=== PATIENT | male | born 1945 | race Caucasian/White ===

== ENCOUNTER 2016-02-19 09:00 | Outpatient (RCR) | payer MEDICARE, OTHER | END 2016-03-17 | LOC: M CR 09:00 | PROVIDERS: ATTEND Internal Medicine Cardiovascular Disease | DX: Z51.89 Encounter for other specified aftercare (principal); I51.9 Heart disease, unspecified; Z95.0 Presence of cardiac pacemaker ==

== ENCOUNTER → 2016-05-19 | Outpatient (CLI) | payer MEDICARE, OTHER ==
[2016-05-19 14:09] LABS: ALBUMIN 3.3 GM/DL (3.2-5.2); ALBUMIN/GLOBULIN RATIO 0.97 (1.00-1.93); BILIRUBIN,TOTAL 1.7 MG/DL (0.2-1.0); CALCIUM LEVEL 9.9 MG/DL (8.8-10.2); CREATININE FOR GFR 1.42 MG/DL (0.70-1.30); GLOMERULAR FILTRATION RATE 52.6 (>49); POTASSIUM SERUM 4.1 MEQ/L (3.5-5.1); TOTAL PROTEIN 6.7 GM/DL (6.4-8.2)
[2016-05-19 14:28] LABS: BASO % 0.4 % (0.0-1.0); EOS # 0.3 K/mm3 (0.0-0.50); LARGE UNSTAINED CELL # 0.1 K/mm3 (0.0-0.4); LARGE UNSTAINED CELL % 1.7 % (0.0-4.0); LYMPH # 1.1 K/mm3 (1.5-4.5); MEAN CORPUSCULAR HEMOGLOBIN 29.4 pg (27.0-33.0); MEAN CORPUSCULAR HGB CONC 31.6 g/dl (32.0-36.5); MEAN CORPUSCULAR VOLUME 92.9 fl (80.0-96.0); MONO # 0.5 K/mm3 (0.0-0.8); MONO % 8.2 % (0.0-5.0); NEUTROPHILS # 4.2 K/mm3 (1.8-7.7); NEUTROPHILS % 68.8 % (36.0-66.0); PLATELET COUNT, AUTOMATED 169 k/mm3 (150-450); RED CELL DISTRIBUTION WIDTH 16.4 % (11.5-14.5); WHITE BLOOD COUNT 6.1 K/mm3 (4.0-10.0)
== END ==
LOC: M WUC 10:12
PROVIDERS: ATTEND Internal Medicine Cardiovascular Disease
DX: I10 Essential (primary) hypertension (principal); I44.2 Atrioventricular block, complete; I50.42 Chronic combined systolic (congestive) and diastolic (congestive) heart failure

== ENCOUNTER → 2016-06-12 | Outpatient (CLI) | payer MEDICARE, OTHER ==
[2016-06-12 09:15] LABS: MEAN CORPUSCULAR HEMOGLOBIN 30.2 pg (27.0-33.0); MEAN CORPUSCULAR HGB CONC 32.4 g/dl (32.0-36.5); RED CELL DISTRIBUTION WIDTH 16.7 % (11.5-14.5); WHITE BLOOD COUNT 5.9 K/mm3 (4.0-10.0)
[2016-06-12 09:26] LABS: ALBUMIN 3.2 GM/DL (3.2-5.2); ALBUMIN/GLOBULIN RATIO 0.89 (1.00-1.93); BILIRUBIN,TOTAL 1.8 MG/DL (0.2-1.0); CALCIUM LEVEL 9.5 MG/DL (8.8-10.2); CREATININE FOR GFR 1.59 MG/DL (0.70-1.30); GLOMERULAR FILTRATION RATE 46.2 (>49); POTASSIUM SERUM 4.2 MEQ/L (3.5-5.1); TOTAL PROTEIN 6.8 GM/DL (6.4-8.2)
== END ==
LOC: M WUC 08:12
PROVIDERS: ATTEND Internal Medicine
DX: J45.909 Unspecified asthma, uncomplicated (principal); I10 Essential (primary) hypertension; E78.00 Pure hypercholesterolemia, unspecified

== ENCOUNTER → 2016-09-17 | Outpatient (CLI) | payer MEDICARE, OTHER ==
[2016-09-17 09:51] LABS: ALBUMIN 3.6 GM/DL (3.2-5.2); ALBUMIN/GLOBULIN RATIO 0.88 (1.00-1.93); BILIRUBIN,TOTAL 1.2 MG/DL (0.2-1.0); CALCIUM LEVEL 10.1 MG/DL (8.8-10.2); CREATININE FOR GFR 1.53 MG/DL (0.70-1.30); GLOMERULAR FILTRATION RATE 48.1 (>42); MAGNESIUM LEVEL 2.5 MG/DL (1.8-2.4); TOTAL PROTEIN 7.7 GM/DL (6.4-8.2)
== END ==
LOC: M WUC 08:06
PROVIDERS: ATTEND Internal Medicine
DX: I42.9 Cardiomyopathy, unspecified (principal)

== ENCOUNTER 2016-09-30 09:05 | Outpatient (RCR) | payer SELFPAY | END 2016-10-15 | LOC: M CARPUL 09:05 | PROVIDERS: ATTEND Internal Medicine Cardiovascular Disease | DX: Z51.89 Encounter for other specified aftercare (principal); Z95.0 Presence of cardiac pacemaker; Z98.890 Other specified postprocedural states ==

== ENCOUNTER → 2016-11-04 | Outpatient (CLI) | payer MEDICARE ==
[2016-11-04 15:49] LABS: CALCIUM LEVEL 10.6 MG/DL (8.8-10.2); CREATININE FOR GFR 2.16 MG/DL (0.70-1.30); GLOMERULAR FILTRATION RATE 32.3 (>42)
[2016-11-04 15:51] LABS: POTASSIUM SERUM 5.7 MEQ/L (3.5-5.1)
== END ==
LOC: M WUC 11:03
PROVIDERS: ATTEND Physician Assistant
DX: I50.42 Chronic combined systolic (congestive) and diastolic (congestive) heart failure (principal)

== ENCOUNTER → 2016-11-18 | Outpatient (CLI) | payer MEDICARE ==
[2016-11-18 09:22] LABS: CALCIUM LEVEL 10.4 MG/DL (8.8-10.2); CREATININE FOR GFR 2.16 MG/DL (0.70-1.30); GLOMERULAR FILTRATION RATE 32.3 (>42); POTASSIUM SERUM 4.9 MEQ/L (3.5-5.1)
== END ==
LOC: M WUC 08:11
PROVIDERS: ATTEND Internal Medicine Cardiovascular Disease
DX: I10 Essential (primary) hypertension (principal)

== ENCOUNTER → 2017-01-29 | Outpatient (CLI) | payer MEDICARE, OTHER ==
[2017-01-29 13:59] LABS: ALBUMIN 3.7 GM/DL (3.2-5.2); BILIRUBIN,DIRECT 0.5 MG/DL (0.0-0.2); BILIRUBIN,TOTAL 0.8 MG/DL (0.2-1.0); CALCIUM LEVEL 9.7 MG/DL (8.8-10.2); CREATININE FOR GFR 2.26 MG/DL (0.70-1.30); GLOMERULAR FILTRATION RATE 30.7 (>42); POTASSIUM SERUM 5.1 MEQ/L (3.5-5.1); TOTAL PROTEIN 7.4 GM/DL (6.4-8.2)
== END ==
LOC: M WUC 10:45
PROVIDERS: ATTEND Internal Medicine Cardiovascular Disease
DX: E78.2 Mixed hyperlipidemia (principal)

== ENCOUNTER 2017-03-15 11:00 | Day surgery (SDC) | payer MEDICARE, OTHER ==
[2017-03-15] MEDS ORDERED: NS 1,000 ML IV (12:45)
[2017-03-15] MEDS ORDERED: LIDOCAINE 2% INJ 100 MG/5 ML SDV (FOR ANES.) As Ordered (13:32)
[2017-03-15] MEDS ORDERED: PROPOFOL 200 MG/20 ML VIAL As Ordered ×2 (13:32)
== END 2017-03-15 14:05 | disposition home or self-care (01) ==
LOC: M OPP 11:00
DX: Z12.11 Encounter for screening for malignant neoplasm of colon (principal); Z86.010 Personal history of colon polyps; D12.2 Benign neoplasm of ascending colon; D12.3 Benign neoplasm of transverse colon; K64.0 First degree hemorrhoids; K57.30 Diverticulosis of large intestine without perforation or abscess without bleeding; K21.9 Gastro-esophageal reflux disease without esophagitis; Z79.899 Other long term (current) drug therapy
CPT/HCPCS: 45385

== ENCOUNTER → 2017-04-05 | Outpatient (REF) | payer MEDICARE, OTHER ==
[2017-04-05 12:15] LABS: ALBUMIN/GLOBULIN RATIO 1.18 (1.00-1.93); ALKALINE PHOSPHATASE 204 U/L (45-117); ALT/SGPT 40 U/L (12-78); ANION GAP 7 MEQ/L (8-16); AST/SGOT 30 U/L (7-37); BILIRUBIN,TOTAL 1.2 MG/DL (0.2-1.0); BLOOD UREA NITROGEN 41 MG/DL (7-18); CALCIUM LEVEL 9.7 MG/DL (8.8-10.2); CARBON DIOXIDE LEVEL 29 MEQ/L (21-32); CHLORIDE LEVEL 103 MEQ/L (98-107); CHOLESTEROL LEVEL 137 MG/DL (<200); CHOLESTEROL RISK RATIO 2.174 (<5); CREATININE FOR GFR 1.71 MG/DL (0.70-1.30); GLOMERULAR FILTRATION RATE 42.3 (>42); GLUCOSE, FASTING 97 MG/DL (70-100); HDL CHOLESTEROL 63 MG/DL (>40); MAGNESIUM LEVEL 2.6 MG/DL (1.8-2.4); NON-HDL-C 74 MG/DL; POTASSIUM SERUM 4.6 MEQ/L (3.5-5.1); SODIUM LEVEL 139 MEQ/L (136-145); TOTAL PROTEIN 7.4 GM/DL (6.4-8.2); TRIGLYCERIDES LEVEL 65 MG/DL (<150)
[2017-04-05 12:22] LABS: HEMATOCRIT 39.7 % (42.0-52.0); HEMOGLOBIN 13.1 g/dl (14.0-18.0); MEAN CORPUSCULAR HEMOGLOBIN 32.2 pg (27.0-33.0); MEAN CORPUSCULAR VOLUME 97.5 fl (80.0-96.0); PLATELET COUNT, AUTOMATED 161 10^3/uL (150-450); RED BLOOD COUNT 4.07 10^6/uL (4.30-6.10); RED CELL DISTRIBUTION WIDTH 14.6 % (11.5-14.5); WHITE BLOOD COUNT 5.8 10^3/uL (4.0-10.0)
[2017-04-05 13:34] LABS: PTH INTACT 82.8 PG/ML (18.5-88.0)
== END ==
LOC: M SFHCPLAZ 08:14
DX: G47.30 Sleep apnea, unspecified (principal); I10 Essential (primary) hypertension; E78.00 Pure hypercholesterolemia, unspecified; N18.3 Chronic kidney disease, stage 3 (moderate)
CPT/HCPCS: 83735

== ENCOUNTER → 2017-04-15 | Outpatient (CLI) | payer MEDICARE, OTHER ==
[2017-04-15 14:03] LABS: ALBUMIN 3.9 GM/DL (3.2-5.2); ALKALINE PHOSPHATASE 174 U/L (45-117); ALT/SGPT 35 U/L (12-78); ANION GAP 6 MEQ/L (8-16); AST/SGOT 24 U/L (7-37); BILIRUBIN,DIRECT 0.5 MG/DL (0.0-0.2); BILIRUBIN,TOTAL 0.9 MG/DL (0.2-1.0); BLOOD UREA NITROGEN 52 MG/DL (7-18); CALCIUM LEVEL 9.9 MG/DL (8.8-10.2); CARBON DIOXIDE LEVEL 29 MEQ/L (21-32); CHLORIDE LEVEL 104 MEQ/L (98-107); CREATININE FOR GFR 1.86 MG/DL (0.70-1.30); GLOMERULAR FILTRATION RATE 38.4 (>42); GLUCOSE, FASTING 102 MG/DL (70-100); SODIUM LEVEL 139 MEQ/L (136-145); TOTAL PROTEIN 6.9 GM/DL (6.4-8.2)
[2017-04-15 14:09] LABS: POTASSIUM SERUM 5.6 MEQ/L (3.5-5.1)
== END ==
LOC: M WUC 09:23
DX: E78.2 Mixed hyperlipidemia (principal)
CPT/HCPCS: 80076

== ENCOUNTER → 2017-05-12 | Outpatient (CLI) | payer MEDICARE, OTHER ==
[2017-05-12 11:28] LABS: ANION GAP 7 MEQ/L (8-16); BLOOD UREA NITROGEN 47 MG/DL (7-18); CARBON DIOXIDE LEVEL 28 MEQ/L (21-32); CHLORIDE LEVEL 105 MEQ/L (98-107); CREATININE FOR GFR 1.66 MG/DL (0.70-1.30); GLOMERULAR FILTRATION RATE 43.8 (>42); GLUCOSE, FASTING 91 MG/DL (70-100); POTASSIUM SERUM 4.7 MEQ/L (3.5-5.1); SODIUM LEVEL 140 MEQ/L (136-145)
== END ==
LOC: M WUC 10:09
DX: E78.2 Mixed hyperlipidemia (principal)
CPT/HCPCS: 80048

== ENCOUNTER → 2017-08-24 | Outpatient (REF) | payer MEDICARE, OTHER ==
[2017-08-24 11:16] LABS: ALBUMIN 4.2 GM/DL (3.2-5.2); ALBUMIN/GLOBULIN RATIO 1.14 (1.00-1.93); ALKALINE PHOSPHATASE 198 U/L (45-117); ALT/SGPT 43 U/L (12-78); ANION GAP 6 MEQ/L (8-16); AST/SGOT 32 U/L (7-37); BILIRUBIN,TOTAL 1.3 MG/DL (0.2-1.0); BLOOD UREA NITROGEN 70 MG/DL (7-18); CALCIUM LEVEL 10.3 MG/DL (8.8-10.2); CARBON DIOXIDE LEVEL 31 MEQ/L (21-32); CHLORIDE LEVEL 102 MEQ/L (98-107); CREATININE FOR GFR 2.36 MG/DL (0.70-1.30); GLOMERULAR FILTRATION RATE 29.2 (>42); GLUCOSE, FASTING 104 MG/DL (70-100); POTASSIUM SERUM 4.6 MEQ/L (3.5-5.1); SODIUM LEVEL 139 MEQ/L (136-145); TOTAL PROTEIN 7.9 GM/DL (6.4-8.2)
[2017-08-24 11:27] LABS: PTH INTACT 60.5 PG/ML (18.5-88.0)
== END ==
LOC: M SFHCPLAZ 08:52
DX: Z00.00 Encounter for general adult medical examination without abnormal findings (principal); I12.9 Hypertensive chronic kidney disease with stage 1 through stage 4 chronic kidney disease, or unspecified chronic kidney disease; N18.3 Chronic kidney disease, stage 3 (moderate)
CPT/HCPCS: 83735

== ENCOUNTER → 2017-08-30 | Outpatient (CLI) | payer MEDICARE, OTHER ==
[2017-08-30 13:47] LABS: ANION GAP 9 MEQ/L (8-16); BLOOD UREA NITROGEN 55 MG/DL (7-18); CALCIUM LEVEL 10.2 MG/DL (8.8-10.2); CARBON DIOXIDE LEVEL 24 MEQ/L (21-32); CHLORIDE LEVEL 106 MEQ/L (98-107); CREATININE FOR GFR 1.85 MG/DL (0.70-1.30); GLOMERULAR FILTRATION RATE 38.7 (>42); GLUCOSE, FASTING 98 MG/DL (70-100); SODIUM LEVEL 139 MEQ/L (136-145)
[2017-08-30 13:57] LABS: POTASSIUM SERUM 5.3 MEQ/L (3.5-5.1)
== END ==
LOC: M WUC 10:11
DX: I47.2 Ventricular tachycardia (principal); I50.42 Chronic combined systolic (congestive) and diastolic (congestive) heart failure; I42.0 Dilated cardiomyopathy
CPT/HCPCS: 80048

== ENCOUNTER → 2017-09-08 | Outpatient (CLI) | payer MEDICARE, OTHER ==
[2017-09-08 11:58] LABS: ANION GAP 6 MEQ/L (8-16); BLOOD UREA NITROGEN 56 MG/DL (7-18); CALCIUM LEVEL 10.3 MG/DL (8.8-10.2); CARBON DIOXIDE LEVEL 30 MEQ/L (21-32); CHLORIDE LEVEL 101 MEQ/L (98-107); CREATININE FOR GFR 2.03 MG/DL (0.70-1.30); GLOMERULAR FILTRATION RATE 34.7 (>42); GLUCOSE, FASTING 72 MG/DL (70-100); SODIUM LEVEL 137 MEQ/L (136-145)
[2017-09-08 12:01] LABS: POTASSIUM SERUM 5.2 MEQ/L (3.5-5.1)
== END ==
LOC: M WUC 09:43
DX: I50.42 Chronic combined systolic (congestive) and diastolic (congestive) heart failure (principal); I47.2 Ventricular tachycardia
CPT/HCPCS: 80048

== ENCOUNTER → 2017-10-08 | Outpatient (CLI) | payer MEDICARE, OTHER ==
[2017-10-08 16:47] LABS: ANION GAP 7 MEQ/L (8-16); BLOOD UREA NITROGEN 58 MG/DL (7-18); CALCIUM LEVEL 10.1 MG/DL (8.8-10.2); CARBON DIOXIDE LEVEL 29 MEQ/L (21-32); CHLORIDE LEVEL 105 MEQ/L (98-107); CREATININE FOR GFR 2.22 MG/DL (0.70-1.30); GLOMERULAR FILTRATION RATE 31.2 (>42); GLUCOSE, FASTING 103 MG/DL (70-100); POTASSIUM SERUM 4.9 MEQ/L (3.5-5.1); SODIUM LEVEL 141 MEQ/L (136-145)
== END ==
LOC: M WUC 12:10
DX: I50.42 Chronic combined systolic (congestive) and diastolic (congestive) heart failure (principal); I48.0 Paroxysmal atrial fibrillation
CPT/HCPCS: 80048

== ENCOUNTER → 2017-12-30 | Outpatient (REF) | payer MEDICARE, OTHER ==
[2017-12-30 12:39] LABS: HEMATOCRIT 44.4 % (42.0-52.0); HEMOGLOBIN 14.5 g/dl (13.5-17.5); MEAN CORPUSCULAR HEMOGLOBIN 32.4 pg (27.0-33.0); MEAN CORPUSCULAR HGB CONC 32.7 g/dl (32.0-36.5); MEAN CORPUSCULAR VOLUME 99.3 fl (80.0-96.0); PLATELET COUNT, AUTOMATED 139 10^3/uL (150-450); RED BLOOD COUNT 4.47 10^6/uL (4.30-6.10); RED CELL DISTRIBUTION WIDTH 13.9 % (11.5-14.5)
[2017-12-30 12:57] LABS: ALBUMIN/GLOBULIN RATIO 1.21 (1.00-1.93); ALKALINE PHOSPHATASE 161 U/L (45-117); ALT/SGPT 42 U/L (12-78); ANION GAP 4 MEQ/L (8-16); AST/SGOT 26 U/L (7-37); BILIRUBIN,TOTAL 1.1 MG/DL (0.2-1.0); BLOOD UREA NITROGEN 49 MG/DL (7-18); CALCIUM LEVEL 10.4 MG/DL (8.8-10.2); CARBON DIOXIDE LEVEL 33 MEQ/L (21-32); CHLORIDE LEVEL 102 MEQ/L (98-107); CHOLESTEROL LEVEL 152 MG/DL (<200); CHOLESTEROL RISK RATIO 2.867 (<5); CREATININE FOR GFR 2.22 MG/DL (0.70-1.30); GLOMERULAR FILTRATION RATE 31.2 (>42); GLUCOSE, FASTING 106 MG/DL (70-100); HDL CHOLESTEROL 53 MG/DL (>40); LDL CHOLESTEROL 80 MG/DL (<100); MAGNESIUM LEVEL 2.7 MG/DL (1.8-2.4); NON-HDL-C 99 MG/DL; SODIUM LEVEL 139 MEQ/L (136-145); TOTAL PROTEIN 7.3 GM/DL (6.4-8.2); TRIGLYCERIDES LEVEL 97 MG/DL (<150)
[2017-12-30 12:58] LABS: PTH INTACT 57.4 PG/ML (18.5-88.0)
== END ==
LOC: M SFHCPLAZ 08:41
DX: G47.30 Sleep apnea, unspecified (principal); E78.00 Pure hypercholesterolemia, unspecified; N18.3 Chronic kidney disease, stage 3 (moderate)
CPT/HCPCS: 83735

== ENCOUNTER → 2018-05-09 | Outpatient (REF) | payer MEDICARE, OTHER ==
[~2018-05-09] MED LIST: ASPI1TAB PO; ENTR1TAB PO; ENTR1TAB7 PO; LASI40TA9 PO; LEXA1TAB2 PO; METO1TAB32 PO; SPIR-10 PO; SYMB80INH INH
[2018-05-09 10:37] LABS: ALBUMIN 3.9 GM/DL (3.2-5.2); BILIRUBIN,TOTAL 0.9 MG/DL (0.2-1.0); CALCIUM LEVEL 10.3 MG/DL (8.8-10.2); CREATININE FOR GFR 2.04 MG/DL (0.70-1.30); GLOMERULAR FILTRATION RATE 34.4 (>42); MAGNESIUM LEVEL 2.7 MG/DL (1.8-2.4); TOTAL PROTEIN 7.5 GM/DL (6.4-8.2)
[2018-05-09 10:51] LABS: HEMOGLOBIN A1c 6.7 %; PTH INTACT 96.7 PG/ML (18.5-88.0)
== END ==
LOC: M SFHCPLAZ 08:02
PROVIDERS: ATTEND Internal Medicine
DX: I12.9 Hypertensive chronic kidney disease with stage 1 through stage 4 chronic kidney disease, or unspecified chronic kidney disease (principal); R73.01 Impaired fasting glucose; N18.3 Chronic kidney disease, stage 3 (moderate)

== ENCOUNTER → 2018-06-02 | Outpatient (CLI) | payer MEDICARE, OTHER ==
[~2018-06-02] MED LIST changes: -ASPI1TAB PO; +ASPI81TA26 PO
== END ==
LOC: M SMT 10:59
PROVIDERS: ATTEND Nurse Practitioner Family
DX: Z12.5 Encounter for screening for malignant neoplasm of prostate (principal); N40.0 Benign prostatic hyperplasia without lower urinary tract symptoms
CPT/HCPCS: 36415; 51798; 81001; 87086; G0103; G0463

== ENCOUNTER → 2018-06-02 | Outpatient (REF) | payer MEDICARE, OTHER ==
[2018-06-02 13:48] LABS: APPEARANCE, URINE CLEAR (CLEAR); BACTERIA, URINE AUTO NEGATIVE (NEGATIVE); BILIRUBIN, URINE AUTO NEGATIVE (NEGATIVE); BLOOD, URINE BLOOD NEGATIVE (NEGATIVE); COLOR, URINE YELLOW (YELLOW); GLUCOSE, URINE (UA) AUTO NEGATIVE (NEGATIVE); KETONE, URINE AUTO NEGATIVE (NEGATIVE); LEUKOCYTE ESTERASE, URINE AUTO NEGATIVE (NEGATIVE); MUCUS, URINE SMALL (NEGATIVE); NITRITE, URINE AUTO NEGATIVE (NEGATIVE); PROTEIN, URINE AUTO NEGATIVE (NEGATIVE); RBC, URINE AUTO 0 /HPF (0-3); SPECIFIC GRAVITY URINE AUTO 1.009 (1.002-1.035); SQUAMOUS EPITHELIAL CELL UR AU 0 /HPF (0-6); UROBILINOGEN, URINE AUTO 0.2 mg/dL (0.0-2.0); WBC, URINE AUTO 1 /HPF (0-3)
== END ==
LOC: M SMT 13:03
PROVIDERS: ATTEND Nurse Practitioner Family
DX: N40.0 Benign prostatic hyperplasia without lower urinary tract symptoms (principal)

== ENCOUNTER → 2018-06-07 | Outpatient (CLI) | payer MEDICARE, OTHER ==
--- NOTE | 2018-06-07 16:01 | REP ---
BLADDER ULTRASOUND: Real-time sonographic evaluation of the urinary bladder performed. Bladder measures 10.1 x 8.2 x 6.5 cm for a total volume of the 352 mL. There may be mild trabeculations of the bladder wall. No mass or calculus is seen. Postvoid residual is 22 mL which is 6% of the original volume. There are bilateral ureteral jets in the urinary bladder with Doppler color evaluation. Prostate measures 4.0 x 4.1 x 5.0 cm for a total volume of 43 mL. IMPRESSION: Mild trabeculation of the bladder wall without mass or calculus. Mild postvoid residual of 6%. Electronically Signed by Zachariah Seymour MD 06/08/2018 10:30 A
== END ==
LOC: M RAD 12:02
PROVIDERS: ATTEND Nurse Practitioner Family
DX: N40.0 Benign prostatic hyperplasia without lower urinary tract symptoms (principal)

== ENCOUNTER → 2018-09-14 | Outpatient (REF) | payer MEDICARE, OTHER ==
[2018-09-14 11:31] LABS: ALBUMIN 3.9 GM/DL (3.2-5.2); CALCIUM LEVEL 9.8 MG/DL (8.8-10.2); CHOLESTEROL RISK RATIO 2.614 (<5); CREATININE FOR GFR 2.19 MG/DL (0.70-1.30); GLOMERULAR FILTRATION RATE 31.6 (>42); MAGNESIUM LEVEL 2.7 MG/DL (1.8-2.4); POTASSIUM SERUM 4.8 MEQ/L (3.5-5.1); THYROID STIMULATING HORMONE 2.36 uIU/ML (0.358-3.740); TOTAL PROTEIN 7.5 GM/DL (6.4-8.2)
[2018-09-14 11:50] LABS: HEMOGLOBIN A1c 6.9 %
[2018-09-14 12:03] LABS: PTH INTACT 64.2 PG/ML (18.5-88.0)
[2018-09-14 12:04] LABS: FOLATE 14.5 NG/ML
== END ==
LOC: M SFHCPLAZ 07:49
PROVIDERS: ATTEND Internal Medicine
DX: Z12.5 Encounter for screening for malignant neoplasm of prostate (principal); I12.9 Hypertensive chronic kidney disease with stage 1 through stage 4 chronic kidney disease, or unspecified chronic kidney disease; R73.01 Impaired fasting glucose; E78.00 Pure hypercholesterolemia, unspecified; N18.3 Chronic kidney disease, stage 3 (moderate); G62.9 Polyneuropathy, unspecified
CPT/HCPCS: 36415; 80053; 80061; 82607; 82746; 83036; 83735; 83970; 84443; G0103

== ENCOUNTER → 2018-10-11 | Outpatient (REF) | payer MEDICARE, OTHER ==
[2018-10-11 10:08] LABS: BASO % 0.7 % (0.0-1.0); EOS # 0.2 10^3/uL (0.0-0.50); EOS % 2.9 % (0.0-3.0); HEMATOCRIT 45.7 % (42.0-52.0); HEMOGLOBIN 15.1 g/dl (13.5-17.5); LYMPH # 1.1 10^3/uL (1.5-4.5); LYMPH % 19.4 % (24.0-44.0); MEAN CORPUSCULAR HEMOGLOBIN 32.9 pg (27.0-33.0); MEAN CORPUSCULAR VOLUME 99.6 fl (80.0-96.0); MONO # 0.5 10^3/uL (0.0-0.8); MONO % 8.5 % (0.0-5.0); NEUTROPHILS # 3.9 10^3/uL (1.8-7.7); NEUTROPHILS % 67.6 % (36.0-66.0); PLATELET COUNT, AUTOMATED 153 10^3/uL (150-450); RED BLOOD COUNT 4.59 10^6/uL (4.30-6.10); WHITE BLOOD COUNT 5.8 10^3/uL (4.0-10.0)
[2018-10-11 10:19] LABS: ALBUMIN 3.7 GM/DL (3.2-5.2); CALCIUM LEVEL 10.3 MG/DL (8.8-10.2); CREATININE FOR GFR 1.83 MG/DL (0.70-1.30); FREE T4 0.93 NG/DL (0.76-1.46); GLOMERULAR FILTRATION RATE 38.9 (>42); MAGNESIUM LEVEL 2.6 MG/DL (1.8-2.4); POTASSIUM SERUM 4.9 MEQ/L (3.5-5.1); THYROID STIMULATING HORMONE 2.32 uIU/ML (0.358-3.740); TOTAL PROTEIN 7.4 GM/DL (6.4-8.2)
== END ==
LOC: M LABDRAWP 08:56
PROVIDERS: ATTEND Physician Assistant
DX: I48.0 Paroxysmal atrial fibrillation (principal); I47.2 Ventricular tachycardia; Z95.810 Presence of automatic (implantable) cardiac defibrillator

== ENCOUNTER → 2018-12-29 | Outpatient (REF) | payer MEDICARE, OTHER | LOC: M LAB REF 18:38 | PROVIDERS: ATTEND Dermatology | DX: D22.4 Melanocytic nevi of scalp and neck (principal); L72.0 Epidermal cyst | CPT/HCPCS: 11105; 11106; 88305; G0463 ==

== ENCOUNTER → 2019-01-02 | Outpatient (REF) | payer MEDICARE, OTHER ==
[2019-01-02 10:44] LABS: ALBUMIN 3.7 GM/DL (3.2-5.2); BILIRUBIN,TOTAL 1.1 MG/DL (0.2-1.0); CALCIUM LEVEL 10.5 MG/DL (8.8-10.2); CREATININE FOR GFR 1.92 MG/DL (0.70-1.30); GLOMERULAR FILTRATION RATE 36.8 (>42); HEMATOCRIT 45.5 % (42.0-52.0); HEMOGLOBIN 14.9 g/dl (13.5-17.5); MAGNESIUM LEVEL 2.5 MG/DL (1.8-2.4); MEAN CORPUSCULAR HEMOGLOBIN 33.1 pg (27.0-33.0); MEAN CORPUSCULAR HGB CONC 32.7 g/dl (32.0-36.5); MEAN CORPUSCULAR VOLUME 101.1 fl (80.0-96.0); PLATELET COUNT, AUTOMATED 132 10^3/uL (150-450); POTASSIUM SERUM 5.5 MEQ/L (3.5-5.1); TOTAL PROTEIN 7.3 GM/DL (6.4-8.2); WHITE BLOOD COUNT 6.2 10^3/uL (4.0-10.0)
[2019-01-02 10:55] LABS: PTH INTACT 63.6 PG/ML (18.5-88.0)
[2019-01-02 11:04] LABS: HEMOGLOBIN A1c 6.3 %
[2019-01-02 11:20] LABS: MALB URINE SIEMENS 58.3 MG/L; MAU/CREAT RATIO 40.4 MCG/MG (0.0-30.0)
== END ==
LOC: M SFHCPLAZ 07:41
PROVIDERS: ATTEND Internal Medicine
DX: J45.909 Unspecified asthma, uncomplicated (principal); I12.9 Hypertensive chronic kidney disease with stage 1 through stage 4 chronic kidney disease, or unspecified chronic kidney disease; R73.01 Impaired fasting glucose; N18.3 Chronic kidney disease, stage 3 (moderate)
CPT/HCPCS: 36415; 80053; 82043; 83036; 83735; 83970; 85027; G0103

== ENCOUNTER → 2019-10-03 | Outpatient (REF) | payer MEDICARE, OTHER, BC ==
[2019-11-20 21:57] LABS: BASO # 0.1 10^3/uL (0.0-0.2); BASO % 0.8 % (0.0-1.0); EOS # 0.4 10^3/uL (0.0-0.5); EOS % 5.9 % (0.0-3.0); HEMATOCRIT 44.7 % (42.0-52.0); HEMOGLOBIN 14.8 g/dl (13.5-17.5); LYMPH # 1.3 10^3/uL (1.5-5.0); LYMPH % 22.1 % (24.0-44.0); MEAN CORPUSCULAR HEMOGLOBIN 32.7 pg (27.0-33.0); MEAN CORPUSCULAR HGB CONC 33.1 g/dl (32.0-36.5); MEAN CORPUSCULAR VOLUME 98.9 fl (80.0-96.0); MONO # 0.6 10^3/uL (0.0-0.8); MONO % 9.6 % (0.0-5.0); NEUTROPHILS # 3.6 10^3/uL (1.5-8.5); NEUTROPHILS % 60.9 % (36.0-66.0); PLATELET COUNT, AUTOMATED 143 10^3/uL (150-450); RED BLOOD COUNT 4.52 10^6/uL (4.30-6.10)
[2019-11-27 04:17] LABS: ALBUMIN 3.9 GM/DL (3.2-5.2); BILIRUBIN,TOTAL 0.9 MG/DL (0.2-1.0); CALCIUM LEVEL 10.3 MG/DL (8.8-10.2); CHOLESTEROL RISK RATIO 2.625 (<5); CREATININE FOR GFR 1.98 MG/DL (0.70-1.30); GLOMERULAR FILTRATION RATE 35.4 (>42); HEMOGLOBIN A1c 6.2 %; TOTAL PROTEIN 7.6 GM/DL (6.4-8.2)
== END ==
LOC: M SFHCPLAZ 11:55
PROVIDERS: ATTEND Internal Medicine
DX: I12.9 Hypertensive chronic kidney disease with stage 1 through stage 4 chronic kidney disease, or unspecified chronic kidney disease (principal); I42.9 Cardiomyopathy, unspecified; N18.3 Chronic kidney disease, stage 3 (moderate); R73.01 Impaired fasting glucose; E78.00 Pure hypercholesterolemia, unspecified

== ENCOUNTER → 2020-02-14 | Outpatient (REF) | payer MEDICARE, BC ==
[2020-02-14 10:55] LABS: BASO % 0.5 % (0.0-1.0); EOS # 0.1 10^3/uL (0.0-0.5); EOS % 2.4 % (0.0-3.0); HEMATOCRIT 46.6 % (42.0-52.0); HEMOGLOBIN 15.4 g/dl (13.5-17.5); LYMPH # 1.4 10^3/uL (1.5-5.0); LYMPH % 23.4 % (24.0-44.0); MEAN CORPUSCULAR HEMOGLOBIN 32.8 pg (27.0-33.0); MEAN CORPUSCULAR VOLUME 99.1 fl (80.0-96.0); MONO # 0.6 10^3/uL (0.0-0.8); MONO % 10.7 % (0.0-5.0); NEUTROPHILS # 3.6 10^3/uL (1.5-8.5); NEUTROPHILS % 62.7 % (36.0-66.0); PLATELET COUNT, AUTOMATED 132 10^3/uL (150-450); WHITE BLOOD COUNT 5.8 10^3/uL (4.0-10.0)
[2020-02-14 11:26] LABS: HEMOGLOBIN A1c 6.1 %
[2020-02-14 11:28] LABS: ALBUMIN 3.8 GM/DL (3.2-5.2); BILIRUBIN,TOTAL 1.2 MG/DL (0.2-1.0); CALCIUM LEVEL 10.7 MG/DL (8.8-10.2); CREATININE FOR GFR 1.91 MG/DL (0.70-1.30); MAGNESIUM LEVEL 2.5 MG/DL (1.8-2.4); POTASSIUM SERUM 4.9 MEQ/L (3.5-5.1); TOTAL PROTEIN 7.3 GM/DL (6.4-8.2)
[2020-02-14 11:35] LABS: PTH INTACT 53.4 PG/ML (18.5-88.0)
[2020-02-14 11:37] LABS: MALB URINE SIEMENS 58.9 MG/L; MAU/CREAT RATIO 44.2 MCG/MG (0.0-30.0)
== END ==
LOC: M SFHCPLAZ 08:15
PROVIDERS: ATTEND Internal Medicine
DX: I12.9 Hypertensive chronic kidney disease with stage 1 through stage 4 chronic kidney disease, or unspecified chronic kidney disease (principal); N18.30 Chronic kidney disease, stage 3 unspecified; R73.01 Impaired fasting glucose

== ENCOUNTER → 2020-02-28 | Outpatient (REF) | payer MEDICARE, BC | LOC: M LABSMT 11:12 | PROVIDERS: ATTEND Nurse Practitioner Family | DX: Z12.5 Encounter for screening for malignant neoplasm of prostate (principal) | CPT/HCPCS: 51798; G0103; G0463 ==

== ENCOUNTER → 2020-03-20 | Outpatient (REF) | payer MEDICARE, BC | LOC: M SFHCPLAZ 13:27 | PROVIDERS: ATTEND Internal Medicine | DX: M71.122 Other infective bursitis, left elbow (principal) | CPT/HCPCS: 20605; 87070; 87077; G0463 ==

== ENCOUNTER → 2020-06-17 | Outpatient (REF) | payer MEDICARE, BC ==
[2020-06-17 13:18] LABS: BASO % 0.7 % (0.0-1.0); EOS # 0.1 10^3/uL (0.0-0.5); EOS % 2.2 % (0.0-3.0); HEMATOCRIT 46.3 % (42.0-52.0); HEMOGLOBIN 15.1 g/dl (13.5-17.5); LYMPH # 1.1 10^3/uL (1.5-5.0); LYMPH % 18.4 % (24.0-44.0); MEAN CORPUSCULAR HGB CONC 32.6 g/dl (32.0-36.5); MEAN CORPUSCULAR VOLUME 101.3 fl (80.0-96.0); MONO # 0.6 10^3/uL (0.0-0.8); MONO % 9.8 % (2.0-8.0); NEUTROPHILS # 4.1 10^3/uL (1.5-8.5); NEUTROPHILS % 68.1 % (36.0-66.0); PLATELET COUNT, AUTOMATED 131 10^3/uL (150-450); RED BLOOD COUNT 4.57 10^6/uL (4.30-6.10)
[2020-06-17 14:55] LABS: ALBUMIN 3.9 GM/DL (3.2-5.2); ALT/SGPT 36 U/L (12-78); BILIRUBIN,TOTAL 1.5 MG/DL (0.2-1.0); BLOOD UREA NITROGEN 39 MG/DL (7-18); CALCIUM LEVEL 10.5 MG/DL (8.8-10.2); CARBON DIOXIDE LEVEL 30 MEQ/L (21-32); CHLORIDE LEVEL 106 MEQ/L (98-107); CHOLESTEROL LEVEL 140 MG/DL (<200); CHOLESTEROL RISK RATIO 2.258 (<5); CREATININE FOR GFR 1.88 MG/DL (0.70-1.30); GLOMERULAR FILTRATION RATE 37.6 (>42); GLUCOSE, FASTING 94 MG/DL (70-100); HDL CHOLESTEROL 62 MG/DL (>40); HEPATITIS B SURFACE ANTIBODY NEGATIVE (POSITIVE); LDL CHOLESTEROL 64 MG/DL (<100); MAGNESIUM LEVEL 2.4 MG/DL (1.8-2.4); NON-HDL-C 78 MG/DL; POTASSIUM SERUM 5.3 MEQ/L (3.5-5.1); PTH INTACT 91.7 PG/ML (18.5-88.0); SODIUM LEVEL 140 MEQ/L (136-145); TOTAL PROTEIN 7.4 GM/DL (6.4-8.2); TRIGLYCERIDES LEVEL 68 MG/DL (<150)
[2020-06-17 15:06] LABS: HEPATITIS B SURFACE ANTIGEN NEGATIVE (NEGATIVE)
[2020-06-17 18:39] LABS: HEMOGLOBIN A1c 5.8 %
== END ==
LOC: M SFHCPLAZ 10:13
PROVIDERS: ATTEND Internal Medicine
DX: I12.9 Hypertensive chronic kidney disease with stage 1 through stage 4 chronic kidney disease, or unspecified chronic kidney disease (principal); N18.30 Chronic kidney disease, stage 3 unspecified; R73.01 Impaired fasting glucose; J45.909 Unspecified asthma, uncomplicated; E78.00 Pure hypercholesterolemia, unspecified; R74.8 Abnormal levels of other serum enzymes
CPT/HCPCS: 36415; 80053; 80061; 83036; 83735; 83970; 85025; 86706; 87340; G0463; G0472

== ENCOUNTER → 2020-09-06 | Outpatient (REF) | payer MEDICARE, BC ==
[~2020-09-06] MED LIST changes: +ACET-683 PO; +ALBU8.5H INH; +ALDA25TA2 PO; +ALFU10TA3 PO; +ALLO100T PO; +ALRE0.5S OU; +COLA100C5 PO; +COMBAER6 INH; +FERR32TA PO; +LIDO5TD TD; +METO1TAB87 PO; +MIDO5TA PO; +MONT10TA97 PO; +MUSCCRE9 TOP; +OXYB-54 PO; +PANT40TA29 PO; +PRED5TA PO; +RISATAB3 PO; +TERA5CAP3 PO; +TORS20TA2 PO
[2020-09-06 13:33] LABS: APPEARANCE, URINE CLEAR (CLEAR); BACTERIA, URINE AUTO NEGATIVE (NEGATIVE); BILIRUBIN, URINE AUTO NEGATIVE (NEGATIVE); BLOOD, URINE BLOOD NEGATIVE (NEGATIVE); COLOR, URINE YELLOW (YELLOW); GLUCOSE, URINE (UA) AUTO NEGATIVE (NEGATIVE); KETONE, URINE AUTO NEGATIVE (NEGATIVE); LEUKOCYTE ESTERASE, URINE AUTO NEGATIVE (NEGATIVE); MUCUS, URINE SMALL (NEGATIVE); NITRITE, URINE AUTO NEGATIVE (NEGATIVE); PROTEIN, URINE AUTO NEGATIVE (NEGATIVE); RBC, URINE AUTO 1 /HPF (0-3); SPECIFIC GRAVITY URINE AUTO 1.009 (1.002-1.035); SQUAMOUS EPITHELIAL CELL UR AU 0 /HPF (0-6); UROBILINOGEN, URINE AUTO 0.2 mg/dL (0.0-2.0); WBC, URINE AUTO 0 /HPF (0-3)
== END ==
LOC: M SMT 12:58
PROVIDERS: ATTEND Nurse Practitioner Family
DX: N40.0 Benign prostatic hyperplasia without lower urinary tract symptoms (principal)
CPT/HCPCS: 51798; 81001; 87086; G0463

== ENCOUNTER → 2020-09-25 | Outpatient (REF) | payer MEDICARE, BC ==
[~2020-09-25] MED LIST changes: -ACET-683 PO; -ALBU8.5H INH; -ALDA25TA2 PO; -ALFU10TA3 PO; -ALLO100T PO; -ALRE0.5S OU; -COLA100C5 PO; -COMBAER6 INH; -FERR32TA PO; -LIDO5TD TD; -METO1TAB87 PO; -MIDO5TA PO; -MONT10TA97 PO; -MUSCCRE9 TOP; -OXYB-54 PO; -PANT40TA29 PO; -PRED5TA PO; -RISATAB3 PO; -TERA5CAP3 PO; -TORS20TA2 PO
[2020-09-25 18:07] LABS: CRYSTALS, BODY FLUID URIC ACID (NONE SEEN)
[2020-09-25 18:38] LABS: SOURCE, BODY FLUID OTHER
[2020-09-25 18:39] LABS: SYNOVIAL FLUID COLOR YELLOW (COLORLESS)
[2020-09-26 12:18] LABS: BODY FLUID RHEUMATOID SCREEN NEGATIVE (NEGATIVE); MUCIN CLOT TEST 4+ (4+)
== END ==
LOC: M LAB REF 16:39
PROVIDERS: ATTEND Physician Assistant
DX: M17.12 Unilateral primary osteoarthritis, left knee (principal); M25.562 Pain in left knee

== ENCOUNTER → 2020-09-26 | Outpatient (CLI) | payer MEDICARE, BC ==
[2020-09-26 11:43] LABS: BASO % 0.5 % (0.0-1.0); EOS # 0.1 10^3/uL (0.0-0.5); EOS % 2.1 % (0.0-3.0); HEMATOCRIT 41.1 % (42.0-52.0); HEMOGLOBIN 13.7 g/dl (13.5-17.5); LYMPH # 0.9 10^3/uL (1.5-5.0); LYMPH % 15.4 % (24.0-44.0); MEAN CORPUSCULAR HGB CONC 33.3 g/dl (32.0-36.5); MONO # 0.7 10^3/uL (0.0-0.8); MONO % 10.7 % (2.0-8.0); NEUTROPHILS # 4.3 10^3/uL (1.5-8.5); NEUTROPHILS % 70.6 % (36.0-66.0); PLATELET COUNT, AUTOMATED 134 10^3/uL (150-450); RED BLOOD COUNT 4.15 10^6/uL (4.30-6.10); WHITE BLOOD COUNT 6.1 10^3/uL (4.0-10.0)
[2020-09-26 12:31] LABS: ERYTHROCYTE SEDIMENTATION RATE 23 mm/hr (0-20)
[2020-09-27 16:08] LABS: Lyme Disease IgG/IgM Antibodie <0.91 ISR (0.00-0.90); Lyme Disease IgM Ab Quantitati <0.80 index (0.00-0.79)
== END ==
LOC: M PLALAB 08:29
PROVIDERS: ATTEND Physician Assistant
DX: M25.562 Pain in left knee (principal); M17.12 Unilateral primary osteoarthritis, left knee

== ENCOUNTER → 2020-10-04 | Outpatient (CLI) | payer MEDICARE, BC ==
[2020-10-04 11:00] LABS: HEMOGLOBIN A1c 6.1 %
[2020-10-04 11:18] LABS: ALBUMIN 3.3 GM/DL (3.2-5.2); BILIRUBIN,TOTAL 0.8 MG/DL (0.2-1.0); CREATININE FOR GFR 1.66 MG/DL (0.70-1.30); GLOMERULAR FILTRATION RATE 43.3 (>42); MAGNESIUM LEVEL 2.7 MG/DL (1.8-2.4); POTASSIUM SERUM 4.8 MEQ/L (3.5-5.1); TOTAL PROTEIN 7.2 GM/DL (6.4-8.2)
[2020-10-04 11:27] LABS: PTH INTACT 85.4 PG/ML (18.5-88.0)
== END ==
LOC: M PLALAB 08:25
PROVIDERS: ATTEND Internal Medicine
DX: I12.9 Hypertensive chronic kidney disease with stage 1 through stage 4 chronic kidney disease, or unspecified chronic kidney disease (principal); N18.30 Chronic kidney disease, stage 3 unspecified; R73.01 Impaired fasting glucose

== ENCOUNTER → 2020-10-09 | Outpatient (CLI) | payer MEDICARE, BC ==
[2020-10-09 11:25] LABS: ALBUMIN 3.5 GM/DL (3.2-5.2); BILIRUBIN,DIRECT 0.7 MG/DL (0.0-0.2); BILIRUBIN,TOTAL 1.2 MG/DL (0.2-1.0); TOTAL PROTEIN 7.4 GM/DL (6.4-8.2); URIC ACID 8.6 MG/DL (3.5-7.2)
== END ==
LOC: M PLALAB 08:29
PROVIDERS: ATTEND Internal Medicine
DX: R74.8 Abnormal levels of other serum enzymes (principal)

== ENCOUNTER 2020-11-29 11:26 | Inpatient (IN) | payer MEDICARE, BC ==
[~2020-11-29] VITALS: Ht 177.8 cm; Wt 99.4 kg
[2020-11-29] MEDS ORDERED: RAMELTEON 8 MG TAB (ROZEREM) PO PRN (16:40)
[2020-11-29] MEDS ORDERED: ONDANSETRON 4 MG TAB PO PRN (16:40)
[2020-11-29] MEDS ORDERED: ALBUTEROL 90 MCG/ACT 8GM HFA INHALER INH PRN (16:40)
--- OUTSIDE RECORDS SUMMARY | 2020-11-29 18:12 | CCD | Continuity of Care Document ---
Author Author Gerald COTO MD Organization Unknown Address [address], [address] [place] [address] Phone [phone] Problems Active Problems Provider Date Cardiac pacemaker in situ Mathew Mina MD Onset: 013 Hyperlipidemia Mathew Mina MD Onset: 06/03/2012 Complete atrioventricular block Radha Bright PA Onset: 0 03/16/2012 Essential hypertension Radha Bright PA Onset: 03/16/2012 Social History Type Date Description Comments Sex Unknown Tobacco Use Reviewed: 12/22/18 Patient has never smoked Smoking Status Reviewed: 12/22/18 Patient has never smoked Allergies and adverse reactions Description No Known Drug Allergies Medications Active Medications SIG Qnty Indications Ordering Provide r Date Entresto 24-26mg Tablets Take One Tablet By Mouth Twice A Day (In Addition To 49/51MG Tablet Twice A Day) 180taelias Mina MD 12/04/2019 Metoprolol Succinate ER 25mg Tablets ER 24HR Take One Tablet By Mouth Every Day 90tabs Mathew Mina MD 01/07/2019 Demadex 20mg Tablets 1 tablet orally every day 225tabs Mathew Mina MD 06/08/2017 Entresto 49-51mg Tablets Take One Tablet By Mouth Twice A Day (In Addition To 24/26MG Tablet Twice A Day) 180taelias Mina MD 09/14/2016 Alrex 0.2% Suspension 1 drop bid prn Unknown Aspirin 81mg Tablets DR 1 by mouth every day Unknown Lexapro 20mg Tablets 1 by mouth every day Unknown Proventil HFA 108(90Base) mcg/Act Aerosol 2 puffs four times a day needed Unknown Flonase 50mcg/Act Suspension 2 sprays each nostril twice a day prn Unknown Melatonin ER 3mg Tablets ER 1 tablet by mouth AT bedtime needed Unknown Flomax 0.4mg Capsules 1 by mouth every day Unknown Immunizations Description No Information Available Vital Signs Date Vital Result Comment 07/18/2020 10:47am Height 70 inches 5'10" Weight 210.00 lb BMI (Body Mass Index) 30.1 kg/m2 BP Systolic Left Arm 98 mmHg BP Diastolic Left Arm 62 mmHg Heart Rate 62 /min 12/29/2019 3:32pm Height 70 inches 5'10" Weight 211.00 lb BMI (Body Mass Index) 30.3 kg/m2 BP Systolic Left Arm 106 mmHg BP Diastolic Left Arm 70 mmHg Heart Rate 64 /min Results Test Acquired Date Facility Test Result H/L Range Note Liver Profile 10/09/2020 [facility] nter [address] [place] [address] [phone] Ast/Sgot 30 U/L Normal 7-37 Alt/SGPT 69 U/L Normal 12-78 Alkaline Phosphatase 257 U/L High 45-117 Bilirubin,Total 1.2 mg/dL High 0.2-1.0 Bilirubin,Direct 0.7 mg/dL High 0.0-0.2 Total Protein 7.4 GM/DL Normal 6.4-8.2 Albumin 3.5 GM/DL Normal 3.2-5.2 Albumin/Globulin Ratio 0.9 Normal Laboratory test finding 10/09/2020 [facility] [address] [place] [address] [phone] Uric Acid 8.6 mg/dL High 3.5-7.2 Procedures Date Code Description Status 11/25/2020 19796 Hospital Subsequent Care Level 2 Completed 11/24/2020 75226 Hospital Subsequent Care Level 2 Completed 11/20/2020 80941 Hospital Subsequent Care Level 3 Completed 11/17/2020 50907 Hospital Initial Care Level 1 Co mpleted 07/18/2020 87914 Office/Outpatient Established Mo d MDM 30-39 Min Completed 07/18/2020 49646 Echocardiography, Tranthoracic R eal-Time Image Documentation Completed 07/18/2020 05280 Implant Cardiovascular Monitorin g System Completed 07/18/2020 96280 Multiple Lead Impantable Cardiov erter-Defibrillator Completed Medical Devices Description No Information Available Encounters Type Date Location Provider Dx Diagnosis Office Visit 11/25/2020 2:14a [facility] Cas goode MD I50.22 Chronic systolic (congestive) heart fail ure N17.9 Acute kidney failure, unspec ified N18.9 Chronic kidney disease, unsp ecified 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, unspecified I42.0 Dilated cardiomyopathy Z95.2 Presence of prosthetic heart valve Z95.810 Presence of automatic (impla ntable) cardiac defibrillator Office Visit 11/24/2020 3:33a [facility] Lenard hogue MD I50.22 Chronic systolic (congestive) heart fail ure N17.9 Acute kidney failure, unspec ified N18.9 Chronic kidney disease, unsp ecified 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 S72.001A Fracture of unsp part of nec k of right femur, init Z95.2 Presence of prosthetic heart valve Office Visit 11/20/2020 2:15a [facility] Cas goode MD I50.22 Chronic systolic (congestive) heart fail ure N17.9 Acute kidney failure, unspec ified N18.9 Chronic kidney disease, unsp ecified I42.0 Dilated cardiomyopathy 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 I27.20 Pulmonary hypertension, unsp ecified S72.001A Fracture of unsp part of nec k of right femur, init W10.9xxA Fall (on) (from) unspecified stairs and steps, init encntr Z95.2 Presence of prosthetic heart valve Office Visit 11/17/2020 7:52a [facility] Cassabiha goode MD Z01.810 Encounter for preprocedural cardiovascul ar examination S72.001A Fracture of unsp part of nec k of right femur, init I50.22 Chronic systolic (congestive ) heart failure 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 I13.0 Hyp hrt & chr kdny dis w hrt fail and stg 1-4/unsp chr kdny Assessments Date Code Description Provider 11/25/2020 I50.22 Chronic systolic (congestive) he art failure Cas Wolf MD 11/25/2020 N17.9 Acute kidney failure, unspecifie d Cas Wolf MD 11/25/2020 N18.9 Chronic kidney disease, unspecif ied Cas Wolf MD 11/25/2020 I07.9 Rheumatic tricuspid valve diseas e, unspecified Cas Wolf MD 11/25/2020 I42.0 Dilated cardiomyopathy Cas Wolf MD 11/25/2020 Z95.2 Presence of prosthetic heart sukhdeep ve Cas Wolf MD 11/25/2020 Z95.810 Presence of automatic (implantab le) cardiac defibrillator Cas Wolf MD 11/24/2020 I50.22 Chronic systolic (congestive) he art failure Lenard Coto MD 11/24/2020 N17.9 Acute kidney failure, unspecifie d Lenard Coto MD 11/24/2020 N18.9 Chronic kidney disease, unspecif ied Lenard Coto MD 11/24/2020 I07.1 Rheumatic tricuspid insufficienc y Lenard Coto MD 11/24/2020 S72.001A Fracture of unspecif ied part of neck of right femur, initial encounter for closed fracture Lenard Coto MD 11/24/2020 Z95.2 Presence of prosthetic heart sukhdeep ve Lenard Coto MD 11/20/2020 I50.22 Chronic systolic (congestive) he art failure Cas Wolf MD 11/20/2020 N17.9 Acute kidney failure, unspecifie d Cas Wolf MD 11/20/2020 N18.9 Chronic kidney disease, unspecif ied Cas Wolf MD 11/20/2020 I42.0 Dilated cardiomyopathy Cas Wolf MD 11/20/2020 I07.1 Rheumatic tricuspid insufficienc y Cas Wolf MD 11/20/2020 I27.20 Pulmonary hypertension, unspecif ied Cas Wolf MD 11/20/2020 S72.001A Fracture of unspecif ied part of neck of right femur, initial encounter for closed fracture Cas Wolf MD 11/20/2020 W10.9xxA Fall (on) (from) uns pecified stairs and steps, initial encounter Cas Wolf MD 11/20/2020 Z95.2 Presence of prosthetic heart sukhdeep ve Cas Wolf MD 11/17/2020 Z01.810 Encounter for preprocedural card iovascular examination Cas Wolf MD 11/17/2020 S72.001A Fracture of unspecif ied part of neck of right femur, initial encounter for closed fracture Cas Wolf MD 11/17/2020 I50.22 Chronic systolic (congestive) he art failure Cas Wolf MD 11/17/2020 I07.1 Rheumatic tricuspid insufficienc y Cas Wolf MD 11/17/2020 I42.0 Dilated cardiomyopathy Cas Wolf MD 11/17/2020 N18.9 Chronic kidney disease, unspecif ied Cas Wolf MD 11/17/2020 W10.9xxA Fall (on) (from) uns pecified stairs and steps, initial encounter Cas Wolf MD 11/17/2020 Z95.2 Presence of prosthetic heart sukhdeep ve Cas Wolf MD 07/18/2020 I47.2 Ventricular tachycardia Device C hecks 07/18/2020 I50.42 Chronic combined sys tolic (congestive) and diastolic (congestive) heart failure Mathew Mina MD 07/18/2020 I47.2 Ventricular tachycardia Mathew cyr MD 07/18/2020 I42.0 Dilated cardiomyopathy Mathew odom MD 07/18/2020 I27.20 Pulmonary hypertension, unspecif ied Mathew Mina MD 07/18/2020 I50.42 Chronic combined sys tolic (congestive) and diastolic (congestive) heart failure Device Checks 07/18/2020 I48.0 Paroxysmal atrial fibrillation Georgette Mina MD 07/18/2020 E78.2 Mixed hyperlipidemia Mathew Mina MD 07/18/2020 N18.30 Chronic kidney disease, stage 3 unspecified Mathew Mina MD 07/18/2020 I49.3 Ventricular premature depolariza tion Mathew Mina MD 07/18/2020 I42.0 Dilated cardiomyopathy Device Ch ecks 07/18/2020 Z95.810 Presence of automatic (implantab le) cardiac defibrillator Mathew Mina MD 07/18/2020 Z95.2 Presence of prosthetic heart sukhdeep ve Mathew Mina MD 07/18/2020 Z79.82 [facility] (current) use of aspir in Mathew Mina MD 07/18/2020 I13.0 Hypertensive heart a nd chronic kidney disease with heart failure and stage 1 through stage 4 chronic kidney disease, or unspecified chronic kidney disease Mathew iMna MD 07/18/2020 Z95.810 Presence of automatic (implantab le) cardiac defibrillator Device Checks Plan of Treatment Future Appointment(s):* 12/23/2020 2:15 pm - Device Checks at [facility] [address] Cardiology AT [facility] * 12/23/2020 2:00 pm - Testing at [facility] Cardiology AT [facility] * 12/23/2020 2:15 pm - Mathew Mina MD at [facility] Cardiology AT [facility] 07/18/2020 - Mathew Mina MD* I50.42 Chronic combined systolic (congestive) and diastolic (congestive) heart failure * I47.2 Ventricular tachycardia * I42.0 Dilated cardiomyopathy * I27.20 Pulmonary hypertension, unspecified * I48.0 Paroxysmal atrial fibrillation * E78.2 Mixed hyperlipidemia * N18.30 Chronic kidney disease, stage 3 unspecified * I49.3 Ventricular premature depolarization * Z95.810 Presence of automatic (implantable) cardiac defibrillator * Z95.2 Presence of prosthetic heart valve * Z79.82 [facility] (current) use of aspirin * 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
--- OUTSIDE RECORDS SUMMARY | 2020-11-29 18:12 | CCD | Continuity of Care Document ---
Author Author Gerald WOLF M.D. Organization Unknown Address [address], [address] [place] [address] Phone [phone] Problems Active Problems Provider Date Cardiac pacemaker [...] each nostril twice a day prn Unknown 00 Melatonin ER 3mg Tablets ER 1 tablet [...] Result H/L Range Note Liver Profile 10/09/2020 [facility] nter [address] [place] [address] [phone] Ast/Sgot 30 U/L Normal 7-37 Alt/SGPT 69 U/L Normal 12-78 Alkaline Phosphatase 257 U/L High 45-117 Bilirubin,Total 1.2 mg/dL High 0.2-1.0 Bilirubin,Direct 0.7 mg/dL High 0.0-0.2 Total Protein 7.4 GM/DL Normal 6.4-8.2 Albumin 3.5 GM/DL Normal 3.2-5.2 Albumin/Globulin Ratio 0.9 Normal Laboratory test finding 10/09/2020 [facility] [address] [place] [address] [phone] Uric Acid 8.6 mg/dL High 3.5-7.2 Procedures Date Code Description Status 11/25/2020 30936 Hospital Subsequent Care Level 2 Completed 11/24/2020 95235 Hospital Subsequent Care Level 2 Completed 11/20/2020 33973 Hospital Subsequent Care Level 3 Completed 11/17/2020 89072 Hospital Initial Care Level 1 Co mpleted 07/18/2020 37152 Office/Outpatient Established Mo d MDM 30-39 Min Completed 07/18/2020 06824 Echocardiography, Tranthoracic R eal-Time Image Documentation Completed 07/18/2020 95814 Implant Cardiovascular Monitorin g System Completed 07/18/2020 22003 Multiple Lead Impantable Cardiov erter-Defibrillator Completed Medical Devices Description No Information Available Encounters Type Date Location Provider Dx Diagnosis Office Visit 11/25/2020 2:14a [facility] Cas goode MD I50.22 Chronic systolic (congestive) heart fail ure N17.9 Acute kidney failure, unspec ified N18.9 Chronic kidney disease, unsp ecified 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, unspecified I42.0 Dilated cardiomyopathy Z95.2 Presence of prosthetic heart valve Z95.810 Presence of automatic (impla ntable) cardiac defibrillator Office Visit 11/24/2020 3:33a [facility] Lenard hogue MD I50.22 Chronic systolic (congestive) heart fail ure N17.9 Acute kidney failure, unspec ified N18.9 Chronic kidney disease, unsp ecified 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 I13.0 Hyp [...] femur, initial encounter for closed fracture Lenard Ctoo MD 11/24/2020 Z95.2 Presence of prosthetic heart [...] sukhdeep ve Mathew Mina MD 07/18/2020 Z79.82 group home (current) use of aspir in Mathew Mina MD 07/18/2020 I13.0 Hypertensive heart a nd chronic kidney disease with heart failure and stage 1 through stage 4 chronic kidney disease, or unspecified chronic kidney disease Mathew Mina MD 07/18/2020 Z95.810 Presence of automatic (implantab le) cardiac defibrillator Device Checks Plan of Treatment Future Appointment(s):* 12/23/2020 2:15 pm - Device Checks at [facility] Cardiology AT [facility] * 12/23/2020 2:00 pm - Testing at [facility] Cardiology AT [facility] * 12/23/2020 2:15 pm - Mathew Mina MD at [facility] Cardiology AT [facility] 07/18/2020 - Mathew Mina MD* I50.42 Chronic [...] Presence of prosthetic heart valve * Z79.82 group home (current) use of aspirin * 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
--- OUTSIDE RECORDS SUMMARY | 2020-11-29 18:12 | CCD | Continuity of Care Document ---
Author Author Gerald WOLF M.D. Organization Unknown Address [address], [address] [place] [address] Phone [phone] Problems Active Problems Provider Date Cardiac pacemaker [...] Result H/L Range Note Liver Profile 10/09/2020 [facility] nter [address] [place] [address] [phone] Ast/Sgot 30 U/L Normal 7-37 Alt/SGPT 69 U/L Normal 12-78 Alkaline Phosphatase 257 U/L High 45-117 Bilirubin,Total 1.2 mg/dL High 0.2-1.0 Bilirubin,Direct 0.7 mg/dL High 0.0-0.2 Total Protein 7.4 GM/DL Normal 6.4-8.2 Albumin 3.5 GM/DL Normal 3.2-5.2 Albumin/Globulin Ratio 0.9 Normal Laboratory test finding 10/09/2020 [facility] [address] [place] [address] [phone] Uric Acid 8.6 mg/dL High 3.5-7.2 Procedures Date Code Description Status 11/20/2020 82000 Hospital Subsequent Care Level 3 Completed 11/17/2020 83514 Hospital Initial Care Level 1 Co mpleted 07/18/2020 99578 Office/Outpatient Established Mo d MDM 30-39 Min Completed 07/18/2020 42735 Echocardiography, Tranthoracic R eal-Time Image Documentation Completed 07/18/2020 14643 Implant Cardiovascular Monitorin g System Completed 07/18/2020 08020 Multiple Lead Impantable Cardiov erter-Defibrillator Completed Medical Devices Description No Information Available Encounters Type Date Location Provider Dx Diagnosis Office Visit 11/20/2020 2:15a [facility] Cardiology [facility] Cas goode MD I50.22 Chronic systolic [...] prosthetic heart valve Office Visit 11/17/2020 7:52a [facility] Cardiology [facility] Cas goode MD Z01.810 Encounter for preprocedural cardiovascul ar examination S72.001A Fracture of unsp part of nec k of right femur, init I50.22 Chronic systolic (congestive ) heart failure 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 I42.0 Dilated cardiomyopathy N18.9 Chronic kidney disease, unsp ecified W10.9xxA Fall (on) (from) unspecified stairs and steps, init encntr Z95.2 Presence of prosthetic heart valve Office Visit 07/18/2020 10:30a [facility] Cardiology AT [facility] Mathew Mina MD I50.42 Chronic combined systolic and diastolic hrt fail I47.2 Ventricular tachycardia I42.0 Dilated cardiomyopathy I27.20 Pulmonary hypertension, unsp ecified I48.0 Paroxysmal atrial fibrillati on E78.2 Mixed hyperlipidemia N18.30 Chronic kidney disease, stag e 3 unspecified 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 Z95.810 Presence of automatic (impla ntable) cardiac defibrillator Z95.2 Presence of prosthetic heart valve Z79.82 shelter (current) use of a spirin I13.0 Hyp hrt & chr kdny dis w hrt fail and stg 1-4/unsp chr kdny Assessments Date Code Description Provider 11/20/2020 I50.22 Chronic systolic (congestive) he art [...] sukhdeep ve Mathew Mina MD 07/18/2020 Z79.82 shelter (current) use of aspir in Mathew Mina MD 07/18/2020 I13.0 Hypertensive heart a nd chronic kidney disease with heart failure and stage 1 through stage 4 chronic kidney disease, or unspecified chronic kidney disease Mathew Mina MD 07/18/2020 Z95.810 Presence of automatic (implantab le) cardiac defibrillator Device Checks Plan of Treatment Future Appointment(s):* 12/23/2020 2:15 pm - Device Checks at [facility] Cardiology AT [facility] * 12/23/2020 2:00 pm - Testing at [facility] Cardiology AT [facility] * 12/23/2020 2:15 pm - Mathew Mina MD at [facility] Cardiology AT [facility] 07/18/2020 - Mathew Mina MD* I50.42 [...] Presence of prosthetic heart valve * 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
--- OUTSIDE RECORDS SUMMARY | 2020-11-29 18:12 | CCD | Continuity of Care Document ---
Author Author Gerald MELGOZA PA Organization Unknown Address [address] [place] [address], [address] [address] Phone [phone] Care Team Providers Care Promotional Demonstrator Name Role Phone Art Patton MD [facility] [phone] Problems Description No Information Available Social History Type Date Description Comments Sex Unknown Allergies, Adverse Reactions, Alerts Description No Known Drug Allergies Medications Active Medications SIG Qnty Indications Ordering Provide r Date Oxybutynin Chloride ER 5mg Tablets ER 24HR Take One Tablet By Mouth Every Day Unknow n Alfuzosin HCL ER 10mg Tablets ER 2 4HR Take One Tablet By Mouth Once A Day Immediately After The Same Meal Unknown Entresto 24-26mg Tablets Take One Tablet By Mouth Twice A Day In Addition To 49/51MG Tablet Twice A Day Unknown Metoprolol Succinate ER 25mg Tablets ER 24HR Take One Tablet By Mouth Every Day Unknow n Torsemide 10mg Tablets Take Two Tablets By Mouth Once A Day Unknown Lexapro 10mg Tablets take 1 tablet by mouth once a day Unknown Aspirin Adult Low Dose 81mg Tablet s DR 1 by mouth every day Unknown Oxybutynin Chloride 5mg Tablets Unknown Immunizations Description No Information Available Vital Signs Date Vital Result Comment 09/25/2020 3:28pm Height 70 inches 5'10" Weight 204.00 lb BMI (Body Mass Index) 29.3 kg/m2 Results Test Acquired Date Facility Test Result H/L Range Note Lyme Disease SCRN With Confirm 09/26/2020 [facility] [address] [place] [phone] - Lyme Disease IgG/IgM Antibodie <0.91 ISR Normal 0.00- 0.90 1 Lyme Disease IgM Ab Quantitati <0.80 index Normal 0.00-0.79 2 CBC With Differential 09/26/[address] [address] (315)- - White Blood Count 6.1 10 Normal 4.0-10.0 Red Blood Count 4.15 10 Low 4.30-6.10 Hemoglobin 13.7 g/dL Normal 13.5-17.5 Hematocrit 41.1 % Low 42.0-52.0 Mean Corpuscular Volume 99.0 fl High 80.0-96.0 Mean Corpuscular Hemoglobin 33.0 pg Normal 27.0-33.0 Mean Corpuscular HGB Conc 33.3 g/dL Normal 32.0-36.5 Red Cell Distribution Width 14.7 % High 11.5-14.5 Platelet Count, Automated 134 10 Low 150-450 Neutrophils % 70.6 % High 36.0-66.0 Lymph % 15.4 % Low 24.0-44.0 [place] % 10.7 % High 2.0-8.0 Eos % 2.1 % Normal 0.0-3.0 Baso % 0.5 % Normal 0.0-1.0 Immature Granulocyte % 0.7 % Normal 0-3.0 Nucleated Red Blood Cell % 0.0 % Normal 0-0 Neutrophils # 4.3 10 Normal 1.5-8.5 Lymph # 0.9 10 Low 1.5-5.0 [place] # 0.7 10 Normal 0.0-0.8 Eos # 0.1 10 Normal 0.0-0.5 Baso # 0.0 10 Normal 0.0-0.2 Laboratory test finding 09/26/2020 [facility] l [facility] [address] [place] [address] (315)- - C Reactive Protein Quantitativ 7.07 mg/dL High 0.00- 0.30 Erythrocyte Sedimentation Rate 23 mm/hr High 0-20 Body Fluids Culture And Gram Stain 09/25/2020 [facility] [id number] [place] [address] (315)- - Gram Stain (SEE NOTE) Normal 3 Body Fluid Culture <SEE NOTE> 4 Cell Count Synovial Fluid 09/25/2020 [facility] Cent[facility] [address] [place] [address] (315)- - Source, Body Fluid OTHER Normal Synovial Fluid Color YELLOW Normal Colorless Appearance, Body Fluid CLOUDY Normal Clear WBC Body Fluid 77685 /uL High 0-10 RBC Body Fluid 10 10 Normal <2 BF Mononuclear Cell % 17.8 % High 0-0 BF Polymorphonuclear Cell % 82.2 % High 0-0 Crystal Analysis Body Fluid 09/25/2020 [facility] dical Centr [address] [place] [address] (315)- - Crystals, Body Fluid URIC ACID High None Seen Source, Body Fluid Crystals UNKNOWN Normal Glucose Body Fluid 09/25/2020 [facility] Ce ntr [address] [place] [address] (315)- - Glucose, Body Fluid 17 mg/dL Normal Not Established Source, Body Fluid Glucose UNKNOWN Normal Body Fluid Rheumatoid Factor [facility] [address] [place] [address] (315)- - Body Fluid Rheumatoid Screen NEGATIVE Normal Negativ e Source, Body Fluid Ra UNKNOWN Normal Body Fluids Mucin Clot Test 09/25/2020 [facility] dical Cent[facility] [address] [place] [address] (315)- - Mucin Clot Test 4+ Normal 4+ Source, Body Fluid Mucin Clot UNKNOWN Normal 1 Negative <0.91 Equivocal 0.91 - 1.09 Positive >1.09 2 Negative <0.80 Equivocal 0.80 - 1.19 Positive >1.19 . IgM levels may peak at 3-6 weeks post infection, then gradually decline. Performed at: RN - [facility] [address] [id number] Framing Machine Tender: Jackie Turner MD, Phone: [phone] FEW RBCS FEW WBCS NO ORGANISMS SEEN 4 If aerobic or anaerobic growth is detected within the next 7-21 days, an addendum will follow. . . FULL REPORT IN LAB NOTES (eCW and Med[facility]). NO GROWTH AEROBICALLY Procedures Date Code Description Status 11/11/2020 06805 Office/Outpatient Established Lo w MDM 20-29 Min Completed 10/02/2020 24560 Office/Outpatient Established Lo w MDM 20-29 Min Completed 10/02/202043484 Inject/Drain Joint/Bursa Major C ompleted 09/25/2020 53534 Office/Outpatient New Moderate M DM 45-59 Minutes Completed 09/25/2020 51122 X-Ray Knee Complete W/Obliques & Tunnel And/Or Standing Views Completed 09/25/202011475 Inject/Drain Joint/Bursa Major C ompleted Medical Devices Description No Information Available Encounters Type Date Location Provider Dx Diagnosis Office Visit 11/11/2020 8:30a [place] SCARLETT Gil M17.12 Unilateral primary osteoarthritis, left knee M10.062 Idiopathic gout, left knee M25.462 Effusion, left knee Office Visit 10/02/2020 1:00p [place] Adore Mccann PA-C M17.12 Unilateral primary osteoarthritis, left knee M10.062 Idiopathic gout, left knee M25.462 Effusion, left knee Office Visit 09/[place]2020 6[place] M17.12 Unilateral primary osteoarthritis, left knee M25.462 Effusion, left knee Office Visit 09/25/2020 2:00p [place] SCARLETT Gil M25.562 Pain in left knee M25.462 Effusion, left knee M17.12 Unilateral primary osteoarth ritis, left knee Assessments Date Code Description Provider 11/11/2020 M17.12 Unilateral primary osteoarthriti s, left knee SCARLETT Gil 11/11/2020 M10.062 Idiopathic gout, left knee SCARLETT Gil 11/11/2020 M25.462 Effusion, left knee SCARLETT Morrison 10/02/2020 M17.12 Unilateral primary osteoarthriti s, left knee Adore [place] QUINTON Mccann 10/02/2020 M10.062 Idiopathic gout, left knee Adore [place] WILLEM MccannC 10/02/2020 M25.462 Effusion, left knee Adore Palencia WILLEM HortonC 09/27/2020 M17.12 Unilateral primary osteoarthriti s, left knee SCARLETT Gil 09/27/2020 M25.462 Effusion, left knee SCARLETT Morrison 09/25/2020 M25.562 Pain in left knee SCARLETT Gil 09/25/2020 M25.462 Effusion, left knee SCARLETT Morrison 09/25/2020 M17.12 Unilateral primary osteoarthriti s, left knee SCARLETT Gil Plan of Treatment 11/11/2020 - SCARLETT Gil* M17.12 Unilateral primary osteoarthritis, left knee* Follow up:* f/u prn * M10.062 Idiopathic gout, left knee * M25.462 Effusion, left knee Functional Status Description No Information Available Mental Status Description No Information Available Referrals Description No Information Available
--- OUTSIDE RECORDS SUMMARY | 2020-11-29 18:12 | CCD | Continuity of Care Document ---
Author Author Gerald WOLF M.D. Organization Unknown Address [address], [address] [place] [address] Phone [phone] Problems Active Problems Provider Date Cardiac pacemaker [...] Result H/L Range Note Liver Profile 10/09/2020 [facility] nter [address] [place] [address] [phone] Ast/Sgot 30 U/L Normal 7-37 Alt/SGPT 69 U/L Normal 12-78 Alkaline Phosphatase 257 U/L High 45-117 Bilirubin,Total 1.2 mg/dL High 0.2-1.0 Bilirubin,Direct 0.7 mg/dL High 0.0-0.2 Total Protein 7.4 GM/DL Normal 6.4-8.2 Albumin 3.5 GM/DL Normal 3.2-5.2 Albumin/Globulin Ratio 0.9 Normal Laboratory test finding 10/09/2020 [facility] [address] [place] [address] [phone] Uric Acid 8.6 mg/dL High 3.5-7.2 Procedures Date Code Description Status 11/20/2020 87765 Hospital Subsequent Care Level 3 Completed 11/17/2020 02822 Hospital Initial Care Level 1 Co mpleted 07/18/2020 06154 Office/Outpatient Established Mo d MDM 30-39 Min Completed 07/18/2020 58081 Echocardiography, Tranthoracic R eal-Time Image Documentation Completed 07/18/2020 54728 Implant Cardiovascular Monitorin g System Completed 07/18/2020 92125 Multiple Lead Impantable Cardiov erter-Defibrillator Completed Medical Devices Description No Information Available Encounters Type Date Location Provider Dx Diagnosis Office Visit 11/20/2020 2:15a [facility] Cardiology [facility] Cas goode MD I50.22 Chronic systolic [...] prosthetic heart valve Office Visit 11/17/2020 7:52a [facility] Cardiology [facility] Cas goode MD Z01.810 Encounter for [...] prosthetic heart valve Office Visit 07/18/2020 10:30a [facility] Cardiology AT [facility] Mathew Mina MD I50.42 Chronic combined systolic and diastolic hrt fail I47.2 Ventricular tachycardia I42.0 Dilated cardiomyopathy I27.20 Pulmonary hypertension, unsp ecified I48.0 Paroxysmal atrial fibrillati on E78.2 Mixed hyperlipidemia N18.30 Chronic kidney disease, stag e 3 unspecified 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 Z95.810 Presence of automatic (impla ntable) cardiac defibrillator Z95.2 Presence of prosthetic heart valve Z79.82 [facility] (current) use of a spirin I13.0 Hyp [...] sukhdeep ve Mathew Mina MD 07/18/2020 Z79.82 [facility] (current) use of aspir in Mathew Mina MD 07/18/2020 I13.0 Hypertensive heart a nd chronic kidney disease with heart failure and stage 1 through stage 4 chronic kidney disease, or unspecified chronic kidney disease Mathew Mina MD 07/18/2020 Z95.810 Presence of automatic (implantab le) cardiac defibrillator Device Checks Plan of Treatment Future Appointment(s):* 12/23/2020 2:15 pm - Device Checks at [facility] Cardiology AT [facility] * 12/23/2020 2:00 pm - Testing at [facility] Cardiology AT [facility] * 12/23/2020 2:15 pm - Mathew Mina MD at [facility] Cardiology AT [facility] 07/18/2020 - Mathew Mina MD* I50.42 [...] Presence of prosthetic heart valve * 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
--- OUTSIDE RECORDS SUMMARY | 2020-11-29 18:13 | CCD ---
Author Author [facility] Organization [facility] Address Unknown Phone Unavailable Care Team Providers Care Pile Fabric Knitter Name Role Phone Francia Mena Unavailable PROBLEMS Type Condition ICD9-CM Code [id number] Code Onset Dates Condition S tatus W/U Status Risk SNOMED Code Notes Problem Pacemaker Z95.0 Active confirmed [id number] He was noted to have a slow heart rate as of February 2012 and his EKG confirmed the presence of A-V dissociation. He had a dual-chamber pacemaker implanted 03/09/2012--MRI shielded. Lyme titers were negative in 2011 and a TSH was normal in 02/2012. Had borderline low LVEF on echocardiogram 02/2012 before implantation; this was more normal in November 2012, but his ejection fraction deteriorated again in September 2013 and most recently was 40% in January 2016 after his tricuspid valve replacement; another echocardiogram apparently demonstrated an ejection fraction of 40% in December 2017. He had an AICD?BiV pacemaker placed in 11/2013 with a generator replacement in July 2019. Problem Sleep apnea G47.30 Active confirmed [id number] He is supposed to be on CPAP therapy +7 cm of water since Summer 2012 but he has given up on it because he is entirely intolerant of that therapy. Problem Right bundle branch block I45.10 Active confirmed [id number] He was noted to have a right bundle branch block on EKG in October 2011, with a first degree AV block, which was new and probably reflective of hypertensive heart disease. 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 Problem Elevated fasting glucose R73.01 Active confirmed [id number] His fasting glucose has been borderline elevated in the past. He has had borderline hemoglobin A1c elevations, most recently 6.1% in September 2020 (FBS 105), 5.8% (FBS 94) in 06/2020, 6.1% (FBS 99) in January 2020, 6.2% in September 2019 (FBS 93) versus 6.3% in December 2018, 6.9% in August 2018. Most recent urine microalbumin was negative in01/2020. No indication for pharmacotherapy. In light of his card iomyopathy, he may benefit from Farxiga therapy. Problem Allergic rhinitis J30.9 Active confirmed 61 431535 This is usually controlled with intranasal steroids seasonally. Problem Cardiomyopathy I42.9 Active confirmed 07327 001 He has an apparent idiopathic cardiomyopathy. Pulmonary hypertension was suspected in 01/2014 but disproven by a right heart catheterization in August 2014. It is felt he has some restrictive heart disease. He has an AICD and biventricular pacemaker as of 11/2013. He had an ABHIJIT inhibitor cough in 2014. Insignificant CAD was seen on catheterization 11/2013.He had a normal V/Q scan 01/2014. He has severe tricuspid regurgitation and had a tricuspid valve repair in late October 2015 with perhaps some improvement in his dyspnea. He has controlled ankle edema on torsemide 20 mg daily and Entresto therapy; he also takes metoprolol. He had an echocardiogram most recently in June 2020 which showed moderately severe regurgitation of his bioprosthetic tricuspid valve, left ventricular ejection fraction of 30-35%. He is regularly seen by his quantitative research analyst. He will continue metoprolol succinate, Entresto, torsemide but he is no longer on spironolactone therapy. He had an AICD and pacemaker generator placed in 2013 with a generator replacement 07/2019. Consider Farxiga in the future; he is managed by cardiology. Problem History of adenomatous polyp of colon Z86.010 Ac tive confirmed [id number] He had an adenomatous polyp identified i n 1996. Hi colonoscopy in June 2010 demonstrated hyperplastic polyps and in February 2017 he had an adenomatous polyp. Problem Asthma J45.909 Active confirmed 003319525 Th is has improved on Symbicort instead of Advair. Pulmonary function tests were normal in 12/2014. His negative stripper has him on a lower dose of Symbicort and he still has not had any active flares. Problem Pruritic condition L29.9 Active confirmed 2 [id number] He will continue to use topical therapy for this, and Klonopin was added in March 2017 for his nocturnal back itching with no effect. He sees a billet driller now. Problem Anxiety F41.9 Active confirmed 68898725 He is currently on Lexapro. Mirtazapine was of no benefit in improving his sleep pattern. He has tried trazodone in the past. He was trialed on Klonopin at night as of March 2017 because sleep disruptions from itching that were interfering with his quality of life and this was ineffective. Problem Chronic kidney disease, stage 3 N18.3 Active confi rmed [id number] His GFR is in the 30s to 40s now, and most recently his creatinine was generally stable at 1.91/ GFR 37 in January 2020, 1.88/GFR 38 in 06/2020, 1.66/GFR 43 in September 2020. PTH level was 85 in 09/2020. Problem Prostate cancer screening Z12.5 Active confirmed [id number] Problem Primary insomnia F51.01 Active confirmed 397 2004 Trazodone was ineffective and a trial of doxepin caused confusion. He was placed on mirtazapine as of Spring-Summer 2016 with no significant benefit. He still has itching of his back, with no rash. Etiology of the itching is unclear. He was placed on Klonopin at bedtime at least as a trial, as of March 2017 and this wasn't effective. He sees a billet driller. 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 His uric acid level is over 8 as of September 2020. He will try to follow a low purine diet rather than add another medication to his already complex medical regimen. Problem Sensory peripheral neuropathy G62.9 Active confirm ed [id number] He describes some numbness of the feet. Etiology is obscure. Serologic evaluation was negative in September 2015, 08/2018. TSH was 3.29 in [place] in December 2019. Consider neurology referral for electrodiagnostic studies. Problem Osteoarthritis M19.90 Active confirmed 34526 5006 In the past he has taken [id number]-[id number] naproxen prn. There has been no current need, and it would be contraindicated with his cardiomyopathy. Uses topical Voltaren gel on his knees. Problem Alkaline phosphatase elevation R74.8 Active confir med [id number] He has a chronic alkaline phosphatase elevation likely from passive liver congestion. This is stable as of September 2020, reviewing trends. Hepatitis serologies were negative in 06/2020. His quantitative research analyst is campaigning for him to have a CT of his liver but given the stability of his lab work I see no reason. Problem Hypercholesterolemia E78.00 Active confirmed 77254930 He had been on Lipitor therapy in the past, with optimal lipids in May 2015. However, he is no longer on Lipitor. He had insignificant coronary artery disease on heart catheterization in about 2015. Lipids were quite reasonably controlled as of 06/2020. 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 Active confi rmed [id number] Toprol therapy was added by his quantitative research analyst in 2012 because of a heart rate of about 105. Lisinopril was added when a cardiomyopathy was diagnosed in September 2013, and Aldactone was added Fall [address] HCTZ. He switched to losartan from lisinopril for cough side effect in 2014, but the losartan was stopped with his tricuspid valve replacement and he is on torsemide, metoprolol, and Entresto, but he apparently is no longer on spironolactone. Blood pressure is low normal. He is tolerating that. Problem BPH (benign prostatic hyperplasia) N40.0 Activ e confirmed [id number] Prostate examination was last done , and PSA and cystoscopic examinations were done at the urology clinic in 2018. He had a follow-up PSA in February 2020. He has ongoing follow-up with the urologist, next due in August 2020. He has had a response to Flomax; Rezum is still an option. ALLERGIES No Known Allergies ENCOUNTERS from 1945 to 2020-10-22 Encounter Location Date Provider Diagnosis [facility] Urology [phone] [place] [address] Oct, Francia Mena Urinary frequency R35.0 and BPH (benign prostatic hyperplasia) N40.0 IMMUNIZATIONS Vaccine Route Administration Date Status Influenza Pharmacy Given Unknown Nov 28, 2018 Adminis tered Influenza Pharmacy Given Unknown Nov 16, 2019 Adminis tered COVID-19 dose #1 given elsewhere Unspecified Unknown Mar 07, 2020 Administered COVID-19 dose #2 given elsewhere Unspecified Unknown Apr 04, 2020 Administered Pneumococcal 0.5mL Prevnar 13 IM Intramuscular Jan 25, 2015 A dministered Zoster 0.65mL Zostavax SC Subcutaneous Jan 18, 2015 Administe red Influenza 18 yrs & older Flublok IM Intramuscular Dec 08, 2017 Administered Influenza 6mo & up Fluzone Unknown Nov 17, 2012 Admin istered Pneumococcal Adult 0.5mL Pneumovax 23 Unknown Jan 26 12 Administered TDAP Unknown Jan 27, 2012 Administered Zoster 50mcg/0.5mL Shingrix Unknown Jan 02, 2019 Admi nistered Zoster 50mcg/0.5mL Shingrix Unknown Sep 28, 2018 Admi nistered Influenza (High Dose 65 & up) Unknown Dec 01, 2016 Ad ministered TD Adult 0.5mL Tetanus Unknown Oct 17, 2001 Administe red Influenza 6mo & up Fluzone Unknown Nov 18, 2015 Admin istered Influenza 6mo & up Fluzone Unknown Dec 05, 2014 Admin istered SOCIAL HISTORY Tobacco Use: Social History Observation Description Date Details (start date - stop date) Never Smoker Sex Assigned At : Social History Observation Description Sex Assigned At Unknown Education: Question Answer Notes Level of Education: Finished College Audit Question Answer Notes Total Score: 0 Interpretation: Alcohol Education Sexual Hx: Question Answer Notes Had sex in the last 12 months (vaginal, oral, or anal)? Yes Have you ever had an STD? No with Women only Drug and Alcohol Question Answer Notes Total Score: 0 Interpretation: No problems reported Alcohol Screening: Question Answer Notes Did you have a drink containing alcohol in the past year? Ye s Points 1 Interpretation Negative How often did you have six or more drinks on one occas ion in the past year? Never (0 points) How many drinks did you have on a typica l day when you were drinking in the past year? 1 or 2 (0 points) How often did you have a drink containing alcohol in t he past year? Monthly or less (1 point) BMI Care Goal Follow-Up Question Answer Notes Above Normal BMI Follow-Up Weight monitoring Tobacco Use: Question Answer Notes Are you a: never smoker REASON FOR REFERRAL No Information VITAL SIGNS Weight 205 lbs Oct, Weight-kg 92.99 kg Oct, Height 70 in Oct, BMI 29.41 kg/m2 Oct, Heart Rate 73 /min Oct, Respiratory Rate 18 /min Oct, Temperature 96.4 degrees Fahrenheit Oct, Oximetry 98% Oct, Blood pressure systolic 92 mm Hg Oct, Blood pressure diastolic 60 mm Hg Oct, MEDICATIONS Medication SIG (Take, Route, Frequency, Duration) Notes Start Da te End Date Status Proventil HFA 108 (90 Base) MCG/ACT 2 puffs Inhalation every 4 hrs as needed for cough or wheezing for 90 Active Aspirin Adult Low Dose 81 MG 1 tablet Orally Once a day Active Singulair 10 MG 1 tablet in the evening Orally Once a day as nee ded Jan, Active Toprol XL 25 MG 1 tablet Orally Once a day for 90 days Aug, Active Lexapro 20 MG 1 tablet Orally Once a day in the AM for 90 day(s) Active Entresto 24-26 MG 1 tablet Orally Twice a day with 49/51 dose Active Alrex 0.2 % 1 drop into both eyes Ophtha lmic two times a day as needed for 30 days Active Entresto 49-51 MG 1 tablet Orally Twice a day for 90 day(s) Active Amoxicillin 500 MG 4 capsule Orally 4 HOURS PRIOR T0 DDS APPTS Active Symbicort 80-4.5 MCG/ACT 2 puffs Inhalation once daily for 90 da ys June, Active Melatonin 5 MG 1 tablet at bedtime as neede d with food Orally Once a day for 30 day(s) Active Efudex 5 % 1 application Externally Twice a day for 30 days Dec, Active Flonase 50 MCG/DOSE 2 sprays in each nostril Nasally twice daily Active Protonix 40 MG 1 tablet Orally once daily as needed for 90 days Active Oxybutynin Chloride ER 5 MG 1 tablet Orally Once a day for 90 da y(s) Aug, Active Torsemide 20 MG 1 tablet Orally once a day Active Triamcinolone Acetonide 0.1 % 1 application Externally Twice a day for 30 days Dec, Active Alfuzosin HCl ER 10 MG 1 tablet immediately after t he same meal Orally Once a day for 90 day(s) Aug, Active PROCEDURES No Information RESULTS No Results REASON FOR VISIT 6 wk f/u [facility] MEDICAL (GENERAL) HISTORY Type Description Date Medical History Cardiomyopathy Medical History Hypertension Medical History Pacemaker Medical History Elevated fasting glucose Medical History Asthma Medical History Allergic rhinitis Medical History Right bundle branch block Medical History Osteoarthritis Medical History Hypercholesterolemia Medical History Sleep apnea Medical History History of adenomatous polyp of colon Medical History Sensory peripheral neuropathy Medical History Primary insomnia Medical History Anxiety Medical History Pruritic condition Medical History Chronic kidney disease, stage 3 Medical History Alkaline phosphatase elevation Medical History OBSTRUCTIVE UROPATHY Medical History BCC Head, Chest, Back Medical History SCC Chest Surgical History tonsillectomy 09/12/1951 Surgical History appendectomy 1954 Surgical History achilles tendon repair Surgical History LASIK eye surgery 1998 Surgical History colonoscopy 06/30/2010 Surgical History cardiac pacemaker insertion for AV disso ciation 03/19/12 Surgical History laparoscopic right hernia repair 014 Surgical History AICD and pacemaker placement for biventr icular pacemaker 11/29/2013 Surgical History Tricuspid valve replacement (porcine sukhdeep ve) 11/12/2015 Surgical History CYSTOSCOPY 07/18/2018 Surgical History AICD and pacemaker generator replacement 07/2019 Hospitalization History SX RELATED Goals Section No Information Health Concerns No Information MEDICAL EQUIPMENT No Information MENTAL STATUS No Information FUNCTIONAL STATUS No Information ASSESSMENTS Encounter Date Diagnosis Assessment Notes Treatment Notes Treatm ent Clinical Notes Oct, Urinary frequency (ICD-10 - R35.0) Oct, BPH (benign prostatic hyperplasia) (ICD-10 - N40 .0) PLAN OF TREATMENT Medication Medication Name Sig Start Date Stop Date Oxybutynin Chloride ER 5 MG 1 tablet Orally Once a day for 9 0 day(s) Aug, Next Appt Details Provider Name:Joleen Oliva, 10:30:00 AM, [address] [facility], , [place], [address], Provider Name:Art Patton, 2021-02-10 08 :30:00 AM, [address] [facility], , [place], [address], Provider Name:Francia Mena, 8 09:00:00 AM, [address], , [place], [address], Insurance Providers Payer Name Payer Address Payer Phone Insured Name Patient Relati onship to Insured Coverage Start Date Coverage End Date BCBS [employer] JOSE[employer] PPO [phone] [facility] [address] NICO FOSTER MEDICARE Part A and B [address] [place] [phone] NICO FOSTER
--- OUTSIDE RECORDS SUMMARY | 2020-11-29 18:13 | CCD ---
Author Author [facility] Organization [facility] Address Unknown Phone Unavailable Care Team Providers Care Baby Registry Sales Consultant Name Role Phone Francia Mena Unavailable PROBLEMS Type Condition ICD9-CM Code [id number] Code Onset Dates Condition S tatus W/U Status Risk SNOMED Code Notes Problem Sleep apnea G47.30 Active confirmed 22656160 He is supposed to be on CPAP therapy +7 cm of water since Summer 2012 but he has given up on it because he is entirely intolerant of that therapy. Problem Osteoarthritis M19.90 Active confirmed 55972 5003 In the past he has taken fsxo-zyo-pcbupfk naproxen prn. There has been no current need, and it would be contraindicated with his cardiomyopathy. Uses topical Voltaren gel on his knees. Problem Elevated fasting glucose R73.01 Active confirmed 873820854 His fasting glucose has been borderline elevated in the past. He has had borderline hemoglobin A1c elevations, most recently improved at 5.8% (FBS 94) in 06/2020, 6.1% (FBS 99) in January 2020, 6.2% in September 2019 (FBS 93) versus 6.3% in December 2018, 6.9% in August 2018. Most recent urine microalbumin was negative in01/2020. No indication for pharmacotherapy. Problem Pacemaker Z95.0 Active confirmed 412132188 He was noted to have a slow [...] a generator replacement in July 2019. Problem Cardiomyopathy I42.9 Active confirmed 31623 001 He has an apparent idiopathic cardiomyopathy. [...] also takes metoprolol. He had an echocardiogram in January 2016 which showed a well functioning tricuspid valve, left ventricular ejection fraction of 40%; another echocardiogram apparently demonstrated an ejection fraction of 40% in December 2017 and apparently there was some increased tricuspid regurgitation on echocardiogram in late Fall 2019; he has another echocardiogram scheduled for Spring 2020. He is regularly seen by his print washer. He will continue metoprolol succinate, Entresto, torsemide but he is no longer on spironolactone therapy. He had an AICD and pacemaker generator placed in 2013 with a generator replacement 07/2019. onsider [facility] in the future; he is managed by cardiology. Problem Right bundle branch block I45.10 Active confirmed 57049995 He was noted to have a right bundle branch block on EKG in October 2011, with a first degree AV block, which was new and probably reflective of hypertensive heart disease. 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 Problem Asthma J45.909 Active confirmed 459664008 Th is has improved on Symbicort instead of Advair. Pulmonary function tests were normal in 12/2014. His clinical rn liaison has him on a lower dose of Symbicort and he still has not had any active flares. Problem Allergic rhinitis J30.9 Active confirmed 61 634029 This is usually controlled with intranasal steroids seasonally. Problem Primary insomnia F51.01 Active confirmed 397 [...] and this wasn't effective. He sees a fabric machine operator. Problem Pruritic condition L29.9 Active confirmed 2 67726215 He will continue to use topical therapy for this, and Klonopin was added in March 2017 for his nocturnal back itching with no effect. He sees a fabric machine operator now. Problem Anxiety F41.9 Active confirmed 43661822 He is currently on Lexapro. Mirtazapine was of no benefit in improving his sleep pattern. He has tried trazodone in the past. He was trialed on Klonopin at night as of March 2017 because sleep disruptions from itching that were interfering with his quality of life and this was ineffective. Problem BPH (benign prostatic hyperplasia) N40.0 Activ e confirmed 712973353 Prostate examination was last done , and PSA and cystoscopic examinations were done at the urology clinic in 2018. He had a follow-up PSA in February 2020. He has ongoing follow-up with the urologist, next due in August 2020. He has had a response to Flomax; Rezum is still an option. Problem Sensory peripheral neuropathy G62.9 Active confirm ed 70733602 He describes some numbness of the feet. Etiology is obscure. Serologic evaluation was negative in September 2015, 08/2018. TSH was 3.29 in [place] in December 2019. Consider neurology referral for electrodiagnostic studies. Problem Prostate cancer screening Z12.5 Active confirmed 136883701 Problem History of adenomatous polyp of colon Z86.010 Ac tive confirmed 032777908 He had an adenomatous polyp identified i n 1996. Hi colonoscopy in June 2010 demonstrated hyperplastic polyps and in February 2017 he had an adenomatous polyp. Problem Chronic kidney disease, stage 3 N18.3 Active confi rmed [id number] His GFR is in the 30s to 40s now, and most recently his creatinine was generally stable at 1.91/ GFR 37 in January 2020, 1.88/GFR 38 in 06/2020. PTH level was 92 in 06/2020. Problem Alkaline phosphatase elevation R74.8 Active confir med 087655116 He has a chronic alkaline phosphatase elevation likely from passive liver congestion. This is stable as of 06/2020, reviewing trends. Hepatitis serologies were negative in 06/2020. His print washer is campaigning for him to have a CT of his liver but given the stability of his lab work I see no reason. Problem Hypercholesterolemia E78.00 Active confirmed 48306498 He had been on Lipitor therapy in the past, with optimal lipids in May 2015. However, he is no longer on Lipitor. He had insignificant coronary artery disease on heart catheterization in about 2015. Lipids were quite reasonably controlled as of 06/2020. 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 Active confi rmed [id number] Toprol therapy was added by his print washer in 2012 because of a heart rate [...] is low normal. He is tolerating that. ALLERGIES No Known Allergies ENCOUNTERS from 1945 to 2020-09-17 Encounter Location Date Provider Diagnosis [facility] Urology [phone] [place] [address] Aug, Francia Mena IMMUNIZATIONS Vaccine Route Administration Date Status Influenza [...] REASON FOR REFERRAL No Information VITAL SIGNS No information MEDICATIONS Medication SIG (Take, Route, Frequency, Duration) Notes Start Da te End Date Status Melatonin 5 MG 1 tablet at bedtime as neede d with food Orally Once a day for 30 day(s) Active Protonix 40 MG 1 tablet Orally once daily as needed for 90 days Active Alfuzosin HCl ER 10 MG 1 tablet immediately after t he same meal Orally Once a day for 90 day(s) Aug, Active Torsemide 20 MG 1 tablet Orally once a day Active Symbicort 80-4.5 MCG/ACT 2 puffs Inhalation once daily for 90 da ys June, Active Aspirin Adult Low Dose 81 MG 1 tablet Orally Once a day Active Flonase 50 MCG/DOSE 2 sprays in each nostril Nasally twice daily Active Proventil HFA 108 (90 Base) MCG/ACT 2 puffs Inhalation every 4 hrs as needed for cough or wheezing for 90 Active Oxybutynin Chloride ER 5 MG 1 tablet Orally Once a day for 30 da y(s) Aug, Active Alrex 0.2 % 1 drop into both eyes Ophtha lmic two times a day as needed for 30 days Active Entresto 49-51 MG 1 tablet Orally Twice a day for 90 day(s) Active Singulair 10 MG 1 tablet in the evening Orally Once a day as nee ded Jan, Active Efudex 5 % 1 application Externally Twice a day for 30 days Dec, Active Amoxicillin 500 MG 4 capsule Orally 4 HOURS PRIOR T0 DDS APPTS Active Entresto 24-26 MG 1 tablet Orally Twice a day with 49/51 dose Active Toprol XL 25 MG 1 tablet Orally Once a day for 90 days Aug, Active Lexapro 20 MG 1 tablet Orally Once a day in the AM for 90 day(s) Active Triamcinolone Acetonide 0.1 % 1 application Externally Twice a day for 30 days Dec, Active PROCEDURES No Information RESULTS No Results REASON FOR VISIT rx clarification MEDICAL (GENERAL) HISTORY Type Description Date Medical [...] No Information FUNCTIONAL STATUS No Information ASSESSMENTS No Information PLAN OF TREATMENT Medication Medication Name Sig Start Date Stop Date Oxybutynin Chloride ER 5 MG 1 tablet Orally Once a day for 3 0 day(s) Aug, Next Appt Details Provider Name:Alonzo Zia Rojovenessa, 09-25 11:15:00 AM, [address] [facility], , [place], [address], Provider Name:Art Patton, 2020-10-07 03 :00:00 PM, [address] [facility], , [place], [address], Provider Name:Francia Mena, 3 08:30:00 AM, [address], , [place], [address], Insurance Providers Payer Name Payer Address Payer Phone Insured Name Patient Relati onship to Insured Coverage Start Date Coverage End Date BCBS [place] [facility] [phone] [facility] [employer] [facility] [place] [address] NICO FOSTER MEDICARE Part A and B [facility] [address] [place] [phone] NICO FOSTER
--- OUTSIDE RECORDS SUMMARY | 2020-11-29 18:13 | CCD | Continuity of Care Document ---
Author Author Gerald MELGOZA AK Organization Unknown Address [address] [place] [address], [address] [address] Phone [phone] Care Team Providers Care Hydraulic Bull Riveter Operator Name Role Phone Art Patton MD [facility] [phone] Problems Description No Information Available Social History Type Date Description Comments Sex Unknown Allergies, Adverse Reactions, Alerts Description No Information Available Medications Active Medications SIG Qnty Indications Ordering Provide r Date Oxybutynin Chloride ER 5mg Tablets ER 24HR Take One Tablet By Mouth Every Day Unknow n Albuterol Sulfate HFA 108(90Base) mcg/Act Aerosol Inhale 2 Puffs By Mouth Every 4 Hours as Needed For Cough Or Wheezing Unknown Entresto 49-51mg Tablets Take One Tablet By Mouth Twice A Day In Addition To 24/26MG Tablet Twice A Day Unknown Alfuzosin HCL ER 10mg Tablets ER 2 4HR Take One Tablet By Mouth Once A Day Immediately After The Same Meal Unknown Entresto 24-26mg Tablets Take One Tablet By Mouth Twice A Day In Addition To 49/51MG Tablet Twice A Day Unknown Metoprolol Succinate ER 25mg Tablets ER 24HR Take One Tablet By Mouth Every Day Unknow n Alrex 0.2% Suspension Instill One Drop In Each Eye In The Morning as Needed Germán Unknown Escitalopram Oxalate 20mg Tablets Take One Tablet By Mouth Once A Day In The Morning Unknow n Tamsulosin HCL 0.4mg Capsules Take One Capsule By Mouth Once A Day Unknown Cephalexin 500mg Capsules Take One Capsule By Mouth Three Times A Day For 7 Days Unknown Torsemide 10mg Tablets Take Two Tablets By Mouth Once A Day Unknown Amoxicillin 500mg Capsules Take 4 Tablets By Mouth 1 Hour Prior To Dental Appointment Unkn own Immunizations Description No Information Available Vital Signs Date Vital Result Comment 09/25/2020 3:28pm Height 70 inches 5'10" Weight 204.00 lb BMI (Body Mass Index) 29.3 kg/m2 Results Description No Information Available Procedures Date Code Description Status 09/25/2020 73169 X-Ray Knee Complete W/Obliques & Tunnel And/Or Standing Views Completed Medical Devices Description No Information Available Encounters Description No Information Available Assessments Date Code Description Provider 09/25/2020 M17.12 Unilateral primary osteoarthriti s, left knee SCARLETT Gil 09/25/2020 M25.562 Pain in left knee SCARLETT Gil Plan of Treatment 09/25/2020 - SCARLETT Gil* M17.12 Unilateral primary osteoarthritis, left knee* New Labs:* Erythrocyte Sedimentation Rate, Ordered: 09/25/20 * M25.562 Pain in left knee* New Labs:* Lyme Disease SCRN With Confirm, Ordered: 09/25/20 * CBC With Differential, Ordered: 09/25/20 * High Sensitivity C-Reactive Protein, Ordered: 09/25/20 * Follow up:* this wed evening lab results with IID via telemed Functional Status Description No Information Available Mental Status Description No Information Available Referrals Description No Information Available
--- OUTSIDE RECORDS SUMMARY | 2020-11-29 18:13 | CCD | Continuity of Care Document ---
Author Author Gerald PERKINS PA-C Organization Unknown Address [address] [place] [address] Phone [phone] Care Team Providers Care Forest Worker Name Role Phone Art Patton MD [facility] [phone] Problems Description No Information Available Social History [...] Note Lyme Disease SCRN With Confirm 09/26/2020 [facility] [address] [place] [address] (637)- - Lyme Disease IgG/IgM Antibodie <0.91 ISR Normal 0.00- 0.90 1 Lyme Disease IgM Ab Quantitati <0.80 index Normal 0.00-0.79 2 CBC With Differential 09/26/[address] [address] (315)- - White Blood Count 6.1 10 [...] 36.0-66.0 Lymph % 15.4 % Low 24.0-44.0 [place] % 10.7 % High 2.0-8.0 Eos % 2.1 % Normal 0.0-3.0 Baso % 0.5 % Normal 0.0-1.0 Immature Granulocyte % 0.7 % Normal 0-3.0 Nucleated Red Blood Cell % 0.0 % Normal 0-0 Neutrophils # 4.3 10 Normal 1.5-8.5 Lymph # 0.9 10 Low 1.5-5.0 [place] # 0.7 10 Normal 0.0-0.8 Eos # 0.1 10 Normal 0.0-0.5 Baso # 0.0 10 Normal 0.0-0.2 Laboratory test finding 09/26/2020 [facility] [address] [place] [address] (315)- - C Reactive Protein Quantitativ 7.07 mg/dL High 0.00- 0.30 Erythrocyte Sedimentation Rate 23 mm/hr High 0-20 Body Fluids Culture And Gram Stain 09/25/2020 [facility] [address] [place] [address] (315)- - Gram Stain (SEE NOTE) Normal 3 Body Fluid Culture <SEE NOTE> 4 Cell Count Synovial Fluid 09/25/2020 [facility] Cent[facility] [address] [place] [address] (315)- - Source, Body Fluid OTHER Normal Synovial Fluid Color YELLOW Normal Colorless Appearance, Body Fluid CLOUDY Normal Clear WBC Body Fluid 49650 /uL High 0-10 RBC Body Fluid 10 10 Normal <2 BF Mononuclear Cell % 17.8 % High 0-0 BF Polymorphonuclear Cell % 82.2 % High 0-0 Crystal Analysis Body Fluid 09/25/2020 [facility] [address] [place] [address] (315)- - Crystals, Body Fluid URIC ACID High None Seen Source, Body Fluid Crystals UNKNOWN Normal Glucose Body Fluid 09/25/2020 [facility] n[facility] [address] [place] [address] (315)- - Glucose, Body Fluid 17 mg/dL Normal Not Established Source, Body Fluid Glucose UNKNOWN Normal Body Fluid Rheumatoid Factor 09/25/2020 [facility] Cent[facility] [address] [place] [address] (315)- - Body Fluid Rheumatoid Screen NEGATIVE Normal Negativ e Source, Body Fluid Ra UNKNOWN Normal Body Fluids Mucin Clot Test 09/25/2020 [facility] [address] [place] [address] (315)- - Mucin Clot Test 4+ Normal 4+ Source, Body Fluid Mucin Clot UNKNOWN Normal 1 Negative <0.91 Equivocal 0.91 - 1.09 Positive >1.09 2 Negative <0.80 Equivocal 0.80 - 1.19 Positive >1.19 . IgM levels may peak at 3-6 weeks post infection, then gradually decline. Performed at: RN - [facility] [address] [id number] Manager Ambulatory: Jackie Turner MD, Phone: [phone] FEW RBCS FEW WBCS NO ORGANISMS SEEN 4 If aerobic or anaerobic growth is detected within the next 7-21 days, an addendum will follow. . . FULL REPORT IN LAB NOTES (eCW and Medent). NO GROWTH AEROBICALLY Procedures Date Code Description Status 10/02/2020 32671 Office/Outpatient Established Lo w MDM 20-29 Min Completed 10/02/2020 Inject/Drain Joint/Bursa Major C ompleted 09/25/2020 11449 Office/Outpatient New Moderate M DM 45-59 Minutes Completed 09/25/2020 36108 X-Ray Knee Complete W/Obliques & Tunnel And/Or Standing Views Completed 09/25/2020 Inject/Drain Joint/Bursa Major C ompleted Medical Devices Description No Information Available Encounters Type Date Location Provider Dx Diagnosis Office Visit 10/02/2020 1:00p [facility] Jacobo. QUINTON Perkins M17.12 Unilateral primary osteoarthritis, left knee M10.062 Idiopathic gout, left knee M25.462 Effusion, left knee Office Visit 09/27/2020 6:00p [facility] Verma M17.12 Unilateral primary osteoarthritis, left knee M25.462 Effusion, left knee Office Visit 09/25/2020 2:00p [facility] Bertrand M25.562 Pain in left knee M25.462 Effusion, left knee M17.12 Unilateral primary osteoarth ritis, left knee Assessments Date Code Description Provider 10/02/2020 M17.12 Unilateral primary osteoarthriti s, left knee Adore L. QUINTON Perkins 10/02/2020 M10.062 Idiopathic gout, left knee Adore L. QUINTON Perkins 10/02/2020 M25.462 Effusion, left knee Daore LJeanne alexis PA-C 09/27/2020 M17.12 Unilateral primary osteoarthriti s, left knee SCARLETT Gil 09/27/2020 M25.462 Effusion, left knee SCARLETT Morrison 09/25/2020 M25.562 Pain in left knee SCARLETT Gil 09/25/2020 M25.462 Effusion, left knee SCARLETT Morrison 09/25/2020 M17.12 Unilateral primary osteoarthriti s, left knee SCARLETT Gil Plan of Treatment Future Appointment(s):* 11/11/2020 8:30 am - SCARLETT Gil at [place] 10/02/2020 - SCARLETT Harper-C* M17.12 Unilateral primary osteoarthritis, left knee* Follow up:* keep scheduled appt w/IID * M10.062 Idiopathic gout, left knee * M25.462 Effusion, left knee Functional Status Description No Information Available Mental Status Description No Information Available Referrals Description No Information Available
--- OUTSIDE RECORDS SUMMARY | 2020-11-29 18:13 | CCD ---
Author Author [facility] Organization [facility] Address Unknown Phone Unavailable Care Team Providers Care Carpet Renovator Name Role Phone Sukumar Sherman Unavailable PROBLEMS Type Condition ICD9-CM Code HUV42-AU Code Onset Dates Condition S tatus W/U Status Risk SNOMED Code Notes Problem Sleep apnea G47.30 Active confirmed 43241685 He is supposed to be on CPAP therapy +7 cm of water since Summer 2012 but he has given up on it because he is entirely intolerant of that therapy. Problem Osteoarthritis M19.90 Active confirmed 49904 5004 In the past he has taken dzbv-kyd-aglssty naproxen prn. There has been no current need, and it would be contraindicated with his cardiomyopathy. Uses topical Voltaren gel on his knees. Problem Elevated fasting glucose R73.01 Active confirmed 205849735 His fasting glucose has been borderline elevated in the past. He has had borderline hemoglobin A1c elevations, most recently improved at 5.8% (FBS 94) in 06/2020, 6.1% (FBS 99) in January 2020, 6.2% in September 2019 (FBS 93) versus 6.3% in December 2018, 6.9% in August 2018. Most recent urine microalbumin was negative in01/2020. No indication for pharmacotherapy. Problem Pacemaker Z95.0 Active confirmed 677332304 He was noted to have a slow [...] July 2019. Problem Cardiomyopathy I42.9 Active confirmed 32170 001 He has an apparent idiopathic cardiomyopathy. [...] 2020. He is regularly seen by his distribution dispatcher. He will continue metoprolol succinate, Entresto, torsemide but he is no longer on spironolactone therapy. He had an AICD and pacemaker generator placed in 2013 with a generator replacement 07/2019. onsider [facility] in the future; he is managed by cardiology. Problem Right bundle branch block I45.10 Active confirmed 18394445 He was noted to have a right bundle branch block on EKG in October 2011, with a first degree AV block, which was new and probably reflective of hypertensive heart disease. 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 Problem Asthma J45.909 Active confirmed 998414807 Th is has improved on Symbicort instead of Advair. Pulmonary function tests were normal in 12/2014. His draw frame runner has him on a lower dose of Symbicort and he still has not had any active flares. Problem Allergic rhinitis J30.9 Active confirmed 61 111930 This is usually controlled with intranasal steroids [...] and this wasn't effective. He sees a pitch filler. Problem Pruritic condition L29.9 Active confirmed 2 90871081 He will continue to use topical therapy for this, and Klonopin was added in March 2017 for his nocturnal back itching with no effect. He sees a pitch filler now. Problem Anxiety F41.9 Active confirmed 47938572 He is currently on Lexapro. Mirtazapine was of no benefit in improving his sleep pattern. He has tried trazodone in the past. He was trialed on Klonopin at night as of March 2017 because sleep disruptions from itching that were interfering with his quality of life and this was ineffective. Problem BPH (benign prostatic hyperplasia) N40.0 Activ e confirmed 583286734 Prostate examination was last done , and PSA and cystoscopic examinations were done at the urology clinic in 2018. He had a follow-up PSA in February 2020. He has ongoing follow-up with the urologist, next due in August 2020. He has had a response to Flomax; Rezum is still an option. Problem Sensory peripheral neuropathy G62.9 Active confirm ed 02977919 He describes some numbness of the feet. Etiology is obscure. Serologic evaluation was negative in September 2015, 08/2018. TSH was 3.29 in [place] in December 2019. Consider neurology referral for electrodiagnostic studies. Problem Prostate cancer screening Z12.5 Active confirmed 066369754 Problem History of adenomatous polyp of colon Z86.010 Ac tive confirmed 751352369 He had an adenomatous polyp identified i n 1996. Hi colonoscopy in June 2010 demonstrated hyperplastic polyps and in February 2017 he had an adenomatous polyp. Problem Chronic kidney disease, stage 3 N18.3 Active confi rmed 686813307 His GFR is in the 30s to 40s now, and most recently his creatinine was generally stable at 1.91/ GFR 37 in January 2020, 1.88/GFR 38 in 06/2020. PTH level was 92 in 06/2020. Problem Alkaline phosphatase elevation R74.8 Active [facility] med 641958523 He has a chronic alkaline phosphatase elevation likely from passive liver congestion. This is stable as of 06/2020, reviewing trends. Hepatitis serologies were negative in 06/2020. His distribution dispatcher is campaigning for him to have a CT of his liver but given the stability of his lab work I see no reason. Problem Hypercholesterolemia E78.00 Active confirmed 65132218 He had been on Lipitor therapy in the past, with optimal lipids in May 2015. However, he is no longer on Lipitor. He had insignificant coronary artery disease on heart catheterization in about 2015. Lipids were quite reasonably controlled as of 06/2020. 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 Active confi rmed 65103756 Toprol therapy was added by his distribution dispatcher in 2012 because of a heart rate [...] No Known Allergies ENCOUNTERS from 1945 to 2020-09-09 Encounter Location Date Provider Diagnosis [facility] [address] [phone] [place] [address] Aug, Sukumar Sherman BPH (benign prostatic hyperplasia) N40.0 and Urinary frequency R35.0 IMMUNIZATIONS Vaccine Route Administration Date Status Influenza Pharmacy Given Unknown Nov 28, 2018 Adminis tered Influenza Pharmacy Given Unknown Nov 16, 2019 Adminis tered COVID-19 dose #1 given elsewhere Unspecified Unknown Mar 07, 2020 Administered COVID-19 dose #2 given elsewhere Unspecified Unknown Apr 04, 2020 Administered Zoster 50mcg/0.5mL Shingrix Unknown Sep 28, 2018 Admi nistered Zoster 50mcg/0.5mL Shingrix Unknown Jan 02, 2019 Admi nistered Influenza 18 yrs & older Flublok IM Intramuscular Dec 08, 2017 Administered Influenza 6mo & up Fluzone Unknown Nov 17, 2012 Admin istered Influenza (High Dose 65 & up) Unknown Dec 01, 2016 Ad ministered Zoster 0.65mL Zostavax SC Subcutaneous Jan 18, 2015 Administe red Pneumococcal Adult 0.5mL Pneumovax 23 Unknown Jan 26 12 Administered TDAP Unknown Jan 27, 2012 Administered Pneumococcal 0.5mL Prevnar 13 IM Intramuscular Jan 25, 2015 A dministered TD Adult 0.5mL Tetanus Unknown Oct 17, [...] FOR REFERRAL No Information VITAL SIGNS Weight 211 lbs Aug, Height 70 in Aug, BMI 30.27 kg/m2 Aug, Heart Rate 70 /min Aug, Respiratory Rate 17 /min Aug, Oximetry 98 Aug, Blood pressure systolic 107 mm Hg Aug, Blood pressure diastolic 74 mm Hg Aug, MEDICATIONS Medication SIG (Take, Route, Frequency, Duration) [...] day for 30 days Dec, Active PROCEDURES from 1945 to 2020-09-09 Procedure Date Ordered Result Body Site uro PVR (Post Voiding Residual) Bladder Scan 2020-09-06 N/A RESULTS No Results REASON FOR VISIT 6 mo fu psa MEDICAL (GENERAL) HISTORY Type Description Date Medical [...] Notes Treatment Notes Treatm ent Clinical Notes Aug, BPH (benign prostatic hyperplasia) (ICD- 10 - N40.0) Prostate examination was last done 04/2018, and PSA and cystoscopic examinations were done at the urology clinic in 2018. He had a follow-up PSA in February 2020. He has ongoing follow-up with the urologist, next due in August 2020. He has had a response to Flomax; Rezum is still an option. Will send UA and culture today. PVR today is 36 cc. Will continue the Alfuzosin has he feels this has somewhat helped. Aug, Urinary frequency (ICD-10 - R35.0) Discussed OAB medications with potential side effects including dry mouth, dry eyes, constipation, urinary retention, increased BP, and congnitive effects. He would like to try them to see if they can help as he is bothered by the frequency. Script sent, f/u in 6 weeks to reevaluate. PLAN OF TREATMENT Medication Medication Name Sig Start Date Stop Date Oxybutynin Chloride ER 5 MG 1 tablet Orally Once a day for 3 0 day(s) Aug, Treatment Notes Assessment Notes Clinical Notes BPH (benign prostatic hyperplasia) Will send UA and culture today.PVR today is 36 cc.Will continue the Alfuzosin has he feels this has somewhat helped. Urinary frequency Discussed OAB medica tions with potential side effects including dry mouth, dry eyes, constipation, urinary retention, increased BP, and congnitive effects. He would like to try them to see if they can help as he is bothered by the frequency. Script sent, f/u in 6 weeks to reevaluate. Future Test Test Name Order Date URINE CULTURE [id number] UA URINALYSIS [id number] Next Appt Details 6 Weeks Reason:urinary frequency Provider Name:Alonzo Zia Rojovenessa, 09-25 11:15:00 AM, [address] [facility], , [place], [address], Provider Name:Art Patton, 2020-10-07 03 :00:00 PM, [address] [facility], , [place], [address], Provider Name:Francia Mena, 3 08:30:00 AM, [address] , , [place], [address], Follow Up:6 Weeksurinary frequency Insurance Providers Payer Name Payer Address Payer Phone Insured Name Patient Relati onship to Insured Coverage Start Date Coverage End Date MEDICARE Part A and B [address] [facility] [id number] [phone] NICO FOSTER [employer]BS [place] [facility] PPO [phone] [facility] [place] [facility] [place] [id number] NICO FOSTER self
--- OUTSIDE RECORDS SUMMARY | 2020-11-29 18:13 | CCD | Continuity of Care Document ---
Author Author Gerald MELGOZA PA Organization Unknown Address [address] [place] [address], [address] [address] Phone [phone] Care Team Providers Care Mattress Finisher Name Role Phone Art Patton MD [facility] [phone] Problems Description No Information Available Social History [...] Note Lyme Disease SCRN With Confirm 09/26/2020 [facility] [address] [place] [address] [phone] - Lyme Disease IgG/IgM Antibodie <0.91 ISR Normal 0.00- 0.90 1 Lyme Disease IgM Ab Quantitati <0.80 index Normal 0.00-0.79 2 CBC With Differential 09/26/[address] [address] (315)- - White Blood Count 6.1 10 [...] 36.0-66.0 Lymph % 15.4 % Low 24.0-44.0 [place] % 10.7 % High 2.0-8.0 Eos % 2.1 % Normal 0.0-3.0 Baso % 0.5 % Normal 0.0-1.0 Immature Granulocyte % 0.7 % Normal 0-3.0 Nucleated Red Blood Cell % 0.0 % Normal 0-0 Neutrophils # 4.3 10 Normal 1.5-8.5 Lymph # 0.9 10 Low 1.5-5.0 [place] # 0.7 10 Normal 0.0-0.8 Eos # 0.1 10 Normal 0.0-0.5 Baso # 0.0 10 Normal 0.0-0.2 Laboratory test finding 09/26/2020 [facility] l Centr [address] [place] [address] (315)- - C Reactive Protein Quantitativ 7.07 mg/dL High 0.00- 0.30 Erythrocyte Sedimentation Rate 23 mm/hr High 0-20 Body Fluids Culture And Gram Stain 09/25/2020 [place] [address] [place] [address] (315)- - Gram Stain (SEE NOTE) Normal 3 Body Fluid Culture <SEE NOTE> 4 Cell Count Synovial Fluid 09/25/2020 [facility] zayra Centr [address] [place] [address] (315)- - Source, Body Fluid OTHER Normal Synovial Fluid Color YELLOW Normal Colorless Appearance, Body Fluid CLOUDY Normal Clear WBC Body Fluid 83452 /uL High 0-10 RBC Body Fluid 10 10 Normal <2 BF Mononuclear Cell % 17.8 % High 0-0 BF Polymorphonuclear Cell % 82.2 % High 0-0 Crystal Analysis Body Fluid 09/25/2020 [facility] Cent[facility] [address] [place] [address] (315)- - Crystals, Body Fluid URIC ACID High None Seen Source, Body Fluid Crystals UNKNOWN Normal Glucose Body Fluid 09/25/2020 [facility] Ce ntr [address] [place] [address] (315)- - Glucose, Body Fluid 17 mg/dL Normal Not Established Source, Body Fluid Glucose UNKNOWN Normal Body Fluid Rheumatoid Factor [facility] [address] [place] [address] (315)- - Body Fluid Rheumatoid Screen NEGATIVE Normal Negativ e Source, Body Fluid Ra UNKNOWN Normal Body Fluids Mucin Clot Test 09/25/2020 [facility] Cent[facility] [address] [place] [address] (315)- - Mucin Clot Test 4+ Normal 4+ Source, Body Fluid Mucin Clot UNKNOWN Normal 1 Negative <0.91 Equivocal 0.91 - 1.09 Positive >1.09 2 Negative <0.80 Equivocal 0.80 - 1.19 Positive >1.19 . IgM levels may peak at 3-6 weeks post infection, then gradually decline. Performed at: RN - [facility] [address] [id number] Pediatric Care Coordinator: Jackie Turner MD, Phone: [phone] FEW RBCS FEW WBCS NO ORGANISMS SEEN 4 If aerobic or anaerobic growth is detected within the next 7-21 days, an addendum will follow. . . FULL REPORT IN LAB NOTES (eCW and Medent). NO GROWTH AEROBICALLY Procedures Date Code Description Status 10/02/2020 32431 Office/Outpatient Established Lo w MDM 20-29 Min Completed 10/02/202043094 Inject/Drain Joint/Bursa Major C ompleted 09/27/2020 79383 Office/Outpatient Established Mo d MDM 30-39 Min Completed 09/25/2020 76894 Office/Outpatient New Moderate M DM 45-59 Minutes Completed 09/25/2020 03908 X-Ray Knee Complete W/Obliques & Tunnel And/Or Standing Views Completed 09/25/2020 Inject/Drain Joint/Bursa Major C ompleted Medical Devices Description No Information Available Encounters Type Date Location Provider Dx Diagnosis Office Visit 10/02/2020 1:00p [facility] Adore L. QUINTON Mccann M17.12 Unilateral primary osteoarthritis, left knee M25.462 Effusion, left knee M10.062 Idiopathic gout, left knee Office Visit 09/27/2020 6:00p [facility] Bertrand M17.12 Unilateral primary osteoarthritis, left knee M25.462 Effusion, left knee Office Visit 09/25/2020 2:00p [facility] Bertrand M25.562 Pain in left knee M25.462 Effusion, left knee M17.12 Unilateral primary osteoarth ritis, left knee Assessments Date Code Description Provider 10/02/2020 M17.12 Unilateral primary osteoarthriti s, left knee Adore L. QUINTON Mccann 10/02/2020 M25.462 Effusion, left knee Adore L. Kathya alexis PA-C 10/02/2020 M10.062 Idiopathic gout, left knee Adore L. QUNITON Mccann 09/27/2020 M17.12 Unilateral primary osteoarthriti s, left knee SCARLETT Gil 09/27/2020 M25.462 Effusion, left knee SCARLETT Morrison 09/25/2020 M25.562 Pain in left knee SCARLETT Gil 09/25/2020 M25.462 Effusion, left knee SCARLETT Morrison 09/25/2020 M17.12 Unilateral primary osteoarthriti s, left knee SCARLETT Gil Plan of Treatment Future Appointment(s):* 11/11/2020 8:30 am - SCARLETT Gil at [facility] Functional Status Description No Information Available Mental Status Description No Information Available Referrals Description No Information Available
--- OUTSIDE RECORDS SUMMARY | 2020-11-29 18:13 | CCD | Continuity of Care Document ---
Author Author Gerald MELGOZA PA Organization Unknown Address [address] [place] [address], [address] [address] Phone [phone] Care Team Providers Care Sat Math Tutor Name Role Phone Art Patton MD [facility] [phone] Problems Description No Information Available Social History [...] Note Lyme Disease SCRN With Confirm 09/26/2020 [facility] [address] [place] [address] (959)- - Lyme Disease IgG/IgM Antibodie <0.91 ISR Normal 0.00- 0.90 1 Lyme Disease IgM Ab Quantitati <0.80 index Normal 0.00-0.79 2 CBC With Differential 09/26/[address] [address] (315)- - White Blood Count 6.1 10 [...] 36.0-66.0 Lymph % 15.4 % Low 24.0-44.0 [place] % 10.7 % High 2.0-8.0 Eos % 2.1 % Normal 0.0-3.0 Baso % 0.5 % Normal 0.0-1.0 Immature Granulocyte % 0.7 % Normal 0-3.0 Nucleated Red Blood Cell % 0.0 % Normal 0-0 Neutrophils # 4.3 10 Normal 1.5-8.5 Lymph # 0.9 10 Low 1.5-5.0 [place] # 0.7 10 Normal 0.0-0.8 Eos # 0.1 10 Normal 0.0-0.5 Baso # 0.0 10 Normal 0.0-0.2 Laboratory test finding 09/26/2020 [facility] l Centr [address] [place] [address] (315)- - C Reactive Protein Quantitativ 7.07 mg/dL High 0.00- 0.30 Erythrocyte Sedimentation Rate 23 mm/hr High 0-20 Body Fluids Culture And Gram Stain 09/25/2020 [place] [place] [address] (315)- - Gram Stain (SEE NOTE) Normal 3 Body Fluid Culture <SEE NOTE> 4 Cell Count Synovial Fluid 09/25/2020 [facility] zayra Centr [address] [place] [address] (315)- - Source, Body Fluid OTHER Normal Synovial Fluid Color YELLOW Normal Colorless Appearance, Body Fluid CLOUDY Normal Clear WBC Body Fluid 76756 /uL High 0-10 RBC Body Fluid 10 10 Normal <2 BF Mononuclear Cell % 17.8 % High 0-0 BF Polymorphonuclear Cell % 82.2 % High 0-0 Crystal Analysis Body Fluid 09/25/2020 [facility] dical Centr [address] [place] [address] (315)- - Crystals, Body Fluid URIC ACID High None Seen Source, Body Fluid Crystals UNKNOWN Normal Glucose Body Fluid 09/25/2020 [facility] Ce ntr [address] [place] [address] (315)- - Glucose, Body Fluid 17 mg/dL Normal Not Established Source, Body Fluid Glucose UNKNOWN Normal Body Fluid Rheumatoid Factor [facility] [address] [place] [address] (315)- - Body Fluid Rheumatoid Screen NEGATIVE Normal Negativ e Source, Body Fluid Ra UNKNOWN Normal Body Fluids Mucin Clot Test 09/25/2020 [facility] dical Centr [address] [place] [address] (315)- - Mucin Clot Test 4+ Normal 4+ Source, Body Fluid Mucin Clot UNKNOWN Normal 1 Negative <0.91 Equivocal 0.91 - 1.09 Positive >1.09 2 Negative <0.80 Equivocal 0.80 - 1.19 Positive >1.19 . IgM levels may peak at 3-6 weeks post infection, then gradually decline. Performed at: RN - [facility] [address] [id number] Cq Developer: Jackie Turner MD, Phone: [phone] FEW RBCS FEW WBCS NO ORGANISMS SEEN 4 If aerobic or anaerobic growth is detected within the next 7-21 days, an addendum will follow. . . FULL REPORT IN LAB NOTES (eCW and Medent). NO GROWTH AEROBICALLY Procedures Date Code Description Status 10/02/2020 [address]39 Office/Outpatient Established Lo w MDM 20-29 Min Completed 10/02/2020 Inject/Drain Joint/Bursa Major C ompleted 09/25/2020 02952 Office/Outpatient New Moderate M DM 45-59 Minutes Completed 09/25/2020 37524 X-Ray Knee Complete W/Obliques & Tunnel And/Or Standing Views Completed 09/25/2020 Inject/Drain Joint/Bursa Major C ompleted Medical Devices Description No Information Available Encounters Type Date Location Provider Dx Diagnosis Office Visit 10/02/2020 1:00p [place] Adore L. QUINTON Mccann M17.12 Unilateral primary osteoarthritis, left knee M25.462 Effusion, left knee M10.062 Idiopathic gout, left knee Office Visit 09/27/2020 6[facility] [place] M17.12 Unilateral primary osteoarthritis, left knee M25.462 Effusion, left knee Office Visit 09/25/2020 2[facility] [place] M25.562 Pain in left knee M25.462 Effusion, left knee M17.12 Unilateral primary osteoarth ritis, left knee Assessments Date Code Description Provider 10/02/2020 M17.12 Unilateral primary osteoarthriti s, left knee Adore L. QUINTON Mccann 10/02/2020 M25.462 Effusion, left knee Adore L. Kathya alexis PA-C 10/02/2020 M10.062 Idiopathic gout, left knee Adore L. QUINTON Mccann 09/27/2020 M17.12 Unilateral primary osteoarthriti s, left knee SCARLETT Gil 09/27/2020 M25.462 Effusion, left knee SCARLETT Morrison 09/25/2020 M25.562 Pain in left knee SCARLETT Gil 09/25/2020 M25.462 Effusion, left knee SCARLETT Morrison 09/25/2020 M17.12 Unilateral primary osteoarthriti s, left knee SCARLETT Gil Plan of Treatment Future Appointment(s):* 11/11/2020 8:30 am - SCARLETT Gil at [place] 10/02/2020 - SCARLETT Harper-C* M17.12 Unilateral primary osteoarthritis, left knee* Follow up:* keep scheduled appt w/IID * M25.462 Effusion, left knee * M10.062 Idiopathic gout, left knee Functional Status Description No Information Available Mental Status Description No Information Available Referrals Description No Information Available
--- OUTSIDE RECORDS SUMMARY | 2020-11-29 18:13 | CCD ---
Author Author [facility] Organization [facility] Address Unknown Phone Unavailable Care Team Providers Care Loss Prevention Detective Name Role Phone Art Patton Unavailable PROBLEMS Type Condition ICD9-CM Code [id number] Code Onset Dates Condition S tatus W/U Status Risk SNOMED Code Notes Problem Pacemaker Z95.0 Active confirmed [id number] He was noted to have a slow [...] 2019. Problem Sleep apnea G47.30 Active confirmed 11902885 He is supposed to be on CPAP therapy +7 cm of water since Summer 2012 but he has given up on it because he is entirely intolerant of that therapy. Problem Right bundle branch block I45.10 Active confirmed 29054771 He was noted to have a right [...] Problem Elevated fasting glucose R73.01 Active confirmed 439896495 His fasting glucose has been borderline elevated [...] Problem Allergic rhinitis J30.9 Active confirmed 61 190079 This is usually controlled with intranasal steroids seasonally. Problem Cardiomyopathy I42.9 Active confirmed 97645 001 He has an apparent idiopathic cardiomyopathy. [...] 30-35%. He is regularly seen by his court monitor. He will continue metoprolol succinate, Entresto, torsemide but he is no longer on spironolactone therapy. He had an AICD and pacemaker generator placed in 2013 with a generator replacement 07/2019. Consider Farxiga in the future; he is managed by cardiology. Problem History of adenomatous polyp of colon Z86.010 Ac tive confirmed [id number] He had an adenomatous polyp identified i n 1996. Hi colonoscopy in June 2010 demonstrated hyperplastic polyps and in February 2017 he had an adenomatous polyp. Problem Asthma J45.909 Active confirmed 673077250 Th is has improved on Symbicort instead of Advair. Pulmonary function tests were normal in 12/2014. His organ assembler has him on a lower dose of Symbicort and he still has not had any active flares. Problem Pruritic condition L29.9 Active confirmed 2 30089218 He will continue to use topical therapy for this, and Klonopin was added in March 2017 for his nocturnal back itching with no effect. He sees a home energy consultant now. Problem Anxiety F41.9 Active confirmed 28370112 He is currently on Lexapro. Mirtazapine was of no benefit in improving his sleep pattern. He has tried trazodone in the past. He was trialed on Klonopin at night as of March 2017 because sleep disruptions from itching that were interfering with his quality of life and this was ineffective. Problem Chronic kidney disease, stage 3 N18.3 Active confi rmed [id number] His GFR is in the 30s to 40s now, and most recently his creatinine was generally stable at 1.91/ GFR 37 in January 2020, 1.88/GFR 38 in 06/2020, 1.66/GFR 43 in September 2020. PTH level was 85 in 09/2020. Problem Prostate cancer screening Z12.5 Active confirmed 471672888 Problem Primary insomnia F51.01 Active confirmed 397 [...] and this wasn't effective. He sees a home energy consultant. 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 His uric acid level is over 8 as of September 2020. He will try to follow a low purine diet rather than add another medication to his already complex medical regimen. Problem Sensory peripheral neuropathy G62.9 Active confirm ed 65713037 He describes some numbness of the feet. Etiology is obscure. Serologic evaluation was negative in September 2015, 08/2018. TSH was 3.29 in [place] in December 2019. Consider neurology referral for electrodiagnostic studies. Problem Osteoarthritis M19.90 Active confirmed 50235 5006 In the past he has taken nkww-hqo-heiyogm naproxen prn. There has been no current need, and it would be contraindicated with his cardiomyopathy. Uses topical Voltaren gel on his knees. Problem Alkaline phosphatase elevation R74.8 Active confir med 828545770 He has a chronic alkaline phosphatase elevation likely from passive liver congestion. This is stable as of September 2020, reviewing trends. Hepatitis serologies were negative in 06/2020. His court monitor is campaigning for him to have a CT of his liver but given the stability of his lab work I see no reason. Problem Hypercholesterolemia E78.00 Active confirmed 93714897 He had been on Lipitor therapy in the past, with optimal lipids in May 2015. However, he is no longer on Lipitor. He had insignificant coronary artery disease on heart catheterization in about 2015. Lipids were quite reasonably controlled as of 06/2020. 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 Active confi rmed 15010600 Toprol therapy was added by his court monitor in 2012 because of a heart rate [...] (benign prostatic hyperplasia) N40.0 Activ e confirmed 938815287 Prostate examination was last done , and [...] to 2020-10-22 Encounter Location Date Provider Diagnosis [place] [address] [facility] [phone] [place] [address] Sep, Art Patton Hypertension with renal dise ase I12.9 ; Cardiomyopathy I42.9 ; Chronic kidney disease, stage 3 N18.3 ; Pacemaker Z95.0 ; Elevated fasting glucose R73.01 ; Asthma J45.909 ; Allergic rhinitis J30.9 ; Right bundle branch block I45.10 ; Osteoarthritis M19.90 ; Hypercholesterolemia E78.00 ; Sleep apnea G47.30 ; History of adenomatous polyp of colon Z86.010 ; Sensory peripheral neuropathy G62.9 ; Primary insomnia F51.01 ; Anxiety F41.9 ; Pruritic condition L29.9 ; Alkaline phosphatase elevation R74.8 and 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 M1A.3620 IMMUNIZATIONS Vaccine Route Administration Date Status Influenza [...] FOR REFERRAL No Information VITAL SIGNS Weight 202 lbs Sep, Weight-kg 91.63 kg Sep, Height 70 in Sep, BMI 28.98 kg/m2 Sep, Heart Rate 90 /min Sep, Respiratory Rate 18 /min Sep, Temperature 98.3 degrees Fahrenheit Sep, Oximetry 97% Sep, Blood pressure systolic 98 mm Hg Sep, Blood pressure diastolic 52 mm Hg Sep, MEDICATIONS Medication SIG (Take, Route, Frequency, Duration) [...] day(s) Aug, Active PROCEDURES No Information RESULTS Component Value Reference Range LIVER PROFILE Reviewed date:10/21/2020 11:50:53 Interpretation: Performing Lab:[facility] [address] [facility] [address] , ,[place] [address] AST/SGOT 30 7-37 ALT/SGPT 69 12-78 ALKALINE PHOSPHATASE 257 45-117 BILIRUBIN,TOTAL 1.2 0.2-1.0 BILIRUBIN,DIRECT 0.7 0.0-0.2 TOTAL PROTEIN 7.4 6.4-8.2 ALBUMIN 3.5 3.2-5.2 ALBUMIN/GLOBULIN RATIO 0.9 URIC ACID Reviewed date:10/21/2020 11:52:41 Interpretation: Performing Lab:[facility] [address] [facility] [address] , ,[place] [address] URIC ACID 8.6 3.5-7.2 REASON FOR VISIT 4M MEDICAL (GENERAL) HISTORY Type Description Date Medical [...] cardiac pacemaker insertion for AV disso ciation 02/2/13 Surgical History laparoscopic right hernia repair 014 [...] Notes Treatment Notes Treatm ent Clinical Notes Sep, Hypertension with renal disease (ICD-10 - I12.9) Toprol therapy was added by his court monitor in 2012 because of a heart rate of about 105. Lisinopril was added when a cardiomyopathy was diagnosed in September 2013, and Aldactone was added Fall [address]Z. He switched to losartan from lisinopril for cough side effect in 2014, but the losartan was stopped with his tricuspid valve replacement and he is on torsemide, metoprolol, and Entresto, b ut he apparently is no longer on spironolactone. Blood pressure is low normal. He is tolerating that. Sep, Cardiomyopathy (ICD-10 - I42.9) He has a n apparent idiopathic cardiomyopathy. Pulmonary hypertension was suspected [...] 30-35%. He is regularly seen by his court monitor. He will continue metoprolol succinate, Entresto, torsemide but he is no longer on spironolactone therapy. He had an AICD and pacemaker generator placed in 2013 with a generator replacement 07/2019. Consider [facility] in the future; he is managed by cardiology. Sep, Chronic kidney disease, stage 3 (ICD-10 - N18.3) His GFR is in the 30s to 40s now, and most recently his creatinine was generally stable at 1.91/ GFR 37 in January 2020, 1.88/GFR 38 in 06/2020, 1.66/GFR 43 in September 2020. PTH level was 85 in 09/2020. Sep, Pacemaker (ICD-10 - Z95.0) He was noted to have a slow [...] with a generator replacement in July 2019. Sep, Elevated fasting glucose (ICD-10 - R73.0 1) His fasting glucose has been borderline elevated [...] indication for pharmacotherapy. In light of his cardiomyopathy, he may benefit from Farxiga therapy. Sep, Asthma (ICD-10 - J45.909) This has impro ambrocio on Symbicort instead of Advair. Pulmonary function tests were normal in 12/2014. His organ assembler has him on a lower dose of Symbicort and he still has not had any active flares. Sep, Allergic rhinitis (ICD-10 - J30.9) This is usually controlled with intranasal steroids seasonally. Sep, Right bundle branch block (ICD-10 - I45. 10) He was noted to have a right bundle branch block on EKG in October 2011, with a first degree AV block, which was new and probably reflective of hypertensive heart disease. 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 Sep, Osteoarthritis (ICD-10 - M19.90) In the past he has taken wlsw-zdo-sfryhwa naproxen prn. There has been no current need, and it would be contraindicated with his cardiomyopathy. Uses topical Voltaren gel on his knees. Sep, Hypercholesterolemia (ICD-10 - E78.00) Thi doran had been on Lipitor therapy in the past, with optimal lipids in May 2015. However, he is no longer on Lipitor. He had insignificant coronary artery disease on heart catheterization in about 2015. Lipids were quite reasonably controlled as of 06/2020. Sep, Sleep apnea (ICD-10 - G47.30) He is supp osed to be on CPAP therapy +7 cm of water since Summer 2012 but he has given up on it because he is entirely intolerant of that therapy. Sep, History of adenomatous polyp of colon (I CD-10 - Z86.010) He had an adenomatous polyp identified in 1996. Hi colonoscopy in June 2010 demonstrated hyperplastic polyps and in February 2017 he had an adenomatous polyp. Sep, Sensory peripheral neuropathy (ICD-10 - G62.9) He describes some numbness of the feet. Etiology is obscure. Serologic evaluation was negative in September 2015, 08/2018. TSH was 3.29 in [place] in December 2019. Consider neurology referral for electrodiagnostic studies. Sep, Primary insomnia (ICD-10 - F51.01) Trazo done was ineffective and a trial of doxepin caused confusion. He was placed on mirtazapine as of Spring- Summer 2016 with no significant benefit. He still has itching of his back, with no rash. Etiology of the itching is unclear. He was placed on Klonopin at bedtime at least as a trial, as of March 2017 and this wasn't effective. He sees a home energy consultant. Sep, Anxiety (ICD-10 - F41.9) He is currently on Lexapro. Mirtazapine was of no benefit in improving his sleep pattern. He has tried trazodone in the past. He was trialed on Klonopin at night as of March 2017 because sleep dis ruptions from itching that were interfering with his quality of life and this was ineffective. Sep, Pruritic condition (ICD-10 - L29.9) He w ill continue to use topical therapy for this, and Klonopin was added in March 2017 for his nocturnal back itching with no effect. He sees a home energy consultant now. Sep, Alkaline phosphatase elevation (ICD-10 - R74.8) He has a chronic alkaline phosphatase elevation likely from passive liver congestion. This is stable as of September 2020, reviewing trends. Hepatitis serologies were negative in 06/2020. His court monitor is campaigning for him to have a CT of his liver but given the stability of his lab work I see no reason. Sep, Chronic gout of left knee du e to renal impairment without tophus (ICD-10 - M1A.3620) He had a gout flare in his left knee wit h uric acid crystals identified. His uric acid level is over 8 as of September 2020. He will try to follow a low purine diet rather than add another medication to his already complex medical regimen. PLAN OF TREATMENT Medication Medication Name Sig Start Date Stop Date Oxybutynin Chloride ER 5 MG 1 tablet Orally Once a day for 9 0 day(s) Aug, Future Test Test Name Order Date URIC ACID [id number] Comprehensive Metabolic Profile (CMP) [id number] MAGNESIUM LEVEL 20210224 PTH INTACT [id number] LIVER PROFILE [id number] URIC ACID [id number] Next Appt Details 01/2021 Reason: Provider Name:Joleen Oliva, 10:30:00 AM, [address] [facility], , [place], [address], Provider Name:Art Patton, 2021-02-10 08 :30:00 AM, [address] [facility], , [place], [address], Provider Name:rFancia Mena, 2021-04-0 8 09:00:00 AM, [address], , [place], [address], Insurance Providers Payer Name Payer Address Payer Phone Insured Name Patient Relati onship to Insured Coverage Start Date Coverage End Date MEDICARE Part A and B [address] [facility] [address] [phone] NICO FOSTER BCBS [facility] O [phone] [facility] [place] [address] NICO FOSTER self
--- OUTSIDE RECORDS SUMMARY | 2020-11-29 18:13 | CCD | Continuity of Care Document ---
Author Author Gerald PERKINS PA-C Organization Unknown Address [address] [place] [address] Phone [phone] Care Team Providers Care Water Chaser Name Role Phone Art Patton MD [facility] [phone] Problems Description No Information Available Social History [...] Note Lyme Disease SCRN With Confirm 09/26/2020 [facility] [address] [place] [address] (086)- - Lyme Disease IgG/IgM Antibodie <0.91 ISR Normal 0.00- 0.90 1 Lyme Disease IgM Ab Quantitati <0.80 index Normal 0.00-0.79 2 CBC With Differential 09/26/[address] [address] (315)- - White Blood Count 6.1 10 [...] 36.0-66.0 Lymph % 15.4 % Low 24.0-44.0 [place] % 10.7 % High 2.0-8.0 Eos % 2.1 % Normal 0.0-3.0 Baso % 0.5 % Normal 0.0-1.0 Immature Granulocyte % 0.7 % Normal 0-3.0 Nucleated Red Blood Cell % 0.0 % Normal 0-0 Neutrophils # 4.3 10 Normal 1.5-8.5 Lymph # 0.9 10 Low 1.5-5.0 [place] # 0.7 10 Normal 0.0-0.8 Eos # 0.1 10 Normal 0.0-0.5 Baso # 0.0 10 Normal 0.0-0.2 Laboratory test finding 09/26/2020 [facility] l Centr [address] [place] [address] (315)- - C Reactive Protein Quantitativ 7.07 mg/dL High 0.00- 0.30 Erythrocyte Sedimentation Rate 23 mm/hr High 0-20 Body Fluids Culture And Gram Stain 09/25/2020 [facility] [address] [place] [address] (315)- - Gram Stain (SEE NOTE) Normal 3 Body Fluid Culture <SEE NOTE> 4 Cell Count Synovial Fluid 09/25/2020 [facility] zayra Centr [address] [place] [address] (315)- - Source, Body Fluid OTHER Normal Synovial Fluid Color YELLOW Normal Colorless Appearance, Body Fluid CLOUDY Normal Clear WBC Body Fluid 06264 /uL High 0-10 RBC Body Fluid 10 10 Normal <2 BF Mononuclear Cell % 17.8 % High 0-0 BF Polymorphonuclear Cell % 82.2 % High 0-0 Crystal Analysis Body Fluid 09/25/2020 [facility] dical Centr [address] [place] [address] (315)- - Crystals, Body Fluid URIC ACID High None Seen Source, Body Fluid Crystals UNKNOWN Normal Glucose Body Fluid 09/25/2020 [facility] Ce ntr [address] [place] [address] (315)- - Glucose, Body Fluid 17 mg/dL Normal Not Established Source, Body Fluid Glucose UNKNOWN Normal Body Fluid Rheumatoid Factor 09/25/2020 [facility] edical Centr [address] [place] [address] (315)- - Body Fluid Rheumatoid Screen NEGATIVE Normal Negativ e Source, Body Fluid Ra UNKNOWN Normal Body Fluids Mucin Clot Test 09/25/2020 [facility] dical Centr [address] [place] [address] (315)- - Mucin Clot Test 4+ Normal 4+ Source, Body Fluid Mucin Clot UNKNOWN Normal 1 Negative <0.91 Equivocal 0.91 - 1.09 Positive >1.09 2 Negative <0.80 Equivocal 0.80 - 1.19 Positive >1.19 . IgM levels may peak at 3-6 weeks post infection, then gradually decline. Performed at: RN - [facility] [address] [id number] Grievance And Appeals Coordinator: Jackie Turner MD, Phone: [phone] FEW RBCS FEW WBCS NO ORGANISMS SEEN 4 If aerobic or anaerobic growth is detected within the next 7-21 days, an addendum will follow. . . FULL REPORT IN LAB NOTES (eCW and Medent). NO GROWTH AEROBICALLY Procedures Date Code Description Status 10/02/2020 71223 Office/Outpatient Established Lo w MDM 20-29 Min Completed 10/02/202057118 Inject/Drain Joint/Bursa Major C ompleted 09/27/2020 29975 Office/Outpatient Established Mo d MDM 30-39 Min Completed 09/25/2020 09946 Office/Outpatient New Moderate M DM 45-59 Minutes Completed 09/25/2020 00706 X-Ray Knee Complete W/Obliques & Tunnel And/Or Standing Views Completed 09/25/2020 Inject/Drain Joint/Bursa Major C ompleted Medical Devices Description No Information Available Encounters Type Date Location Provider Dx Diagnosis Office Visit 10/02/2020 1:00p [place] Adore L. QUINTON Perkins M17.12 Unilateral primary osteoarthritis, left knee M25.462 Effusion, left knee M10.062 Idiopathic gout, left knee Office Visit 09/27/2020 6[place] M17.12 Unilateral primary osteoarthritis, left knee M25.462 Effusion, left knee Office Visit 09/25/2020 [place] M17.12 Unilateral primary osteoarthritis, left knee M25.562 Pain in left knee Assessments Date Code Description Provider 10/02/2020 M17.12 Unilateral primary osteoarthriti s, left knee Adore L. QUINTON Perkins 10/02/2020 M25.462 Effusion, left knee Adore L. Kathya alexis PA-C 10/02/2020 M10.062 Idiopathic gout, left knee Adore L. QUINTON Perkins 09/27/2020 M17.12 Unilateral primary osteoarthriti s, left knee SCARLETT Gil 09/27/2020 M25.462 Effusion, left knee SCARLETT Morrison 09/25/2020 M17.12 Unilateral primary osteoarthriti s, left knee SCARLETT Gil 09/25/2020 M25.562 Pain in left knee SCARLETT Gil Plan of Treatment Future Appointment(s):* 11/11/2020 8:30 am - SCARLETT Gil at [place] 10/02/2020 - SCARLETT Harper-C* M17.12 Unilateral primary osteoarthritis, left knee* Follow up:* keep scheduled appt w/IID * M25.462 Effusion, left knee * M10.062 Idiopathic gout, left knee Functional Status Description No Information Available Mental Status Description No Information Available Referrals Description No Information Available
--- OUTSIDE RECORDS SUMMARY | 2020-11-29 18:13 | CCD ---
Author Author Dylan Zapata MD [facility] Organization Dylan Zapata MD [facility] Address [address] [place] [id number] Phone Care Team Providers Care Sales Development Specialist Name Role Phone Jodi BREAUX, MERCEDEZ, Dylan Murguia Unavailable [phone] Art Patton MD PP [phone] Reason for Referral No Reason for Referral Recorded Problems Includes: Active, inactive, and resolved Problems All Visits Onset Date - Time Resolved Date - Time Provider Co ndition Status Conjunctivitis Acute Atopic 12/15/2018 - 12:00AM Dylan Zapata MD, FACS Active Cataract Senile Cortical Left 04/12/2015 - 12:00AM Dylan Zapata MD, FACS Active Essential Hypertension 04/12/2015 - 12:00AM Dylan Shahid MD, FACS Active Vitreous degeneration, bilateral 04/12/2015 - 12:00AM Dylan Zapata MD, FACS Active Cataract Senile Cortical 06/28/2014 - 12:00AM Dylan Zapata MD, FACS Inactive Note: Unchanged - of the lef t eye Retinopathy Hypertensive Both Eyes 06/28/2014 - 12:00AM Dylan Zapata MD, FACS Active Note: Unchanged Cataract Senile Nuclear 06/28/2014 - 12:00AM Dylan Zapata MD, FACS Active Note: Unchanged - of both ey es Conjunctivitis Chronic Allergic 09/29/2012 - 12:00AM Dylan Zapata MD, FACS Active Note: Unchanged Dry Eye Syndrome Both Eyes 09/29/2012 - 12:00AM Dylan Zapata MD, FACS Active Note: Unchanged Vitreous Floaters Both Eyes 09/29/2012 - 12:00AM Dylan Zapata MD, FACS Inactive Note: Unchanged Plan of Treatment Future Appointments Date Time Location Provider 1 Year Follow-Up 12/31/2020 8:30AM Dylan Zapata MD [facility] Dylan Zapata MD, FACS Assessments Includes: Assessments for all patient encounters Findings Encounter Date Chronic allergic conjunctivitis 1 Year Follow-Up with Dylan Zapata MD, FACS 12/21/2019 Dry eye syndrome of both eyes 1 Year Follow-Up with Raheel Zapata MD, FACS 12/21/2019 Essential hypertension 1 Year Follow-Up with Dylan Rios MD, FACS 12/21/2019 Hypertensive retinopathy of both eyes 1 Year Follow-Up with Dylan Zapata MD, FACS 12/21/2019 Left cortical senile cataract 1 Year Follow-Up with Raheel Zapata MD, FACS 12/21/2019 Nuclear senile cataract 1 Year Follow-Up with Dylan Schofield MD, FACS 12/21/2019 Acute atopic conjunctivitis 1 Year Follow-Up with Dylan Shahid MD, FACS 12/15/2018 Chronic allergic conjunctivitis 1 Year Follow-Up with Dylan Zapata MD, FACS 12/15/2018 Dry eye syndrome of both eyes 1 Year Follow-Up with Raheel Zapata MD, FACS 12/15/2018 Essential hypertension 1 Year Follow-Up with Dylan Rios MD, FACS 12/15/2018 Hypertensive retinopathy of both eyes 1 Year Follow-Up with Dylan Zapata MD, FACS 12/15/2018 Left cortical senile cataract 1 Year Follow-Up with Raheel Zapata MD, FACS 12/15/2018 Nuclear senile cataract 1 Year Follow-Up with Dylan Schofield MD, FACS 12/15/2018 Chronic allergic conjunctivitis 1 Year Follow-Up with Dylan Zapata MD, FACS 12/08/2017 Dry eye syndrome of both eyes 1 Year Follow-Up with Raheel Zapata MD, FACS 12/08/2017 Left cortical senile cataract 1 Year Follow-Up with Raheel Zapata MD, FACS 12/08/2017 Nuclear senile cataract 1 Year Follow-Up with Dylan Schofield MD, FACS 12/08/2017 Chronic allergic conjunctivitis 1 Year Follow-Up with Dylan Zapata MD, FACS 11/11/2016 Dry eye syndrome of both eyes 1 Year Follow-Up with Raheel Zapata MD, FACS 11/11/2016 Left cortical senile cataract 1 Year Follow-Up with Raheel Zapata MD, FACS 11/11/2016 Nuclear senile cataract 1 Year Follow-Up with Dylan Schofield MD, FACS 11/11/2016 Dry eye syndrome of both eyes 7 Month Follow-Up with Andree Zapata MD, FACS 01/29/2015 Essential hypertension 7 Month Follow-Up with Dylan Schofield MD, FACS 01/29/2015 Hypertensive retinopathy of both eyes 7 Month Follow-U p with Dylan Zapata MD, FACS 01/29/2015 Left cortical senile cataract 7 Month Follow-Up with Andree Zapata MD, FACS 01/29/2015 Nuclear senile cataract 7 Month Follow-Up with Dylan Sanchez MD, FACS 01/29/2015 Chronic allergic conjunctivitis both eyes 9 Month Fol low-Up with Dylan Zapata MD, FACS 06/28/2014 Cortical senile cataract left eye 9 Month Follow-Up w [facility] Dylan Zapata MD, FACS 06/28/2014 Dry eye syndrome of both eyes 9 Month Follow-Up with Andree Zapata MD, FACS 06/28/2014 Hypertensive retinopathy of both eyes 9 Month Follow-U p with Dylan Zapata MD, FACS 06/28/2014 Nuclear senile cataract both eyes 9 Month Follow-Up w [facility] Dylan Zapata MD, FACS 06/28/2014 Vitreous floaters in both eyes 9 Month Follow-Up with Dylan Zapata MD, FACS 06/28/2014 Chronic allergic conjunctivitis of both eyes 1 Year F ollow-Up with Dylan Zapata MD, FACS 10/03/2013 Dry eye syndrome of both eyes 1 Year Follow-Up with Raheel Zapata MD, FACS 10/03/2013 Vitreous floaters in both eyes 1 Year Follow-Up with Andree Zapata MD, FACS 10/03/2013 Chronic allergic conjunctivitis 6 Month Follow-Up with Dylan Zapata MD, FACS 09/29/2012 Dry eye syndrome of both eyes 6 Month Follow-Up with D aviandree Zapata MD, FACS 09/29/2012 Vitreous floaters in both eyes 6 Month Follow-Up with Dylan Zapata MD, FACS 09/29/2012 Instructions Instructions not supported for this document typeNo Instructions Recorded Medical Equipment - Implanted Devices Includes: Current and historical DevicesNo Medical Equipment Recorded Medications Includes: Current and historical Medications Current Medications (continue as prescribed) Alrex 0.2% Ophthalmic Suspension 10/01/2020 - 09/26/2021 Pro vider: Dylan Zapata MD, FACS Diagnosis: Other chronic allerg ic conjunctivitis One drop in each eye in the morning as needed Torsemide 20 MG Oral Tablet 12/21/2019 Provider: Diagnosis: Entresto 24-29 mg Oral Tablet 12/21/2019 Provider: Diagnosis: Entresto 49-51 MG Oral Tablet 12/21/2019 Provider: Diagnosis: Vitamin D 125 MCG (5000 UT) Oral Capsule 12/21/2019 Provider: Diagnosis: Adult Aspirin Regimen 81MG Oral Tablet Delayed Release 11/11 Provider: Diagnosis: Lexapro 20MG Oral Tablet 11/11/2016 Provider: Diagnosis: [facility] Vitamin C 1000 MG OR TABS 09/29/2012 Provider: Diagnosis: Fish Oil 1000 MG OR CAPS 09/29/2012 Provider: Diagnosis: Symbicort 160-4.5 MCG/ACT IN AERO 09/29/2012 Provid er: Diagnosis: Past Medications on file Alrex 0.2% Ophthalmic Suspension 12/21/2019 - 10/01/2020 Pro vider: Dylan Zapata MD, FACS Diagnosis: Other chronic allerg ic conjunctivitis One drop in each eye in the morning as needed Alrex 0.2% Ophthalmic Suspension 12/15/2018 - 10/01/2020 Pro vider: Dylan Zapata MD, FACS Diagnosis: Cortical age-related cataract, left eye One drop twice a day in both eyes for 4 weeks then once aday for 4 weeks Alrex 0.2% Ophthalmic Suspension 12/08/2017 - 12/21/2019 Pro vider: Dylan Zapata MD, FACS Diagnosis: Other chronic allerg ic conjunctivitis One drop in each eye in the morning as needed Alrex 0.2% Ophthalmic Suspension 07/05/2017 - 12/08/2017 Pro vider: Dylan Zapata MD, FACS Diagnosis: Other chronic allerg ic conjunctivitis One drop in each eye in the morning as needed Emeritasto 24-26MG Oral Tablet 11/11/2016 - 12/21/2019 Provide r: Diagnosis: Losartan Potassium 25 MG Tablet 01/29/2015 - 12/21/2019 Prov ider: Diagnosis: Lisinopril 40 MG Tablet 06/28/2014 - 01/29/2015 Provider: Diagnosis: Furosemide 20 MG Tablet 06/28/2014 - 12/21/2019 Provider: Diagnosis: Spironolactone 25 MG Tablet 06/28/2014 - 12/21/2019 Provider : Diagnosis: Toprol XL 25 MG Tablet, extended-release 24 hour 06/28/2014 - 12/21/2019 Provider: Diagnosis: Alrex 0.2% OP SUSP 10/03/2013 - 10/01/2020 Provider: Dylan Zapata MD, FACS Diagnosis: Chr Allrg Conjunctiv NEC Toporol OR TABS 09/29/2012 - 06/28/2014 Provider: Diagnosis: Alrex 0.2% OP SUSP 09/29/2012 - 06/28/2014 Provider: Diagnosis: aMILoride-hydroCHLOROthiazide 5-50 MG TABS 09/29/2012 - 06/2019 Provider: Diagnosis: Half Tab Alrex 0.2% OP SUSP 09/29/2012 - 01/27/2013 Provider: Dylan Zapata MD, FACS Diagnosis: Chr Allrg Conjunctiv NEC Medications Administered Includes: Administered Medications in patient's chartNo Administered Medications Recorded Vital Signs Includes: Vital Signs from 11/12/2019 through 11/11/2020No Vital Signs Recorded For Specified Dates Results Includes: Results from 11/12/2019 through 11/11/2020No Results Recorded For Specified Dates History of Present Illness History of Present Illness not supported for this document typeNo History of Present Illness Recorded Social History Description Last Updated No tobacco use 12/21/2019 Not a current smoker 12/21/2019 Not using drugs 12/21/2019 Smoking status : Never smoker 12/21/2019 Alcohol use 3 drinks a week 04/12/2015 Alcohol 09/29/2012 Procedures and Surgical History Includes: Procedures from 11/12/2019 through 11/11/2020 Procedures Code Diagnosis Performing Provider Service Location Service Date Comprehensive eye exam established patient [id number] Age-related nuclear cataract, bilateral, Other chronic allergic conjunctivitis, Hypertensive retinopathy, bilateral, Essential (primary) hypertension Dylan Zapata MD, MERCEDEZ Zapata MD [facility] 12/21/2019 Surgical History Last Updated Surgical / procedural history : Pacemake r, Open Heart surgery, CBG, Mitral Valve repair 12/0112/21/2019 History of LASIK surgery of both corneas 2002 014 Medical History Includes: Medical History in patient's chart Description Last Updated History of essential hypertension 01/29/2015 Currently wearing eyeglasses OTC Cheaters +2.50 06/28 Reported medical history : Sleep Apnea with CPAP, Paresh rgies 06/28/2014 No recent change in medical history 10/03/2013 History of asthma 09/29/2012 History of hypertension 09/29/2012 Family History Includes: Family History in patient's chart Description Last Updated Fraternal history of hypertension 01/29/2015 Paternal history of family history of cancer 5 Paternal history of hypertension 01/29/2015 Sor[place] history of family history of cancer 01/29/2015 [place] history of hypertension 01/29/2015 Paternal history of macular degeneration 06/28/2014 [place] history of macular degeneration 06/28/2014 Review of Systems Review of Systems not supported for this document typeNo Review of Systems Recorded Mental Status Mental Status not supported for this document typeNo Mental Status Recorded Functional Status Functional Status not supported for this document typeNo Functional Status Recorded Physical Exam Physical Exam not supported for this document typeNo Physical Exam Recorded Immunizations Includes: Immunizations in patient's chartNo Immunizations Recorded Allergies Includes: Active, inactive, and resolved AllergiesNo Known Allergies Encounters Includes: Encounters from 11/12/2019 through 11/11/2020 Encounter Provider Location Date Check-In Time Check-Out Time D iagnosis Rx Refills/Changes Dylan Zapata MD, FACS 10/01/2020 12/21/2019 3:23PM 12/21/2019 11:59PM 1 Year Follow-Up Dylan Zapata MD, MERCEDEZ [facility] 12/21/2019 7:51AM 8:40AM Essential Hypertensi on, Cataract Senile Nuclear, Conjunctivitis Chronic Allergic, Retinopathy Hypertensive Both Eyes, Dry Eye Syndrome Both Eyes, Cataract Senile Cortical Left Insurance Includes: Active Insurance Policies Plan Name Member ID Group # Subscriber Relationship Effective Da nano 1 - Medicare Part B [facility] ([facility] [id number] Gerald Mejia Self 08/16/2011 - Unknown 2 - [employer] /BS [id number] Gerald Mejia Self Advance Directives Includes: Current Advance DirectivesNo Advance Directives Recorded Health Concerns Includes: Active Health ConcernsNo Active Health Concerns Recorded Goals Includes: Active GoalsNo Active Goals Recorded Interventions Includes: Interventions for active GoalsNo Interventions Recorded Evaluations & Outcomes Includes: Evaluations & Outcomes for active GoalsNo Outcomes Recorded
--- OUTSIDE RECORDS SUMMARY | 2020-11-29 18:13 | CCD ---
Author Author [facility] Organization [facility] Address Unknown Phone Unavailable Care Team Providers Care Loan Servicing Representative Name Role Phone Francia Mena Unavailable PROBLEMS Type Condition ICD9-CM Code [id number] Code Onset Dates Condition S tatus W/U Status Risk SNOMED Code Notes Problem Pacemaker Z95.0 Active confirmed [id number] He was noted to have a slow [...] 2019. Problem Sleep apnea G47.30 Active confirmed 86671272 He is supposed to be on CPAP therapy +7 cm of water since Summer 2012 but he has given up on it because he is entirely intolerant of that therapy. Problem Right bundle branch block I45.10 Active confirmed 75511824 He was noted to have a right [...] Problem Elevated fasting glucose R73.01 Active confirmed 814897378 His fasting glucose has been borderline elevated [...] Problem Allergic rhinitis J30.9 Active confirmed 61 786419 This is usually controlled with intranasal steroids seasonally. Problem Cardiomyopathy I42.9 Active confirmed 09439 001 He has an apparent idiopathic cardiomyopathy. [...] 30-35%. He is regularly seen by his professional system administrator. He will continue metoprolol succinate, Entresto, torsemide but he is no longer on spironolactone therapy. He had an AICD and pacemaker generator placed in 2013 with a generator replacement 07/2019. Consider Farxiga in the future; he is managed by cardiology. Problem History of adenomatous polyp of colon Z86.010 Ac tive confirmed 834911257 He had an adenomatous polyp identified i n 1996. Hi colonoscopy in June 2010 demonstrated hyperplastic polyps and in February 2017 he had an adenomatous polyp. Problem Asthma J45.909 Active confirmed 898365596 Th is has improved on Symbicort instead of Advair. Pulmonary function tests were normal in 12/2014. His director dermatology has him on a lower dose of Symbicort and he still has not had any active flares. Problem Pruritic condition L29.9 Active confirmed 2 25847182 He will continue to use topical therapy for this, and Klonopin was added in March 2017 for his nocturnal back itching with no effect. He sees a head of stock now. Problem Anxiety F41.9 Active confirmed 72093314 He is currently on Lexapro. Mirtazapine was of no benefit in improving his sleep pattern. He has tried trazodone in the past. He was trialed on Klonopin at night as of March 2017 because sleep disruptions from itching that were interfering with his quality of life and this was ineffective. Problem Chronic kidney disease, stage 3 N18.3 Active confi rmed [id number] His GFR is in the 30s to 40s now, and most recently his creatinine was generally stable at 1.91/ GFR 37 in January 2020, 1.88/GFR 38 in 06/2020, 1.66/GFR 43 in September 2020. PTH level was 85 in 09/2020. Problem Prostate cancer screening Z12.5 Active confirmed 803330511 Problem Primary insomnia F51.01 Active confirmed 397 [...] and this wasn't effective. He sees a head of stock. 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 His uric acid level is over 8 as of September 2020. He will try to follow a low purine diet rather than add another medication to his already complex medical regimen. Problem Sensory peripheral neuropathy G62.9 Active confirm ed 73163655 He describes some numbness of the feet. Etiology is obscure. Serologic evaluation was negative in September 2015, 08/2018. TSH was 3.29 in [place] in December 2019. Consider neurology referral for electrodiagnostic studies. Problem Osteoarthritis M19.90 Active confirmed 27852 5006 In the past he has taken [id number] naproxen prn. There has been no current need, and it would be contraindicated with his cardiomyopathy. Uses topical Voltaren gel on his knees. Problem Alkaline phosphatase elevation R74.8 Active confir med 117883417 He has a chronic alkaline phosphatase elevation likely from passive liver congestion. This is stable as of September 2020, reviewing trends. Hepatitis serologies were negative in 06/2020. His professional system administrator is campaigning for him to have a CT of his liver but given the stability of his lab work I see no reason. Problem Hypercholesterolemia E78.00 Active confirmed 67954601 He had been on Lipitor therapy in the past, with optimal lipids in May 2015. However, he is no longer on Lipitor. He had insignificant coronary artery disease on heart catheterization in about 2015. Lipids were quite reasonably controlled as of 06/2020. 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 He had a follow-up PSA in February 2020. He has ongoing follow-up with the urologist, next due in August 2020. He has had a response to Flomax; Rezum is still an option. ALLERGIES No Known Allergies ENCOUNTERS from 1945 to 2020-11-05 Encounter Location Date Provider Diagnosis [facility] [address] [phone] [place] [address] Oct, Francia Mena Urinary frequency R35.0 and BPH (benign prostatic hyperplasia) N40.0 IMMUNIZATIONS Vaccine Route Administration Date Status COVID-19 dose #1 given elsewhere Unspecified Unknown Mar 07, 2020 Administered Zoster 0.65mL Zostavax SC Subcutaneous Jan 18, 2015 Administe red Influenza 18 yrs & older Flublok IM Intramuscular Dec 08, 2017 Administered COVID-19 dose #2 given elsewhere Unspecified Unknown Apr 04, 2020 Administered Pneumococcal Adult 0.5mL Pneumovax 23 Unknown Jan 26 12 Administered Influenza Pharmacy Given Unknown Nov 28, 2018 Adminis tered Influenza Pharmacy Given Unknown Nov 16, 2019 Adminis tered Influenza 6mo & up Fluzone Unknown Nov 17, 2012 Admin istered TDAP Unknown Jan 27, 2012 Administered Zoster 50mcg/0.5mL Shingrix Unknown Jan 02, 2019 Admi nistered Zoster 50mcg/0.5mL Shingrix Unknown Sep 28, 2018 Admi nistered Influenza (High Dose 65 & up) Unknown Dec 01, 2016 Ad ministered Pneumococcal 0.5mL Prevnar 13 IM Intramuscular Jan [...] a day as nee ded Jan, Active Triamcinolone Acetonide 0.1 % 1 application Externally Twice a day for 30 days Dec, Active Lexapro 20 MG 1 tablet Orally Once a day in the AM for 90 day(s) Active Alrex 0.2 % 1 drop into both eyes Ophtha lmic two times a day as needed for 30 days Active Torsemide 20 MG 1 tablet Orally once a day Active Amoxicillin 500 MG 4 capsule Orally 4 HOURS PRIOR T0 DDS APPTS Active Alfuzosin HCl ER 10 MG 1 tablet immediately after t he same meal Orally Once a day for 90 day(s) Aug, Active Toprol XL 25 MG 1 tablet Orally Once a day for 90 days Aug, Active Protonix 40 MG 1 tablet Orally once daily as needed for 90 days Active Entresto 49-51 MG 1 tablet Orally Twice a day for 90 day(s) Active Symbicort 80-4.5 MCG/ACT 2 puffs Inhalation once daily for 90 da ys June, Active Efudex 5 % 1 application Externally Twice a day for 30 days Dec, Active Melatonin 5 MG 1 tablet at bedtime as neede d with food Orally Once a day for 30 day(s) Active Oxybutynin Chloride ER 5 MG 1 tablet Orally Once a day for 90 da y(s) Aug, Active Entresto 24-26 MG 1 tablet Orally Twice a day with 49/51 dose Active Flonase 50 MCG/DOSE 2 sprays in each nostril Nasally twice daily Active PROCEDURES No Information RESULTS No Results REASON FOR VISIT sript refills MEDICAL (GENERAL) HISTORY Type Description Date Medical [...] Medication Name Sig Start Date Stop Date Alfuzosin HCl ER 10 MG 1 tablet immediately after t he same meal Orally Once a day for 90 day(s) Aug, Oxybutynin Chloride ER 5 MG 1 tablet Orally Once a day for 9 0 day(s) Aug, Next Appt Details Provider Name:Joleen Oliva, 10:30:00 AM, [address] [facility], , [place], [address], Provider Name:Art Patton, 2021-02-10 08 :30:00 AM, [address] [facility], , [place], [address], Provider Name:Francia Mena, 8 09:00:00 AM, [address], , [place], [address], Insurance Providers Payer Name Payer Address Payer Phone Insured Name Patient Relati onship to Insured Coverage Start Date Coverage End Date BCBS EDMOND RIVERO PPO [phone] [facility] [employer] [place] [address] NICO FOSTER MEDICARE Part A and B [facility] [address] [place] [phone] NICO FOSTER self
--- OUTSIDE RECORDS SUMMARY | 2020-11-29 18:13 | CCD | Continuity of Care Document ---
Author Author Gerald MELGOZA PA Organization Unknown Address [address] [place] [address], [address] [address] Phone [phone] Care Team Providers Care Edging Machine Setter Name Role Phone Art Patton MD [facility] [phone] Problems Description No Information Available Social History [...] Note Lyme Disease SCRN With Confirm 09/26/2020 [facility] [address] [place] [phone] - Lyme Disease IgG/IgM Antibodie <0.91 ISR Normal 0.00- 0.90 1 Lyme Disease IgM Ab Quantitati <0.80 index Normal 0.00-0.79 2 CBC With Differential 09/26/[address] [address] (315)- - White Blood Count 6.1 10 [...] 36.0-66.0 Lymph % 15.4 % Low 24.0-44.0 [place] % 10.7 % High 2.0-8.0 Eos % 2.1 % Normal 0.0-3.0 Baso % 0.5 % Normal 0.0-1.0 Immature Granulocyte % 0.7 % Normal 0-3.0 Nucleated Red Blood Cell % 0.0 % Normal 0-0 Neutrophils # 4.3 10 Normal 1.5-8.5 Lymph # 0.9 10 Low 1.5-5.0 [place] # 0.7 10 Normal 0.0-0.8 Eos # 0.1 10 Normal 0.0-0.5 Baso # 0.0 10 Normal 0.0-0.2 Laboratory test finding 09/26/2020 [facility] l Centr [address] [place] [address] (315)- - C Reactive Protein Quantitativ 7.07 mg/dL High 0.00- 0.30 Erythrocyte Sedimentation Rate 23 mm/hr High 0-20 Body Fluids Culture And Gram Stain 09/25/2020 [facility] [place] [address] (315)- - Gram Stain (SEE NOTE) Normal 3 Body Fluid Culture <SEE NOTE> 4 Cell Count Synovial Fluid 09/25/2020 [facility]ayra Centr [address] [place] [address] (315)- - Source, Body Fluid OTHER Normal Synovial Fluid Color YELLOW Normal Colorless Appearance, Body Fluid CLOUDY Normal Clear WBC Body Fluid 10698 /uL High 0-10 RBC Body Fluid 10 10 Normal <2 BF Mononuclear Cell % 17.8 % High 0-0 BF Polymorphonuclear Cell % 82.2 % High 0-0 Crystal Analysis Body Fluid 09/25/2020 [facility] dical Centr [address] [place] [address] (315)- - Crystals, Body Fluid URIC ACID High None Seen Source, Body Fluid Crystals UNKNOWN Normal Glucose Body Fluid 09/25/2020 [facility] Ce ntr [address] [place] [address] (315)- - Glucose, Body Fluid 17 mg/dL Normal Not Established Source, Body Fluid Glucose UNKNOWN Normal Body Fluid [facility]umat[facility] [address] [place] [address] (315)- - Body Fluid Rheumatoid Screen NEGATIVE Normal Negativ e Source, Body Fluid Ra UNKNOWN Normal Body Fluids Mucin Clot Test 09/25/2020 [facility] dical Centr [address] [place] [address] (315)- - Mucin Clot Test 4+ Normal 4+ Source, Body Fluid Mucin Clot UNKNOWN Normal 1 Negative <0.91 Equivocal 0.91 - 1.09 Positive >1.09 2 Negative <0.80 Equivocal 0.80 - 1.19 Positive >1.19 . IgM levels may peak at 3-6 weeks post infection, then gradually decline. Performed at: RN - [facility] [address] [id number] Line [employer] Supervisor: Jackie Turner MD, Phone: [phone] FEW RBCS FEW WBCS NO ORGANISMS SEEN 4 If aerobic or anaerobic growth is detected within the next 7-21 days, an addendum will follow. . . FULL REPORT IN LAB NOTES (eCW and Medent). NO GROWTH AEROBICALLY Procedures Date Code Description Status 10/02/2020 59132 Office/Outpatient Established Lo w MDM 20-29 Min Completed 10/02/2020 Inject/Drain Joint/Bursa Major C ompleted 09/25/2020 95572 Office/Outpatient New Moderate M DM 45-59 Minutes Completed 09/25/2020 18583 X-Ray Knee Complete W/Obliques & Tunnel And/Or Standing Views Completed 09/25/2020 Inject/Drain Joint/Bursa Major C ompleted Medical Devices Description No Information Available Encounters Type Date Location Provider Dx Diagnosis Office Visit 10/02/2020 1:00p Elizabethlaurie Mccann PA-C M17.12 Unilateral primary osteoarthritis, left knee M10.062 Idiopathic gout, left knee M25.462 Effusion, left knee Office Visit 09/27/2020 6:00p ElizabethSCARLETT Bertrand M17.12 Unilateral primary osteoarthritis, left knee M25.462 Effusion, left knee Office Visit 09/25/2020 2:00p ElizabethSCARLETT Bertrand M25.562 Pain in left knee M25.462 Effusion, left knee M17.12 Unilateral primary osteoarth ritis, left knee Assessments Date Code Description Provider 11/11/2020 M17.12 Unilateral primary osteoarthriti s, left knee SCARLETT Gil 11/11/2020 M10.062 Idiopathic gout, left knee SCARLETT Gil 11/11/2020 M25.462 Effusion, left knee SCARLETT Morrison 10/02/2020 M17.12 Unilateral primary osteoarthriti s, left knee Adore Mccann PA-C 10/02/2020 M10.062 Idiopathic gout, left knee Adore Mccann PA-C 10/02/2020 M25.462 Effusion, left knee Adore alexis PA-C 09/27/2020 M17.12 Unilateral primary osteoarthriti [...]
--- OUTSIDE RECORDS SUMMARY | 2020-11-29 18:13 | CCD | Continuity of Care Document ---
Author Author Gerald MELGOZA PA Organization Unknown Address [address] [place] [address], [address] [address] Phone [phone] Care Team Providers Care Benefits Director Name Role Phone Art Patton MD [facility] [phone] Problems Description No Information Available Social History [...] Note Lyme Disease SCRN With Confirm 09/26/2020 [facility] [address] [place] [phone] ([phone] - Lyme Disease IgG/IgM Antibodie <0.91 ISR Normal 0.00- 0.90 1 Lyme Disease IgM Ab Quantitati <0.80 index Normal 0.00-0.79 2 CBC With Differential 09/26/[address] [address] (315)- - White Blood Count 6.1 10 [...] 36.0-66.0 Lymph % 15.4 % Low 24.0-44.0 [place] % 10.7 % High 2.0-8.0 Eos % 2.1 % Normal 0.0-3.0 Baso % 0.5 % Normal 0.0-1.0 Immature Granulocyte % 0.7 % Normal 0-3.0 Nucleated Red Blood Cell % 0.0 % Normal 0-0 Neutrophils # 4.3 10 Normal 1.5-8.5 Lymph # 0.9 10 Low 1.5-5.0 [place] # 0.7 10 Normal 0.0-0.8 Eos # 0.1 10 Normal 0.0-0.5 Baso # 0.0 10 Normal 0.0-0.2 Laboratory test finding 09/26/2020 [facility] l Centr [address] [place] [address] (315)- - C Reactive Protein Quantitativ 7.07 mg/dL High 0.00- 0.30 Erythrocyte Sedimentation Rate 23 mm/hr High 0-20 Body Fluids Culture And Gram Stain 09/25/2020 [address] [place] [address] (315)- - Gram Stain (SEE NOTE) Normal 3 Body Fluid Culture <SEE NOTE> 4 Cell Count Synovial Fluid 09/25/2020 [facility] zayra Centr [address] [place] [address] (315)- - Source, Body Fluid OTHER Normal Synovial Fluid Color YELLOW Normal Colorless Appearance, Body Fluid CLOUDY Normal Clear WBC Body Fluid 46028 /uL High 0-10 RBC Body Fluid 10 10 Normal <2 BF Mononuclear Cell % 17.8 % High 0-0 BF Polymorphonuclear Cell % 82.2 % High 0-0 Crystal Analysis Body Fluid 09/25/2020 [facility] dical Centr [address] [place] [address] (315)- - Crystals, Body Fluid URIC ACID High None Seen Source, Body Fluid Crystals UNKNOWN Normal Glucose Body Fluid 09/25/2020 [facility] Ce ntr [address] [place] [address] (315)- - Glucose, Body Fluid 17 mg/dL Normal Not Established Source, Body Fluid Glucose UNKNOWN Normal Body Fluid [facility]umat[facility] [address] [place] [address] (315)- - Body Fluid Rheumatoid Screen NEGATIVE Normal Negativ e Source, Body Fluid Ra UNKNOWN Normal Body Fluids Mucin Clot Test 09/25/2020 [facility] dical Centr [address] [place] [address] (315)- - Mucin Clot Test 4+ Normal 4+ Source, Body Fluid Mucin Clot UNKNOWN Normal 1 Negative <0.91 Equivocal 0.91 - 1.09 Positive >1.09 2 Negative <0.80 Equivocal 0.80 - 1.19 Positive >1.19 . IgM levels may peak at 3-6 weeks post infection, then gradually decline. Performed at: RN - [facility] [address] [id number] Shine Worker: Jackie Turner MD, Phone: [phone] 3 FEW RBCS FEW WBCS NO ORGANISMS SEEN 4 If aerobic or anaerobic growth is detected within the next 7-21 days, an addendum will follow. . . FULL REPORT IN LAB NOTES (eCW and Medent). NO GROWTH AEROBICALLY Procedures Date Code Description Status 09/27/2020 23983 Office/Outpatient Established Mo d MDM 30-39 Min Completed 09/25/2020 29727 Office/Outpatient New Moderate M DM 45-59 Minutes Completed 09/25/2020 62449 X-Ray Knee Complete W/Obliques & Tunnel And/Or Standing Views Completed 09/25/202091271 Inject/Drain Joint/Bursa Major C ompleted Medical Devices Description No Information Available Encounters Type Date Location Provider Dx Diagnosis Office Visit 09/27/2020 6:00p [place] M17.12 Unilateral primary osteoarthritis, left knee M25.462 Effusion, left knee Office Visit 09/25/2020 2:00p [place] SCARLETT Gil M17.12 Unilateral primary osteoarthritis, left knee M25.562 Pain in left knee Assessments Date Code Description Provider 09/27/2020 M17.12 Unilateral primary osteoarthriti s, left knee SCARLETT Gil 09/27/2020 M25.462 Effusion, left knee SCARLETT Morrison 09/25/2020 M17.12 Unilateral primary osteoarthriti s, left knee SCARLETT Gil 09/25/2020 M25.562 Pain in left knee SCARLETT Gil Plan of Treatment Future Appointment(s):* 11/11/2020 8:30 am - SCARLETT Gil at [place] * 10/02/2020 1:00 pm - SCARLETT Harper-Kevon at [place] 09/25/2020 - SCARLETT Gil* M17.12 Unilateral primary osteoarthritis, left knee * M25.562 Pain in left knee* Follow up:* this wed evening lab results with IID via telemed Functional Status Description No Information Available Mental Status Description No Information Available Referrals Description No Information Available
--- OUTSIDE RECORDS SUMMARY | 2020-11-29 18:15 | CCD ---
Author Author [facility] Organization [facility] Address Unknown Phone Unavailable Care Team Providers Care Waiter/Waitress Buffet Name Role Phone Perez, Edmundo PA Unavailable Unavailable Perez, Edmundo PA Unavailable Unavailable Perez, Edmundo PA Unavailable Unavailable Perez, Edmundo PA Unavailable Unavailable Perez, Edmundo PA Unavailable Unavailable Perez, Edmundo PA Unavailable Unavailable Perez, Edmundo PA Unavailable Unavailable Perez, Edmundo PA Unavailable Unavailable Perez, Edmundo PA Unavailable Unavailable Perez, Edmundo PA Unavailable Unavailable Perez, Edmundo PA Unavailable Unavailable Perez, Edmundo PA Unavailable Unavailable Perez, Edmundo PA Unavailable Unavailable Radha Marsh MD Unavailable Unavailable Radha Marsh MD Unavailable Unavailable Radha Marsh MD Unavailable Unavailable Radha Marsh MD Unavailable Unavailable Radha Marsh MD Unavailable Unavailable Radha Marsh MD Unavailable Unavailable Radha Marsh MD Unavailable Unavailable Radha Marsh MD Unavailable Unavailable Radha Marsh MD Unavailable Unavailable Radha Marsh MD Unavailable Unavailable Radha Marsh MD Unavailable Unavailable Radha Marsh MD Unavailable Unavailable Radha Marsh MD Unavailable Unavailable Dafne Mccann, PA-C Unavailable Unavailabl Dafne Weeks MPAS, PA-C Unavailable Unavailabl Dafne Weeks, PA-C Unavailable Unavailabl e Dafne Mccann, PA-C Unavailable Unavailabl e Fish, [facility], PA-C Unavailable Unavailabl e Fish, [facility], PA-C Unavailable Unavailabl e Fish, [facility], PA-C Unavailable Unavailabl e Fish, [facility], PA-C Unavailable Unavailabl e Fish, [facility], PA-C Unavailable Unavailabl e Fish, [facility], PA-C Unavailable Unavailabl e Fish, [facility], PA-C Unavailable Unavailabl e Fish, [facility], PA-C Unavailable Unavailabl e Fish, [facility], PA-C Unavailable Unavailabl e Fish, [facility], PA-C Unavailable Unavailabl e Fish, [facility], PA-C Unavailable Unavailabl e Fish, [facility], PA-C Unavailable Unavailabl e Fish, [facility], PA-C Unavailable Unavailabl e Fish, [facility], PA-C Unavailable Unavailabl e Fish, [facility], PA-C Unavailable Unavailabl e Fish, [facility], PA-C Unavailable Unavailabl e Fish, [facility], PA-C Unavailable Unavailabl e Fish, [facility], PA-C Unavailable Unavailabl e Fish, [facility], PA-C Unavailable Unavailabl e Fish, [facility], PA-C Unavailable Unavailabl e Fish, [facility], PA-C Unavailable Unavailabl e Fish, [facility], PA-C Unavailable Unavailabl e Fish, [facility], PA-C Unavailable Unavailabl e Fish, [facility], PA-C Unavailable Unavailabl e Fish, [facility], PA-C Unavailable Unavailabl e Fish, [facility], PA-C Unavailable Unavailabl e Fish, [facility], PA-C Unavailable Unavailabl e Fish, [facility], PA-C Unavailable Unavailabl e Fish, [facility], PA-C Unavailable Unavailabl e Fish, [facility], PA-C Unavailable Unavailabl e Fish, Dafne Adore MPAS, PA-C Unavailable Unavailabl e ChicaHussain doran MD Unavailable Unavailable Chica, Hussain Weinberg MD Unavailable Unavailable Chica, Hussain Weinberg MD Unavailable Unavailable Chica, Hussain Weinberg MD Unavailable Unavailable Chica, Hussain Weinberg MD Unavailable Unavailable Chica, Hussain Weinberg MD Unavailable Unavailable Chica, Hussain Weinberg MD Unavailable Unavailable Chica, Hussain Weinberg MD Unavailable Unavailable Chica, Hussain Weinberg MD Unavailable Unavailable Chica, Hussain Weinberg MD Unavailable Unavailable Chica, Hussain Weinberg MD Unavailable Unavailable Chica, Hussain Weinberg MD Unavailable Unavailable Chica, Hussain Weinberg MD Unavailable Unavailable Chica, Hussain Weinberg MD Unavailable Unavailable Chica, Hussain Weinberg MD Unavailable Unavailable Chica, Hussain Weinberg MD Unavailable Unavailable Chica, Hussain Weinberg MD Unavailable Unavailable Chica, Hussain Weinberg MD Unavailable Unavailable Chica, Hussain Weinberg MD Unavailable Unavailable Chica, Hussain Weinberg MD Unavailable Unavailable Chica, Hussain Weinberg MD Unavailable Unavailable Chica, Hussain Weinberg MD Unavailable Unavailable Chica, Hussain Weinberg MD Unavailable Unavailable Chica, Hussain Weinberg MD Unavailable Unavailable Chica, Hussain Weinberg MD Unavailable Unavailable JOSECARRIE Gallardo Unavailable Unavailable Pham Rios, Jose Richardson MD, FACS Unavailable Unavailable Pham Rios, Jose Richardson MD, FACS Unavailable Unavailable Pham Rios, Jose Richardson MD, FACS Unavailable Unavailable Pham Rios, Jose Richardson MD, FACS Unavailable Unavailable Pham Rios, Jose Richardson MD, FACS Unavailable Unavailable Pham Rios, Jose Richardson MD, FACS Unavailable Unavailable Pham Rios, Jose Richardson MD, FACS Unavailable Unavailable Pham Rios, Jose Richardson MD, FACS Unavailable Unavailable Pham Rios, Jose Richardson MD, FACS Unavailable Unavailable Pham Rios, Jose Richardson MD, FACS Unavailable Unavailable Pham Rios, Jose Richardson MD, FACS Unavailable Unavailable Pham Rios, Jose Richardson MD, FACS Unavailable Unavailable Pham Rios, Jose Richardson MD, FACS Unavailable Unavailable Pham Rios, Jose Richardson MD, FACS Unavailable Unavailable Pham Rios, Jose Richardson MD, FACS Unavailable Unavailable Pham Rios, Jose Richardson MD, FACS Unavailable Unavailable Pham Rios, Jose Richardson MD, FACS Unavailable Unavailable Pham Rios, Jose Richardson MD, FACS Unavailable Unavailable Pham Rios, Jose Richardson MD, FACS Unavailable Unavailable Pham Rios, Jose Richardson MD, FACS Unavailable Unavailable Pham Rios, Jose Richardson MD, FACS Unavailable Unavailable Pham Rios, Jose Richardson MD, FACS Unavailable Unavailable Pham Rios, Jose Richardson MD, FACS Unavailable Unavailable Pham Rios, Jose Richardson MD, FACS Unavailable Unavailable Pham Rios, Jose Richardson MD, FACS Unavailable Unavailable Pham Rios, Jose Richardson MD, FACS Unavailable Unavailable Pham Rios, Jose Richardson MD, FACS Unavailable Unavailable Pham Rios, Jose Richardson MD, FACS Unavailable Unavailable Pham Rios, Jose Richardson MD, FACS Unavailable Unavailable Pham Rios, Jose Richardson MD, FACS Unavailable Unavailable Pham Rios, Jose Richardson MD, FACS Unavailable Unavailable Pham Rios, Jose Richardson MD, FACS Unavailable Unavailable Pham Rios, Jose Richardson MD, FACS Unavailable Unavailable Pham Rios, Jose Richardson MD, FACS Unavailable Unavailable Pham Rios, Jose Richardson MD, FACS Unavailable Unavailable Pham Riso, Jose Richardson MD, FACS Unavailable Unavailable Pham Rios, Jose Richardson MD, FACS Unavailable Unavailable Pham Rios, Jose Richardson MD, FACS Unavailable Unavailable Pham Rios, Jose Richardson MD, FACS Unavailable Unavailable [place], Angelic BREAUX Unavailable Unavailable [place], Angelic BREAUX Unavailable Unavailable [place], Angelic BREAUX Unavailable Unavailable [place], Angelic BREAUX Unavailable Unavailable [place], Angelic BREAUX Unavailable Unavailable [place], Angelic BREAUX Unavailable Unavailable [place], Angelic BREAUX Unavailable Unavailable [place], Angelic BREAUX Unavailable Unavailable [place], Angelic BREAUX Unavailable Unavailable [place], Angelic BREAUX Unavailable Unavailable Leopoldo, Jose Carmona MD Unavailable Unavailable Leopoldo, Jose Carmona MD Unavailable Unavailable Leopoldo, Jose Carmona MD Unavailable Unavailable Leopoldo, Jose Carmona MD Unavailable Unavailable Leopoldo, Jose Carmona MD Unavailable Unavailable Leopoldo, Jose Carmona MD Unavailable Unavailable Leopoldo, Jose Carmona MD Unavailable Unavailable Leopoldo, Jose Carmona MD Unavailable Unavailable Leopoldo, Jose Carmona MD Unavailable Unavailable Leopoldo, Jose Carmona MD Unavailable Unavailable Leopoldo, Jose Carmona MD Unavailable Unavailable Leopoldo, Jose Carmona MD Unavailable Unavailable Leopoldo, Jose Carmona MD Unavailable Unavailable Leopoldo, Jose Carmona MD Unavailable Unavailable Leopoldo, Jose Carmona MD Unavailable Unavailable Leopoldo, Jose Carmona MD Unavailable Unavailable Leopoldo, Jose Carmona MD Unavailable Unavailable Leopoldo, Jose Carmona MD Unavailable Unavailable Leopoldo, Jose Carmona MD Unavailable Unavailable Leopoldo, Jose Carmona MD Unavailable Unavailable Leopoldo, Jose Carmona MD Unavailable Unavailable Leopoldo, Jose Carmona MD Unavailable Unavailable Leopoldo, Jose Carmona MD Unavailable Unavailable Leopoldo, Jose Carmona MD Unavailable Unavailable Leopoldo, Jose Carmona MD Unavailable Unavailable Leopoldo, Jose Carmona MD Unavailable Unavailable Leopoldo, Jose Carmona MD Unavailable Unavailable Leopoldo, Jose Carmona MD Unavailable Unavailable Leopoldo, Jose Carmona MD Unavailable Unavailable Leopoldo, Jose Carmona MD Unavailable Unavailable Leopoldo, Jose Carmona MD Unavailable Unavailable Leopoldo, Jose Carmona MD Unavailable Unavailable Leopoldo, Jose Carmona MD Unavailable Unavailable Leopoldo, Jose Carmona MD Unavailable Unavailable Leopoldo, Jose Carmona MD Unavailable Unavailable Leopoldo, Jose Carmona MD Unavailable Unavailable Leopoldo, Jose Carmona MD Unavailable Unavailable Leopoldo, Jose Carmona MD Unavailable Unavailable Leopoldo, Jose Carmona MD Unavailable Unavailable Leopoldo, Jose Carmona MD Unavailable Unavailable Leopoldo, Jose Carmona MD Unavailable Unavailable Leopoldo, Jose Carmona MD Unavailable Unavailable Leopoldo, Jose Carmona MD Unavailable Unavailable Leopoldo, Jose Carmona MD Unavailable Unavailable Leopoldo, Jose Carmona MD Unavailable Unavailable Leopoldo, Jose Carmona MD Unavailable Unavailable Leopoldo, Jose Carmona MD Unavailable Unavailable Leopoldo, Jose Carmona MD Unavailable Unavailable Leopoldo, Jose Carmona MD Unavailable Unavailable Leopoldo, Jose Carmona MD Unavailable Unavailable Leopoldo, Jose Carmona MD Unavailable Unavailable Leopoldo, Jose Carmona MD Unavailable Unavailable Leopoldo, Jose Carmona MD Unavailable Unavailable Leopoldo, Jose Carmona MD Unavailable Unavailable Leopoldo, Jose Carmona MD Unavailable Unavailable Leopoldo, Jose Carmona MD Unavailable Unavailable Leopoldo, Jose Carmona MD Unavailable Unavailable Leopoldo, Jose Carmona MD Unavailable Unavailable Leopoldo, Jose Carmona MD Unavailable Unavailable Leopoldo, Jose Carmona MD Unavailable Unavailable Leopoldo, Jose Carmona MD Unavailable Unavailable Leopoldo, Jose Carmona MD Unavailable Unavailable Leopoldo, Jose Carmona MD Unavailable Unavailable Leopoldo, Jose Carmona MD Unavailable Unavailable Leopoldo, Jose Carmona MD Unavailable Unavailable Leopoldo, Jose Carmona MD Unavailable Unavailable Leopoldo, Jose Camrona MD Unavailable Unavailable Leopoldo, Jose Carmona MD Unavailable Unavailable Leopoldo, Jose Carmona MD Unavailable Unavailable Leopoldo, Jose Carmona MD Unavailable Unavailable Leopoldo, Jose Carmona MD Unavailable Unavailable Leopoldo, Jose Carmona MD Unavailable Unavailable Leopoldo, Jose Carmona MD Unavailable Unavailable Leopoldo, Jose Carmona MD Unavailable Unavailable Leopoldo, Jose Carmona MD Unavailable Unavailable Leopoldo, Jose Carmona MD Unavailable Unavailable Leopoldo, Jose Carmona MD Unavailable Unavailable Leopoldo, Jose Carmona MD Unavailable Unavailable Leopoldo, Jose Carmona MD Unavailable Unavailable Carmita BREAUX, Kevon Soni Unavailable Unavailable Carmita BREAUX, Kevon Soni Unavailable Unavailable Carmita BREAUX, Kevon Soni Unavailable Unavailable Carmita BREAUX, Kevon Soni Unavailable Unavailable Carmita BREAUX, Kevon Soni Unavailable Unavailable Carmita BREAUX, Kevon Soni Unavailable Unavailable Carmita BREAUX, C Zachariah Unavailable Unavailable Carmita BREAUX, C Zachariah Unavailable Unavailable Carmita BREAUX, C Zachariah Unavailable Unavailable Carmita BREAUX, C Zachariah Unavailable Unavailable Carmita BREAUX, C Zachariah Unavailable Unavailable Kevon Sal MD Unavailable Unavailable Kevon Sal MD Unavailable Unavailable Kevon Sal MD Unavailable Unavailable Kevon Sal MD Unavailable Unavailable Kevon Sal MD Unavailable Unavailable Kevon Sal MD Unavailable Unavailable Kevon Sal MD Unavailable Unavailable Kevon Sal MD Unavailable Unavailable Kevon Sal MD Unavailable Unavailable Kevno Sal MD Unavailable Unavailable Kevon Sal MD Unavailable Unavailable Kevon Sal MD Unavailable Unavailable Kevon Sal MD Unavailable Unavailable Kevon Sal MD Unavailable Unavailable Kevon Sal MD Unavailable Unavailable Kevon Sal MD Unavailable Unavailable Kevon Sal MD Unavailable Unavailable Kevon Sal MD Unavailable Unavailable Kevon Sal MD Unavailable Unavailable Kevon Sal MD Unavailable Unavailable Kevon Sal MD Unavailable Unavailable Kevon Sal MD Unavailable Unavailable Kevon Sal MD Unavailable Unavailable Kevon Sal MD Unavailable Unavailable Kevon Sal MD Unavailable Unavailable Kevon Sal MD Unavailable Unavailable Kevon Sal MD Unavailable Unavailable Kevon Sal MD Unavailable Unavailable Kevon Sal MD Unavailable Unavailable Kevon Sal MD Unavailable Unavailable Kevon Sal MD Unavailable Unavailable Kevon Sal MD Unavailable Unavailable Kevon Sal MD Unavailable Unavailable Kevon Sal MD Unavailable Unavailable Kevon Sal MD Unavailable Unavailable Kevon Sal MD Unavailable Unavailable Kevon Sal MD Unavailable Unavailable Kevon Sal MD Unavailable Unavailable Kevon Sal MD Unavailable Unavailable Kevon Sal MD Unavailable Unavailable Kevon Sal MD Unavailable Unavailable Kevon Sal MD Unavailable Unavailable Kevon Sal MD Unavailable Unavailable Kevon Sal MD Unavailable Unavailable Kevon Sal MD Unavailable Unavailable Wnorowski MD, C Zachariah Unavailable Unavailable Carmita BREAUX, C Zachariah Unavailable Unavailable Carmita BREAUX, C Zachariah Unavailable Unavailable Carmita BREAUX, C Zachariah Unavailable Unavailable Carmita BREAUX, C Zachariah Unavailable Unavailable Carmita BREAUX, C Zachariah Unavailable Unavailable Carmita BREAUX, C Zachariah Unavailable Unavailable Carmita BREAUX, C Zachariah Unavailable Unavailable Carmita BREAUX, C Zachariah Unavailable Unavailable Carmita BREAUX, C Zachariah Unavailable Unavailable Carmita BREAUX, C Zachariah Unavailable Unavailable Carmita BREAUX, C Zachariah Unavailable Unavailable Carmita BREAUX, C Zachariah Unavailable Unavailable Carmita BREAUX, C Zachariah Unavailable Unavailable Carmita BREAUX, C Zachariah Unavailable Unavailable Radha Marsh MD Unavailable Unavailable Radha Marsh MD Unavailable Unavailable Radha Marsh MD Unavailable Unavailable Radha Marsh MD Unavailable Unavailable Radha Marsh MD Unavailable Unavailable Radha Marsh MD Unavailable Unavailable Radha Marsh MD Unavailable Unavailable Radha Marsh MD Unavailable Unavailable Radha Marsh MD Unavailable Unavailable Radha Marsh MD Unavailable Unavailable Radha Marsh MD Unavailable Unavailable Radha Marsh MD Unavailable Unavailable Radha Marsh MD Unavailable Unavailable Andrew Delaney MD Unavailable Unavailable Andrew Delaney MD Unavailable Unavailable Andrew Delaney MD Unavailable Unavailable Andrew Delaney MD Unavailable Unavailable Andrew Delaney MD Unavailable Unavailable Andrew Delaney MD Unavailable Unavailable Andrew Delaney MD Unavailable Unavailable Andrew Delaney MD Unavailable Unavailable Andrew Delaney MD Unavailable Unavailable Andrew Delaney MD Unavailable Unavailable Andrew Delaney MD Unavailable Unavailable Andrew Delaney MD Unavailable Unavailable Andrew Delaney MD Unavailable Unavailable Andrew Delaney MD Unavailable Unavailable Andrew Delaney MD Unavailable Unavailable Andrew Delaney MD Unavailable Unavailable Andrew Delaney MD Unavailable Unavailable Andrew Delaney MD Unavailable Unavailable Andrew Delaney MD Unavailable Unavailable Andrew Delaney MD Unavailable Unavailable Andrew Delaney MD Unavailable Unavailable Andrew Delaney MD Unavailable Unavailable Andrew Delaney MD Unavailable Unavailable Andrew Delaney MD Unavailable Unavailable Andrew Delaney MD Unavailable Unavailable Andrew Delaney MD Unavailable Unavailable Andrew Delaney MD Unavailable Unavailable Andrew Delaney MD Unavailable Unavailable Andrew Delaney MD Unavailable Unavailable Andrew Delaney MD Unavailable Unavailable Andrew Delaney MD Unavailable Unavailable Andrew Delaney MD Unavailable Unavailable Andrew Delaney MD Unavailable Unavailable Andrew Delaney MD Unavailable Unavailable Andrew Delaney MD Unavailable Unavailable Andrew Delaney MD Unavailable Unavailable Andrew Delaney MD Unavailable Unavailable Andrew Delaney MD Unavailable Unavailable Andrew Delaney MD Unavailable Unavailable Andrew Delaney MD Unavailable Unavailable Andrew Delaney MD Unavailable Unavailable Andrew Delaney MD Unavailable Unavailable Andrew Delaney MD Unavailable Unavailable Andrew Delaney MD Unavailable Unavailable Andrew Delaney MD Unavailable Unavailable Andrew Delaney MD Unavailable Unavailable Andrew Delaney MD Unavailable Unavailable Andrew Delaney MD Unavailable Unavailable Andrew Delaney MD Unavailable Unavailable Andrew Delaney MD Unavailable Unavailable Andrew Delaney MD Unavailable Unavailable Andrew Delaney MD Unavailable Unavailable Andrew Delaney MD Unavailable Unavailable PHYSICIAN, PHYSICIAN ER Unavailable Unavailable DRAZEK, I HANSA PA Unavailable Unavailable DRAZEK, I HANSA PA Unavailable Unavailable DRAZEK, I HANSA PA Unavailable Unavailable DRAZEK, I HANSA PA Unavailable Unavailable DRAZEK, I HANSA PA Unavailable Unavailable DRAZEK, I HANSA PA Unavailable Unavailable DRAZEK, I HANSA PA Unavailable Unavailable DRAZEK, I HANSA PA Unavailable Unavailable DRAZEK, I HANSA PA Unavailable Unavailable DRAZEK, I HANSA PA Unavailable Unavailable DRAZEK, I HANSA PA Unavailable Unavailable DRAZEK, I HANSA PA Unavailable Unavailable DRAZEK, I HANSA PA Unavailable Unavailable DRAZEK, I HANSA PA Unavailable Unavailable DRAZEK, I HANSA PA Unavailable Unavailable DRAZEK, I HANSA PA Unavailable Unavailable DRAZEK, I HANSA PA Unavailable Unavailable DRAZEK, I HANSA PA Unavailable Unavailable DRAZEK, I HANSA PA Unavailable Unavailable DRAZEK, I HANSA PA Unavailable Unavailable DRAZEK, I HANSA PA Unavailable Unavailable DRAZEK, I HANSA PA Unavailable Unavailable DRAZEK, I HANSA PA Unavailable Unavailable DRAZEK, I HANSA PA Unavailable Unavailable DRAZEK, I HANSA PA Unavailable Unavailable DRAZEK, I HANSA PA Unavailable Unavailable DRAZEK, I HANSA PA Unavailable Unavailable DRAZEK, I HANSA PA Unavailable Unavailable DRAZEK, I HANSA PA Unavailable Unavailable DRAZEK, I HANSA PA Unavailable Unavailable Art Patton MD Unavailable Unavailable Art Patton MD Unavailable Unavailable Art Patton MD Unavailable Unavailable Art Patton MD Unavailable Unavailable Art Patton MD Unavailable Unavailable Art Patton MD Unavailable Unavailable Art Patton MD Unavailable Unavailable Art Patton MD Unavailable Unavailable Art Patton MD Unavailable Unavailable Art Patton MD Unavailable Unavailable Art Patton MD Unavailable Unavailable Art Patton MD Unavailable Unavailable Art Patton MD Unavailable Unavailable Art Patton MD Unavailable Unavailable Art Patton MD Unavailable Unavailable Art Patton MD Unavailable Unavailable Art Patton MD Unavailable Unavailable Art Patton MD Unavailable Unavailable Art Patton MD Unavailable Unavailable Art Patton MD Unavailable Unavailable Art Patton MD Unavailable Unavailable Art Patton MD Unavailable Unavailable Art Patton MD Unavailable Unavailable Art Patton MD Unavailable Unavailable Art Patton MD Unavailable Unavailable Art Patton MD Unavailable Unavailable Art Patton MD Unavailable Unavailable Art Patton MD Unavailable Unavailable Art Patton MD Unavailable Unavailable Art Patton MD Unavailable Unavailable Art Patton MD Unavailable Unavailable Art Patton MD Unavailable Unavailable Art Patton MD Unavailable Unavailable Art Patton MD Unavailable Unavailable Art Patton MD Unavailable Unavailable Art Patton MD Unavailable Unavailable Art Patton MD Unavailable Unavailable Art Patton MD Unavailable Unavailable Art Patton MD Unavailable Unavailable Art Patton MD Unavailable Unavailable Art Patton MD Unavailable Unavailable Art Patton MD Unavailable Unavailable Art Patton MD Unavailable Unavailable Art Patton MD Unavailable Unavailable Art Patton MD Unavailable Unavailable Art Patton MD Unavailable Unavailable Art Patton MD Unavailable Unavailable Art Patton MD Unavailable Unavailable Art Patton MD Unavailable Unavailable Art Patton MD Unavailable Unavailable Art Patton MD Unavailable Unavailable Art Patton MD Unavailable Unavailable Art Patton MD Unavailable Unavailable Art Patton MD Unavailable Unavailable Art Patton MD Unavailable Unavailable Art Patton MD Unavailable Unavailable Art Patton MD Unavailable Unavailable Art Patton MD Unavailable Unavailable Art Patton MD Unavailable Unavailable Art Patton MD Unavailable Unavailable Art Patton MD Unavailable Unavailable Art Patton MD Unavailable Unavailable Art Patton MD Unavailable Unavailable Art Patton MD Unavailable Unavailable Art Patton MD Unavailable Unavailable Art Patton MD Unavailable Unavailable Art Patton MD Unavailable Unavailable Art Patton MD Unavailable Unavailable Art Patton MD Unavailable Unavailable Art Patton MD Unavailable Unavailable Art Patton MD Unavailable Unavailable Art Patton MD Unavailable Unavailable Art Patton MD Unavailable Unavailable Art Patton MD Unavailable Unavailable Art Patton MD Unavailable Unavailable Art Patton MD Unavailable Unavailable Art Patton MD Unavailable Unavailable Art Patton MD Unavailable Unavailable Art Patton MD Unavailable Unavailable PHYSICIAN, ER Unavailable Unavailable Wnellie BREAUX, Kevon Soni Unavailable Unavailable Wnellie BREAUX, Kevon Soni Unavailable Unavailable Carmita BREAUX, Kevon Soni Unavailable Unavailable Carmita BREAUX, Kevon Soni Unavailable Unavailable Carmita BREAUX, Kevon Soni Unavailable Unavailable Wnellie BREAUX, Kevon Soni Unavailable Unavailable Wnellie BREAUX, Kevon Soni Unavailable Unavailable Wnellie BREAUX, Kevon Soni Unavailable Unavailable Wnellie BREAUX, Kevon Soni Unavailable Unavailable Carmita BREAUX, Kevon Soni Unavailable Unavailable Carmita BREAUX, Kevon Soni Unavailable Unavailable Carmita BREAUX, Kevon Soni Unavailable Unavailable Carmita BREAUX, Kevon Soni Unavailable Unavailable Kevon Sal MD Unavailable Unavailable Carmita BREAUX, Kevon Soni Unavailable Unavailable Carmita BREAUX, Kevon Soni Unavailable Unavailable Carmita BREAUX, Kevon Soni Unavailable Unavailable Wnellie BREAUX, Kevon Soni Unavailable Unavailable Carmita BREAUX, Kevon Soni Unavailable Unavailable Carmita BREAUX, Kevon Soni Unavailable Unavailable Carmita BREAUX, Kevon Soni Unavailable Unavailable Carmita BREAUX, Kevon Soni Unavailable Unavailable Carmita BREAUX, Kevon Soni Unavailable Unavailable Carmita BREAUX, Kevon Soni Unavailable Unavailable Carmita BREAUX, Kevon Soni Unavailable Unavailable Carmita BREAUX, Kevon Soni Unavailable Unavailable Carmita BREAUX, Kevon Soni Unavailable Unavailable Carmita BREAUX, Kevon Soni Unavailable Unavailable Carmita BREAUX, Kevon Soni Unavailable Unavailable Carmita BREAUX, Kevon Soni Unavailable Unavailable Wnellie BREAUX, Kevon Soni Unavailable Unavailable Carmita BREAUX, Kevon Soni Unavailable Unavailable Carmita BREAUX, Kevon Soni Unavailable Unavailable Carmita BREAUX, Kevon Soni Unavailable Unavailable Carmita BREAUX, Kevon Soni Unavailable Unavailable Carmita BREAUX, Kevon Soni Unavailable Unavailable Carmita BREAUX, Kevon Soni Unavailable Unavailable Carmita BREAUX, Kevon Soni Unavailable Unavailable Carmita BREAUX, Kevon Soni Unavailable Unavailable Carmita BREAUX, Kevon Soni Unavailable Unavailable Carmita BREAUX, Kevon Soni Unavailable Unavailable Carmita BREAUX, Kevon Soni Unavailable Unavailable Carmita BREAUX, Kevon Soni Unavailable Unavailable Carmita BREAUX, Kevon Soni Unavailable Unavailable Carmita BREAUX, Kevon Soni Unavailable Unavailable Carmita BREAUX, Kevon Soni Unavailable Unavailable Carmita BREAUX, Kevon Soni Unavailable Unavailable Carmita BREAUX, Kevon Soni Unavailable Unavailable Carmita BREAUX, Kevon Soni Unavailable Unavailable Carmita BREAUX, Keovn Soni Unavailable Unavailable Carmita BREAUX, Kevon Soni Unavailable Unavailable Carmita BREAUX, Kevon Soni Unavailable Unavailable Carmita BREAUX, Kevon Soni Unavailable Unavailable Carmita BREAUX, Kevon Soni Unavailable Unavailable Carmita BREAUX, Kevon Soni Unavailable Unavailable Carmita BREAUX, Kevon Soni Unavailable Unavailable Carmita BREAUX, Kevon Soni Unavailable Unavailable Carmita BREAUX, Kevon Soni Unavailable Unavailable Carmita BREAUX, Kevon Soni Unavailable Unavailable Carmita BREAUX, Kevon Soni Unavailable Unavailable Carmita BREAUX, Kevon Soni Unavailable Unavailable Carmita BREAUX, Kevon Soni Unavailable Unavailable Carmita BREAUX, Kevon Soni Unavailable Unavailable Carmita BREAUX, Kevon Soni Unavailable Unavailable Carmita BREAUX, Kevon Soni Unavailable Unavailable Carmita BREAUX, Kevon Soni Unavailable Unavailable Carmita BREAUX, Kevon Soni Unavailable Unavailable Carimta BREAUX, Kevon Soni Unavailable Unavailable Carmita BREAUX, Kevon Soni Unavailable Unavailable Carmita BREAUX, Kevon Soni Unavailable Unavailable Carmita BREAUX, Kevon Soni Unavailable Unavailable Re-disclosure Warning The records that you are about to access may contain information from federally-assisted alcohol or drug abuse programs. If such information is present, then the following federally mandated warning applies: This information has been disclosed to you from records protected by federal confidentiality rules (42 CFR part 2). The federal rules prohibit you from making any further disclosure of this information unless further disclosure is expressly permitted by the written consent of the person to whom it pertains or as otherwise permitted by 42 CFR part 2. A general authorization for the release of medical or other information is NOT sufficient for this purpose. The Federal rules restrict any use of the information to criminally investigate or prosecute any alcohol or drug abuse patient.The records that you are about to access may contain highly sensitive health information, the redisclosure of which is protected by Article 27-F of the [facility] Public Health law. If you continue you may have access to information: Regarding HIV / AIDS; Provided by facilities licensed or operated by the [facility] Office of Mental Health; or Provided by the [facility] Office for People With Developmental Disabilities. If such information is present, then the following [facility] mandated warning applies: This information has been disclosed to you from confidential records which are protected by state law. State law prohibits you from making any further disclosure of this information without the specific written consent of the person to whom it pertains, or as otherwise permitted by law. Any unauthorized further disclosure in violation of state law may result in a fine or fdc sentence or both. A general authorization for the release of medical or other information is NOT sufficient authorization for further disc losure. Family History Family Member Name Family Member Gender Family Member Status Date o f Status Description Data Source(s) Unknown Male Problem [facility] ([facility]) () Unknown Male Problem [facility] ([facility]) Unknown Male Problem MED[facility] ([facility]) () Encounters Encounter Providers Location Date Indications Data Source(s ) Outpatient Attender: Cas Delaney MD [facility] [place] 11/25/2020 02:14:00 AM EDT [facility] ([facility]) Outpatient Attender: Lenard Coto MD [facility] [place] 11/24/2020 03:33:00 AM EDT [facility] ([facility]) Outpatient Attender: Cas Delaney MD [facility] [place] 11/20/2020 02:15:00 AM EDT [facility] ([facility]) Recurring Patient Referrer: Zachariah Sal MD 11/18/2020 10:15:53 AM EDT [facility] Inpatient Attender: Daniel Marsh MDAtt freddy: Zachariah Sal MDAttender: ER PHYSICIAN 11/17/2020 10:08:00 AM EDT [facility] ( in Healthcare facility) Attender: Edmond Marsh MDAdmitter: Daniel Marsh MDConsultant: CARRIE GARCIA 11/17/2020 10:08:00 AM EDT [facility] Outpatient Attender: Cas Delaney MD [facility] Internal Med at [place] 11/17/2020 07:52:00 AM EDT [facility] ([facility]) Inpatient Attender: Angelic Friedman MDAt tender: Daniel Marsh MDAttender: ER PHYSICIAN 11/17/2020 06:28:06 AM EDT [facility] Inpatient Attender: Angelic Friedman MDAt tender: Daniel Marsh MDAttender: ER PHYSICIANAdmitter: Angelic Friedman MD 11/17/2020 02:40:0 0 AM EDT - 11/29/2020 05:20:00 PM EDT HIP FRACTURE [facility] HIP FRACTURE Patient discharged. Emergency Attender: Edmundo COSTAeferrer: Jose Patton MD EMERGENCY ROOM- EMERGENCY ROOM 11/16/2020 08:27:00 PM EDT - 11/16/2020 08:27:[address] [facility] Patient discharged. OFFICE OUTPATIENT VISIT 15 MINUTES Attender: HANSA PANTOJA Phys ical Therapy 11/11/2020 08:30:00 AM EDT [facility] ([facility]) [place] [address] [address] 11/05/2020 12:00:00 AM EDT eCW1 ([facility]) Outpatient [address] [facility] [place] [address] 10/18/2020 12:00:00 AM EDT eCW1 ([facility]) Outpatient [address] [facility] [place] [address] 10/07/2020 12:00:00 AM EDT eCW1 ([facility]) OFFICE OUTPATIENT VISIT 15 MINUTES Attender: Adore VILLALTA PA-C Physical Therapy 10/02/2020 01:00:00 PM EDT [facility] ([facility]) Office Visit Attender: HANSA PANTOJA Physical Therapy 2020 06:00:00 PM EDT [facility] ([facility]) Outpatient Attender: HANSA PANTOJA Physical Therapy 09/25/2020 0 2:00:00 PM EDT [facility] ([facility]) [place] [address] [address] 09/09/2020 12:00:00 AM EDT eCW1 ([facility]) [place]patient [address] [address] 09/06/2020 12:00:00 AM EDT [facility]1 [facility]) [place] [address] [address] 08/27/2020 12:00:00 AM EDT eCW1 ([facility]) Outpatient Attender: Mathew Mina MD [facility] [place] 07/18/2020 10:30:00 AM EDT [facility]) [place] [address] [facility] [address] 06/17/2020 12:00:00 AM EDT [facility]CW1 ([facility]) [place] [address] [facility] [address] 03/20/2020 12:00:00 AM EST eCW1 ([facility]) [place] [address] [address] 02/28/2020 12:00:00 AM EST eCW1 ([facility]) [place] [address] [address] 02/28/2020 12:00:00 AM EST eCW1 ([facility]) [place] [address] [facility] [address] 02/21/2020 12:00:00 AM EST eCW1 ([facility]) [place] [address] [facility] [address] 02/19/2020 12:00:00 AM EST eCW1 ([facility]) [place] [address] [facility] [address] 02/07/2020 12:00:00 AM EST eCW1 ([facility]) [place] [address] [facility] [address] 01/30/2020 12:00:00 AM EST eCW1 ([facility]) [place] [address] [address] 01/02/2020 12:00:00 AM EST eCW1 ([facility]) Outpatient Attender: Mathew Mina MD [facility] Internal Med at [facility] 12/29/2019 03:00:00 PM EST [facility] ([facility]) Outpatient<td ID="encounterTypeDescripti onID0">Rx Refills/Changes</td><td>Dylan Zapata MD, FACS</td><td></td><td>10/01/2020</td><td>12/21/2019 3:23PM</td><td>12/21/2019 11:59PM</td><td></td> Attender: Dylan Rios MD, FACS 12/21/2019 03:23:00 PM EST - 12/21/2019 11:59:00 PM EST [place] ([facility] Rios MD [facility]) Outpatient<td ID="encounterTypeDescripti onID1">1 Year Follow-Up</td><td>Dylan Zapata MD, FACS</td><td>[facility]</td><td>12/21/2019</td><td>7:51AM</td><td>8:40AM</td><td><content ID="encounterDiagnosisID1-0">Essential Hypertension</content>, <content ID="encounterDiagnosisID1-1">Cataract Senile Nuclear</content>, <content ID="encounterDiagnosisID1-2">Conjunctivitis Chronic Allergic</content>, <content ID="encounterDiagnosisID1-3">Retinopathy Hypertensive Both Eyes</content>, <content ID="encounterDiagnosisID1-4">Dry Eye Syndrome Both Eyes</content>, <content ID="encounterDiagnosisID1-5">Cataract Senile Cortical Left</content></td> Attender: Dylan Rios MD, FACS [facility] 12/21/2019 07:51:00 AM EST - 12/21/2019 08:40:00 AM ES T Cataract Senile Cortical LeftEssential HypertensionRetinopathy Hypertensive Both EyesCataract Senile NuclearDry Eye Syndrome Both EyesConjunctivitis Chronic Allergic [facility] ([facility]) Cataract Senile Cortical Left Essential Hypertension 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 [place] [address] [facility] [address] 11/15/2019 12:00:00 AM EDT eCW1 ([facility]) Immunizations Vaccine Date Status Description Data Source(s) COVID-19 dose #2 given elsewhere Unspecified 04/04/2020 09:3 7:00 AM EST completed eCW1 ([facility]) COVID-19 dose #2 given elsewhere Unspecified 04/04/2020 09:3 7:00 AM EST completed eCW1 ([facility]) COVID-19 dose #2 given elsewhere Unspecified 04/04/2020 09:3 7:00 AM EST completed eCW1 ([facility]) COVID-19 dose #2 given elsewhere Unspecified 04/04/2020 09:3 7:00 AM EST completed eCW1 ([facility]) COVID-19 dose #2 given elsewhere Unspecified 04/04/2020 09:3 7:00 AM EST completed eCW1 ([facility]) COVID-19 dose #2 given elsewhere Unspecified 04/04/2020 09:3 7:00 AM EST completed eCW1 ([facility]) COVID-19 dose #2 given elsewhere Unspecified 04/04/2020 09:3 7:00 AM EST completed eCW1 ([facility]) COVID-19 VACCINE Moderna 04/04/2020 12:00:00 AM EST completed NYSIIS Vaccine Series Complete: YESThis Data wa s Submitted to [facility] Via NYgDine. COVID-19 dose #1 given elsewhere Unspecified 03/07/2020 09:3 7:00 AM EST completed eCW1 ([facility]) COVID-19 dose #1 given elsewhere Unspecified 03/07/2020 09:3 7:00 AM EST completed eCW1 ([facility]) COVID-19 dose #1 given elsewhere Unspecified 03/07/2020 09:3 7:00 AM EST completed eCW1 ([facility]) COVID-19 dose #1 given elsewhere Unspecified 03/07/2020 09:3 7:00 AM EST completed eCW1 ([facility]) COVID-19 dose #1 given elsewhere Unspecified 03/07/2020 09:3 7:00 AM EST completed eCW1 ([facility]) COVID-19 dose #1 given elsewhere Unspecified 03/07/2020 09:3 7:00 AM EST completed eCW1 ([facility]) COVID-19 dose #1 given elsewhere Unspecified 03/07/2020 09:3 7:00 AM EST completed eCW1 ([facility]) COVID-19 VACCINE Moderna 03/07/2020 12:00:00 AM EST completed NYSIIS Vaccine Series Complete: NOThis Data was Submitted to [facility] Via ApoVax. IIV3. This is one of two codes replacing CVX 15, which is being retired. 11/16/2019 09:30:00 AM EDT completed eCW1 ([facility]) IIV3. This is one of two codes replacing CVX 15, which is being retired. 11/16/2019 09:30:00 AM EDT completed eCW1 ([facility]) IIV3. This is one of two codes replacing CVX 15, which is being retired. 11/16/2019 09:30:00 AM EDT completed eCW1 ([facility]) IIV3. This is one of two codes replacing CVX 15, which is being retired. 11/16/2019 09:30:00 AM EDT completed eCW1 ([facility]) IIV3. This is one of two codes replacing CVX 15, which is being retired. 11/16/2019 09:30:00 AM EDT completed eCW1 ([facility]) IIV3. This is one of two codes replacing CVX 15, which is being retired. 11/16/2019 09:30:00 AM EDT completed eCW1 ([facility]) IIV3. This is one of two codes replacing CVX 15, which is being retired. 11/16/2019 09:30:00 AM EDT completed eCW1 ([facility]) IIV3. This is one of two codes replacing CVX 15, which is being retired. 11/16/2019 09:30:00 AM EDT completed eCW1 ([facility]) IIV3. This is one of two codes replacing CVX 15, which is being retired. 11/16/2019 09:30:00 AM EDT completed eCW1 ([facility]) IIV3. This is one of two codes replacing CVX 15, which is being retired. 11/16/2019 09:30:00 AM EDT completed eCW1 ([facility]) IIV3. This is one of two codes replacing CVX 15, which is being retired. 11/16/2019 09:30:00 AM EDT completed eCW1 ([facility]) IIV3. This is one of two codes replacing CVX 15, which is being retired. 11/16/2019 09:30:00 AM EDT completed eCW1 ([facility]) IIV3. This is one of two codes replacing CVX 15, which is being retired. 11/16/2019 09:30:00 AM EDT completed eCW1 ([facility]) Medications Medication Brand Name Start Date Product Form Dose Route Admi nistrative Instructions Pharmacy Instructions Status Indications Reaction Description Data Source(s) 10 mg 11/06/2020 12:00:00 AM EDT tablet extended release 24 hr 30 TAKE 1 TABLET BY MOUTH IMMEDIATELY AFTER THE SAME MEAL ONCE A DAY TAKE 1 TABLET BY MOUTH IMMEDIATELY AFTER THE SAME MEAL ONCE A DAY SOLD: 11/07/2020 [facility] 5 mg 11/04/2020 12:00:00 AM EDT tablet extended release 24hr 30 TAKE ONE TABLET BY MOUTH EVERY DAY TAKE ONE TABLET BY MOUTH EVERY DAY SOLD: 11/06/2020 [facility] 500 mg 10/23/2020 12:00:00 AM EDT capsule 20 TAKE 4 CAPSULES 1 HOUR BEFORE DENTAL APPOINTMENT TAKE 4 CAPSULES 1 HOUR BEFORE DENTAL APPOINTMENT SOLD: 10/28/2020 [facility] loteprednol etabonate 2 MG/ML Ophthalmic Suspension [Alrex] Alrex 0.2% Ophthalmic Suspension Alrex 0.2% Ophthalmic Suspension 10/01/2020 12:00:00 A M EDT 1 active lotepred nol etabonate 2 MG/ML Ophthalmic Suspension [Alrex] [facility] ([facility]ios [facility]) 5 mg 09/06/2020 12:00:00 AM EDT tablet extended release 24hr 30 TAKE ONE TABLET BY MOUTH EVERY DAY TAKE ONE TABLET BY MOUTH EVERY DAY SOLD: 10/15/2020 [facility] 5 mg 09/06/2020 12:00:00 AM EDT tablet extended release 24hr 30 TAKE ONE TABLET BY MOUTH EVERY DAY TAKE ONE TABLET BY MOUTH EVERY DAY SOLD: 09/07/2020 [facility] 24 HR Oxybutynin chloride 5 MG Extended Release Oral Tablet Oxybutynin Chloride ER 5 MG Oxybutynin Chloride ER 5 MG 09/06/2020 12:00:00 AM EDT 1.0 {tablet} active Oxybutynin Chloride ER 5 MG eCW1 ([facility]) 24 HR Oxybutynin chloride 5 MG Extended Release Oral Tablet Oxybutynin Chloride ER 5 MG Oxybutynin Chloride ER 5 MG 09/06/2020 12:00:00 AM EDT 1.0 {tablet} active Oxybutynin Chloride ER 5 MG eCW1 ([facility]) 24 HR Oxybutynin chloride 5 MG Extended Release Oral Tablet Oxybutynin Chloride ER 5 MG Oxybutynin Chloride ER 5 MG 09/06/2020 12:00:00 AM EDT 1.0 {tablet} active Oxybutynin Chloride ER 5 MG eCW1 ([facility]) 24 HR Oxybutynin chloride 5 MG Extended Release Oral Tablet Oxybutynin Chloride ER 5 MG Oxybutynin Chloride ER 5 MG 09/06/2020 12:00:00 AM EDT 1.0 {tablet} active Oxybutynin Chloride ER 5 MG eCW1 ([facility]) 24 HR Oxybutynin chloride 5 MG Extended Release Oral Tablet Oxybutynin Chloride ER 5 MG Oxybutynin Chloride ER 5 MG 09/06/2020 12:00:00 AM EDT 1.0 {tablet} active Oxybutynin Chloride ER 5 MG eCW1 ([facility]) 24 HR Alfuzosin hydrochloride 10 MG Exte nded Release Oral Tablet Alfuzosin HCl ER 10 MG Alfuzosin HCl ER 10 MG 08/28/2020 12:00:00 AM EDT 1.0 {tablet_immediately_after_the_same_meal} active Alfuzosin HCl ER 10 MG eCW1 ([facility]) 24 HR Alfuzosin hydrochloride 10 MG Exte nded Release Oral Tablet Alfuzosin HCl ER 10 MG Alfuzosin HCl ER 10 MG 08/28/2020 12:00:00 AM EDT 1.0 {tablet_immediately_after_the_same_meal} active Alfuzosin HCl ER 10 MG eCW1 ([facility]) 24 HR Alfuzosin hydrochloride 10 MG Exte nded Release Oral Tablet Alfuzosin HCl ER 10 MG Alfuzosin HCl ER 10 MG 08/28/2020 12:00:00 AM EDT 1.0 {tablet_immediately_after_the_same_meal} active Alfuzosin HCl ER 10 MG eCW1 ([facility]) 24 HR Alfuzosin hydrochloride 10 MG Exte nded Release Oral Tablet Alfuzosin HCl ER 10 MG Alfuzosin HCl ER 10 MG 08/28/2020 12:00:00 AM EDT 1.0 {tablet_immediately_after_the_same_meal} active Alfuzosin HCl ER 10 MG eCW1 ([facility]) 24 HR Alfuzosin hydrochloride 10 MG Exte nded Release Oral Tablet Alfuzosin HCl ER 10 MG Alfuzosin HCl ER 10 MG 08/28/2020 12:00:00 AM EDT 1.0 {tablet_immediately_after_the_same_meal} active Alfuzosin HCl ER 10 MG eCW1 ([facility]) 24 HR Alfuzosin hydrochloride 10 MG Exte nded Release Oral Tablet Alfuzosin HCl ER 10 MG Alfuzosin HCl ER 10 MG 08/28/2020 12:00:00 AM EDT 1.0 {tablet_immediately_after_the_same_meal} active Alfuzosin HCl ER 10 MG eCW1 ([facility]) Cephalexin 500 MG Oral Capsule CEPHALEXIN 03/20/2020 12:00:00 AM EST capsule 21 TAKE ONE CAPSULE BY MOUTH THREE TIMES A DAY FOR 7 DAYS TAKE ONE CAPSULE BY MOUTH THREE TIMES A DAY FOR 7 DAYS SOLD: 03/20/2020 [facility] Cephalexin 500 MG Oral Capsule [Keflex] Keflex 500 MG Keflex 500 MG 03/20/2020 12:00:00 AM EST 1.0 {capsule} active K eflex 500 MG eCW1 ([facility]) Keflex 500 MG UNK 03/20/2020 12:00:00 AM EST 1.0 {capsule} active Keflex 500 MG eCW1 ([facility]) 0.4 mg 02/28/2020 12:00:00 AM EST capsule 30 TAKE ONE CAPSULE BY MOUTH EVERY DAY TAKE ONE CAPSULE BY MOUTH EVERY DAY SOLD: 03/08/2020 [facility] loteprednol etabonate 2 MG/ML Ophthalmic Suspension [Alrex] Alrex 0.2% Ophthalmic Suspension Alrex 0.2% Ophthalmic Suspension 12/21/2019 12:00:00 A M EST 1 aborted lotepred nol etabonate 2 MG/ML Ophthalmic Suspension [Alrex] [facility] ([facility]) Vitamin D 125 MCG (5000 UT) Oral Capsule Vitamin D 125 MCG (5000 UT) Oral Capsule 12/21/2019 12:00:00 AM EST 1 active Vitamin D [facility] ([facility]) sacubitril 49 MG / valsartan 51 MG Oral Tablet [Entresto] Entresto 49-51 MG Oral Tablet Entresto 49-51 MG Oral Tablet 12/21/2019 12:00:00 AM EST 1 active sacubitril 49 MG / valsartan 51 MG Oral Tablet [Entresto] [facility] ([facility]) torsemide 20 MG Oral Tablet Torsemide 20 MG Oral Table t Torsemide 20 MG Oral Tablet 12/21/2019 12:00:00 AM EST 1 active torsemide 20 MG Oral Tablet [facility] ([facility]) Entresto 24-29 mg Oral Tablet Entresto 24-29 mg Oral Tablet 12/21/2019 12:00:00 AM EST 1 active Entresto [facility] ([facility]) sacubitril 24 MG / valsartan 26 MG Oral Tablet [Entresto] En tresto 12/04/2019 12:00:00 AM EDT active M EDENT ([facility]) loteprednol etabonate 2 MG/ML Ophthalmic Suspension [Alrex] Alrex 0.2% Ophthalmic Suspension Alrex 0.2% Ophthalmic Suspension 12/15/2018 12:00:00 A M EDT aborted lotepred nol etabonate 2 MG/ML Ophthalmic Suspension [Alrex] [facility] ([facility]) loteprednol etabonate 2 MG/ML Ophthalmic Suspension [Alrex] Alrex 0.2% Ophthalmic Suspension Alrex 0.2% Ophthalmic Suspension 12/08/2017 12:00:00 A M EDT 1 aborted lotepred nol etabonate 2 MG/ML Ophthalmic Suspension [Alrex] [facility] ([facility]) sacubitril 24 MG / valsartan 26 MG Oral Tablet [Entresto] Entresto 24-26MG Oral Tablet Entresto 24-26MG Oral Tablet 11/11/2016 12:00:00 AM EDT 1 aborted sacubitril 24 MG / valsartan 26 MG Oral Tablet [Entresto] [facility] ([facility]) Losartan Potassium 25 MG Oral Tablet Losartan Potassiu m 25 MG Tablet Losartan Potassium 25 MG Tablet 01/29/2015 12:00:00 AM EST 1 aborted losartan potassium 25 MG Oral Tablet [facility] ([facility]) Spironolactone 25 MG Oral Tablet Spironolactone 25 MG Tablet Spironolactone 25 MG Tablet 06/28/2014 12:00:00 AM EDT 1 aborted spironolactone 25 MG Oral Tablet [facility] ([facility]) Furosemide 20 MG Oral Tablet Furosemide 20 MG Tablet Furosem poly 20 MG Tablet 06/28/2014 12:00:00 AM EDT 1 aborted furosemide 20 MG Oral Tablet [facility] ([facility]) 24 HR metoprolol succinate 25 MG Extende d Release Oral Tablet [Toprol] Toprol XL 25 MG Tablet, extended-release 24 hour Toprol XL 25 MG Tablet, extended-release 24 hour 06/28/2014 12:00:00 AM EDT 1 aborted 24 HR metoprolol succinate 25 MG Extended Release Oral Tablet [Toprol] [facility] ([facility]) loteprednol etabonate 2 MG/ML Ophthalmic Suspension [A lrex] Alrex 0.2% OP SUSP Alrex 0.2% OP SUSP 10/03/2013 12:00:00 AM EDT aborted loteprednol etabonate 2 MG/ML Ophthalmic Suspension [Alrex] [facility] ([facility]) Amiloride Hydrochloride 5 MG / Hydrochlo rothiazide 50 MG Oral Tablet aMILoride- hydroCHLOROthiazide 5-50 MG TABS aMILoride-hydroCHLOROthiazide 5-50 MG TABS 09/29/2012 12:00:00 AM EDT aborted amiloride hydrochloride 5 MG / hydrochlorothiazide 50 MG Oral Tablet [facility] ([facility]) Insurance Providers Payer name Policy type / Coverage type Policy ID Covered alliance party ID Covered alliance party's relationship to roblero Policy [place] Plan Information [facility] Medigap Part B [id number] Self 0 [id number] [facility] [address] [address] [address] [id number] [facility] Ins Commercial [id number] Self [id number] Medicare Part B Medicare Primary [id number] Self 3 [id number] [place]IC[place] [id number] S [id number] Medicare C [id number] SELF [id number] [id number] [employer] [id number] S [id number] MEDICARE [id number] SP [id number] [id number] [place] [id number] S [id number] MEDICARE M [id number] S [id number] A Medicare Part B of [place] Other 0 [id number] Self 0 MEDICARE [id number] SP [id number] A [employer] MED[employer]ARE [employer] [id number] S [id number] Medicare [place] Medicare Primary [id number] Self 1 [id number] Medicare Part B of [facility] Other 0 [id number] Self 0 [employer] [facility] [address] [address] [id number] [employer] [facility] [facility] [address] SP [id number] BCBS OF [place] [id number] S [id number] [facility] [id number] S [id number] MEDICARE [id number] S [id number] A96 ANSI-Commercial [id number] ANSI-Medicare Part B [id number] ANSI-Commercial [id number] ANSI-Medicare Part B [id number] ANSI-Medicare Part [place] [id number] ANSI-Commercial [id number] [employer] MED[employer]ARE [employer] [id number] S [id number] [place]ARE [place] [id number] S [id number] ANSI-Medicare Part B [id number] ANSI-Commercial [id number] ANSI-Commercial [id number] ANSI-Medicare Part [place] [id number] MEDICARE [id number] SP [id number] [place] Medicare [place] Primary [id number] Self 1 [id number] Medicare [place] Primary [id number] 2.160.1.646727.3.227.99.104.21203.0 Self 1 [id number] [facility] Health Maintenance Organization ([facility]) 0006 1 2.16.840.1.887558.3.227.99.8646.9720.0 Self 0 [id number] Medicare Medicare Primary [id number] 2.16.840.1.599779.3.227. 99.933.85772.0 Self [id number] UNAVAILABLE UNAVAILA BLE COMMERCIAL HEA [id number] S [id number] MEDICARE MCA [id number] S [id number] MEDICARE MCA [id number] S [id number] Medicare Medicare Primary [id number] 2.16.840.1.476414.3.227. 99.933.53659.0 Self [id number] SELF PAY ONLY [id number] SP [id number] Medicare Medicare Primary [id number] 2.16.840.1.197386.3.227. 99.933.64861.0 Self [id number] Medicare Medicare Primary [id number] 2.16.840.1.115184.3.227. 99.933.50900.0 Self [id number] Medicare Medicare Primary [id number] 2.16.840.1.519621.3.227. 99.933.33865.0 Self [id number] Medicare Medicare Primary [id number] 2.16.840.1.105913.3.227. 99.933.21131.0 Self [id number] Medicare Medicare Primary [id number] 2.16.840.1.678662.3.227. 99.933.53467.0 Self [id number] Medicare Medicare Primary [id number] 2.16.840.1.332899.3.227. 99.933.92892.0 Self [id number] Medicare Medicare Primary [id number] 2.16.840.1.027717.3.227. 99.933.64671.0 Self [id number] Medicare Medicare Primary [id number] 2.16.840.1.269420.3.227. 99.933.80316.0 Self [id number] Medicare Medicare Primary [id number] 2.16.840.1.386793.3.227. 99.933.35222.0 Self [id number] Medicare Medicare Primary [id number] 2.16.840.1.702929.3.227. 99.933.99249.0 Self [id number] Medicare Medicare Primary [id number] 2.16.840.1.622034.3.227. 99.933.85806.0 Self [id number] Medicare Medicare Primary [id number] 2.16.840.1.926052.3.227. 99.933.39265.0 Self [id number] Medicare Medicare Primary [id number] 2.16.840.1.804657.3.227. 99.933.68439.0 Self [id number] Medicare Medicare Primary [id number] 2.16.840.1.558758.3.227. 99.933.25684.0 Self [id number] Medicare Medicare Primary [id number] 2.16.840.1.799365.3.227. 99.933.43014.0 Self [id number] Medicare Medicare Primary [id number] 2.16.840.1.689925.3.227. 99.933.63517.0 Self [id number] Medicare Medicare Primary [id number] 2.16.840.1.682197.3.227. 99.933.23875.0 Self [id number] Medicare Medicare Primary [id number] 2.16.840.1.214140.3.227. 99.933.44443.0 Self [id number] Medicare Medicare Primary [id number] 2.16.840.1.282317.3.227. 99.933.44054.0 Self [id number] Medicare Medicare Primary [id number] 2.16.840.1.585257.3.227. 99.933.41005.0 Self [id number] Medicare Medicare Primary [id number] 2.16.840.1.084310.3.227. 99.933.93963.0 Self [id number] Medicare Medicare Primary [id number] 2.16.840.1.305092.3.227. 99.933.39028.0 Self [id number] Medicare Medicare Primary [id number] 2.16.840.1.294126.3.227. 99.933.48095.0 Self [id number] Medicare Medicare Primary [id number] 2.16.840.1.273218.3.227. 99.933.34453.0 Self [id number] Medicare Medicare Primary [id number] 2.16.840.1.008745.3.227. 99.933.15563.0 Self [id number] Medicare Medicare Primary [id number] 2.16.840.1.964158.3.227. 99.933.98588.0 Self [id number] Medicare Medicare Primary [id number] 2.16.840.1.586297.3.227. 99.933.58914.0 Self [id number] [facility] [id number] SP [id number] [facility] O [address] S 00 061 [place] PPO 302/307 [id number] SP [id number] MEDICARE [id number] SP [id number] A96 [place] PPO 302/307 [id number] SP [id number] EXCELLUS BLUE CROSS BLUE SHIELD HEA [id number] S [id number] MEDICARE MCA [id number] S [id number] MEDICARE MCA [id number] S [id number] CA96 [place] UNAVAILABLE S UNAV AILABLE [facility] [id number] S [id number] BCBS of [facility] Other 0 [id number] Self 0 [facility] [id number] SP [id number] ANSI-Medicare Part B [id number] ANSI-Commercial [id number] ANSI-Commercial [id number] ANSI-Medicare Part B [id number] ANSI-Medicare Part B [id number] ANSI-Commercial [id number] ANSI-Commercial [id number] ANSI-Medicare Part B [id number] Problems, Conditions, and Diagnoses Code Display Name Description Problem Type Effective Dates Data Source(s) M1A.3620 [id number] 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 Problem 10/07/2020 12:00:00 AM EDT eCW1 ([facility]) Z12.5 Screening for malignant neoplasm of prostate Pro state cancer screening Problem 02/28/2020 12:00:00 AM EST eCW1 ([facility]) Surgeries/Procedures Procedure Description Date Indications Data Source(s) [facility] HOSPITAL CARE/DAY 25 MINUTES 11/25/2020 12:00:00 AM EDT MEDENT ([facility]) [facility] 25 MINUTES 11/24/2020 12:00:00 AM EDT [facility] ([facility]) [facility] HOSPITAL CARE/DAY 35 MINUTES 11/20/2020 12:00:00 AM EDT [facility] ([facility]) INITIAL HOSPITAL CARE/DAY 30 MINUTES 11/17/2020 12:00: 00 AM EDT [facility] ([facility]) OFFICE OUTPATIENT VISIT 15 MINUTES 11/11/2020 12:00:00 AM EDT MEDENT ([facility] ) ARTHROCENTESIS ASPIR&/INJECTION MAJOR JT/BURSA 021 12:00:00 AM EDT MEDENT ([facility]) OFFICE OUTPATIENT VISIT 15 MINUTES 10/02/2020 12:00:00 AM EDT [facility] ([facility]) OFFICE OUTPATIENT VISIT 25 MINUTES 09/27/2020 12:00:00 AM EDT MED[facility] ([facility] ) ARTHROCENTESIS ASPIR&/INJECTION MAJOR JT/BURSA 021 12:00:00 AM EDT [facility] ([facility] ) RADIOLOGIC EXAM KNEE COMPLETE 4/MORE VIEWS 09/25/2020 12:00:00 AM EDT [facility] ([facility] ) OFFICE OUTPATIENT NEW 45 MINUTES 09/25/2020 12:00:00 A M EDT [facility] ([facility] ) uro PVR (Post Voiding Residual) Bladder Scan 12:00:00 AM EDT eCW1 ([facility]) Multiple Lead Impantable Cardioverter-Defibrillator 07/18/2020 12:00:00 AM EDT MED[facility] ([facility]) Implant Cardiovascular Monitoring System 07/18/2020 12 :00:00 AM EDT MEDENT ([facility]) Echocardiography, Tranthoracic Real-Time Image Documentation 07/18/2020 12:00:00 AM EDT [facility] ([facility]) OFFICE OUTPATIENT VISIT 25 MINUTES 07/18/2020 12:00:00 AM EDT MEDENT ([facility]) Medication: 1% Lidocaine intradermal (xylocaine) 03/20 12:00:00 AM EST eCW1 ([facility]) uro PVR (Post Voiding Residual) Bladder Scan 12:00:00 AM EST eCW1 ([facility]) Implant Cardiovascular Monitoring System 12/29/2019 12 :00:00 AM EST MEDENT ([facility]) Echocardiography, Tranthoracic Real-Time Image Documentation 12/29/2019 12:00:00 AM EST [facility] ([facility]) Multiple Lead Impantable Cardioverter-Defibrillator 12/29/2019 12:00:00 AM EST [facility] ([facility]) Interrogation Device Evaluation Pacemaker System Up To 90 Da ys 12/29/2019 12:00:00 AM EST [facility] ([facility]) Surgical / procedural history : Pacemake r, Open Heart surgery, CBG, Mitral Valve repair 12/01 Surgical / procedural history : Pacemake r, Open Heart surgery, CBG, Mitral Valve repair 12/0112/21/2019 12:00:00 AM EST GR EENWAY (Dylan Rios MD [facility]) Comprehensive eye exam established patient Comprehensi ve eye exam established patient 12/21/2019 12:00:00 AM EST KHADAR (Juan Rios MD [facility]) Results ID Date Data Source [id number] 11/29/2020 02:32:27 PM EDT [facility] Name Value Range Interpretation Code Description Data Erin rce(s) Supporting Document(s) SPECIMEN DESCRIPTION [facility] INFLUENZA A (NEG) [facility] INFLUENZA B (NEG) [facility] RSV (NEG) [facility] COMMENT [facility] THE U.[place]. FDA HAS MADE THIS TEST AVAILABL EUNDER AN EMERGENCY USE AUTHORIZATION(EUA) FOR THE DETECTION AND/OR DIAGNOSISOF THE VIRUS THAT CAUSES COVID-19.PERFORMED AT [address] [facility] [address] COVID19 RESULT (NDET) [facility] THIS ASSAY AMPLIFIES AND DETECTSTHE TARG ET RNA USING REAL-TIME PCR.TESTING PERFORMED ON [employer] GENEXPERTNEGATIVE 2019_NCOV RT-PCR RESULTS DONOT PRECLUDE 2019_NCOV INFECTION ANDSHOULD NOT BE USED THE SOLE BASISFOR PATIENT MANAGEMENT DECISIONS. FIRST TEST [facility] [place] [facility] SYMPTOMATIC [facility] Y DATE OF SYMPT ONSET [facility] HOSPITALIZED [facility] ICU [facility] CON[facility]REGATE CARE SET [facility] ID Date Data Source [id number] 11/29/2020 10:03:00 AM EDT [facility] Patient: GERALD FOSTER R eport - Physicians/Mid Levels [facility].VisitID: [id number] [place] [address] [phone], MRegistration Date/Time: 11/16/2020 19:11 Weight:90.7 kg (S). Height/Length:70 inches (S). BMI:28.7 FAMILY HISTORY(non contributory). (Electronically signed by Edmundo Perez PA-C 11/29/2020 10:00) Name Value Range Interpretation Code Description Data Erin rce(s) Supporting Document(s) ID Date Data Source [id number] 11/29/2020 08:43:33 AM EDT [facility] Name Value Range Interpretation Code Description Data Erin rce(s) Supporting Document(s) SODIUM 137 mmol/L (136-145) [facility] POTASSIUM 5.0 mmol/L (3.6-5.2) [facility] CHLORIDE 108 mmol/L (100-108) [facility] CO2 22 mmol/L (22-31) [facility] ANION GAP 7 mmol/L (7-16) [facility] UREA NITROGEN 48 mg/dL (7-24) H [facility] CREATININE 1.37 mg/dL (0.80-1.30) H [facility] BUN/CREAT RATIO 35.0 RATIO (10.0-20.0) H [facility] GLUCOSE 77 mg/dL (70-99) [facility] CALCIUM 9.8 mg/dL (8.4-10.2) [facility] GFR 51 ml/min/1.73m2 (>59) L [facility] GFR ( AMER) >60 ml/min/1.73m2 (>59) [facility] GFR INTERPRETATION [facility] --NORMAL KIDNEY FUNCTION OR MILD DISEASE - GFR >OR= 60CHRONIC KIDNEY DISEASE - GFR 15 - 59RENAL FAILURE - GFR <15 Est. GFR calculation based on the MDRDstudy equation, which assumes a steadystate for creatinine. Est. GFR should notbe used for medication dosing. ID Date Data Source [id number] 11/29/2020 08:24:24 AM EDT [facility] Name Value Range Interpretation Code Description Data Erin rce(s) Supporting Document(s) WBC 11.8 10*3/uL (4.1-11.0) H [facility] RBC 3.07 10*6/uL (4.60-6.10) L [facility] HGB 10.3 g/dL (13.5-18.0) L [facility] HCT 30.7 % (41.0-53.0) L [facility] MCV 100.0 fL (80.0-95.0) H [facility] MCH 33.5 pg (27.0-32.0) H [facility] MCHC 33.5 g/dL (32.0-36.0) [facility] RDW 16.2 % (10.5-14.5) H [facility] PLT 261 10*3/uL (150-450) [facility] MPV 9.1 fL (7.1-10.7) [facility] NEUT % 81.1 % (35.0-75.0) H [facility] LYMPH % 9.4 % (16.0-52.0) L [facility] MONO % 6.2 % (0.0-8.0) [facility] EOS % 2.5 % (0.0-5.0) [facility] BASO % 0.8 % (0.0-4.0) [facility] NEUT # 9.6 10*3/uL (1.8-7.7) H [facility] LYMPH # 1.1 10*3/uL (1.2-4.8) L [facility] MONO # 0.7 10*3/uL (0.0-0.8) [facility] Eosinophils [#/volume] in Blood by Automated count 0.3 10*3/uL (0.0-0 .5) [facility] BASO # 0.1 10*3/uL (0.0-0.2) [facility] ID Date Data Source [id number] 11/29/2020 10:10:44 AM EDT [facility] Name Value Range Interpretation Code Description Data Erin rce(s) Supporting Document(s) SPECIMEN DESCRIPTION [facility] STAPH SCREEN RESULTS (ONEGSA) [facility] COMMENT [facility] GENE TO DETECT STAPH AUREUS. (2) RT-P CR WAS PERFORMED FOR THE mecA AND SCCm[employer] GENES TO DETECT METHICILLIN RESISTANCE IN STAPH AUREUS. ID Date Data Source [id number] 11/28/2020 07:07:46 AM EDT [facility] Name Value Range Interpretation Code Description Data Erin rce(s) Supporting Document(s) WBC 12.4 10*3/uL (4.1-11.0) H [facility] RBC 3.03 10*6/uL (4.60-6.10) L [facility] HGB 10.3 g/dL (13.5-18.0) L [facility] HCT 30.3 % (41.0-53.0) L [facility] MCV 100.1 fL (80.0-95.0) H [facility] MCH 34.0 pg (27.0-32.0) H [facility] MCHC 33.9 g/dL (32.0-36.0) [facility] RDW 16.0 % (10.5-14.5) H [facility] PLT 240 10*3/uL (150-450) [facility] MPV 9.3 fL (7.1-10.7) [facility] NEUT % 81.9 % (35.0-75.0) H [facility] LYMPH % 7.7 % (16.0-52.0) L [facility] MONO % 6.9 % (0.0-8.0) [facility] EOS % 2.6 % (0.0-5.0) [facility] BASO % 0.9 % (0.0-4.0) [facility] NEUT # 10.2 10*3/uL (1.8-7.7) H [facility] [place] LYMPH # 1.0 10*3/uL (1.2-4.8) L [facility] MONO # 0.9 10*3/uL (0.0-0.8) H [facility] Eosinophils [#/volume] in Blood by Automated count 0.3 10*3/uL (0.0-0 .5) [facility] BASO # 0.1 10*3/uL (0.0-0.2) [facility] ID Date Data Source [id number] 11/27/2020 08:58:11 AM EDT [facility] Name Value Range Interpretation Code Description Data Erin rce(s) Supporting Document(s) SODIUM 136 mmol/L (136-145) [facility] POTASSIUM 4.9 mmol/L (3.6-5.2) [facility] CHLORIDE 106 mmol/L (100-108) [facility] CO2 24 mmol/L (22-31) [facility] ANION GAP 6 mmol/L (7-16) L [facility] UREA NITROGEN 51 mg/dL (7-24) H [facility] CREATININE 1.55 mg/dL (0.80-1.30) H [facility] BUN/CREAT RATIO 32.9 RATIO (10.0-20.0) H [facility] GLUCOSE 82 mg/dL (70-99) [facility] CALCIUM 9.9 mg/dL (8.4-10.2) [facility] GFR 44 ml/min/1.73m2 (>59) L [facility] GFR ( AMER) 53 ml/min/1.73m2 (>59) L [facility] GFR INTERPRETATION [facility] --NORMAL KIDNEY FUNCTION OR MILD DISEASE - GFR >OR= 60CHRONIC KIDNEY DISEASE - GFR 15 - 59RENAL FAILURE - GFR <15 Est. GFR calculation based on the MDRDstudy equation, which assumes a steadystate for creatinine. Est. GFR should notbe used for medication dosing. ID Date Data Source [id number] 11/27/2020 07:49:06 AM EDT [facility] Name Value Range Interpretation Code Description Data Erin rce(s) Supporting Document(s) SPECIMEN DESCRIPTION [facility] COVID 19 RESULT (NDET) [facility] NEGATIVE COVID-19 RESULTS DONOT PRECLUDE COVID-2019 INFECTION ANDSHOULD NOT BE USED THE SOLE BASISFOR PATIENT MANAGEMENT DECISIONS. COMMENT [facility] THE [place] FDA HAS MADE THIS TEST AVAILABL EUNDER AN EMERGENCY USE AUTHORIZATION(EUA) FOR THE DETECTION AND/OR DIAGNOSISOF THE VIRUS THAT CAUSES COVID-19.THIS ASSAY AMPLIFIES AND DETECTS [employer] USING CONTRACT TECHNICIAN- MEDIATEDAMPLIFICATIONTESTING PERFORMED ON [employer] FIRST TEST [facility] [place] [facility]PL[facility]ED IN HLTHCARE [facility] SYMPTOMATIC [facility] [place] DATE OF SYMPT ONSET [facility] HOSPITALIZED [facility] [place] [facility] CONGREGATE CARE SET [facility] [place] ID Date Data Source [id number] 11/26/2020 08:41:18 AM EDT [facility] Name Value Range Interpretation Code Description Data Erin rce(s) Supporting Document(s) SODIUM 136 mmol/L (136-145) [facility] POTASSIUM 5.1 mmol/L (3.6-5.2) [facility] CHLORIDE 105 mmol/L (100-108) [facility] CO2 25 mmol/L (22-31) [facility] ANION GAP 6 mmol/L (7-16) L [facility] UREA NITROGEN 57 mg/dL (7-24) H [facility] CREATININE 1.67 mg/dL (0.80-1.30) H [facility] BUN/CREAT RATIO 34.1 RATIO (10.0-20.0) H [facility] GLUCOSE 84 mg/dL (70-99) [facility] CALCIUM 10.0 mg/dL (8.4-10.2) Lab [facility] Y GFR 40 ml/min/1.73m2 (>59) L Lab [facility] GFR ( AMER) 49 ml/min/1.73m2 (>59) L [facility] INTERPRETATION [facility] [place] --NORMAL KIDNEY FUNCTION OR MILD DISEASE - GFR >OR= 60CHRONIC KIDNEY DISEASE - GFR 15 - 59RENAL FAILURE - GFR <15 Est. GFR calculation based on the MDRDstudy equation, which assumes a steadystate for creatinine. Est. GFR should notbe used for medication dosing. ID Date Data Source [id number] 11/24/2020 12:30:00 PM EDT [facility] Name Value Range Interpretation Code Description Data Erin rce(s) Supporting Document(s) SARS coronavirus 2 RNA [Presence] in Res piratory specimen by NEIDA with probe detection NOT DETECTED [facility] This lab was reported by [facility]. ID Date Data Source [id number] 11/25/2020 12:25:07 PM EDT Lab [facility] Name Value Range Interpretation Code Description Data Erin rce(s) Supporting Document(s) SPECIMEN DESCRIPTION Lab L[facility] n[facility] of Y COVID 19 RESULT (NDET) [facility] NEGATIVE COVID-19 RESULTS DONOT PRECLUDE COVID-2019 INFECTION ANDSHOULD NOT BE USED THE SOLE BASISFOR PATIENT MANAGEMENT DECISIONS. COMMENT [facility] THE U.[place]. FDA HAS MADE THIS TEST AVAILABL EUNDER AN EMERGENCY USE AUTHORIZATION(EUA) FOR THE DETECTION AND/OR DIAGNOSISOF THE VIRUS THAT CAUSES COVID-19.THIS ASSAY AMPLIFIES AND DETECTS [employer] USING CONTRACT TECHNICIAN- MEDIATEDAMPLIFICATIONTESTING PERFORMED ON [employer] FIRST TEST [facility] EMPLOYED IN THCARE Lab [facility] nce of [place] SYMPTOMATIC Lab [facility] DATE OF SYMPT ONSET Lab Justin ce of [place] HOSPITALIZED [facility] [place] [facility] CONGREGATE CARE SET [facility] ID Date Data Source [id number] 11/24/2020 01:06:23 PM EDT [facility] Name Value Range Interpretation Code Description Data Erin rce(s) Supporting Document(s) SODIUM 138 mmol/L (136-145) [facility] POTASSIUM 4.7 mmol/L (3.6-5.2) [facility] CHLORIDE 105 mmol/L (100-108) [facility] CO2 24 mmol/L (22-31) [facility] ANION GAP 9 mmol/L (7-16) [facility] UREA NITROGEN 63 mg/dL (7-24) H [facility] CREATININE 1.69 mg/dL (0.80-1.30) H [facility] BUN/CREAT RATIO 37.3 RATIO (10.0-20.0) H [facility] GLUCOSE 81 mg/dL (70-99) [facility] CALCIUM 9.5 mg/dL (8.4-10.2) [facility] GFR 40 ml/min/1.73m2 (>59) L [facility] GFR ( AMER) 48 ml/min/1.73m2 (>59) L [facility] GFR INTERPRETATION [facility] --NORMAL KIDNEY FUNCTION OR MILD DISEASE - GFR >OR= 60CHRONIC KIDNEY DISEASE - GFR 15 - 59RENAL FAILURE - GFR <15 Est. GFR calculation based on the MDRDstudy equation, which assumes a steadystate for creatinine. Est. GFR should notbe used for medication dosing. ID Date Data Source [id number] 11/24/2020 09:10:33 AM EDT [facility] Name Value Range Interpretation Code Description Data Erin rce(s) Supporting Document(s) WBC 7.3 10*3/uL (4.1-11.0) [facility] [place] RBC 2.91 10*6/uL (4.60-6.10) L [facility] HGB 9.8 g/dL (13.5-18.0) L [facility] HCT 28.8 % (41.0-53.0) L [facility] MCV 98.7 fL (80.0-95.0) H [facility] MCH 33.7 pg (27.0-32.0) H [facility] MCHC 34.2 g/dL (32.0-36.0) [facility] RDW 15.3 % (10.5-14.5) H [facility] PLT 192 10*3/uL (150-450) [facility] MPV 9.6 fL (7.1-10.7) [facility] ID Date Data Source [id number] 11/23/2020 08:22:06 AM EDT [facility] Name Value Range Interpretation Code Description Data Erin rce(s) Supporting Document(s) SODIUM 136 mmol/L (136-145) [facility] POTASSIUM 4.7 mmol/L (3.6-5.2) [facility] CHLORIDE 104 mmol/L (100-108) [facility] CO2 27 mmol/L (22-31) [facility] ANION GAP 5 mmol/L (7-16) L [facility] UREA NITROGEN 68 mg/dL (7-24) H [facility] CREATININE 1.78 mg/dL (0.80-1.30) H [facility] BUN/CREAT RATIO 38.2 RATIO (10.0-20.0) H [facility] GLUCOSE 103 mg/dL (70-99) H [facility] CALCIUM 9.4 mg/dL (8.4-10.2) [facility] GFR 38 ml/min/1.73m2 (>59) L [facility] GFR ( AMER) 45 ml/min/1.73m2 (>59) L [facility] GFR INTERPRETATION [facility] --NORMAL KIDNEY FUNCTION OR MILD DISEASE - GFR >OR= 60CHRONIC KIDNEY DISEASE - GFR 15 - 59RENAL FAILURE - GFR <15 Est. GFR calculation based on the MDRDstudy equation, which assumes a steadystate for creatinine. Est. GFR should notbe used for medication dosing. ID Date Data Source [id number] 11/23/2020 08:06:43 AM EDT [facility] Name Value Range Interpretation Code Description Data Erin rce(s) Supporting Document(s) WBC 7.0 10*3/uL (4.1-11.0) [facility] [place] RBC 2.97 10*6/uL (4.60-6.10) L [facility] HGB 10.1 g/dL (13.5-18.0) L [facility] HCT 29.3 % (41.0-53.0) L [facility] MCV 98.7 fL (80.0-95.0) H [facility] MCH 33.8 pg (27.0-32.0) H [facility] MCHC 34.3 g/dL (32.0-36.0) [facility] RDW 15.3 % (10.5-14.5) H [facility] PLT 172 10*3/uL (150-450) [facility] MPV 10.1 fL (7.1-10.7) [facility] ID Date Data Source [id number] 11/22/2020 09:01:00 AM EDT Fredy adkins DATE OF EXAM: 1EXAM:Hip RIGHT 2 V or 3V WOW Pelvis CLINICAL INDICATION: FOLLOW UP TECHNIQUE: A single view of the pelvis and frontal and cross table lateral views of the right hip were obtained. COMPARISON: Preoperative films dated 11/16/2020. FINDINGS: The patient is status post fixation of the intertrochanteric fracture with intramedullary delores, femoral neck screw and distal interlocking screw. The fracture plane remains evident. The hardware appears intact. The alignment is anatomic. There are are expected overlying postsurgical changes with surgical skin ashley and soft tissue swelling. There are mild degenerative changes of the left hip joint. IMPRESSION: The patient is status post ORIF of the right femoral intertrochanteric fracture. The alignment is anatomic. Professional interpretation performed at [facility] .End of diagnostic report for accession: [id number] Interpreted: Georgette Morrowscribed: 11/22/2020 08:57 AMSigned: 11/22/2020 09:01 AM Georgette Morrow DO [facility] # [id number] BILL # [id number] Name Value Range Interpretation Code Description Data Erin rce(s) Supporting Document(s) ID Date Data Source [id number] 11/22/2020 08:57:00 AM EDT [facility] DATE OF EXAM: 11/22/2020KNEE RADIOGRAPHS INDICATION: EDEMA TECHNIQUE: Four radiographic views of the right knee were obtained. COMPARISON: None. FINDINGS: There is a moderate joint effusion. There is no evidence of acute fracture or dislocation. There are mild degenerative changes of the medial joint space compartment with joint space narrowing and subchondral sclerosis. There is mild patellar marginal spurring. The alignment is anatomical. The surrounding soft tissues are unremarkable. There is no bony lesion identified. There is no evidence of ossific loose bodies identified within the joint space. IMPRESSION:No acute fracture or dislocation. Mild degenerative changes. Moderate suprapatellar joint effusion. Professional interpretation performed at [facility] .End of diagnostic report for accession: [id number] Interpreted: Georgette Morrowribed: 11/22/2020 08:56 AMSigned: 11/22/2020 08:57 AM Georgette Morrow DO N: [id number] [facility] # [id number] [facility] # [id number] Name Value Range Interpretation Code Description Data Erin rce(s) Supporting Document(s) ID Date Data Source [id number] 11/22/2020 08:11:17 AM EDT [facility] Name Value Range Interpretation Code Description Data Erin [facility](s) Supporting Document(s) SODIUM 131 mmol/L (136-145) L [facility] POTASSIUM 4.9 mmol/L (3.6-5.2) [facility] CHLORIDE 100 mmol/L (100-108) [facility] CO2 20 mmol/L (22-31) [facility] ANION GAP 11 mmol/L (7-16) [facility] UREA NITROGEN 85 mg/dL (7-24) [facility] CONSISTENT WITH PREVIOUS RESULTS CREATININE 2.41 mg/dL (0.80-1.30) [facility] BUN/CREAT RATIO 35.3 RATIO (10.0-20.0) [facility] GLUCOSE 94 mg/dL (70-99) [facility] CALCIUM 9.1 mg/dL (8.4-10.2) [facility] GFR 26 ml/min/1.73m2 (>59) L [facility] GFR ( AMER) 32 ml/min/1.73m2 (>59) [facility] GFR INTERPRETATION [facility] --NORMAL KIDNEY FUNCTION OR MILD DISEASE - GFR >OR= 60CHRONIC KIDNEY DISEASE - GFR 15 - 59RENAL FAILURE - GFR <15 Est. GFR calculation based on the MDRDstudy equation, which assumes a steadystate for creatinine. Est. GFR should notbe used for medication dosing. ID Date Data Source [id number] 11/21/2020 03:01:38 PM EDT [facility] Name Value Range Interpretation Code Description Data Erin rce(s) Supporting Document(s) CORTISOL @ 13.4 ug/dL [facility] CORTISOL REFERENCE RANGE: 7-9AM 5.3 - 22.5 MCG/DL 4-6PM 3.4 - 16.8 MCG/DLLATE AFTERNOON LEVELS [place] APPROX. 1/2 AM VALUE.RESULTS REVIEWED ID Date Data Source [id number] 11/21/2020 08:52:53 AM EDT [facility] Name Value Range Interpretation Code Description Data Erin rce(s) Supporting Document(s) PHOSPHORUS 5.3 mg/dL (2.5-4.5) [facility] ID Date Data Source [id number] 11/21/2020 08:52:53 AM EDT [facility] Name Value Range Interpretation Code Description Data Erin rce(s) Supporting Document(s) MAGNESIUM 2.3 mg/dL (1.7-2.4) [facility] ID Date Data Source [id number] 11/21/2020 08:52:53 AM EDT [facility] Name Value Range Interpretation Code Description Data Erin rce(s) Supporting Document(s) SODIUM 129 mmol/L (136-145) [facility] POTASSIUM 5.4 mmol/L (3.6-5.2) [facility] CHLORIDE 100 mmol/L (100-108) [facility] CO2 16 mmol/L (22-31) [facility] ANION GAP 13 mmol/L (7-16) [facility] UREA NITROGEN 95 mg/dL (7-24) [facility] CONSISTENT WITH PREVIOUS RESULTS CREATININE 3.22 mg/dL (0.80-1.30) [facility] BUN/CREAT RATIO 29.5 RATIO (10.0-20.0) [facility] GLUCOSE 92 mg/dL (70-99) [facility] CALCIUM 8.4 mg/dL (8.4-10.2) [facility] GFR 19 ml/min/1.73m2 (>59) L [facility] GFR ( AMER) 23 ml/min/1.73m2 (>59) L [facility] GFR INTERPRETATION [facility] --NORMAL KIDNEY FUNCTION OR MILD DISEASE - GFR >OR= 60CHRONIC KIDNEY DISEASE - GFR 15 - 59RENAL FAILURE - GFR <15 Est. GFR calculation based on the MDRDstudy equation, which assumes a steadystate for creatinine. Est. GFR should notbe used for medication dosing. ID Date Data Source [id number] 11/20/2020 09:58:00 PM EDT [facility] DATE OF EXAM: 11/20/2020ULTRASOUND RETRO PERITONEUM COMPLETE CLINICAL HISTORY: ELEVATED BUN/CR PRIOR STUDIES:None FINDINGS: The right kidney measures 11.7 cm in length. Renal cortical thickness is 1.0 cm. No hydronephrosis. Corticomedullary differentiation is intact. There is no perinephric fluid. The proximal ureter is not seen. The left kidney measures 10.6 cm in length. Renal cortical thickness is 1.3 cm. No hydronephrosis. Corticomedullary differentiation is intact. There is no perinephric fluid. The proximal ureter is not seen. Right renal cysts: None Left renal cysts: 5.9 cm lower pole left renal cyst containing internal debris. No renal calculi visualized bilaterally. The urinary bladder is normal in contour. Neither ureteral jet visualized.Bladder volume at time of imaging 38 mL. Aorta/IVC were not visualized. IMPRESSION: No sonographic evidence of obstructive uropathy or nephrolithiasis. Cyst with internal debris left lower pole.. Professional interpretation performed at [facility] .End of diagnostic report for accession: [id number] Interpreted: Dylan Andrade MDTranscribed: 11/20/2020 09:55 PMSigned: 11/20/2020 09:58 PM Dylan Andrade MD ------- [facility] # [id number] BILL # [id number] Name Value Range Interpretation Code Description Data Erin rce(s) Supporting Document(s) ID Date Data Source [id number] 11/20/2020 08:13:44 PM EDT [facility] Name Value Range Interpretation Code Description Data Erin rce(s) Supporting Document(s) POC GLUCOSE 112 mg/dL (70-99) H [facility] PERFORMED BY CLINICAL STAFF ID Date Data Source [id number] 11/20/2020 09:01:57 PM EDT [facility] Name Value Range Interpretation Code Description Data Erin rce(s) Supporting Document(s) SODIUM 128 mmol/L (136-145) L [facility] POTASSIUM 5.8 mmol/L (3.6-5.2) [facility] CHLORIDE 99 mmol/L (100-108) [facility] CO2 20 mmol/L (22-31) L [facility] ANION GAP 9 mmol/L (7-16) [facility] UREA NITROGEN 89 mg/dL (7-24) [facility] CONSISTENT WITH PREVIOUS RESULTS CREATININE 3.46 mg/dL (0.80-1.30) [facility] BUN/CREAT RATIO 25.7 RATIO (10.0-20.0) [facility] GLUCOSE 96 mg/dL (70-99) [facility] CALCIUM 9.0 mg/dL (8.4-10.2) [facility] GFR 17 ml/min/1.73m2 (>59) L [facility] GFR ( AMER) 21 ml/min/1.73m2 (>59) L [facility] GFR INTERPRETATION [facility] --NORMAL KIDNEY FUNCTION OR MILD DISEASE - GFR >OR= 60CHRONIC KIDNEY DISEASE - GFR 15 - 59RENAL FAILURE - GFR <15 Est. GFR calculation based on the MDRDstudy equation, which assumes a steadystate for creatinine. Est. GFR should notbe used for medication dosing. ID Date Data Source [id number] 11/20/2020 06:52:06 PM EDT [facility] Name Value Range Interpretation Code Description Data Erin rce(s) Supporting Document(s) POC GLUCOSE 99 mg/dL (70-99) [facility] PERFORMED BY CLINICAL STAFF ID Date Data Source [id number] 11/20/2020 05:28:27 PM EDT [facility] Name Value Range Interpretation Code Description Data Erin rce(s) Supporting Document(s) POC GLUCOSE 110 mg/dL (70-99) H [facility] PERFORMED BY CLINICAL STAFF ID Date Data Source [id number] 11/20/2020 04:36:00 PM EDT [facility] Name Value Range Interpretation Code Description Data Erin rce(s) Supporting Document(s) POC GLUCOSE 129 mg/dL (70-99) H [facility] PERFORMED BY CLINICAL STAFF ID Date Data Source [id number] 11/20/2020 08:35:03 PM EDT [facility] Name Value Range Interpretation Code Description Data Erin rce(s) Supporting Document(s) OSMOLALITY, URINE 299 mosm/kg (50-1200) [facility] ID Date Data Source [id number] 11/20/2020 05:44:04 PM EDT [facility] Name Value Range Interpretation Code Description Data Erin rce(s) Supporting Document(s) COLOR [facility] APPEARANCE [facility] SPEC GRAV URINE 1.013 (1.003-1.030) [facility] PH URINE 6.0 (5.0-7.5) [facility] LEUK ESTERASE (NEG) [facility] NITRITE URINE (NEG) [facility] PROTEIN URINE (NEG) A [facility] GLUCOSE URINE (NEG) [facility] KETONE URINE (NEG) [facility] UROBILINOGEN 1.0 mg/dL (0-1.0) [facility] BILIRUBIN URINE (NEG) [facility] BLOOD/HGB URINE (NEG) [facility] URINE WBC (0-5) [facility] URINE RBC (0-2) [facility] EPITHELIAL CELLS 1+ [HPF] [facility] BACTERIA 1+ [HPF] [facility] ID Date Data Source [id number] 11/20/2020 05:11:31 PM EDT [facility] Name Value Range Interpretation Code Description Data Erin rce(s) Supporting Document(s) RANDOM URINE SODIUM 12 mmol/L [facility] ID Date Data Source [id number] 11/20/2020 05:11:31 PM EDT [facility] Name Value Range Interpretation Code Description Data Erin rce(s) Supporting Document(s) RAND URINE POTASSIUM 22.1 mmol/L [facility] ID Date Data Source [id number] 11/20/2020 05:11:31 PM EDT [facility] Name Value Range Interpretation Code Description Data Erin rce(s) Supporting Document(s) RAND. URINE CHLORIDE <10 mmol/L [facility] ID Date Data Source [id number] 11/20/2020 08:23:01 PM EDT [facility] Name Value Range Interpretation Code Description Data Erin rce(s) Supporting Document(s) OSMOLALITY,SERUM 287 mosm/kg (280-300) [facility] ID Date Data Source [id number] 11/20/2020 07:51:49 PM EDT [facility] Name Value Range Interpretation Code Description Data Erin rce(s) Supporting Document(s) CORTISOL @ 21.6 ug/dL [facility] CORTISOL REFERENCE RANGE: 7-9AM 5.3 - 22.5 MCG/DL 4-6PM 3.4 - 16.8 MCG/DLLATE AFTERNOON LEVELS [place] APPROX. 1/2 AM VALUE.RESULTS REVIEWED ID Date Data Source [id number] 11/20/2020 04:11:09 PM EDT [facility] Name Value Range Interpretation Code Description Data Erin rce(s) Supporting Document(s) URIC ACID 10.9 mg/dL (3.5-7.2) H [facility] ID Date Data Source [id number] 11/20/2020 04:11:09 PM EDT [facility] Name Value Range Interpretation Code Description Data Erin rce(s) Supporting Document(s) TSH,ULTRASENSITIVE @ 2.439 mIU/L (0.360-4.170) [facility] PERFORMED AT [address] [facility] [address] ID Date Data Source [id number] 11/20/2020 04:11:09 PM EDT [facility] Name Value Range Interpretation Code Description Data Erin rce(s) Supporting Document(s) FREE THYROXINE @ 1.39 ng/dL (0.76-1.46) [facility] PER[facility] [address] [facility] [address] ID Date Data Source [id number] 11/20/2020 04:11:09 PM EDT [facility] Name Value Range Interpretation Code Description Data Erin rce(s) Supporting Document(s) ALBUMIN 2.5 g/dL (3.2-4.5) L [facility] ID Date Data Source [id number] 11/20/2020 12:21:06 PM EDT [facility] Name Value Range Interpretation Code Description Data Erin rce(s) Supporting Document(s) SODIUM 127 mmol/L (136-145) L [facility] POTASSIUM 5.6 mmol/L (3.6-5.2) [facility] CHLORIDE 99 mmol/L (100-108) [facility] CO2 18 mmol/L (22-31) L [facility] ANION GAP 10 mmol/L (7-16) [facility] UREA NITROGEN 87 mg/dL (7-24) [facility] RESULT(S) CALLED TO AND READ BACK BYTHER RUBY 6S ON 11/20/20 AT 1219 [place] [address] CREATININE 3.93 mg/dL (0.80-1.30) [facility] BUN/CREAT RATIO 22.1 RATIO (10.0-20.0) [facility] GLUCOSE 101 mg/dL (70-99) H [facility] CALCIUM 8.9 mg/dL (8.4-10.2) [facility] GFR 15 ml/min/1.73m2 (>59) L [facility] GFR ( AMER) 18 ml/min/1.73m2 (>59) L [facility] GFR INTERPRETATION [facility] --NORMAL KIDNEY FUNCTION OR MILD DISEASE - GFR >OR= 60CHRONIC KIDNEY DISEASE - GFR 15 - 59RENAL FAILURE - GFR <15 Est. GFR calculation based on the MDRDstudy equation, which assumes a steadystate for creatinine. Est. GFR should notbe used for medication dosing. ID Date Data Source [id number] 11/20/2020 11:51:09 AM EDT [facility] Name Value Range Interpretation Code Description Data Erin rce(s) Supporting Document(s) WBC 8.8 10*3/uL (4.1-11.0) [facility] RBC 3.04 10*6/uL (4.60-6.10) L [facility] HGB 10.3 g/dL (13.5-18.0) [facility] HCT 30.0 % (41.0-53.0) [facility] MCV 98.6 fL (80.0-95.0) [facility] MCH 33.8 pg (27.0-32.0) [facility] MCHC 34.2 g/dL (32.0-36.0) [facility] RDW 14.9 % (10.5-14.5) [facility] PLT 118 10*3/uL (150-450) L [facility] MPV 11.0 fL (7.1-10.7) [facility] ID Date Data Source [id number] 11/19/2020 08:32:50 AM EDT [facility] Name Value Range Interpretation Code Description Data Erin rce(s) Supporting Document(s) SODIUM 131 mmol/L (136-145) L [facility] POTASSIUM 4.9 mmol/L (3.6-5.2) [facility] CHLORIDE 100 mmol/L (100-108) [facility] CO2 23 mmol/L (22-31) [facility] ANION GAP 8 mmol/L (7-16) [facility] UREA NITROGEN 72 mg/dL (7-24) [facility] CREATININE 3.17 mg/dL (0.80-1.30) [facility] BUN/CREAT RATIO 22.7 RATIO (10.0-20.0) [facility] GLUCOSE 88 mg/dL (70-99) [facility] CALCIUM 9.2 mg/dL (8.4-10.2) [facility] GFR 19 ml/min/1.73m2 (>59) L [facility] GFR ( AMER) 23 ml/min/1.73m2 (>59) [facility] GFR INTERPRETATION [facility] --NORMAL KIDNEY FUNCTION OR MILD DISEASE - GFR >OR= 60CHRONIC KIDNEY DISEASE - GFR 15 - 59RENAL FAILURE - GFR <15 Est. GFR calculation based on the MDRDstudy equation, which assumes a steadystate for creatinine. Est. GFR should notbe used for medication dosing. ID Date Data Source [id number] 11/19/2020 07:53:19 AM EDT [facility] Name Value Range Interpretation Code Description Data Erin rce(s) Supporting Document(s) WBC 9.9 10*3/uL (4.1-11.0) [facility] RBC 3.33 10*6/uL (4.60-6.10) [facility] HGB 11.0 g/dL (13.5-18.0) [facility] HCT 33.1 % (41.0-53.0) [facility] MCV 99.3 fL (80.0-95.0) [facility] MCH 33.0 pg (27.0-32.0) [facility] MCHC 33.2 g/dL (32.0-36.0) [facility] RDW 15.0 % (10.5-14.5) [facility] PLT 113 10*3/uL (150-450) L [facility] MPV 11.0 fL (7.1-10.7) [facility] ID Date Data Source [id number] 11/18/2020 11:56:25 AM EDT [facility] Name Value Range Interpretation Code Description Data Erin rce(s) Supporting Document(s) SODIUM 133 mmol/L (136-145) [facility] POTASSIUM 4.5 mmol/L (3.6-5.2) [facility] CHLORIDE 103 mmol/L (100-108) [facility] CO2 22 mmol/L (22-31) [facility] ANION GAP 8 mmol/L (7-16) [facility] UREA NITROGEN 60 mg/dL (7-24) [facility] CREATININE 2.09 mg/dL (0.80-1.30) [facility] BUN/CREAT RATIO 28.7 RATIO (10.0-20.0) [facility] GLUCOSE 152 mg/dL (70-99) H [facility] CALCIUM 8.7 mg/dL (8.4-10.2) [facility] GFR 31 ml/min/1.73m2 (>59) L [facility] GFR ( AMER) 38 ml/min/1.73m2 (>59) L [facility] GFR INTERPRETATION [facility] --NORMAL KIDNEY FUNCTION OR MILD DISEASE - GFR >OR= 60CHRONIC KIDNEY DISEASE - GFR 15 - 59RENAL FAILURE - GFR <15 Est. GFR calculation based on the MDRDstudy equation, which assumes a steadystate for creatinine. Est. GFR should notbe used for medication dosing. ID Date Data Source [id number] 11/18/2020 11:31:06 AM EDT [facility] Name Value Range Interpretation Code Description Data Erin rce(s) Supporting Document(s) WBC 10.0 10*3/uL (4.1-11.0) [facility] RBC 3.21 10*6/uL (4.60-6.10) [facility] HGB 10.8 g/dL (13.5-18.0) [facility] HCT 32.3 % (41.0-53.0) [facility] MCV 100.5 fL (80.0-95.0) [facility] MCH 33.6 pg (27.0-32.0) [facility] MCHC 33.4 g/dL (32.0-36.0) [facility] RDW 15.1 % (10.5-14.5) [facility] PLT 98 10*3/uL (150-450) L [facility] MPV 11.0 fL (7.1-10.7) [facility] ID Date Data Source [id number] 11/17/2020 08:15:00 PM EDT [facility] DATE OF EXAM: 11/17/2020XAM: Portable i mages in the OR with C-arm fluoroscopy INDICATION: Right hip gamma nail In the OR, 73.2 seconds of fluoroscopic time was utilized. 3 images were recorded. K3End of diagnostic report for accession: [id number] Interpreted: Dylan Crow MDTranscribed: 11/17/2020 08:14 PMSigned: 11/17/2020 08:15 PM Dylan Crow MD [facility] # [id number] BILL # [id number] Name Value Range Interpretation Code Description Data Erin rce(s) Supporting Document(s) ID Date Data Source [id number] 11/17/2020 05:13:00 PM EDT [place], [place] [address]PATIENT NAME: GERALD FOSTERDATE OF : 1945REPORT: OPERATIONPATIENT NUMBER: [id number] STATUS: OF ADMISSION: 11/17/2020ATE OF DISCHARGE:ROOM:DATE OF PROCEDURE: 11/17/2020REOPERATIVE DIAGNOSIS: Closed minimally displaced right two-partintertrochanteric proximal femur fracture.POSTOPERATIVE DIAGNOSIS: Closed minimally displaced right two-partintertrochanteric proximal femur fracture.PROCEDURE: Repair of right hip intertrochanteric femur fracture with gammanailing (dynamically locked).SURGEON: Zachariah Sal MDASSISTANT: CHRISTI Barclay (commercial lines assistant required to allow help withlimb positioning, retraction, and instrumentation. No resident available,nonteaching service).ANESTHESIA: General.ESTIMATED BLOOD LOSS: Negligible.COMPLICATIONS: None.DRAINS: None.SPECIMENS: None.INDICATIONS: 75-year-old gentleman with a significant cardiac history,cleared for elective urgent right gamma nailing for intertrochanteric femurfracture sustained in a fall on the stairs at home. No prior significantorthopedic problems except for Achilles tendon repair 40 years ago. Alternatives, risks, benefits, and potential surgical complications werediscussed including but not limited to nonunion, malunion, delayed union,infection, DVT, stiff hip or knee, persistent pain, possible need forhardware removal, medical complications, etc. He voiced consent. Postopplan will be for weightbearing as tolerated, close follow up, and DVTprophylaxis with aspirin 81 mg b.i.d. for 6 weeks. He normally takeslow-dose aspirin.FINDINGS: Anatomic alignment was achieved and documented by fluoroscopyusing the C-arm, a dynamically locked gamma nail was placed 130 de greeswith a 105 degree lag screw was secured to the nail with a setscrew,distally locked in dynamic mode with a 40 mm locking screw distally. Postfixation x-rays were satisfactory.At the conclusion of the procedure, needle, sponge, and instrument countswere correct. There were no complications. She tolerated the procedurewell and was taken to recovery room in stable condition.DESCRIPTION OF PROCEDURE: The patient was brought to the operating suite,underwent successful induction of general endotracheal anesthesia, wascarefully transferred and secured to the fracture table and fluoroscopy wasused to document satisfactory alignment. After Hibiclens prep and freedrape, a time-out was called for side and site verification.Intravenous Kefzol was given within 1 hour of incision time and ordered nemo stopped within 24 hours of surgery.An incision was made just lateral and proximal to the greater trochanter,and after traversing the fascia, a curved awl was used to access theproximal femoral canal, one-step reamer was used to enlarge the accesspoint, and admitted gamma nail, which was then secured proximally using thetargeting guide using the lag screw and then distally again using thetargeting guide with the distal locking screw placed in dynamic mode. X-rays were satisfactory. Wounds were irrigated and closed in layers with0 and 2-0 Vicryl and ashley for skin with margins infiltrated with 0.25percent Marcaine. Dry sterile Aquacel bandage was applied. He was takento recovery room in stable condition.DICTATED BY: PREETHI Simpsonictated: 11/17/2020 16:18DT: 11/17/2020 16:22Job #: [id number]: Primary Care PhysicianNOTE: [facility] computer generated reports are not confirmed orauthenticated unless they are signed by the providerElectronically Authenticated by:ZACHARIAH SAL MD On 11/17/2020 05:13 PM EDT Name Value Range Interpretation Code Description Data Erin rce(s) Supporting Document(s) ID Date Data Source [id number] 11/21/2020 07:42:00 AM EDT [facility] [id number] [place], [place] [id number] NAME: GERALD FOSTERDATE OF : 1945REPORT: CONSULTATIONPATIENT NUMBER: [id number] STATUS: IPMEDICAL RECORD NUMBER: [id number]: 00CARDIOLOGY CONSULTATIONDATE OF CONSULTATION: 11/17/2020ROVIDER REQUESTING: Dr. Sal.REASON FOR CONSULTATION: Preop cardiac evaluation for hip surgery.HISTORY OF PRESENT ILLNESS: Gerald Foster is a very pleasant [id number] of my partner, Dr. Mina. He has a history of a dilatednonischemic cardiomyopathy and in fact underwent placement of abioprosthetic tricuspid valve about five years ago at [facility]. Hehas an LVEF in the 30 to 35 percent range. No previous history of GA. Heis status post GROUP EXERCISE CLASS INSTRUCTOR defibrillator placement and is 99 percent biventricularpaced on his most recent device interrogation. He has chronic kidneydisease, but no history of coronary artery disease or diabetes. He h asstruggled with gout this summer. Yesterday, he was ambulating at home andwent up a few stairs and on his way back down he missed a step and felldown four stairs, had right hip pain, went to [facility], has beenfound to have an intertrochanteric right femur fracture. He wastransferred here for further evaluation and consideration of surgicalrepair. He does note that his blood pressures apparently in the 90s [id number] systolic range, a little lower here today and he does feel a littlebit dry. He denies any recent orthopnea or edema. No recent chest pain.No exertional shortness of breath more than he usually has. No ICD shocks.He is accompanied here by his daughter, otherwise he has been feeling well.He can walk a couple of blocks without too much limitation.PAST MEDICAL HISTORY: Dilated cardiomyopathy, nonischemic cardiomyopathy,chronic systolic heart failure, EF 30 to 35 percent, tricuspidregurgitation status post bioprosthetic tricuspid valve replacement yearsago, GROUP EXERCISE CLASS INSTRUCTOR defibrillator, chronic kidney disease, BPH.ALLERGIES: No known drug allergies.MEDICATIONS: Aspirin 81 mg daily; Demadex 20 mg daily; Entresto, he takeswhat will be equivalent of a *------* twice daily dose of Entresto; Flomax0.4 mg daily; Flonase; Lexapro 20 mg daily; melatonin as needed; metoprololXL 25 mg daily.FAMILY HISTORY: Mother had ovarian cancer. 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 Nonsmoker. He has children including a daughter, whoare here with him today.REVIEW OF SYSTEMS: Pertinent positives and negatives listed in the HPI,otherwise full 10-point review of systems were found negative.PHYSICAL EXAMINATION: Temperature 36.7, heart rate 60s and paced, bloodpressure 80/67, respirations 18, oxygen 94 percent on room air. General:He is awake, alert, oriented x3, in no acute distress. HEENT: Mucousmembranes were moist. Pharynx nonerythematous. Sclerae are anicteric.Lymph: There is no palpable cervical lymphadenopathy. Heart: Regular S1,S2 with a 3/6 systolic murmur at the lower sternal border. Lungs: Clearto auscultation bilaterally without wheezes or rhonchi. Abdomen: Soft,nondistended, nontender. Extremities: Warm and well-perfused withoutedema. Radial pulse intact and symmetric bilaterally. Neuro: Cranialnerves grossly intact and symmetric. Moving all for extremities. Speechis fluent.LABORATORY DATA: Sodium 138, potassium 4.6, chloride 107, bicarbonate 24,BUN 55. Creatinine 1.8, it was 2.3 at the outside hospital, 1.8 doesappear to be about his baseline. WBC 8.4, H and H 12.8 and 37.3, [id number].His chest x-ray shows no acute disease.His most recent echo per notes from the office demonstrates an EF of 30 to35 percent with [id number] tricuspid insufficiency with abioprosthetic valve.Telemetry demonstrates atrial and biventricular paced rhythm.ASSESSMENT: Gerald Foster is a very pleasant 75-year-old with a dilatedcardiomyopathy and pulmonary hypertension in the setting of tricuspidinsufficiency status post previous tricuspid valve replacement. He has anEF of 30 to 35 percent and chronic systolic heart failure with a CRTdevice. No recent ICD shocks. He has chronic kidney disease and nowpresents with a mechanical fall and a femur fracture, being planned for theOR.1. Preop cardiac evaluation: I find him to be at an elevated, but acceptable risk to proceed with the proposed surgery. He has two RCRI risk factors, this being his cardiomyopathy with chronic heart failure and chronic kidney disease. He appears well compensated from a cardiac standpoint, not volume overloaded, and in fact may be a little bit dry. No recent ICD shocks. I did discuss with him his functional capacity is about 4 METS and he has had no recent angina. I do think the benefits of surgery here outweighs the risks as he would be bed-bound potentially without femur surgery and I find no indication for further cardiac testing preoperatively. It is okay to place a magnet over the device in the operating room to disable the tachyarrhythmia therapies.2. Chronic systolic congestive heart failure, EF 30-35%, NYHA class III symptoms. He is euvolemic. He is on Entresto a pretty reasonable dose and a low dose of metoprolol. We will continue metoprolol perioperatively. Perhaps hold the Entresto this morning as he is borderline hypotensive and resume tomorrow if blood pressure improved.3. Femur fracture, plan for the OR as above. Of note, he is mildly hypotensive, frankly not terribly more hypotensive than his apparent baseline systolic 90s to 100s. The right leg is little larger than left. May need to consider a CT to rule out hematoma, although his H and H appear reasonable and the exam is not terribly impressive for this.4. Tricuspid insufficiency status post bioprosthetic tricuspid valve replacement. Most recent echo does know [id number] tricuspid insufficiency and pulmonary hypertension. Again, he appears well-compensated currently.5. Dilated cardiomyopathy: Medical therapy with beta-marie and Entresto. He is status post [employer] EXERCISE CLASS INSTRUCTOR-D device.6. Chronic kidney disease: Creatinine appears stable to its baseline at about 1.8.Thank you this consultation. Dr. Mina will continue to follow.DICTATED BY: Cas Delaney, MDDictated: 11/17/2020 9:52DT: 11/17/2020 9:57Job #: [id number]: MD Mathew Christianson MDNOTE: [facility] computer generated reports are notconfirmed or authenticated unless they are signed by the providerElectronically Authen ticated and Edited by:CAS DELANEY MD On 11/21/2020 07:42 AM EDT Name Value Range Interpretation Code Description Data Erin rce(s) Supporting Document(s) ID Date Data Source [id number] 11/17/2020 07:49:50 AM EDT [facility] SPEC EXP DATE 11/20/2020ATI ENT ABO/Rh A POSITIVEANTIBODY SCREEN NEGATIVETESTING SITE PERFORMED AT [address] [place] [address] Name Value Range Interpretation Code Description Data Erin rce(s) Supporting Document(s) ID Date Data Source [id number] 11/17/2020 06:55:58 AM EDT [facility] Name Value Range Interpretation Code Description Data Erin rce(s) Supporting Document(s) SODIUM 138 mmol/L (136-145) [facility] POTASSIUM 4.6 mmol/L (3.6-5.2) [facility] CHLORIDE 107 mmol/L (100-108) [facility] CO2 24 mmol/L (22-31) [facility] ANION GAP 7 mmol/L (7-16) [facility] UREA NITROGEN 55 mg/dL (7-24) H [facility] CREATININE 1.88 mg/dL (0.80-1.30) H [facility] BUN/CREAT RATIO 29.3 RATIO (10.0-20.0) [facility] GLUCOSE 119 mg/dL (70-99) H [facility] CALCIUM 9.8 mg/dL (8.4-10.2) [facility] GFR 35 ml/min/1.73m2 (>59) L [facility] GFR ( AMER) 43 ml/min/1.73m2 (>59) L [facility] GFR INTERPRETATION [facility] --NORMAL KIDNEY FUNCTION OR MILD DISEASE - GFR >OR= 60CHRONIC KIDNEY DISEASE - GFR 15 - 59RENAL FAILURE - GFR <15 Est. GFR calculation based on the MDRDstudy equation, which assumes a steadystate for creatinine. Est. GFR should notbe used for medication dosing. ID Date Data Source [id number] 11/17/2020 06:37:01 AM EDT [facility] Name Value Range Interpretation Code Description Data Erin rce(s) Supporting Document(s) PT 12.6 s (9.2-11.9) H [facility] PERFORMED AT [address] [facility] [id number] INR 1.21 [facility] SUGGESTED THERAPEUTIC RANGES USING INR F ORSTABILIZED ANTICOAGULATED PATIENTS:STANDARD DOSE THERAPY INR 2.0-3.0 DVT, PE, PREVENT DVT OR EMBOLISMHIGH DOSE THERAPY INR 2.5-3.5 PREVENT EMBOLISM FROM MECHANICAL HEART VALVE ID Date Data Source [id number] 11/17/2020 06:28:06 AM EDT [facility] Name Value Range Interpretation Code Description Data Erin rce(s) Supporting Document(s) WBC 8.4 10*3/uL (4.1-11.0) [facility] RBC 3.81 10*6/uL (4.60-6.10) L [facility] HGB 12.8 g/dL (13.5-18.0) L [facility] HCT 37.3 % (41.0-53.0) L [facility] MCV 97.7 fL (80.0-95.0) H [facility] MCH 33.6 pg (27.0-32.0) [facility] MCHC 34.4 g/dL (32.0-36.0) [facility] RDW 14.9 % (10.5-14.5) H [facility] PLT 117 10*3/uL (150-450) L [facility] MPV 10.8 fL (7.1-10.7) H [facility] NEUT % 76.2 % (35.0-75.0) H [facility] LYMPH % 12.0 % (16.0-52.0) L [facility] MONO % 10.4 % (0.0-8.0) H [facility] EOS % 0.9 % (0.0-5.0) [facility] BASO % 0.5 % (0.0-4.0) [facility] NEUT # 6.4 10*3/uL (1.8-7.7) [facility] LYMPH # 1.0 10*3/uL (1.2-4.8) L [facility] MONO # 0.9 10*3/uL (0.0-0.8) H [facility] Eosinophils [#/volume] in Blood by Automated count 0.1 10*3/uL (0.0-0 .5) [facility] BASO # 0.0 10*3/uL (0.0-0.2) [facility] ID Date Data Source [id number] 11/17/2020 08:30:00 AM EDT Fredy adkins DATE OF EXAM: 11/17/2020HEST CLINICAL S TATEMENT: Preoperative cardiopulmonary assessment. TECHNIQUE: Portable AP view of the chest. COMPARISON: 08/01/2019. FINDINGS: The lungs are clear. The cardiomediastinal structures are within normal limits. Sternotomy wires and multilead left chest wall cardiac pacemaker again noted. The visualized osseous structures appear unremarkable. IMPRESSION: No evidence of acute cardiopulmonary pathology. D7End of diagnostic report for accession: [id number] Interpreted: Ki Hayden MDTranscribed: 11/17/2020 08:29 AMSigned: 11/17/2020 08:30 AM Ki Hayden MD [facility] # [id number] BILL # [id number] Name Value Range Interpretation Code Description Data Erin rce(s) Supporting Document(s) ID Date Data Source [id number] 11/16/2020 10:06:00 PM EDT [facility] l Right Hip DATE OF EXAMINATION: 19:21 EDT HIP UNILATERAL COMPLETE INDICATION: Trauma, pain COMPARISON: None TECHNIQUE: AP and lateral views of the hip were obtained. FINDINGS: There is intertrochanteric fracture of the right femur. Nodislocation. The right hemipelvis appears intact. IMPRESSION: Intertrochanteric fracture of the right femur. Electronically signed in PS360 by: Reed Andrade M.D. 11/16/2020 22:00 EDT Name Value Range Interpretation Code Description Data [facility] rce(s) Supporting Document(s) ID Date Data Source [id number] 11/16/2020 08:15:00 PM EDT [facility] l TSYSORDER [id number] Name Value Range Interpretation Code Description Data [facility] rce(s) Supporting Document(s) GLUCOSE 162 mg/dL 74-[address] [facility] BLOOD UREA NITROGEN 59 mg/dL 7-18 H [facility] ital CREATININE 2.32 mg/dL 0.7-1.[address] [facility] SODIUM 136 mmol/L 136-[address] [facility] POTASSIUM 4.7 mmol/L 3.5-5.[address] [facility] CHLORIDE 101 mmol/L 98-[address] [facility] CO2 25 mmol/L 21-[address] [facility] CALCIUM 10.4 mg/dL 8.5-10.[address] [facility] ANION GAP 10.0 mmol/L 5-[address] [facility] GLOMERULAR FILTRATION RATE 28 mL/min [facility] GFR IS CALCULATED IN mL/min/1.73m2 JULIETA L FUNCTION: >90MILDLY DECREASED: 60-89MILDY TO MODERATELY DECREASED: 45-59 MODERATELY TO SEVERELY DECREASED: 30-44SEVERELY DECREASED: 15-29RENAL FAILURE: <15 AST 22 U/L 15-[address] [facility] ALT 35 U/L 12-[address] [facility] ALKALINE PHOSPHATASE 190 U/L 46-116 H [facility] pital TOTAL BILIRUBIN 1.4 mg/dL 0.2-1.[address] [facility] TOTAL PROTEIN 7.3 g/dl 6.4-8.[address] [facility] ALBUMIN 3.6 gm/dL 3.4-5.[address] [facility] ID Date Data Source [id number] 11/16/2020 08:09:00 PM EDT [facility] l TSYSORDER [id number] Name Value Range Interpretation Code Description Data Erin rce(s) Supporting Document(s) PROTHROMBIN TIME (PATIENT) 12.9 SECONDS 9.1-11.[address] [facility] INR 1.24 0.87-1.[address] [facility] ID Date Data Source [id number] 11/16/2020 08:09:00 PM EDT [facility] l TSYSORDER [id number] Name Value Range Interpretation Code Description Data Erin rce(s) Supporting Document(s) PARTIAL THROMBOPLASTIN TIME 26.5 SECONDS 21.2-27.[address] [facility] ID Date Data Source [id number] 11/16/2020 07:49:00 PM [facility] TSYSORDER [id number] Name Value Range Interpretation Code Description Data Erin rce(s) Supporting Document(s) WHITE BLOOD COUNT 11.0 K/mm3 4.0-10.0 [facility] RED BLOOD COUNT 4.10 M/mm3 4.50-6.00 L [facility] HEMOGLOBIN 13.5 gm/dL 14.0-18.[address] [facility] HEMATOCRIT 39.1 % 42.0-54.[address] [facility] MEAN CELL VOLUME 95.4 fl 80-96 [facility] MEAN CORPUSCULAR HEMOGLOBIN 32.9 pg 27.0-31.0 H [facility] MEAN CORPUSCULAR HGB CONC 34.5 g/dl 32.0-36.0 [facility] RED CELL DISTRIBUTION WIDTH 14.5 % 10.0-14.5 [facility] PLATELET COUNT 142 K/mm3 172-[address] [facility] MEAN PLATELET VOLUME 12.2 fl 9.0-13.0 [facility] pital GRAN % 83.0 % 50-80.[address] [facility] IG% 0.5 % 0.0-0.[address] [facility] LYMPH % 8.2 % 25.0-50.[address] [facility] MONO % 7.3 % 2.0-10.[address] [facility] EOS % 0.6 % 0-5.[address] [facility] BASO % 0.4 % 0.0-2.[address] [facility] GRAN # 9.2 K/mm3 2.0-8.[address] [facility] IG# 0.1 K/mm3 0.0-0.[address] [facility] LYMPH # 0.9 K/mm3 1.0-5.[address] [facility] MONO # 0.8 K/mm3 0.10-1.[address] [facility] EOS # 0.1 K/mm3 0.0-0.[address] [facility] BASO # 0.0 K/mm3 0.0-0.[address] [facility] ID Date Data Source [id number] 11/16/2020 07:32:00 PM EDT [facility] Name Value Range Interpretation Code Description Data Erin rce(s) Supporting Document(s) COVID-19 NE[facility]IVE [facility] and reported by [facility]. ID Date Data Source [id number] 11/16/2020 07:49:00 PM EDT [facility] TSYS[facility] [id number] Name Value Range Interpretation Code Description Data Erin rce(s) Supporting Document(s) COVID-[address] [facility] Negative results should be treated as pr esumptive and, ifinconsistent with clinical signs and symptoms or necessaryfor patient management, should be tested with differentauthorized or cleared molecular tests.Negative results do not preclude SARS-CoV-2 infection andshould not be used as the sole basis for patient managementdecisions.This is a rapid molecular isothermal nucleic acidamplification technology (NAAT) in vitro diagnostic testutilizing a loop mediated isothermal amplification (LAMP)test with nicking endonuclease amplification reaction(NEAR) intended for the qualitative detection of nucleica dwight from the SARS-CoV-2 viral RNA in direct nasal,nasopharyngeal or throat swabs from individuals who aresuspected of COVID-19.Results are for the indentification of SARS-CoV-2 RNA. [id number]-[id number]-9 RNA is generally detectable in respiratorysamples during the actue phase of infection. ID Date Data Source [id number] 10/09/2020 08:34:00 AM EDT [facility] ([facility]) Name Value Range Interpretation Code Description Data Erin rce(s) Supporting Document(s) Urate [Mass/volume] in Serum or Plasma 8.6 mg/dL 3.5-7.2 Above hi gh normal [facility] ([facility]) ID Date Data Source [id number] 10/09/2020 08:34:00 AM EDT [facility] ([facility]) Name Value Range Interpretation Code Description Data Erni rce(s) Supporting Document(s) Ast/Sgot 30 U/L 7-37 Normal (applies to non-numeric resul ts) [facility] ([facility]) Alt/SGPT 69 U/L 12-78 Normal (applies to non-numeric resul ts) [facility] ([facility]) Alkaline Phosphatase 257 U/L 45-117 Above high normal [facility] ([facility]) Bilirubin,Direct 0.7 mg/dL 0.0-0.2 Above high normal M EDENT ([facility]) Bilirubin,Total 1.2 mg/dL 0.2-1.0 Above high normal ME DENT ([facility]) Total Protein 7.4 GM/DL 6.4-8.2 Normal (applies to non-numeric re sults) [facility] ([facility]) Albumin 3.5 GM/DL 3.2-5.2 Normal (applies to non-numeric resul ts) [facility] ([facility]) Albumin/Globulin Ratio 0.9 Normal (applies to non-n umeric results) [facility] ID Date Data Source URIC ACID 10/09/2020 12:00:00 AM EDT eCW1 ([facility]) Name Value Range Interpretation Code Description Data Erin rce(s) Supporting Document(s) 8.6 3.5-7.2 URIC ACID eCW1 ([facility]) ID Date Data Source LIVER PROFILE 10/09/2020 12:00:00 AM EDT eCW1 ([facility]) Name Value Range Interpretation Code Description Data Erin rce(s) Supporting Document(s) 30 7-37 AST/SGOT eCW1 ([facility]) 257 45-117 ALKALINE PHOSPHATASE eCW1 ([facility]) 69 12-78 ALT/SGPT eCW1 ([facility]) 0.7 0.0-0.2 BILIRUBIN,DIRECT eCW1 ([facility]) 1.2 0.2-1.0 BILIRUBIN,TOTAL eCW1 ([facility]) 7.4 6.4-8.2 TOTAL PROTEIN eCW1 ([facility]) 3.5 3.2-5.2 ALBUMIN eCW1 ([facility]) 0.9 ALBUMIN/GLOBULIN RATIO eCW1 ([facility]) ID Date Data Source [id number] 09/26/2020 08:38:00 AM EDT [facility] ([facility]) Name Value Range Interpretation Code Description Data Erin rce(s) Supporting Document(s) White Blood Count 6.1 10 4.0-10.0 [facility] ([facility]) Red Blood Count 4.15 10 4.30-6.10 [facility] ([facility]) Hemoglobin 13.7 g/dL 13.5-17.5 [facility] ([facility]) Hematocrit 41.1 % 42.0-52.0 [facility] ([facility]) Mean Corpuscular Volume 99.0 fl 80.0-96.0 M EDENT ([facility]) Mean Corpuscular Hemoglobin 33.0 pg 27.0-33.0 [facility] ([facility]) Mean Corpuscular HGB Conc 33.3 g/dL 32.0-36.5 [facility] ([facility]) Platelet Count, Automated 134 10 150-450 [facility] ([facility]) Red Cell Distribution Width 14.7 % 11.5-14.5 [facility] ([facility]) Neutrophils % 70.6 % 36.0-66.0 [facility] ([facility]) Lymph % 15.4 % 24.0-44.0 [facility] ([facility]) Eos % 2.1 % 0.0-3.0 [facility] ([facility]) [place] % 10.7 % 2.0-8.0 [facility] ([facility]) Baso % 0.5 % 0.0-1.0 [facility] ([facility]) Neutrophils # 4.3 10 1.5-8.5 [facility] ([facility]) Nucleated Red Blood Cell % 0.0 % 0-0 MED [facility] ([facility]) Immature Granulocyte % 0.7 % 0-3.0 [facility] ([facility]) Lymph # 0.9 10 1.5-5.0 [facility] ([facility]) Eos # 0.1 10 0.0-0.5 [facility] ([facility] [place] # 0.7 10 0.0-0.8 [facility] ([facility]) Baso # 0.0 10 0.0-0.2 [facility] ([facility]) ID Date Data Source [id number] 09/26/2020 08:38:00 AM EDT [facility] ([facility]) Name Value Range Interpretation Code Description Data Erin rce(s) Supporting Document(s) Lyme Disease IgG/IgM Antibodie Laboratory test result 0.00-0.90 [facility] ([facility]) <content>Negative <0.91</content >
<content>Equivocal 0.91 - 1.09</content>
<content>Positive >1.09</content>
<content></content> Lyme Disease IgM Ab Quantitati Laboratory test result 0.00-0.79 [facility] ([facility]) <content>Negative <0.80</content >
<content>Equivocal 0.80 - 1.19</content>
<content>Positive >1.19</content>
<content>.</content>
<content>IgM levels may peak at 3-6 weeks post infection, then</content>
<content>gradually decline.</content>
<content>Performed at: [facility]</content>
<content>[address] [place] [address] [id number]</content>
<content>Insurance Claims Supervisor: Jackie Turner MD, Phone: [phone]</content>
<content></content> ID Date Data Source [id number] 09/26/2020 08:38:00 AM EDT [facility] ([facility]) Name Value Range Interpretation Code Description Data Erin rce(s) Supporting Document(s) C reactive protein [Mass/volume] in Serum or Plasma by High sensitivity method 7.07 mg/dL 0.00-0.30 [facility] ([facility]) Erythrocyte sedimentation rate by Westergren method 23 mm/hr 0-20 [facility] ([facility]) ID Date Data Source [id number] 09/25/2020 03:13:00 PM EDT [facility] ([facility]) Name Value Range Interpretation Code Description Data Erin rce(s) Supporting Document(s) Mucin Clot Test Laboratory test result [facility] ([facility]) Source, Body Fluid Mucin Clot Laboratory test result [facility] ([facility]) ID Date Data Source [id number] 09/25/2020 03:13:00 PM EDT [facility] ([facility]) Name Value Range Interpretation Code Description Data Erin rce(s) Supporting Document(s) Body Fluid Rheumatoid Screen Laboratory test result [facility] ([facility]) Source, Body Fluid Ra Laboratory test result [facility] ([facility]) ID Date Data Source [id number] 09/25/2020 03:13:00 PM EDT [facility] ([facility]) Name Value Range Interpretation Code Description Data Erin rce(s) Supporting Document(s) Glucose, Body Fluid 17 mg/dL [facility] ([facility]) Source, Body Fluid Glucose Laboratory test result [facility] ([facility]) ID Date Data Source [id number] 09/25/2020 03:13:00 PM EDT [facility] ([facility]) Name Value Range Interpretation Code Description Data Erin rce(s) Supporting Document(s) Crystals, Body Fluid Laboratory test result [facility] ([facility]) Source, Body Fluid Crystals Laboratory test result [facility] ([facility]) ID Date Data Source [id number] 09/25/2020 03:13:00 PM EDT [facility] ([facility]) Name Value Range Interpretation Code Description Data Erin rce(s) Supporting Document(s) Source, Body Fluid Laboratory test result [facility] ([facility]) Synovial Fluid Color Laboratory test result [facility] ([facility]) RBC Body Fluid 10 10 [facility] ([facility]) Appearance, Body Fluid Laboratory test result [facility] ([facility]) WBC Body Fluid 32127 /uL 0-10 [facility] ([facility]) BF Polymorphonuclear Cell % 82.2 % 0-0 [facility] ([facility]) BF Mononuclear Cell % 17.8 % 0-0 [facility] ( [facility]) ID Date Data Source [id number] 09/25/2020 03:13:00 PM EDT [facility] ([facility]) Name Value Range Interpretation Code Description Data Erin rce(s) Supporting Document(s) Gram Stain Laboratory test result [facility] ([facility]) FEW RBCS FEW WBCS NO ORGANISMS SEEN Body Fluid Culture Laboratory test result [facility] ([facility]) If aerobic or anaerobic growth is detected within the next 7-21 days, an addendum will follow. . . FULL REPORT IN LAB NOTES (eCW and [facility]). NO GROWTH AEROBICALLY ID Date Data Source HEPATITIS B SURFACE ANTIGEN 06/17/2020 12:00:00 AM EDT [facility] ([facility]) Name Value Range Interpretation Code Description Data Erin rce(s) Supporting Document(s) NEGATIVE NEGATIVE HEPATITIS B SURFACE ANTIG EN [facility] ([facility]) ID Date Data Source HEPATITIS C VIRUS AB SCRN MEDICARE 06/17/2020 12:00:00 AM ED T [facility] ([facility]) Name Value Range Interpretation Code Description Data Erin rce(s) Supporting Document(s) 0.0 <0.8 HEP C VIRUS AB SCREEN MED ICARE eCW1 ([facility]) ID Date Data Source LIPID PANEL (CARDIAC RISK) 06/17/2020 12:00:00 AM EDT eCW1 ( [facility]) Name Value Range Interpretation Code Description Data Erin rce(s) Supporting Document(s) Cholesterol [Moles/volume] in Serum or Plasma 140 <200 CHOLESTEROL LEVEL eCW1 ([facility]) Cholesterol in HDL [Moles/volume] in Serum or Plasma 62 >40 HDL CHOLESTEROL eCW1 ([facility]) Triglyceride [Mass/volume] in Serum or Plasma by calculation 68 <150 TRIGLYCERIDES LEVEL eCW1 ([facility]) Cholesterol in LDL [Mass/volume] in Serum or Plasma by calculation 64 <100 LDL CHOLESTEROL eCW1 ([facility]) 78 NON-HDL-C eCW1 ([facility]) 2.258 <5 CHOLESTEROL RISK RATIO eCW1 ([facility]) ID Date Data Source [id number] 06/17/2020 12:00:00 AM EDT eCW1 ([facility]) Name Value Range Interpretation Code Description Data Erin rce(s) Supporting Document(s) Hemoglobin A1c/Hemoglobin.total in Blood 5.8 HEMOGLOBIN A1c [facility] ([facility]) ID Date Data Source PTH INTACT 06/17/2020 12:00:00 AM EDT eCW1 ([facility]) Name Value Range Interpretation Code Description Data Erin rce(s) Supporting Document(s) 91.7 18.5-88.0 PTH INTACT eCW1 ([facility]) ID Date Data Source MAGNESIUM LEVEL 06/17/2020 12:00:00 AM EDT eCW1 ([facility]) Name Value Range Interpretation Code Description Data Erin rce(s) Supporting Document(s) 2.4 1.8-2.4 MAGNESIUM LEVEL W1 ([facility]) ID Date Data Source HEPATITIS B SURFACE ANTIBODY 06/17/2020 12:00:00 AM EDT eCW1 ([facility]) Name Value Range Interpretation Code Description Data Erin rce(s) Supporting Document(s) NEGATIVE POSITIVE HEPATITIS B SURFACE ANTIB MYRNA eC ([facility]) ID Date Data Source Comprehensive Metabolic Profile (CMP) 06/17/2020 12:00:00 AM EDT [facility] ([facility]) Name Value Range Interpretation Code Description Data Erin rce(s) Supporting Document(s) 39 7-18 BLOOD UREA NITROGEN eCW1 ([facility]) 94 70-100 GLUCOSE, FASTING eCW1 ([facility]) 37.6 >42 GLOMERULAR FILTRATION RATE eCW 1 ([facility]) 140 136-145 SODIUM LEVEL eCW1 ([facility]) 1.88 0.70-1.30 CREATININE FOR GFR eCW1 ([facility]) 5.3 3.5-5.1 POTASSIUM SERUM eCW1 ([facility]) 30 21-32 CARBON DIOXIDE LEVEL eCW1 ([facility]) 106 98-107 CHLORIDE LEVEL eCW1 ([facility]) 36 12-78 ALT/SGPT eCW1 ([facility]) 10.5 8.8-10.2 CALCIUM LEVEL eCW1 ([facility]) 26 7-37 AST/SGOT eCW1 ([facility]) 7.4 6.4-8.2 TOTAL PROTEIN eCW1 ([facility]) 219 45-117 ALKALINE PHOSPHATASE eCW1 ([facility]) 1.5 0.2-1.0 BILIRUBIN,TOTAL eCW1 ([facility]) 3.9 3.2-5.2 ALBUMIN eCW1 ([facility]) 1.1 ALBUMIN/GLOBULIN RATIO eCW1 ([facility]) ID Date Data Source CBC with Differential 06/17/2020 12:00:00 AM EDT eCW1 ([facility]) Name Value Range Interpretation Code Description Data Erin rce(s) Supporting Document(s) 15.1 13.5-17.5 HEMOGLOBIN eCW1 (Critical access hospital) 4.57 4.30-6.10 RED BLOOD COUNT eCW1 ([facility]) 6.0 4.0-10.0 WHITE BLOOD COUNT eCW1 ([facility]) 33.0 27.0-33.0 MEAN CORPUSCULAR HEMOGLOB IN eCW1 ([facility]) 46.3 42.0-52.0 HEMATOCRIT eCW1 ([facility] hospital) 101.3 80.0-96.0 MEAN CORPUSCULAR VOLUME e CW1 ([facility]) 131 150-450 PLATELET COUNT, AUTOMATED eCW1 ([facility]) 32.6 32.0-36.5 MEAN CORPUSCULAR HGB CONC eCW1 ([facility]) 15.1 11.5-14.5 RED CELL DISTRIBUTION WID TH eCW1 ([facility]) 18.4 24.0-44.0 LYMPH % eCW1 ([facility]) 9.8 2.0-8.0 MONO % eCW1 ([facility]) 68.1 36.0-66.0 NEUTROPHILS % eCW1 ([facility]) 4.1 1.5-8.5 NEUTROPHILS # eCW1 ([facility]) 2.2 0.0-3.0 EOS % eCW1 ([facility]) 0.7 0.0-1.0 BASO % eCW1 ([facility]) 0.1 0.0-0.5 EOS # eCW1 ([facility]) 1.1 1.5-5.0 LYMPH # eCW1 ([facility]) 0.6 0.0-0.8 MONO # eCW1 ([facility]) 0.0 0.0-0.2 BASO # eCW1 ([facility]) ID Date Data Source BODY FLUID CULTURE 03/20/2020 12:00:00 AM EST eCW1 ([facility]) Name Value Range Interpretation Code Description Data Erin rce(s) Supporting Document(s) BODY FLUID CULTURE eCW1 ([facility]) ID Date Data Source [id number] 12/29/2019 04:10:00 PM EST MEDENT ([facility]) Name Value Range Interpretation Code Description Data Erin rce(s) Supporting Document(s) Bilirubin.direct [Mass/volume] in Serum or Plasma 0.7 mg/dL 0.0-0.2 Above high normal MEDENT ([facility]) Gamma glutamyl transferase [Enzymatic activity/volume] in Serum or Plasma 551 U/L 0-72.9 Record coming over is a correction and t hus replaces a final result [facility]) Results Confirmed by Repeat Analysis. Results faxed at 1120 01/01/20 kk Lactate dehydrogenase [Enzymatic activit y/volume] in Serum or Plasma by Lactate to pyruvate reaction 162 U/L 120-246 [facility]) Venipuncture Laboratory test result MEDE NT ([facility]) ID Date Data Source [id number] 12/29/2019 04:10:00 PM EST MEDENT ([facility]) Name Value Range Interpretation Code Description Data Erin rce(s) Supporting Document(s) Urea nitrogen [Moles/volume] in Serum or Plasma 53 mg/dL 6-20 Record coming over is a correction and thus replaces a final result MEDE NT ([facility]) Results Confirmed by Repeat Analysis. Results faxed at 1120 01/01/20 kk Glucose [Mass/volume] in Serum or Plasma 95 mg/dL 74-106 MEDENT ([facility]) [place] [employer] (ADA) Recommended Range is 65-99 mg/dL Creatinine [Mass/volume] in Serum or Plasma 2.0 mg/dL 0.5-1.3 Above high normal MEDENT ([facility]) Sodium [Moles/volume] in Serum or Plasma 141 mmol/L 136-145 [facility] ([facility]) Potassium [Moles/volume] in Serum or Plasma 5.3 mmol/L 3.5-5.3 [facility] ([facility]) Chloride [Moles/volume] in Serum or Plasma 101 mmol/L 98-107 [facility] ([facility]) Anion Gap 9 mmol/L 7-16 [facility] ([facility]) eGFR-male 33 mL/m/1.73m [facility] ([facility]) Carbon dioxide, total [Moles/volume] in Serum or Plasma 31 meq/L 20 -31 [facility] ([facility]) Alanine aminotransferase [Enzymatic activity/volume] in Seru m or Plasma 32 U/L 4-36 MEDENT ([facility]) Effective 08/15/2016: [employer] has indicated interference with the drugs sulfasalazine and sulfapyridine. They suggest collection should occur prior to drug administration due to falsely depressed results. eGFR-Aa male 40 mL/m/1.73m [facility] ([facility]) <content>Normal Kidney Function or Mild Disease GFR >59 mL/min/1.73m2</content>
<content>Chronic Kidney Disease GFR 15-59 mL/min/1.73m2</content>
<content>Renal Failure GFR <15 mL/min/1.73m2</content>
<content></content> Alkaline phosphatase [Enzymatic activity/volume] in Serum or Plasma 233 U/L 46-116 Above high normal [facility] ([facility]) Aspartate aminotransferase [Enzymatic activity/volume] in Serum or Plasma 34 U/L 8-33 Above high normal [facility] ([facility]) Bilirubin.total [Mass/volume] in Serum or Plasma 1.3 mg/dL 0.3-1.2 Above high normal [facility] ([facility]) Protein [Mass/volume] in Serum or Plasma 7.4 g/dL 6.4-8.3 [facility] ([facility]) Results may reflect a potential interfer ence in Total Protein results in patients receiving dextran as blood volume expanders. Albumin [Mass/volume] in Serum or Plasma 4.6 g/dL 3.6-5.1 [facility] ([facility]) Globulin [Mass/volume] in Serum by calculation 2.8 g/dL 1.9-3.7 [facility] ([facility]) Albumin/Globulin [Mass Ratio] in Serum or Plasma 1.6 Ratio 1.0-2.0 [facility] ([facility]) Calcium [Mass/volume] in Serum or Plasma 11.3 mg/dL 8.9-10.5 Above high normal [facility] ([facility]) Results Confirmed by Repeat Analysis. ID Date Data Source [id number] 12/29/2019 04:10:00 PM EST [facility] ([facility]) Name Value Range Interpretation Code Description Data Erin rce(s) Supporting Document(s) Thyrotropin [Units/volume] in Serum or Plasma 3.292 mIU/ml 0.350-5.50 0 MED[facility] ([facility]) Natriuretic peptide B [Mass/volume] in Serum or Plasma 372.4 pg/ mL 0-100 Above high normal [facility] ([facility]) Labprint and transmitted 12.29.2019 5:59 pm bab ID Date Data Source [id number] 12/29/2019 04:10:00 PM EST MEDENT ([facility]) Name Value Range Interpretation Code Description Data Erin rce(s) Supporting Document(s) Natriuretic peptide B [Mass/volume] in Serum or Plasma 372.4 pg/ mL 0-100 Above high normal MED[facility] ([facility]) Labprint and transmitted 12.29.2019 5:59 pm bab Procedure Social History Code Duration Value Status Description Data Source(s ) Smoking 11/11/2020 10:02:20 AM EDT Never smoked tobacco (findi ng) completed Never smoked tobacco (finding) KHADAR (Dylan Rios MD [facility]) Smoking 10/18/2020 12:00:00 AM EDT Never Smoker completed Never S moker eCW1 ([facility]) Smoking 10/18/2020 12:00:00 AM EDT Never Smoker completed Never S moker eCW1 ([facility]) Smoking 10/18/2020 12:00:00 AM EDT Never Smoker completed Never S moker eCW1 ([facility]) Smoking 09/06/2020 12:00:00 AM EDT Never Smoker completed Never S moker eCW1 ([facility]) Smoking 09/06/2020 12:00:00 AM EDT Never Smoker completed Never S moker eCW1 ([facility]) Smoking 06/18/2020 12:00:00 AM EDT Never Smoker completed Never S moker eCW1 ([facility]) Smoking 06/18/2020 12:00:00 AM EDT Never Smoker completed Never S moker eCW1 ([facility]) Smoking 03/20/2020 12:00:00 AM EST Never Smoker completed Never S moker eCW1 ([facility]) Smoking 03/20/2020 12:00:00 AM EST Never Smoker completed Never S moker eCW1 ([facility]) Smoking 02/28/2020 12:00:00 AM EST Never Smoker completed Never S moker eCW1 ([facility]) Smoking 02/28/2020 12:00:00 AM EST Never Smoker completed Never S moker eCW1 ([facility]) Smoking 02/28/2020 12:00:00 AM EST Never Smoker completed Never S moker eCW1 ([facility]) Smoking 02/19/2020 12:00:00 AM EST Never Smoker completed Never S moker eCW1 ([facility]) Smoking 02/07/2020 12:00:00 AM EST Never Smoker completed Never S moker eCW1 ([facility]) Vital Signs ID Date Data Source UNK Name Value Range Interpretation Code Description Data Source(s) Body weight 205 [lb_av] 205 [lb_av] eCW1 ([facility]) Body weight 92.99 kg 92.99 kg eCW1 ([facility]) Body height 70 [in_i] 70 [in_i] eCW1 ([facility]) Body mass index (BMI) [Ratio] 29.41 kg/m2 29.41 kg/m2 eCW1 ([facility]) Heart rate 73 /min 73 /min eCW1 ([facility]) Respiratory rate 18 /min 18 /min eCW1 ([facility]) Body temperature 96.4 [degF] 96.4 [degF] eCW1 ( [facility]) Systolic blood pressure 92 mm[Hg] 92 mm[Hg] e CW1 ([facility]) Diastolic blood pressure 60 mm[Hg] 60 mm[Hg] eCW1 ([facility]) Body weight 91.63 kg 91.63 kg eCW1 ([facility]) Body weight 202 [lb_av] 202 [lb_av] eCW1 ([facility]) Body height 70 [in_i] 70 [in_i] eCW1 ([facility]) Body mass index (BMI) [Ratio] 28.98 kg/m2 28.98 kg/m2 eCW1 ([facility]) Heart rate 90 /min 90 /min eCW1 ([facility]) Respiratory rate 18 /min 18 /min eCW1 ([facility]) Body temperature 98.3 [degF] 98.3 [degF] eCW1 ( [facility]) Systolic blood pressure 98 mm[Hg] 98 mm[Hg] e CW1 ([facility]) Diastolic blood pressure 52 mm[Hg] 52 mm[Hg] eCW1 ([facility]) Body mass index (BMI) [Ratio] 29.3 kg/m2 29.3 k g/m2 MEDENT ([facility]) Body weight 204.00 [lb_av] 204.00 [lb_av] MEDEN T ([facility]) Body height 70 [in_i] 70 [in_i] MEDENT ([facility]) 5'10" Body weight 211 [lb_av] 211 [lb_av] eCW1 ([facility]) Body height 70 [in_i] 70 [in_i] eCW1 ([facility]) Body mass index (BMI) [Ratio] 30.27 kg/m2 30.27 kg/m2 eCW1 ([facility]) Heart rate 70 /min 70 /min eCW1 ([facility]) Respiratory rate 17 /min 17 /min eCW1 ([facility]) Systolic blood pressure 107 mm[Hg] 107 mm[Hg] e CW1 ([facility]) Diastolic blood pressure 74 mm[Hg] 74 mm[Hg] eCW1 ([facility]) Systolic blood pressure 98 mm[Hg] 98 mm[Hg] M EDENT ([facility]) Diastolic blood pressure 62 mm[Hg] 62 mm[Hg] MEDENT ([facility]) Heart rate 62 /min 62 /min MEDENT ([facility]) Body height 70 [in_i] 70 [in_i] MEDENT ([facility]) 5'10" Body weight 210.00 [lb_av] 210.00 [lb_av] MEDEN T ([facility]) Body mass index (BMI) [Ratio] 30.1 kg/m2 30.1 k g/m2 MEDENT ([facility]) Body weight 211.6 [lb_av] 211.6 [lb_av] eCW1 ([facility]) Body height 70 [in_i] 70 [in_i] eCW1 ([facility]) Body mass index (BMI) [Ratio] 30.36 kg/m2 30.36 kg/m2 eCW1 ([facility]) Heart rate 93 /min 93 /min eCW1 ([facility]) Respiratory rate 18 /min 18 /min eCW1 ([facility]) Body temperature 98.3 [degF] 98.3 [degF] eCW1 ( [facility]) Systolic blood pressure 104 mm[Hg] 104 mm[Hg] e CW1 ([facility]) Diastolic blood pressure 60 mm[Hg] 60 mm[Hg] eCW1 ([facility]) Body weight 211.0 [lb_av] 211.0 [lb_av] eCW1 ([facility]) Body height 70 [in_i] 70 [in_i] eCW1 ([facility]) Body mass index (BMI) [Ratio] 30.27 kg/m2 30.27 kg/m2 eCW1 ([facility]) Heart rate 85 /min 85 /min eCW1 ([facility]) Respiratory rate 18 /min 18 /min eCW1 ([facility]) Body temperature 98.5 [degF] 98.5 [degF] eCW1 ( [facility]) Systolic blood pressure 110 mm[Hg] 110 mm[Hg] e CW1 ([facility]) Diastolic blood pressure 70 mm[Hg] 70 mm[Hg] eCW1 ([facility]) Body weight 205 [lb_av] 205 [lb_av] eCW1 ([facility]) Body height 70 [in_i] 70 [in_i] eCW1 ([facility]) Body mass index (BMI) [Ratio] 29.41 kg/m2 29.41 kg/m2 eCW1 ([facility]) Heart rate 88 /min 88 /min eCW1 ([facility]) Respiratory rate 18 /min 18 /min eCW1 ([facility]) Body temperature 97.8 [degF] 97.8 [degF] eCW1 ( [facility]) Systolic blood pressure 102 mm[Hg] 102 mm[Hg] e CW1 ([facility]) Diastolic blood pressure 70 mm[Hg] 70 mm[Hg] eCW1 ([facility]) Body weight 211.6 [lb_av] 211.6 [lb_av] eCW1 ([facility]) Body height 70 [in_i] 70 [in_i] eCW1 ([facility]) Body mass index (BMI) [Ratio] 30.36 kg/m2 30.36 kg/m2 eCW1 ([facility]) Heart rate 89 /min 89 /min eCW1 ([facility]) Respiratory rate 18 /min 18 /min eCW1 ([facility]) Body temperature 98.2 [degF] 98.2 [degF] eCW1 ( [facility]) Systolic blood pressure 102 mm[Hg] 102 mm[Hg] e CW1 ([facility]) Diastolic blood pressure 60 mm[Hg] 60 mm[Hg] eCW1 ([facility]) Body height 70 [in_i] 70 [in_i] MEDENT ([facility]) 5'10" Body weight 211.00 [lb_av] 211.00 [lb_av] MEDEN T ([facility]) Body mass index (BMI) [Ratio] 30.3 kg/m2 30.3 k g/m2 MEDENT ([facility]) Systolic blood pressure 106 mm[Hg] 106 mm[Hg] M EDENT ([facility]) Diastolic blood pressure 70 mm[Hg] 70 mm[Hg] MEDENT ([facility]) Heart rate 64 /min 64 /min MEDENT ([facility]) Patient Treatment Plan of Care Planned Activity Planned Date Details Description Data Source (s) loteprednol etabonate 2 MG/ML Ophthalmic Suspension [A lrex] 10/01/2020 12:00:00 AM EDT [facility] ([facility] 24 HR Oxybutynin chloride 5 MG Extended Release Oral T ablet 09/06/2020 12:00:00 AM EDT eCW1 ([facility]) 24 HR Oxybutynin chloride 5 MG Extended Release Oral T ablet 09/06/2020 12:00:00 AM EDT eCW1 ([facility]) 24 HR Oxybutynin chloride 5 MG Extended Release Oral T ablet 09/06/2020 12:00:00 AM EDT eCW1 ([facility]) 24 HR Oxybutynin chloride 5 MG Extended Release Oral T ablet 09/06/2020 12:00:00 AM EDT eCW1 ([facility]) 24 HR Oxybutynin chloride 5 MG Extended Release Oral T ablet 09/06/2020 12:00:00 AM EDT eCW1 ([facility]) 24 HR Alfuzosin hydrochloride 10 MG Extended Release O ral Tablet 08/28/2020 12:00:00 AM EDT eCW1 ([facility]) 24 HR Alfuzosin hydrochloride 10 MG Extended Release O ral Tablet 08/28/2020 12:00:00 AM EDT eCW1 ([facility]) Keflex 500 MG 03/20/2020 12:00:00 AM EST eCW1 ([facility]) Cephalexin 500 MG Oral Capsule [Keflex] 03/20/2020 12:00:00 AM EST eCW1 ([facility]) loteprednol etabonate 2 MG/ML Ophthalmic Suspension [A lrex] 12/21/2019 12:00:00 AM EST KHADAR (Dylan CALI) loteprednol etabonate 2 MG/ML Ophthalmic Suspension [A lrex] 12/15/2018 12:00:00 AM EDT KHADAR ([facility]) loteprednol etabonate 2 MG/ML Ophthalmic Suspension [A lrex] 12/08/2017 12:00:00 AM EDT KHADAR (Dylan Rios MD [facility]) loteprednol etabonate 2 MG/ML Ophthalmic Suspension [A lrex] 10/03/2013 12:00:00 AM ADILSON RUBALCAVA (Dylan Rios MD [facility])
[2020-11-29 18:20] VITALS: BP 125/76
[2020-11-29] MEDS ORDERED: ALFU10TA3 PO (19:19)
[2020-11-29] MEDS ORDERED: TORS20TA2 PO (19:19)
[2020-11-29] MEDS ORDERED: OXYB-54 PO (19:19)
[2020-11-29] MEDS: SYMBICORT 80/4.5MCG INHALER 6GM INH SCH (20:00)
[2020-11-29 20:14] VITALS: BP 116/73
[2020-11-29] MEDS: SENNA 8.6 MG TAB (SENOKOT) PO SCH (20:54)
[2020-11-29] MEDS: DOCUSATE SODIUM 100MG CAPSULE PO SCH (20:54)
[2020-11-29] MEDS: FLUTICASONE PROP 0.05% NASAL SPRAY 16 GM (FLONASE) NARES SCH (20:54)
[2020-11-29] MEDS: ASPIRIN 81MG ENTERIC TABLET PO SCH (20:55)
[2020-11-29] MEDS: CEPHALEXIN 500 MG CAP PO SCH (20:55)
[2020-11-29] MEDS: METOPROLOL TART 12.5 MG PER 1/2 TAB PO SCH (20:56)
[2020-11-29] MEDS: traZODone 50 MG TAB PO SCH (20:57)
[2020-11-29] MEDS: oxyBUTYnin *DITROPAN XL* 5 MG TABCR PO SCH (20:57)
[2020-11-29] MEDS: LACTOBACILLUS ACIDOPHILUS CAP (BACID) PO SCH (20:57)
[2020-11-29] MEDS: REMEDY PHYTOPLEX Z-GUARD PASTE 113GM TUBE (FROM STOREROOM PRODUCT) TOP SCH (20:58)
[2020-11-29] MEDS ORDERED: TERAZOSIN 5MG CAPSULE PO SCH (21:00)
[2020-11-30] MEDS: METOPROLOL TART 12.5 MG PER 1/2 TAB PO SCH ×3 (05:32→21:40)
[2020-11-30] MEDS: ACETAMINOPHEN 500 MG TAB PO PRN ×3 (05:33→20:30)
[2020-11-30 06:22] VITALS: BP 94/58
[2020-11-30 07:17] LABS: BASO # 0.1 10^3/uL (0.0-0.2); BASO % 0.5 % (0.0-1.0); EOS # 0.3 10^3/uL (0.0-0.5); EOS % 2.1 % (0.0-3.0); HEMATOCRIT 29.5 % (42.0-52.0); HEMOGLOBIN 9.9 g/dl (13.5-17.5); LYMPH # 1.3 10^3/uL (1.5-5.0); LYMPH % 10.2 % (24.0-44.0); MEAN CORPUSCULAR HEMOGLOBIN 33.7 pg (27.0-33.0); MEAN CORPUSCULAR HGB CONC 33.6 g/dl (32.0-36.5); MEAN CORPUSCULAR VOLUME 100.3 fl (80.0-96.0); MONO # 0.8 10^3/uL (0.0-0.8); MONO % 6.5 % (2.0-8.0); NEUTROPHILS # 10.2 10^3/uL (1.5-8.5); NEUTROPHILS % 78.2 % (36.0-66.0); PLATELET COUNT, AUTOMATED 261 10^3/uL (150-450); RED BLOOD COUNT 2.94 10^6/uL (4.30-6.10)
[2020-11-30 07:43] LABS: ALBUMIN 2.4 GM/DL (3.2-5.2); BILIRUBIN,TOTAL 1.4 MG/DL (0.2-1.0); CALCIUM LEVEL 10.2 MG/DL (8.8-10.2); CREATININE FOR GFR 1.46 MG/DL (0.70-1.30); GLOMERULAR FILTRATION RATE 50.2 (>42); POTASSIUM SERUM 4.4 MEQ/L (3.5-5.1); TOTAL PROTEIN 5.7 GM/DL (6.4-8.2)
[2020-11-30] MEDS: DOCUSATE SODIUM 100MG CAPSULE PO SCH ×2 (09:00→20:29)
[2020-11-30] MEDS: REMEDY PHYTOPLEX Z-GUARD PASTE 113GM TUBE (FROM STOREROOM PRODUCT) TOP SCH ×3 (09:00→21:37)
[2020-11-30] MEDS ORDERED: TORSEMIDE 10 MG TABLET PO SCH ×2 (09:00→12:00)
[2020-11-30] MEDS: ESCITALOPRAM OXALATE 10 MG TAB (LEXAPRO) PO SCH (09:09)
[2020-11-30] MEDS: LACTOBACILLUS ACIDOPHILUS CAP (BACID) PO SCH ×4 (09:09→20:29)
[2020-11-30] MEDS: MONTELUKAST 10 MG TAB PO SCH (09:09)
[2020-11-30] MEDS: PANTOPRAZOLE 40MG TAB (PROTONIX) PO SCH (09:09)
[2020-11-30] MEDS: CEPHALEXIN 500 MG CAP PO SCH ×3 (09:09→20:29)
[2020-11-30] MEDS: ASPIRIN 81MG ENTERIC TABLET PO SCH ×2 (09:09→20:29)
[2020-11-30] MEDS: FLUTICASONE PROP 0.05% NASAL SPRAY 16 GM (FLONASE) NARES SCH ×2 (09:10→21:37)
--- NOTE | 2020-11-30 09:58 | HPEPDOC ---
[employer] Note DATE OF ADMISSION: 11-29-20 DATE OF SERVICE: 11-30-20 TIME OF ADMISSION: Please refer to physician's admission order. SOURCE OF ADMISSION INFORMATION: [facility] record and patient CHIEF COMPLAINT: right hip fracture s/p ORIF HISTORY OF PRESENT ILLNESS: 75M pmh chronic systolic CHF with EF 30-35%, pulmonary HTN s/p tricuspid valve repair, ICD/PM, CKD, BPH presented to [facility] on 11-17-20 after falling and complained of right leg pain and difficulty walking. He was diagnosed with a right femur intertrochanteric fracture and underwent an ORIF on 11-17-20 with post-op anemia. He was noted to have hyponatremia with a sodium level of 127, hyperkalemia, and progressively worsening kidney function. His Enestro was discontinued, he was given IVF after which his electrolytes improved. He was exposed to Covid on 11-26-20 after which he tested negative. He also had a gout flair and was started on prednisone in addition to episodes of hypotension. He had considerable ADl and mobility impairments and deemed medically appropriate for discharge to ARU. REVIEW OF SYSTEMS: The following is a completed review of systems and has been reviewed. Review of systems otherwise unremarkable. PAIN: Patient self reports right hip pain EYES: No recent vision changes EARS, NOSE, & THROAT: No throat pain, or dysphagia, or rhinorrhea. CARDIOVASCULAR: Denies chest pain or palpitations PULMONARY: Denies shortness of breath GASTROINTESTINAL: Denies constipation/diarrhea GENITOURINARY:denies dysuria MUSCULOSKELETAL: s/p right hip ORIF NEUROLOGICAL: denies paresthesias HEMATOLOGICAL: denies easy bruising SKIN: + surgical incision PSYCHIATRIC: Unremarkable All other review of systems found to be negative. PAST MEDICAL HISTORY: as per HPI PAST SURGICAL HISTORY: as per HPI ALLERGIES: Please see below. MEDICATIONS: Please see below. SOCIAL HISTORY: No etoh/illicit drugs/smoking DIET: low sodium PHYSICAL EXAMINATION: VITAL SIGNS: Please see below. GENERAL: Pleasant and cooperative. No acute distress. HEENT: PERRL. Extraocular movements intact. Clear conjunctiva CARDIOVASCULAR: Regular rate and rhythm. No murmurs, rubs, or gallops LUNGS: Clear to auscultation bilaterally. No wheezes. No rhonchi ABDOMEN: Soft, nontender, nondistended. Positive bowel sounds. Normal active bowel sounds NEUROLOGICAL: Alert and oriented times three. Cranial nerves II through XII grossly intact. Sensation grossly intact EXTREMITIES: 5\5 strength bilateral upper extremities. 4+\5 strength right ankle DF/EHL and PF ( limited due to surgery). 4+/5 strength in left lower extremity. +bilat LE edema SKIN: right hip wound with Prevena wound vac in place- sherry incision with no induration, some ecchymosis LABORATORY DATA: Please see below. Imaging documentation personally reviewed by record FUNCTIONAL STATUS: Premorbid: Independent with all activities of daily life as well as mobility On Admission: Min-Max assist for bed mobility, functional transfers, dressing, toileting GOALS: Mod-I for bed mobility, functional transfers, dressing, toileting, ambulation, bathing ASSESSMENT:75-year-old M with past medical history of systolic CHF who presents status post right hip fracture and ORIF PLAN: 1. Rehab- PT OT advance mobility and ADls, strengthen/stretch/maintain ROM all 4limbs 2. Ortho -s/p right hip ORIF for femur fracture, cont WBAT -cont Keflex started at [facility] to prevent surgical site infection in setting of increase drainage -Prevena wound vac in place -f/u ortho on d/c 3. CArdiac- hx of systolic CHF with EF 30-35% cont fluid restriciton, daily weights, torsemide (monitor for low BPs) -CAD with ICD/PM cont ASA and beta-marie -hx of tricuspid valve repair -hx of HTN with recent episodes of hypotension cont to monitor and judicious with BP meds -medicine consulted to assist in overall management 4. Resp- monitor for infection, cont inhalers Covid exposie 11-26-20, repeat Covid test 12-01 (was negative 11-29-20 prior to discharge) 5. GI ppx- protonix 6. DVT ppx- ASA 81mg BID, TEDs 7. - hx of BPH patient on alfuzosin at home, [facility] does not carry this will switch to Terazosin (BP holding parameters in place) 8. Pain- cont tylenol and oxycodone 9. Renal- recent BJORN in setting of CKD, monitor, hold ARB 10. Psych- cont trazodone and rozerem for insomnia -cont Escitalopram 11. Leukocytosis-patient on course of prednisone for gout flair which is likely causing leukocytosis- cont to taper prednisone, monitor for fever or worsening surgical site 12. Dispo- TBD POST ADMISSION PHYSICIAN EVALUATION: Medical and functional status: Description of medical status, medical assessment: As above. Rehabilitation diagnosis and current and prior cold morbid medical conditions as above. Risk of complications and plans to mitigate them as above. Description of functional status current status is as above. Prior status as above. Status compared to preadmission: There are no clinically significant differences between the patient's current status and the information described on the preadmission screening document. Treatment plan anticipated: Treatment plan is as described above. Required disciplines including physical therapy, occupational therapy, others as noted above. Intensity of services: 3 hours a day, 6 days a week. Special considerations: There are no specific special or safety considerations that would likely preclude immediate implementation of an intensive rehabilitation program or subsequently influence the plan of care. ATTESTATION: Considering all the information above, it is my best judgment that this patient requires intensive rehabilitation therapy as described above and an inpatient hospital environment due to the complexity of nursing, medical, and rehabilitation needs required by the patient. Furthermore, this patient can ru sonably be expected to participate in an benefit from an inpatient rehabilitation stay with an interdisciplinary team approach to the delivery of rehabilitation care under the direction and supervision of rehabilitation physician. PROGNOSIS: good ESTIMATED LENGTH OF STAY:12-16 days. PROJECTED DISCHARGE DESTINATION: Home with family support and any durable medical equipment required to increase functional safety and mobility. TIME SPENT COUNSELING AND COORDINATING INITIAL CARE: Greater than 70 minutes. Vital Signs Vital Sign - Last 24 Hours 11/29/20 11/29/20 11/29/20 11/29/20 18:20 20:14 20:56 20:56 Temp 98.1 97.3 Pulse 63 63 63 Resp 18 18 B/P (MAP) 125/76 (92) 116/73 (87) 116/73 116/73 Pulse Ox 100 98 O2 Delivery Room Air Room Air 11/30/20 11/30/20 05:32 06:22 Temp 97.7 Pulse 64 65 Resp 18 B/P (MAP) 94/52 94/58 (70) Pulse Ox 97 O2 Delivery Room Air Laboratory Data CBC/BMP Laboratory Tests 11/30/20 06:59 Labs 24H Laboratory Tests 2 11/30/20 06:59: Immature Granulocyte % (Auto) 2.5, Neutrophils (%) (Auto) 78.2H, Lymphocytes (%) (Auto) 10.2L, Monocytes (%) (Auto) 6.5, Eosinophils (%) (Auto) 2.1, Basophils (%) (Auto) 0.5, Neutrophils # (Auto) 10.2H, Lymphocytes # (Auto) 1.3L, Monocytes # (Auto) 0.8, Eosinophils # (Auto) 0.3, Basophils # (Auto) 0.1, Nucleated Red Blood Cells % (auto) 0.0, Anion Gap 7L, Glomerular Filtration Rate 50.2, Calcium Level 10.2, Total Bilirubin 1.4H, Aspartate Amino Transf (AST/SGOT) 24, Alanine Aminotransferase (ALT/SGPT) 30, Alkaline Phosphatase 185H, Total Protein 5.7L, Albumin 2.4L, Albumin/Globulin Ratio 0.7 Home Medications Scheduled Alfuzosin HCl (Alfuzosin HCl ER) 10 Mg Tab.er.24h, 10 MG PO QPM, (Reported) Aspirin (Aspirin EC) 81 Mg Tab, 81 MG PO DAILY, (Reported) Budesonide/Formoterol (Symbicort 80-4.5 Mcg Inhaler) 60 Puff/Inhaler Aers, 2 PUFF INH BID, (Reported) Escitalopram Oxalate (Lexapro) 20 Mg Tab, 20 MG PO DAILY, (Reported) Metoprolol Succinate (Metoprolol Succinate) 25 Mg Tab, 25 MG PO DAILY, (Reported) Oxybutynin Chloride (Oxybutynin Chloride ER) 5 Mg Tab.er.24, 5 MG PO QPM, (Reported) Sacubitril/Valsartan (Entresto 49 mg-51 mg Tablet) 1 Tab Tab, 1 TAB PO BID, (Reported) Sacubitril/Valsartan (Entresto 24 mg-26 mg Tablet) 1 Tab Tab, 1 TAB PO BID, (Reported) Spironolactone (Spironolactone) 25 Mg Tab, 12.5 MG PO Q2D, (Reported) Torsemide (Torsemide) 20 Mg Tablet, 20 MG PO DAILY, (Reported) Allergies Coded Allergies: No Known Drug Allergies (Verified Allergy, Unknown, 11/29/20) A-FIB/CHADSVASC A-FIB History Current/History of A-Fib/PAF?: No Current PO Anticoag Therapy: No MARVIN CARLSON MD Nov 30, 2020 09:58
[2020-11-30 10:30] LABS: C REACTIVE PROTEIN QUANTITATIV 0.86 MG/DL (0.00-0.30)
[2020-11-30 10:55] LABS: ERYTHROCYTE SEDIMENTATION RATE 17 mm/hr (0-20)
[2020-11-30] MEDS: predniSONE 10 MG TAB PO SCH (11:00)
[2020-11-30] MEDS: TORSEMIDE 20 MG TAB PO SCH (12:00)
[2020-11-30] MEDS: SYMBICORT 80/4.5MCG INHALER 6GM INH SCH ×2 (13:15→19:53)
[2020-11-30 14:04] VITALS: BP 86/54
[2020-11-30 14:06] VITALS: BP 92/56
--- NOTE | 2020-11-30 16:40 | HPEPDOC ---
[facility] Medical History & Physical Date of Admission Nov 29, 2020 Date of Service: Nov 30, 2020 Primary Care Physician: Art Patton Other Provider Toya Pacheco MD Attending Physician: ANH MEDLEY DO History and Physical CHIEF COMPLAINT: Left hip fracture HISTORY OF PRESENT ILLNESS: Patient is a 75-year-old male who fell down 4 stairs on 11/16/2020 and fractured his right hip and went to [facility] in [place], [place] for an open reduction internal fixation procedure. His hospitalization was complicated by an acute kidney injury as well as an exposure to COVID-19. Patient did not have any symptoms and has been tested negative n umerous times and is still in quarantine before in the next 2 days. Patient only complains of some mild pain in his right hip. Patient's acute kidney injury has resolved and the patient's creatinine is now back down to his normal range. Patient states he is otherwise feeling well today. Patient was admitted into the acute rehab unit at [facility] for ongoing rehabilitation. Hospitalist were consulted in order to help manage the patient's chronic medical conditions. PAST MEDICAL HISTORY: 1. Cardiomyopathy. 2. Hypertension. 3. Pacemaker. 4. Asthma 5. Allergic rhinitis 6. Osteoarthritis 7. Hypercholesterolemia 8. Obstructive sleep apnea 9. Anxiety 10. 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 Tonsillectomy. 2. Appendectomy. 3. Achilles tendon repair. 4. LASIK eye surgery 5. Cardiac pacemaker placement 6. Laparoscopic right hernia repair 7. AICD and pacemaker placement for biventricular pacemaker 8. Tricuspid valve repair 9. AICD pacemaker generator replacement. SOCIAL HISTORY: Patient denies smoking, drinking alcohol or illicit drug use. FAMILY HISTORY: Patient's father of prostate cancer patient's mother of heart failure ALLERGIES: Please see below. REVIEW OF SYSTEMS: General: Patient denies fevers HEENT: Patient denies headaches Cardiovascular: Patient denies chest pain Respiratory: Patient denies shortness of breath, cough GI: Patient denies abdominal pain, nausea, vomiting, diarrhea : Patient denies increased frequency or pain with urination Extremities: Patient reports swelling in his bilateral lower extremities which is little bit worse than his baseline. Patient also reports pain in his right hip Neurological: Patient denies numbness or tingling in legs Skin: Patient denies any new rashes or lesions. Hematologic: Patient denies any easy bruising. Lymphatic: Patient denies any lumps lumps or bumps in neck, axilla, or groin HOME MEDICATIONS: Please see below. PHYSICAL EXAMINATION: VITAL SIGNS: Temperature 97.3, pulse 57, respiratory rate 18, blood pressure 92/56, pulse oximetry 94% on room air. General: Alert and oriented male patient who was laying in bed when I walked in the room. Patient not appear to be in any acute distress. HEENT: Normocephalic, atraumatic, moist mucous membranes. Neck: No lymphadenopathy or thyromegaly Cardiac: Regular rate and rhythm, no murmurs, normal S1, normal S2 Pulm: Clear to auscultation bilaterally. No wheezes, rhonchi, rales Abd: Nondistended, nontender to palpation, normal bowel sounds Ext: 2+ pitting edema the bilateral lower extremities Neuro: Patient was able to move all 4 extremities on command and reported equal sensation light touch in all 4 extremities. Skin: Skin of the head, neck, upper and lower extremities was examined did not show any evidence of rash or wounds. LABORATORY DATA: See below. IMAGING: No imaging performed MICROBIOLOGY: Please see below. ASSESSMENT: 75-year-old male who presented to the acute rehab unit after a hospitalization at [facility] for right hip fracture where he had an open reduction internal fixation performed.. . PLAN: 1. Right hip fracture. Continue PT/OT per the ARU staff. 2. Chronic kidney disease stage III. Patient's creatinine appears to be back at his baseline at this time. Patient will need to have this continue to be monitored. 3. Heart failure with reduced ejection fraction. Continue diuretics and home medications at this time. 4. Peripheral edema. This most likely secondary to the patient's heart failure. Continue diuretics as above. 5. Hypertension. We will continue the patient's home antihypertensive medications with hold parameters. 6. Asthma. Continue patient's home medications. 7. Hyperlipidemia. Continue patient on medications. 8. Obstructive sleep apnea. Continue home CPAP. 9. DVT prophylaxis: Tedkevin Disposition: Patient will continue to work with PT/OT and Dr. Avila and the rest of the ARU staff. Vital Signs Vital Signs Date Time Temp Pulse Resp B/P (MAP) Pulse Ox O2 Delivery O2 Flow Rate FiO2 11/30/20 14:06 92/56 (68) 11/30/20 14:04 97.3 57 18 94 11/30/20 06:22 Room Air Laboratory Data Labs 24H Laboratory Tests 2 11/30/20 06:59: Immature Granulocyte % (Auto) 2.5, Neutrophils (%) (Auto) 78.2H, Lymphocytes (%) (Auto) 10.2L, Monocytes (%) (Auto) 6.5, Eosinophils (%) (Auto) 2.1, Basophils (%) (Auto) 0.5, Neutrophils # (Auto) 10.2H, Lymphocytes # (Auto) 1.3L, Monocytes # (Auto) 0.8, Eosinophils # (Auto) 0.3, Basophils # (Auto) 0.1, Nucleated Red Blood Cells % (auto) 0.0, Erythrocyte Sedimentation Rate 17, Anion Gap 7L, Glomerular Filtration Rate 50.2, Calcium Level 10.2, Total Bilirubin 1.4H, Aspartate Amino Transf (AST/SGOT) 24, Alanine Aminotransferase (ALT/SGPT) 30, Alkaline Phosphatase 185H, C-Reactive Protein, Quantitative 0.86H, Total Protein 5.7L, Albumin 2.4L, Albumin/Globulin Ratio 0.7 CBC/BMP Laboratory Tests 11/30/20 06:59 Home Medications Scheduled Alfuzosin HCl (Alfuzosin HCl ER) 10 Mg Tab.er.24h, 10 MG PO QPM Aspirin (Aspirin EC) 81 Mg Tab, 81 MG PO DAILY Budesonide/Formoterol (Symbicort 80-4.5 Mcg Inhaler) 60 Puff/Inhaler Aers, 2 PUFF INH BID Escitalopram Oxalate (Lexapro) 20 Mg Tab, 20 MG PO DAILY Metoprolol Succinate (Metoprolol Succinate) 25 Mg Tab, 25 MG PO DAILY Oxybutynin Chloride (Oxybutynin Chloride ER) 5 Mg Tab.er.24, 5 MG PO QPM Sacubitril/Valsartan (Entresto 49 mg-51 mg Tablet) 1 Tab Tab, 1 TAB PO BID Sacubitril/Valsartan (Entresto 24 mg-26 mg Tablet) 1 Tab Tab, 1 TAB PO BID Spironolactone (Spironolactone) 25 Mg Tab, 12.5 MG PO Q2D Torsemide (Torsemide) 20 Mg Tablet, 20 MG PO DAILY Allergies Coded Allergies: No Known Drug Allergies (Verified Allergy, Unknown, 11/29/20) A-FIB/CHADSVASC A-FIB History Current/History of A-Fib/PAF?: No ANH MEDLEY DO Nov 30, 2020 16:40
[2020-11-30 19:41] VITALS: BP 107/66
[2020-11-30] MEDS: oxyBUTYnin *DITROPAN XL* 5 MG TABCR PO SCH (20:28)
[2020-11-30] MEDS: SENNA 8.6 MG TAB (SENOKOT) PO SCH (20:28)
[2020-11-30] MEDS: TERAZOSIN 5MG CAPSULE PO SCH (20:29)
[2020-11-30] MEDS: traZODone 50 MG TAB PO SCH (20:30)
[2020-11-30] MEDS ORDERED: TERAZOSIN 5MG CAPSULE PO SCH (21:00)
[2020-11-30] MEDS: NYSTATIN 100,000 UNITS/GM TOPICAL PWD 15 GM TOP PRN (23:01)
[2020-12-01] MEDS: METOPROLOL TART 12.5 MG PER 1/2 TAB PO SCH ×3 (05:28→22:00)
[2020-12-01 06:10] VITALS: BP 109/65
[2020-12-01] MEDS: SYMBICORT 80/4.5MCG INHALER 6GM INH SCH ×2 (07:58→21:01)
[2020-12-01] MEDS: ESCITALOPRAM OXALATE 10 MG TAB (LEXAPRO) PO SCH (08:35)
[2020-12-01] MEDS: CEPHALEXIN 500 MG CAP PO SCH ×3 (08:35→20:19)
[2020-12-01] MEDS: DOCUSATE SODIUM 100MG CAPSULE PO SCH ×2 (08:35→20:19)
[2020-12-01] MEDS: LACTOBACILLUS ACIDOPHILUS CAP (BACID) PO SCH ×4 (08:35→20:19)
[2020-12-01] MEDS: predniSONE 10 MG TAB PO SCH (08:35)
[2020-12-01] MEDS: PANTOPRAZOLE 40MG TAB (PROTONIX) PO SCH (08:35)
[2020-12-01] MEDS: MONTELUKAST 10 MG TAB PO SCH (08:35)
[2020-12-01] MEDS: ACETAMINOPHEN 500 MG TAB PO PRN ×2 (08:35→20:19)
[2020-12-01] MEDS: ASPIRIN 81MG ENTERIC TABLET PO SCH ×2 (08:35→20:19)
[2020-12-01] MEDS: FLUTICASONE PROP 0.05% NASAL SPRAY 16 GM (FLONASE) NARES SCH ×2 (08:36→20:15)
[2020-12-01] MEDS: REMEDY PHYTOPLEX Z-GUARD PASTE 113GM TUBE (FROM STOREROOM PRODUCT) TOP SCH ×3 (08:56→20:15)
[2020-12-01] MEDS: TORSEMIDE 20 MG TAB PO SCH ×2 (11:55→11:59)
[2020-12-01 14:00] VITALS: BP 104/59
[2020-12-01] MEDS: NYSTATIN 100,000 UNITS/GM TOPICAL PWD 15 GM TOP PRN (20:15)
[2020-12-01] MEDS: TERAZOSIN 5MG CAPSULE PO SCH (20:18)
[2020-12-01] MEDS: traZODone 50 MG TAB PO SCH (20:19)
[2020-12-01] MEDS: oxyBUTYnin *DITROPAN XL* 5 MG TABCR PO SCH (20:19)
[2020-12-01] MEDS: SENNA 8.6 MG TAB (SENOKOT) PO SCH (20:19)
[2020-12-01 21:14] VITALS: BP 116/81
[2020-12-01] MEDS ORDERED: FUROSEMIDE 40 MG TAB PO ONE (21:50)
[2020-12-02] MEDS: METOPROLOL TART 12.5 MG PER 1/2 TAB PO SCH ×3 (05:16→22:00)
[2020-12-02 06:25] VITALS: BP 111/63
[2020-12-02] MEDS: SYMBICORT 80/4.5MCG INHALER 6GM INH SCH ×2 (08:00→20:00)
[2020-12-02] MEDS: ASPIRIN 81MG ENTERIC TABLET PO SCH ×2 (08:32→20:25)
[2020-12-02] MEDS: CEPHALEXIN 500 MG CAP PO SCH ×3 (08:32→20:25)
[2020-12-02] MEDS: PANTOPRAZOLE 40MG TAB (PROTONIX) PO SCH (08:32)
[2020-12-02] MEDS: LACTOBACILLUS ACIDOPHILUS CAP (BACID) PO SCH ×4 (08:32→20:25)
[2020-12-02] MEDS: predniSONE 10 MG TAB PO SCH (08:32)
[2020-12-02] MEDS: MONTELUKAST 10 MG TAB PO SCH (08:32)
[2020-12-02] MEDS: DOCUSATE SODIUM 100MG CAPSULE PO SCH ×2 (08:32→20:24)
[2020-12-02] MEDS: ESCITALOPRAM OXALATE 10 MG TAB (LEXAPRO) PO SCH (08:33)
[2020-12-02] MEDS: FUROSEMIDE 40 MG TAB PO SCH ×2 (08:33→17:38)
[2020-12-02] MEDS: ACETAMINOPHEN 500 MG TAB PO PRN (08:34)
[2020-12-02] MEDS: FLUTICASONE PROP 0.05% NASAL SPRAY 16 GM (FLONASE) NARES SCH ×2 (08:35→20:26)
[2020-12-02] MEDS: REMEDY PHYTOPLEX Z-GUARD PASTE 113GM TUBE (FROM STOREROOM PRODUCT) TOP SCH ×3 (08:35→20:28)
[2020-12-02 09:45] LABS: BASO # 0.1 10^3/uL (0.0-0.2); BASO % 0.6 % (0.0-1.0); EOS # 0.2 10^3/uL (0.0-0.5); EOS % 1.9 % (0.0-3.0); HEMATOCRIT 31.9 % (42.0-52.0); HEMOGLOBIN 10.6 g/dl (13.5-17.5); LYMPH # 1.6 10^3/uL (1.5-5.0); LYMPH % 15.8 % (24.0-44.0); MEAN CORPUSCULAR HEMOGLOBIN 33.5 pg (27.0-33.0); MEAN CORPUSCULAR HGB CONC 33.2 g/dl (32.0-36.5); MEAN CORPUSCULAR VOLUME 100.9 fl (80.0-96.0); MONO # 0.5 10^3/uL (0.0-0.8); MONO % 5.1 % (2.0-8.0); NEUTROPHILS # 7.5 10^3/uL (1.5-8.5); NEUTROPHILS % 74.1 % (36.0-66.0); PLATELET COUNT, AUTOMATED 265 10^3/uL (150-450); RED BLOOD COUNT 3.16 10^6/uL (4.30-6.10); WHITE BLOOD COUNT 10.2 10^3/uL (4.0-10.0)
[2020-12-02 10:13] LABS: ERYTHROCYTE SEDIMENTATION RATE 17 mm/hr (0-20)
[2020-12-02 10:14] LABS: C REACTIVE PROTEIN QUANTITATIV 0.47 MG/DL (0.00-0.30); CALCIUM LEVEL 9.7 MG/DL (8.8-10.2); CREATININE FOR GFR 1.47 MG/DL (0.70-1.30); GLOMERULAR FILTRATION RATE 49.9 (>42); POTASSIUM SERUM 4.6 MEQ/L (3.5-5.1)
--- NOTE | 2020-12-02 12:29 | IPNPDOC ---
PM&R Progress Note DATE OF SERVICE: Dec 02, 2020 Mammography Technologist Progress Note Subjective: Patient reporting he feels pretty good today and reports he has a mild cough that he has had for years, it is not getting worse, denies fevers or chills. REVIEW OF SYSTEMS: The following is a completed review of systems and has been reviewed. Review of systems otherwise unremarkable. PAIN: Patient self reports right hip pain EYES: No recent vision changes EARS, NOSE, & THROAT: No throat pain, or dysphagia, or rhinorrhea. CARDIOVASCULAR: Denies chest pain or palpitations PULMONARY: Denies shortness of breath GASTROINTESTINAL: Denies constipation/diarrhea GENITOURINARY:denies dysuria MUSCULOSKELETAL: s/p right hip ORIF NEUROLOGICAL: denies paresthesias HEMATOLOGICAL: denies easy bruising SKIN: + surgical incision PSYCHIATRIC: Unremarkable All other review of systems found to be negative. PHYSICAL EXAMINATION: VITAL SIGNS: Please see below. GENERAL: Pleasant and cooperative. No acute distress. HEENT: PERRL. Extraocular movements intact. Clear conjunctiva CARDIOVASCULAR: Regular rate and rhythm. No murmurs, rubs, or gallops LUNGS: Clear to auscultation bilaterally. No wheezes. No rhonchi ABDOMEN: Soft, nontender, nondistended. Positive bowel sounds. Normal active bowel sounds NEUROLOGICAL: Alert and oriented times three. Cranial nerves II through XII grossly intact. Sensation grossly intact EXTREMITIES: 5\5 strength bilateral upper extremities. 4+\5 strength right ankle DF/EHL and PF ( limited due to surgery). 4+/5 strength in left lower extremity. +bilat LE edema SKIN: right hip wound with Prevena wound vac in place- sherry incision with no induration, some ecchymosis ASSESSMENT:75-year-old M with past medical history of systolic CHF who presents status post right hip fracture and ORIF PLAN: 1. Rehab- PT OT advance mobility and ADls, strengthen/stretch/maintain ROM all 4limbs 2. Ortho -s/p right hip ORIF for femur fracture, cont WBAT -cont Keflex started at [facility] to prevent surgical site infection in setting of increase drainage -Prevena wound vac in place -f/u ortho on d/c 3. CArdiac- hx of systolic CHF with EF 30-35% cont fluid restriction, daily weights, torsemide (monitor for low BPs) -CAD with ICD/PM cont ASA and beta-marie -hx of tricuspid valve repair -hx of HTN with recent episodes of hypotension cont to monitor and judicious with BP meds -medicine consulted to assist in overall management 4. Resp- monitor for infection, cont inhalers Covid exposure 11-26-20, repeat Covid test 12-01 also negative (was negative 11-29-20 prior to discharge) -will order CXR to r/o infiltrate, mild reported chronic cough, no fever/chills, leukocytosis improving 5. GI ppx- protonix 6. DVT ppx- ASA 81mg BID, TEDs 7. - hx of BPH patient on alfuzosin at home, [facility] does not carry this will switch to Terazosin (BP holding parameters in place) -patient on oxybutynin as well 8. Pain- cont tylenol and oxycodone 9. Renal- recent BJORN in setting of CKD, monitor, hold ARB- will consult renal for fluid management in setting of CKD 10. Psych- cont trazodone and rozerem for insomnia -cont Escitalopram 11. Leukocytosis-improving, patient on course of prednisone for gout flair which is likely causing leukocytosis- cont to taper prednisone, monitor for fever or worsening surgical site 12. Dispo- TBD Allergies Coded Allergies: No Known Drug Allergies (Verified Allergy, Unknown, 11/29/20) Vital Signs Vital Signs Date Time Temp Pulse Resp B/P (MAP) Pulse Ox O2 Delivery O2 Flow Rate FiO2 12/02/20 06:25 97.0 69 18 111/63 (79) 96 Room Air Laboratory Data CBC/BMP Laboratory Tests 12/02/20 08:49 Labs 24H Laboratory Tests 2 12/02/20 08:49: Immature Granulocyte % (Auto) 2.5, Neutrophils (%) (Auto) 74.1H, Lymphocytes (%) (Auto) 15.8L, Monocytes (%) (Auto) 5.1, Eosinophils (%) (Auto) 1.9, Basophils (%) (Auto) 0.6, Neutrophils # (Auto) 7.5, Lymphocytes # (Auto) 1.6, Monocytes # (Auto) 0.5, Eosinophils # (Auto) 0.2, Basophils # (Auto) 0.1, Nucleated Red Blood Cells % (auto) 0.0, Erythrocyte Sedimentation Rate 17, Anion Gap 6L, Glomerular Filtration Rate 49.9, Calcium Level 9.7, C-Reactive Protein, Quantitative 0.47H Current Medications Current Medications Current Medications Medications (Trade) Dose Ordered Sig/Krista Route PRN Reason Start Time Stop Time Status Last Admin Dose Admin Acetaminophen (Tylenol Tab) 1,000 mg TID PRN PO MODERATE PAIN (PS 5-7) 11/29/20 16:40 12/02/20 08:34 Albuterol Sulfate (Proventil, Ventolin Hfa) 2 puff Q6HP PRN INH SHORTNESS OF BREATH 11/29/20 16:40 Aspirin (Ecotrin) 81 mg BID PO 11/29/20 21:00 12/02/20 08:32 Budesonide/ Formoterol Fumarate (Symbicort 80/ 4.5mcg) 2 puff RBID INH 11/29/20 20:00 12/01/20 21:01 Cephalexin Monohydrate (Keflex) 500 mg TID PO 11/29/20 21:00 12/06/20 16:01 12/02/20 08:32 Docusate Sodium (Colace) 100 mg BID PO 11/29/20 21:00 12/02/20 08:32 Escitalopram Oxalate (Lexapro) 20 mg DAILY PO 11/30/20 09:00 12/02/20 08:33 Fluticasone Propionate (Flonase 0.05% Nasal [place]) 1 spray BID NARES 11/29/20 21:00 12/02/20 08:35 Furosemide (Lasix) 40 mg BID@09,17 PO 12/02/20 09:00 12/02/20 08:33 Lactobacillus Acidophilus (Bacid) 1 ea WMHS PO 11/29/20 21:00 12/02/20 12:15 Metoprolol Tartrate (Lopressor) 12.5 mg Q8H PO 11/29/20 22:00 12/02/20 05:16 Montelukast Sodium (Singulair) 10 mg DAILY PO 11/30/20 09:00 12/02/20 08:32 Nystatin (Mycostatin Powder, Nystop) 1 dose BIDP PRN TOP RASH 11/30/20 20:10 12/01/20 20:15 Ondansetron HCl (Zofran) 4 mg Q6HP PRN PO NAUSEA 11/29/20 16:40 Oxybutynin Chloride (Ditropan Xl) 5 mg QHS PO 11/29/20 21:00 12/01/20 20:19 Oxycodone HCl (Roxicodone, Oxyir) 5 mg Q4HP PRN PO MODERATE PAIN (PS 5-7) 11/29/20 16:40 Pantoprazole Sodium (Protonix) 40 mg DAILY PO 11/30/20 09:00 12/02/20 08:32 Patient Own Medication (Patient'S Own Med) apply CeraVe cream... BID TOP 11/30/20 21:00 UNV Prednisone (Deltasone) 5 mg DAILY PO 12/07/20 09:00 12/13/20 09:01 Prednisone (Deltasone) 10 mg DAILY PO 11/30/20 09:00 12/06/20 09:01 12/02/20 08:32 Ramelteon (Rozerem) 8 mg QHS PRN PO INSOMNIA 11/29/20 16:40 Senna (Senokot) 1 tab QHS PO 11/29/20 21:00 12/01/20 20:19 Terazosin HCl (Hytrin) 5 mg QHS PO 11/30/20 21:00 11/30/20 10:59 DC Terazosin HCl (Hytrin) 10 mg QHS PO 11/29/20 21:00 11/30/20 09:56 DC 11/29/20 20:56 Terazosin HCl (Hytrin) 10 mg QHS PO 11/30/20 21:00 12/01/20 20:18 Torsemide (Demadex) 10 mg DAILY PO 11/30/20 09:00 11/29/20 20:23 DC Torsemide (Demadex) 10 mg DAILY@1200 PO 11/30/20 12:00 11/30/20 10:59 DC Torsemide (Demadex) 20 mg DAILY@1200 PO 11/30/20 12:00 Hold Trazodone HCl (Desyrel) 50 mg QHS PO 11/29/20 21:00 12/01/20 20:19 MARVIN CARLSON MD Dec 02, 2020 12:29
[2020-12-02 14:00] VITALS: BP 118/65
[2020-12-02] MEDS: oxyCODONE 5MG TAB PO PRN (14:48)
--- NOTE | 2020-12-02 17:28 | REP ---
INDICATION: r/o infiltrate. COMPARISON: 01/25/2014 the latest prior TECHNIQUE: AP and lateral FINDINGS: The technique utilized in obtaining the radiograph has magnified the cardiac silhouette and accentuated the interstitial markings. There is cardiomegaly accentuated by technique. Since the last examination the patient has undergone median sternotomy. There is a pacemaker device which is unchanged. There is left CP angle blunting representing a change from the prior exam. Lung eckert are otherwise clear. IMPRESSION: Left pleural effusion. Follow-up is recommended. <Electronically signed by Stuart Real > 12/02/20 [id number]
[2020-12-02] MEDS: SALIVA SUBSTITUTE(MOUTHKOTE) BTL MT SCH ×2 (17:38→20:26)
[2020-12-02] MEDS: NYSTATIN 100,000 UNITS/GM TOPICAL PWD 15 GM TOP SCH ×2 (17:39→20:27)
[2020-12-02 20:00] VITALS: BP 111/59
[2020-12-02] MEDS: oxyBUTYnin *DITROPAN XL* 5 MG TABCR PO SCH (20:25)
[2020-12-02] MEDS: TERAZOSIN 5MG CAPSULE PO SCH (20:25)
[2020-12-02] MEDS: guaiFENesin 200 MG TAB PO SCH (20:25)
[2020-12-02] MEDS: SENNA 8.6 MG TAB (SENOKOT) PO SCH (20:25)
[2020-12-02] MEDS: traZODone 50 MG TAB PO SCH (20:26)
[2020-12-02] MEDS: ANALGESIC BALM CRM 3OZ TOP SCH (20:27)
[2020-12-02] MEDS: CERAVE TOP SCH (20:28)
[2020-12-03 06:00] VITALS: BP 98/62
[2020-12-03] MEDS: METOPROLOL TART 12.5 MG PER 1/2 TAB PO SCH (06:00)
[2020-12-03] MEDS: SYMBICORT 80/4.5MCG INHALER 6GM INH SCH ×2 (08:00→20:00)
[2020-12-03] MEDS: CERAVE TOP SCH ×2 (09:00→21:27)
[2020-12-03] MEDS: REMEDY PHYTOPLEX Z-GUARD PASTE 113GM TUBE (FROM STOREROOM PRODUCT) TOP SCH ×3 (09:00→21:27)
[2020-12-03] MEDS: ANALGESIC BALM CRM 3OZ TOP SCH ×2 (09:00→21:26)
[2020-12-03] MEDS: FLUTICASONE PROP 0.05% NASAL SPRAY 16 GM (FLONASE) NARES SCH ×2 (09:00→21:26)
[2020-12-03] MEDS: SALIVA SUBSTITUTE(MOUTHKOTE) BTL MT SCH ×4 (09:00→21:25)
[2020-12-03] MEDS: NYSTATIN 100,000 UNITS/GM TOPICAL PWD 15 GM TOP SCH ×3 (09:00→21:26)
[2020-12-03] MEDS: predniSONE 10 MG TAB PO SCH (09:22)
[2020-12-03] MEDS: LACTOBACILLUS ACIDOPHILUS CAP (BACID) PO SCH ×4 (09:22→21:24)
[2020-12-03] MEDS: ASPIRIN 81MG ENTERIC TABLET PO SCH ×2 (09:22→21:24)
[2020-12-03] MEDS: guaiFENesin 200 MG TAB PO SCH ×3 (09:22→21:25)
[2020-12-03] MEDS: DOCUSATE SODIUM 100MG CAPSULE PO SCH ×2 (09:22→21:24)
[2020-12-03] MEDS: ESCITALOPRAM OXALATE 10 MG TAB (LEXAPRO) PO SCH (09:22)
[2020-12-03] MEDS: MONTELUKAST 10 MG TAB PO SCH (09:22)
[2020-12-03] MEDS: CEPHALEXIN 500 MG CAP PO SCH ×3 (09:22→21:24)
[2020-12-03] MEDS: ACETAMINOPHEN 500 MG TAB PO PRN ×2 (09:23→17:14)
[2020-12-03] MEDS: FUROSEMIDE 40 MG TAB PO SCH (09:23)
[2020-12-03] MEDS: PANTOPRAZOLE 40MG TAB (PROTONIX) PO SCH (09:23)
--- NOTE | 2020-12-03 12:03 | REP ---
INDICATION: ckd, bph. COMPARISON: None. TECHNIQUE: Real-time sonographic evaluation of the kidneys with Doppler FINDINGS: Multiple ultrasonographic images of the right kidney show the right kidney to measure 10.6 x 5 x 5.9 cm. The renal cortical echotexture is unremarkable. There are no masses. There is good corticomedullary differentiation. There is no hydronephrosis. There are no perinephric fluid collections. Multiple ultrasonographic images of the left kidney show the left kidney to measure 14.6 x 6.1 x 6.3 cm. The renal cortical echotexture is unremarkable. In the superior pole region there is a 3.4 x 2.1 x 2.2 cm sized nearly anechoic structure but having low level echoes within it. This exhibits some posterior wall enhancement and increased through transmission. In the inferior pole there is a 5.5 x 5.4 x 5 cm sized round nearly anechoic structure but having low level echoes within it and exhibiting some posterior wall enhancement and increased through transmission. There is good corticomedullary differentiation. There is no hydronephrosis. There are no perinephric fluid collections. IMPRESSION: Likely simple left renal cysts as described above with no priors for comparison. Prior chest CT of 12/29/2011, 12/24/2010, and 12/11/2009 did not include these areas. That is as expected. Pre and postcontrast enhanced renal CT is suggested to establish a baseline and to ensure no intracystic enhancing densities are evident. <Electronically signed by Stuart Real > 12/03/20 [id number]
[2020-12-03 14:00] VITALS: BP 125/67
--- NOTE | 2020-12-03 15:22 | IPNPDOC ---
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 He does not want to be hooked on this medication. He reports his cough is better today. REVIEW OF SYSTEMS: The following is a completed review of systems and has been reviewed. Review of systems otherwise unremarkable. PAIN: Patient self reports right hip pain EYES: No recent vision changes EARS, NOSE, & THROAT: No throat pain, or dysphagia, or rhinorrhea. CARDIOVASCULAR: Denies chest pain or palpitations PULMONARY: Denies shortness of breath GASTROINTESTINAL: Denies constipation/diarrhea GENITOURINARY:denies dysuria MUSCULOSKELETAL: s/p right hip ORIF NEUROLOGICAL: denies paresthesias HEMATOLOGICAL: denies easy bruising SKIN: + surgical incision PSYCHIATRIC: Unremarkable All other review of systems found to be negative. PHYSICAL EXAMINATION: VITAL SIGNS: Please see below. GENERAL: Pleasant and cooperative. No acute distress. HEENT: PERRL. Extraocular movements intact. Clear conjunctiva CARDIOVASCULAR: Regular rate and rhythm. No murmurs, rubs, or gallops LUNGS: Clear to auscultation bilaterally. No wheezes. No rhonchi ABDOMEN: Soft, nontender, nondistended. Positive bowel sounds. Normal active bowel sounds NEUROLOGICAL: Alert and oriented times three. Cranial nerves II through XII grossly intact. Sensation grossly intact EXTREMITIES: 5\5 strength bilateral upper extremities. 4+\5 strength right ankle DF/EHL and PF ( limited due to surgery). 4+/5 strength in left lower extremity. +bilat LE edema SKIN: right hip wound with silver optifoam in place sherry incision with no induration, some ecchymosis ASSESSMENT:75-year-old M with past medical history of systolic CHF who presents status post right hip fracture and ORIF PLAN: 1. Rehab- PT OT advance mobility and ADls, strengthen/stretch/maintain ROM all 4limbs -ADULT PROBATION OFFICER ordered for possible underlying cognitive impairments, patient forgetful at times 2. Ortho -s/p right hip ORIF for femur fracture, cont WBAT -cont Keflex started at [place] to prevent surgical site infection in setting of increase drainage -Prevena wound vac removed as multiple malfunctions- cont silver optifoam dressing with frequent changes- serous drainage -f/u ortho on d/c 3. CArdiac- hx of systolic CHF with EF 30-35% cont fluid restriction, daily weights, torsemide (monitor for low BPs) -CAD with ICD/PM cont ASA and beta-marie -hx of tricuspid valve repair -hx of HTN with recent episodes of hypotension cont to monitor and judicious with BP meds -medicine consulted to assist in overall management 4. Resp- monitor for infection, cont inhalers Covid exposure 11-26-20, repeat Covid test 12-01 also negative (was negative 11-29-20 prior to discharge) -CXR on 12-02-20 negative for infiltrate, reporting mild chronic cough that has improved, no fever/chills, leukocytosis improving, cont inhalers and guaifenesin 5. GI ppx- protonix 6. DVT ppx- ASA 81mg BID, TEDs 7. - hx of BPH patient on alfuzosin at home, [facility] does not carry this will switch to Terazosin (BP holding parameters in place) -patient on oxybutynin as well which I will stop as can contribute to cognitive impairments 8. Pain- cont tylenol and oxycodone 9. Renal- recent BJORN in setting of CKD, monitor, hold ARB- will consult renal for fluid management in setting of CKD-recs appreciated 10. Psych- cont trazodone and rozerem for insomnia -cont Escitalopram 11. Leukocytosis-improving, patient on course of prednisone for gout flair which is likely causing leukocytosis- cont to taper prednisone, monitor for fever or worsening surgical site 12. Dispo- goal to home 12-11-20 Allergies Coded Allergies: No Known Drug Allergies (Verified Allergy, Unknown, 11/29/20) Vital Signs Vital Signs Date Time Temp Pulse Resp B/P (MAP) Pulse Ox O2 Delivery O2 Flow Rate FiO2 12/03/20 06:00 97.8 59 16 98/62 (74) 98 Room Air Current Medications Current Medications Current Medications Medications (Trade) Dose Ordered Sig/Krista Route PRN Reason Start Time Stop Time Status Last Admin Dose Admin Acetaminophen (Tylenol Tab) 1,000 mg TID PRN PO MODERATE PAIN (PS 5-7) 11/29/20 16:40 12/03/20 09:23 Albuterol Sulfate (Proventil, Ventolin Hfa) 2 puff Q6HP PRN INH SHORTNESS OF BREATH 11/29/20 16:40 Aspirin (Ecotrin) 81 mg BID PO 11/29/20 21:00 12/03/20 09:22 Budesonide/ Formoterol Fumarate (Symbicort 80/ 4.5mcg) 2 puff RBID INH 11/29/20 20:00 12/01/20 21:01 Cephalexin Monohydrate (Keflex) 500 mg TID PO 11/29/20 21:00 12/06/20 16:01 12/03/20 09:22 Docusate Sodium (Colace) 100 mg BID PO 11/29/20 21:00 12/03/20 09:22 Escitalopram Oxalate (Lexapro) 20 mg DAILY PO 11/30/20 09:00 12/03/20 09:22 Fluticasone Propionate (Flonase 0.05% Nasal [place]) 1 spray BID NARES 11/29/20 21:00 12/03/20 09:00 Furosemide (Lasix) 40 mg BID@09,17 PO 12/02/20 09:00 12/03/20 13:00 DC 12/03/20 09:23 Guaifenesin (Robitussin Tab) 400 mg TID PO 12/02/20 21:00 12/03/20 09:22 Lactobacillus Acidophilus (Bacid) 1 ea WMHS PO 11/29/20 21:00 12/03/20 13:09 Menthol/Methyl Salicylate (Bengay Cream) apply to back BID TOP 12/02/20 21:00 12/03/20 09:00 Metoprolol Tartrate (Lopressor) 12.5 mg BID PO 12/04/20 09:00 Metoprolol Tartrate (Lopressor) 12.5 mg Q8H PO 11/29/20 22:00 12/03/20 09:58 DC 12/02/20 14:49 Montelukast Sodium (Singulair) 10 mg DAILY PO 11/30/20 09:00 12/03/20 09:22 Nystatin (Mycostatin Powder, Nystop) 1 dose BIDP PRN TOP RASH 11/30/20 20:10 12/01/20 20:15 Nystatin (Mycostatin Powder, Nystop) groin TID TOP 12/02/20 16:25 12/03/20 09:00 Ondansetron HCl (Zofran) 4 mg Q6HP PRN PO NAUSEA 11/29/20 16:40 Oxybutynin Chloride (Ditropan Xl) 5 mg QHS PO 11/29/20 21:00 12/02/20 20:25 Oxycodone HCl (Roxicodone, Oxyir) 5 mg Q4HP PRN PO MODERATE PAIN (PS 5-7) 11/29/20 16:40 12/02/20 14:48 Pantoprazole Sodium (Protonix) 40 mg DAILY PO 11/30/20 09:00 12/03/20 09:23 Patient Own Medication (Patient'S Own Med) apply CeraVe cream... BID TOP 12/02/20 21:00 12/03/20 09:00 Prednisone (Deltasone) 5 mg DAILY PO 12/07/20 09:00 12/13/20 09:01 Prednisone (Deltasone) 10 mg DAILY PO 11/30/20 09:00 12/06/20 09:01 12/03/20 09:22 Ramelteon (Rozerem) 8 mg QHS PRN PO INSOMNIA 11/29/20 16:40 Saliva Substitute (Mouthkote) 2 sprays QID MT 12/02/20 17:00 12/03/20 13:09 Senna (Senokot) 1 tab QHS PO 11/29/20 21:00 12/02/20 20:25 Terazosin HCl (Hytrin) 5 mg QHS PO 11/30/20 21:00 11/30/20 10:59 DC Terazosin HCl (Hytrin) 10 mg QHS PO 11/29/20 21:00 11/30/20 09:56 DC 11/29/20 20:56 Terazosin HCl (Hytrin) 10 mg QHS PO 11/30/20 21:00 12/02/20 20:25 Torsemide (Demadex) 10 mg DAILY PO 11/30/20 09:00 11/29/20 20:23 DC Torsemide (Demadex) 10 mg DAILY@1200 PO 11/30/20 12:00 11/30/20 10:59 DC Torsemide (Demadex) 20 mg DAILY@1200 PO 11/30/20 12:00 12/03/20 09:55 DC Torsemide (Demadex) 30 mg BID@09,17 PO 12/03/20 17:00 Trazodone HCl (Desyrel) 50 mg QHS PO 11/29/20 21:00 12/01/20 20:19 MARVIN CARLSON MD Dec 03, 2020 15:22
[2020-12-03] MEDS: TORSEMIDE 10 MG TABLET PO SCH (17:14)
[2020-12-03 20:00] VITALS: BP 105/60
[2020-12-03] MEDS ORDERED: metOLazone 2.5 MG TAB PO ONE (20:10)
[2020-12-03] MEDS: traZODone 50 MG TAB PO SCH (21:00)
[2020-12-03] MEDS: SENNA 8.6 MG TAB (SENOKOT) PO SCH (21:24)
[2020-12-03] MEDS: TERAZOSIN 5MG CAPSULE PO SCH (21:25)
--- NOTE | 2020-12-03 22:03 | CR ---
CONSULTATION DATE: 12/03/2020 REQUESTING PHYSICIAN: Dr. Daphney Pacheco REASON FOR CONSULTATION: Management of diuretic therapy in this patient with systolic congestive heart failure and CKD stage 3 with recent acute kidney injury at outside hospital. HISTORY OF PRESENT ILLNESS: Mr. Gerald Mejia is previously unknown to me. He is a 75-year-old male with a past medical history of CKD stage 3 (does not follow-up with nephrology as an outpatient), chronic systolic cardiomyopathy with ejection fraction of 30-35%, pulmonary hypertension, history of tricuspid valve repair; status post ICD and pacemaker, BPH and other comorbid conditions mentioned below. Patient states he was in his usual state of health and doing well until he had a fall and sustained a right femur intertrochanteric fracture and underwent open reduction and internal fixation at [facility] on 11/17/2020. He had postoperative anemia and also was hyponatremic and hypokalemic. He takes Entresto b.i.d. at home at a fairly high dose and his Entresto was held and the patient was given I.V. fluids and his renal function did improve, however, the patient complains that he has had significant accumulation of peripheral edema. He denies any shortness of breath beyond his usual baseline. He was recently treated for a gout flare. He was discharged to the acute rehabilitation unit on November 29 at [facility]. His admission creatinine on November 30 was 1.4 and laboratory studies were also significant for hemoglobin of 9.9. A nephrology evaluation was requested for help in the management of diuresis in this patient with chronic kidney disease and systolic congestive heart failure. PAST MEDICAL HISTORY: CKD stage 3, systolic congestive heart failure, pulmonary hypertension, BPH, overactive bladder, gout, anemia, hypertension, asthma, osteoarthritis, dyslipidemia, obstructive sleep apnea, anxiety. PAST SURGICAL HISTORY: Tricuspid valve repair; open reduction and internal fixation of right femur intertrochanteric fracture, status post ICD/pacemaker, tonsillectomy, appendectomy, LASIK eye surgery, laparoscopic right hernia repair. FAMILY HISTORY: Reports a history of heart failure in his mother. SOCIAL HISTORY: He is , lives with . No alcohol, drugs or smoking. ALLERGIES: No known drug allergies. HOME MEDICATIONS: Alfuzosin 10 mg p.o. q.p.m., aspirin 81 mg p.o. daily, Symbicort b.i.d., Lexapro 20 mg p.o. daily, Metoprolol Succinate Extended Release 25 mg p.o. daily, Oxybutynin 5 mg p.o. q.p.m., Entresto 49-51 mg b.i.d. and 24-26 mg tablet p.o. b.i.d., Spironolactone 12.5 mg every other day, Torsemide 20 mg p.o. daily. REVIEW OF SYSTEMS: Constitutional: He denies fevers or chills. ENT: He denies rhinorrhea, epistaxis or odynophagia. Eyes: Denies visual changes or tearing. Cardiac: Reports systolic congestive heart failure. Reports new leg swelling. Respiratory: Denies cough or shortness of breath. Reports history of asthma and inhaler use. Gastrointestinal: Denies nausea, vomiting or diarrhea. Genitourinary: Has a history of BPH. Denies dysuria or hematuria. Endocrine: Denies thyroid issues or diabetes. Neurologic: Denies syncope or seizure. Musculoskeletal: Reports gout and recent hip fracture. Psychiatric: Reports anxiety. Skin: Denies new rashes or ulcers. Hematologic: Reports recent anemia. Remainder of review of systems is negative or as per HPI. PHYSICAL EXAMINATION: VITAL SIGNS: Temperature 98.1, pulse 63, respiratory rate 18, blood pressure 125/67, saturating 99% on room air. INTAKE/OUTPUT: Intake yesterday was 1580. Urine output yesterday was 2925; net negative 1340. Weight in the bed scale today is 105.8 kg. GENERAL: Patient was seen sitting in the chair, elderly male, well built and oriented, interactive and in no distress, in good spirits. HEENT: Extraocular muscles are intact. Tongue is moist. Neck is supple. Jugular veins were not elevated while he was sitting upright. HEART: Heart sounds were regular, S1, S2. There is a defibrillator present in the left chest wall. LUNGS: Clear to auscultation bilaterally. No crackle, rale or rhonchus. He is comfortable on room air. ABDOMEN: Soft and nontender to palpation. EXTREMITIES: There is 2+ pitting edema bilaterally in the legs. NEUROLOGIC: He is oriented x3, interactive and conversational. PSYCHIATRIC: Appropriate mood and affect. LABORATORY STUDIES: Sodium 138, potassium 4.6, bicarbonate 25, BUN 44, creatinine 1.4. Calcium 9.7. Albumin 2.4. Hemoglobin 10.6, platelets 265,000. IMAGING: Renal ultrasound was done today and showed the left kidney is 14.6 cm and the right kidney is 10.6 cm. The left kidney includes several cysts. INPATIENT MEDICATIONS: 1. Tylenol 1 gram p.o. three times a day. 2. Proventil p.r.n. 3. Aspirin 81 mg p.o. b.i.d. 4. Symbicort two puffs inhaled b.i.d. 5. Keflex 500 mg p.o. three times a day. 6. Docusate 100 mg p.o. b.i.d. 7. Lexapro 20 mg p.o. daily. 8. Furosemide 40 mg p.o. b.i.d. 9. Robitussin 400 mg p.o. three times a day. 10.Bacid with meals. 11.Metoprolol 25 mg p.o. every 8 hours. 12.Montelukast 10 mg p.o. daily. 13.Nystatin p.r.n. 14.Zofran p.r.n. 15.Oxybutynin 5 mg p.o. q.h.s. 16.Oxycodone p.r.n. 17.Protonix 40 mg p.o. daily. 18.Prednisone 10 mg p.o. daily for a total of 7 doses, then further taper is ordered. 19.Senokot one tablet p.o. q.h.s. 20.Terazosin 10 mg p.o. q.h.s. 21.Trazodone 50 mg p.o. q.h.s. PROBLEMS: 1. Decompensated systolic congestive heart failure: Patient has 2+ pitting edema peripherally on exam, his diuretics were recently held while he had an acute kidney injury and he also endorses that he was given I.V. fluids. He has been off of Entresto as well because of renal dysfunction. He is in moderate fluid overload. He does not have I.V. access. He did make 3 liters of urine yesterday. I am going to try to increase the oral diuretic regimen. We will put him on Torsemide 30 mg p.o. b.i.d. and we will see how much he diureses. If he does not diurese satisfactorily with oral regimen, then we will consider getting I.V. access for I.V. diuretics. He is on an 1800 cc fluid restriction. I am going to go ahead and continue to hold the Entresto for now as his blood pressures have been on the soft side (blood pressure this morning 98/62). 2. CKD stage 3: Prior labs in [facility] are reviewed, his baseline creatinine appears to be around 1.8 to 1.9. Patient tells me he does not see nephrology outpatient. His renal function right now is better than his usual baseline and it is because he is in moderate fluid overload. I would expect that his creatinine would increase as we diurese him. His baseline creatinine appears to be 1.9. We will see how he fares with increased diuretic. His renal ultrasound was negative for obstruction. 3. Hypertension: Blood pressures have been soft, he is presently on Metoprolol three times a day. I am decreasing it to twice daily and I have added holding parameters as well. I have increased the Torsemide dose. I am going to keep him off of Entresto at this time because his blood pressures are soft. If his blood pressure improves, we will consider resuming Entresto. 4. BPH: He is on Terazosin. There is no sign of obstructive uropathy on renal imaging. 5. Anemia in the setting of recent orthopedic surgery: Hemoglobin 10.6 on the latest labs, which is reasonable and we will get iron studies.
[2020-12-04 06:00] VITALS: BP 122/59
[2020-12-04 06:22] LABS: BASO # 0.1 10^3/uL (0.0-0.2); BASO % 0.5 % (0.0-1.0); EOS # 0.1 10^3/uL (0.0-0.5); EOS % 1.2 % (0.0-3.0); LYMPH # 1.2 10^3/uL (1.5-5.0); MEAN CORPUSCULAR HEMOGLOBIN 33.4 pg (27.0-33.0); MEAN CORPUSCULAR HGB CONC 33.3 g/dl (32.0-36.5); MEAN CORPUSCULAR VOLUME 100.3 fl (80.0-96.0); MONO # 1.3 10^3/uL (0.0-0.8); MONO % 12.6 % (2.0-8.0); NEUTROPHILS # 7.6 10^3/uL (1.5-8.5); NEUTROPHILS % 72.5 % (36.0-66.0); PLATELET COUNT, AUTOMATED 231 10^3/uL (150-450); RED BLOOD COUNT 2.99 10^6/uL (4.30-6.10); WHITE BLOOD COUNT 10.4 10^3/uL (4.0-10.0)
[2020-12-04 06:40] LABS: CALCIUM LEVEL 9.9 MG/DL (8.8-10.2); CREATININE FOR GFR 1.54 MG/DL (0.70-1.30); GLOMERULAR FILTRATION RATE 47.2 (>42); POTASSIUM SERUM 3.6 MEQ/L (3.5-5.1)
[2020-12-04] MEDS: SYMBICORT 80/4.5MCG INHALER 6GM INH SCH ×2 (07:33→21:07)
[2020-12-04] MEDS: guaiFENesin 200 MG TAB PO SCH ×3 (08:44→21:15)
[2020-12-04] MEDS: CEPHALEXIN 500 MG CAP PO SCH ×3 (08:44→21:15)
[2020-12-04] MEDS: ESCITALOPRAM OXALATE 10 MG TAB (LEXAPRO) PO SCH (08:44)
[2020-12-04] MEDS: DOCUSATE SODIUM 100MG CAPSULE PO SCH ×2 (08:44→21:15)
[2020-12-04] MEDS: ASPIRIN 81MG ENTERIC TABLET PO SCH ×2 (08:44→21:16)
[2020-12-04] MEDS: TORSEMIDE 10 MG TABLET PO SCH ×2 (08:44→17:08)
[2020-12-04] MEDS: METOPROLOL TART 12.5 MG PER 1/2 TAB PO SCH ×2 (08:45→21:00)
[2020-12-04] MEDS: PANTOPRAZOLE 40MG TAB (PROTONIX) PO SCH (08:45)
[2020-12-04] MEDS: oxyCODONE 5MG TAB PO SCH (08:45)
[2020-12-04] MEDS: predniSONE 10 MG TAB PO SCH (08:45)
[2020-12-04] MEDS: LACTOBACILLUS ACIDOPHILUS CAP (BACID) PO SCH ×4 (08:45→21:15)
[2020-12-04] MEDS: SALIVA SUBSTITUTE(MOUTHKOTE) BTL MT SCH ×4 (08:46→21:16)
[2020-12-04] MEDS: FLUTICASONE PROP 0.05% NASAL SPRAY 16 GM (FLONASE) NARES SCH ×2 (08:47→21:17)
[2020-12-04] MEDS: REMEDY PHYTOPLEX Z-GUARD PASTE 113GM TUBE (FROM STOREROOM PRODUCT) TOP SCH ×3 (08:47→21:18)
[2020-12-04] MEDS: MONTELUKAST 10 MG TAB PO SCH (08:47)
[2020-12-04] MEDS: NYSTATIN 100,000 UNITS/GM TOPICAL PWD 15 GM TOP SCH ×3 (08:47→21:17)
[2020-12-04] MEDS: ANALGESIC BALM CRM 3OZ TOP SCH ×2 (08:48→22:33)
[2020-12-04] MEDS: CERAVE TOP SCH ×2 (08:49→21:00)
[2020-12-04] MEDS: SPIRONOLACTONE 25 MG TAB PO SCH (10:10)
--- NOTE | 2020-12-04 10:58 | IPNPDOC ---
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 REVIEW OF SYSTEMS: The following is a completed review of systems and has been reviewed. Review of systems otherwise unremarkable. PAIN: Patient self reports right hip pain EYES: No recent vision changes EARS, NOSE, & THROAT: No throat pain, or dysphagia, or rhinorrhea. CARDIOVASCULAR: Denies chest pain or palpitations PULMONARY: Denies shortness of breath, occasional cough GASTROINTESTINAL: Denies constipation/diarrhea GENITOURINARY:denies dysuria MUSCULOSKELETAL: s/p right hip ORIF NEUROLOGICAL: denies paresthesias HEMATOLOGICAL: denies easy bruising SKIN: + surgical incision PSYCHIATRIC: Unremarkable All other review of systems found to be negative. PHYSICAL EXAMINATION: VITAL SIGNS: Please see below. GENERAL: Pleasant and cooperative. No acute distress. HEENT: PERRL. Extraocular movements intact. Clear conjunctiva CARDIOVASCULAR: Regular rate and rhythm. No murmurs, rubs, or gallops LUNGS: Clear to auscultation bilaterally. No wheezes. No rhonchi ABDOMEN: Soft, nontender, nondistended. Positive bowel sounds. Normal active bowel sounds NEUROLOGICAL: Alert and oriented times three. Cranial nerves II through XII grossly intact. Sensation grossly intact EXTREMITIES: 5\5 strength bilateral upper extremities. 4+\5 strength right ankle DF/EHL and PF ( limited due to surgery). 4+/5 strength in left lower extremity. +bilat LE edema SKIN: right hip wound with silver optifoam in place sherry incision with no i nduration, some ecchymosis ASSESSMENT:75-year-old M with past medical history of systolic CHF who presents status post right hip fracture and ORIF PLAN: 1. Rehab- PT OT advance mobility and ADls, strengthen/stretch/maintain ROM all 4limbs- ambulating with RW -HEAD TRACK COACH ordered for possible underlying cognitive impairments, patient forgetful at times 2. Ortho -s/p right hip ORIF for femur fracture, cont WBAT -cont Keflex started at [place] to prevent surgical site infection in setting of increase drainage -Prevena wound vac removed as multiple malfunctions- cont silver optifoam dressing with frequent changes- serous drainage starting to diminish -f/u ortho on d/c 3. CArdiac- hx of systolic CHF with EF 30-35% cont fluid restriction, daily weights, torsemide (monitor for low BPs) -CAD with ICD/PM cont ASA and beta-marie -hx of tricuspid valve repair -hx of HTN with recent episodes of hypotension cont to monitor and judicious with BP meds -medicine consulted to assist in overall management 4. Resp- monitor for infection, cont inhalers Covid exposure 11-26-20, repeat Covid test 12-01 also negative (was negative 11-29-20 prior to discharge) -CXR on 12-02-20 negative for infiltrate, reporting mild chronic cough that has improved, no fever/chills, leukocytosis improving, cont inhalers and guaifenesin 5. GI ppx- protonix 6. DVT ppx- ASA 81mg BID, TEDs 7. - hx of BPH patient on alfuzosin at home, [facility] does not carry this will switch to Terazosin (BP holding parameters in place) -patient on oxybutynin as well which I will stop as can contribute to cognitive impairments 8. Pain- cont tylenol and oxycodone 9. Renal- recent BJORN in setting of CKD, monitor, hold ARB- will consult renal for fluid management in setting of CKD-recs appreciated 10. Psych- cont trazodone and rozerem for insomnia -cont Escitalopram 11. Leukocytosis-improving, patient on course of prednisone for gout flair which is likely causing leukocytosis- cont to taper prednisone, monitor for fever or worsening surgical site 12. Dispo- goal to home 12-11-20 Allergies Coded Allergies: No Known Drug Allergies (Verified Allergy, Unknown, 11/29/20) Vital Signs Vital Signs Date Time Temp Pulse Resp B/P (MAP) Pulse Ox O2 Delivery O2 Flow Rate FiO2 12/04/20 08:45 18 12/04/20 08:45 79 122/59 12/04/20 06:00 98.5 94 Room Air Laboratory Data CBC/BMP Laboratory Tests 12/04/20 05:55 Labs 24H Laboratory Tests 2 12/04/20 05:55: Immature Granulocyte % (Auto) 2.2, Neutrophils (%) (Auto) 72.5H, Lymphocytes (%) (Auto) 11.0L, Monocytes (%) (Auto) 12.6H, Eosinophils (%) (Auto) 1.2, Basophils (%) (Auto) 0.5, Neutrophils # (Auto) 7.6, Lymphocytes # (Auto) 1.2L, Monocytes # (Auto) 1.3H, Eosinophils # (Auto) 0.1, Basophils # (Auto) 0.1, Nucleated Red Bl ood Cells % (auto) 0.0, Anion Gap 6L, Glomerular Filtration Rate 47.2, Calcium Level 9.9 Current Medications Current Medications Current Medications Medications (Trade) Dose Ordered Sig/Krista Route PRN Reason Start Time Stop Time Status Last Admin Dose Admin Acetaminophen (Tylenol Tab) 1,000 mg TID PRN PO MODERATE PAIN (PS 5-7) 11/29/20 16:40 12/03/20 17:14 Albuterol Sulfate (Proventil, Ventolin Hfa) 2 puff Q6HP PRN INH SHORTNESS OF BREATH 11/29/20 16:40 Aspirin (Ecotrin) 81 mg BID PO 11/29/20 21:00 12/04/20 08:44 Budesonide/ Formoterol Fumarate (Symbicort 80/ 4.5mcg) 2 puff RBID INH 11/29/20 20:00 12/04/20 07:33 Cephalexin Monohydrate (Keflex) 500 mg TID PO 11/29/20 21:00 12/06/20 16:01 12/04/20 08:44 Docusate Sodium (Colace) 100 mg BID PO 11/29/20 21:00 12/04/20 08:44 Escitalopram Oxalate (Lexapro) 20 mg DAILY PO 11/30/20 09:00 12/04/20 08:44 Fluticasone Propionate (Flonase 0.05% Nasal [place]) 1 spray BID NARES 11/29/20 21:00 12/04/20 08:47 Furosemide (Lasix) 40 mg BID@09,17 PO 12/02/20 09:00 12/03/20 13:00 DC 12/03/20 09:23 Guaifenesin (Robitussin Tab) 400 mg TID PO 12/02/20 21:00 12/04/20 08:44 Lactobacillus Acidophilus (Bacid) 1 ea WMHS PO 11/29/20 21:00 12/04/20 08:45 Menthol/Methyl Salicylate (Bengay Cream) apply to back BID TOP 12/02/20 21:00 12/04/20 08:48 Metoprolol Tartrate (Lopressor) 12.5 mg BID PO 12/04/20 09:00 12/04/20 08:45 Metoprolol Tartrate (Lopressor) 12.5 mg Q8H PO 11/29/20 22:00 12/03/20 09:58 DC 12/02/20 14:49 Montelukast Sodium (Singulair) 10 mg DAILY PO 11/30/20 09:00 12/04/20 08:47 Nystatin (Mycostatin Powder, Nystop) 1 dose BIDP PRN TOP RASH 11/30/20 20:10 12/01/20 20:15 Nystatin (Mycostatin Powder, Nystop) groin TID TOP 12/02/20 16:25 12/04/20 08:47 Ondansetron HCl (Zofran) 4 mg Q6HP PRN PO NAUSEA 11/29/20 16:40 Oxybutynin Chloride (Ditropan Xl) 5 mg QHS PO 11/29/20 21:00 12/03/20 15:12 DC 12/02/20 20:25 Oxycodone HCl (Roxicodone, Oxyir) 5 mg DAILY@0800 PO 12/04/20 08:00 12/04/20 08:45 Oxycodone HCl (Roxicodone, Oxyir) 5 mg Q4HP PRN PO MODERATE PAIN (PS 5-7) 11/29/20 16:40 12/02/20 14:48 Pantoprazole Sodium (Protonix) 40 mg DAILY PO 11/30/20 09:00 12/04/20 08:45 Patient Own Medication (Patient'S Own Med) apply CeraVe cream... BID TOP 12/02/20 21:00 12/04/20 08:49 Prednisone (Deltasone) 5 mg DAILY PO 12/07/20 09:00 12/13/20 09:01 Prednisone (Deltasone) 10 mg DAILY PO 11/30/20 09:00 12/06/20 09:01 12/04/20 08:45 Ramelteon (Rozerem) 8 mg QHS PRN PO INSOMNIA 11/29/20 16:40 Saliva Substitute (Mouthkote) 2 sprays QID MT 12/02/20 17:00 12/03/20 21:25 Senna (Senokot) 1 tab QHS PO 11/29/20 21:00 12/03/20 21:24 Spironolactone (Aldactone) 25 mg QAM PO 12/04/20 09:00 12/04/20 10:10 Terazosin HCl (Hytrin) 5 mg QHS PO 11/30/20 21:00 11/30/20 10:59 DC Terazosin HCl (Hytrin) 10 mg QHS PO 11/29/20 21:00 11/30/20 09:56 DC 11/29/20 20:56 Terazosin HCl (Hytrin) 10 mg QHS PO 11/30/20 21:00 12/03/20 21:25 Torsemide (Demadex) 10 mg DAILY PO 11/30/20 09:00 11/29/20 20:23 DC Torsemide (Demadex) 10 mg DAILY@1200 PO 11/30/20 12:00 11/30/20 10:59 DC Torsemide (Demadex) 20 mg DAILY@1200 PO 11/30/20 12:00 12/03/20 09:55 DC Torsemide (Demadex) 30 mg BID@,17 PO 12/03/20 17:00 12/04/20 08:44 Trazodone HCl (Desyrel) 50 mg QHS PO 11/29/20 21:00 12/01/20 20:19 MARVIN CARLSON MD Dec 04, 2020 10:58
[2020-12-04 13:36] VITALS: BP 111/57
--- NOTE | 2020-12-04 13:38 | IPN ---
NEPHROLOGY PROGRESS NOTE DATE: 12/04/2020 SUBJECTIVE: Gerald is seen and examined this morning at the bedside. He has no new complaints. His diuretics have been increased. His daily weights are down-trending. He reports he is doing well with physical therapy. He denies any lightheadedness or dizziness. PHYSICAL EXAMINATION: Vital signs: Temperature 98.5, pulse 79, respiratory rate 18, blood pressure 122/59, saturating 95%% on room air. Intake yesterday was 1260. Urine output yesterday was 1705. Urine output by this morning was 1.3 liters. Weight on the bed scale today is 103.4 kg down from prior days. General: Patient is seen sitting in the chair, an elderly male, awake, alert and oriented times 3, comfortable and in no distress. HEENT: Extraocular muscles are intact. Tongue is moist. Neck: Supple. Jugular veins were not elevated while he was sitting upright. Heart sounds: Regular S1 and S2. There is a defibrillator present in the left chest wall. Lungs: Clear to auscultation bilaterally, no crackle, rale or rhonchus. He is comfortable on room air. Abdomen: Soft and nontender to palpation. Extremities: There is ongoing 2+ pitting edema in the legs. Neurologic: He is oriented times 3, interactive, conversational. Psychiatric: Appropriate mood and affect. LABORATORY DATA: White count 10.4, hemoglobin 10, platelets 231. Sodium 138, potassium 3.6, bicarbonate 28, BUN 52, creatinine 1.5. INPATIENT MEDICATIONS: I started the patient on spironolactone 25 mg by mouth daily. He also received a dose of metolazone yesterday evening. He continues on torsemide 30 mg by mouth twice daily. Pain medication was adjusted by the primary team. The remainder of the medications are unchanged as compared to yesterday. PROBLEMS/PLAN: 1. Decompensated systolic congestive heart failure: Patient has 2+ pitting edema on exam. His daily weights are down-trending. He has no I.V. access. I think we can diurese him with oral diuretics. I am going to hold off on resuming Entresto for now while we are increasing the other diuretics. He got a dose of metolazone yesterday evening. His potassium is down to 3.6 today. I am going to continue him on torsemide 30 mg by mouth twice a day and I added spironolactone 25 mg daily today. Continue 1.8 liter fluid restriction. We will get him back on Entresto down the road once his volume status improves and he is closer to a discharge. 2. CKD stage 3: His baseline creatinine appears to be around 1.8-1.9. His renal function right now is better than that and it is secondary to moderate fluid overload. I would expect that his creatinine would increase as we continue to diurese him. Renal ultrasound was negative for obstruction. 3. Hypertension: Blood pressures are acceptable. He is on twice daily metoprolol with holding parameters and we have increased the diuretics (torsemide and also now on spironolactone). We will get him back on Entresto later on in this admission 4. BPH: He is on terazosin. No obstructive uropathy on imaging. 5. Anemia in the setting of recent orthopedic surgery: Iron panel is pending. Hemoglobin is above 10. 6. Hypokalemia: Potassium 3.6 today. Spironolactone is being started and we will check a magnesium level as well.
[2020-12-04] MEDS: ACETAMINOPHEN 500 MG TAB PO PRN ×3 (13:43→23:21)
--- NOTE | 2020-12-04 14:21 | IPNPDOC ---
Text Note Date of Service The patient was seen on 12/04/20. NOTE Patient states he is otherwise feeling well today. PHYSICAL EXAMINATION: General: Alert and oriented male patient, not appear to be in any acute distress. HEENT: Normocephalic, atraumatic, moist mucous membranes. Neck: No lymphadenopathy or thyromegaly Cardiac: Regular rate and rhythm, no murmurs, normal S1, normal S2 Pulm: Clear to auscultation bilaterally. No wheezes, rhonchi, rales Abd: Nondistended, nontender to palpation, normal bowel sounds Ext: 2+ pitting edema the bilateral lower extremities Neuro: Patient was able to move all 4 extremities on command and reported equal sensation light touch in all 4 extremities. Skin: Skin of the head, neck, upper and lower extremities was examined did not show any evidence of rash or wounds. LABORATORY DATA: See below. IMAGING: No imaging performed MICROBIOLOGY: Please see below. ASSESSMENT AND PLAN Patient is a 75-year-old male who fell down 4 stairs on 11/16/2020 and fractured his right hip and went to [facility] in [place], [place] for an open reduction internal fixation procedure. His hospitalization was complicated by an acute kidney injury as well as an exposure to COVID-19. Patient did not have any symptoms and has been tested negative numerous times and is still in quarantine before in the next 2 days. Patient only complains of some mild pain in his right hip. Patient's acute kidney injury has resolved and the patient's creatinine is now back down to his normal range. Patient was admitted into the acute rehab unit at [facility] for ongoing rehabilitation. Hospitalist were consulted in order to help manage the patient's chronic medical conditions. 1. Right hip fracture. Continue PT/OT per the ARU staff. 2. Chronic kidney disease stage III. Patient's creatinine appears to be back at his baseline at this time. Patient will need to have this continue to be monito red. 3. Heart failure with reduced ejection fraction. Continue diuretics and home medications at this time. 4. Peripheral edema. This most likely secondary to the patient's heart failure. Continue diuretics as above. 5. Hypertension. We will continue the patient's home antihypertensive medication s with hold parameters. 6. Asthma. Continue patient's home medications. 7. Hyperlipidemia. Continue patient on medications. 8. Obstructive sleep apnea. Continue home CPAP. 9. DVT prophylaxis: Teds Disposition: Patient will continue to work with PT/OT and Dr. Avila and the rest of the ARU staff. VS,Malick, I+O VS, Malick, I+O Laboratory Tests 12/04/20 05:55 Vital Signs Date Time Temp Pulse Resp B/P (MAP) Pulse Ox O2 Delivery O2 Flow Rate FiO2 12/04/20 13:36 98.8 66 18 111/57 (75) 96 Room Air I&O- Last 24 Hours up to 6 AM 12/04/20 06:00 Intake Total 1260 ml Output Total 1980 ml Balance -720 ml GROVER GARLAND MD Dec 04, 2020 14:21
[2020-12-04] MEDS: TERAZOSIN 5MG CAPSULE PO SCH (21:00)
[2020-12-04] MEDS: SENNA 8.6 MG TAB (SENOKOT) PO SCH (21:16)
[2020-12-04] MEDS: traZODone 50 MG TAB PO SCH (21:16)
[2020-12-05 00:03] VITALS: BP 99/57
[2020-12-05 06:05] VITALS: BP 118/62
[2020-12-05] MEDS: SYMBICORT 80/4.5MCG INHALER 6GM INH SCH ×2 (06:33→19:46)
[2020-12-05 07:19] LABS: CALCIUM LEVEL 9.6 MG/DL (8.8-10.2); CREATININE FOR GFR 1.74 MG/DL (0.70-1.30); MAGNESIUM LEVEL 1.8 MG/DL (1.8-2.4); PERCENT SATURATION 17.8 % (19.7-50.0); POTASSIUM SERUM 3.3 MEQ/L (3.5-5.1)
[2020-12-05] MEDS: REMEDY PHYTOPLEX Z-GUARD PASTE 113GM TUBE (FROM STOREROOM PRODUCT) TOP SCH ×3 (09:00→21:06)
[2020-12-05] MEDS: SALIVA SUBSTITUTE(MOUTHKOTE) BTL MT SCH ×4 (09:15→21:09)
[2020-12-05] MEDS: predniSONE 10 MG TAB PO SCH (09:16)
[2020-12-05] MEDS: guaiFENesin 200 MG TAB PO SCH ×3 (09:16→21:02)
[2020-12-05] MEDS: DOCUSATE SODIUM 100MG CAPSULE PO SCH ×2 (09:16→21:02)
[2020-12-05] MEDS: ASPIRIN 81MG ENTERIC TABLET PO SCH ×2 (09:16→21:04)
[2020-12-05] MEDS: oxyCODONE 5MG TAB PO SCH (09:16)
[2020-12-05] MEDS: PANTOPRAZOLE 40MG TAB (PROTONIX) PO SCH (09:16)
[2020-12-05] MEDS: ESCITALOPRAM OXALATE 10 MG TAB (LEXAPRO) PO SCH (09:16)
[2020-12-05] MEDS: MONTELUKAST 10 MG TAB PO SCH (09:17)
[2020-12-05] MEDS: FLUTICASONE PROP 0.05% NASAL SPRAY 16 GM (FLONASE) NARES SCH ×2 (09:17→21:04)
[2020-12-05] MEDS: TORSEMIDE 10 MG TABLET PO SCH ×2 (09:17→17:25)
[2020-12-05] MEDS: METOPROLOL TART 12.5 MG PER 1/2 TAB PO SCH ×2 (09:17→21:00)
[2020-12-05] MEDS: LACTOBACILLUS ACIDOPHILUS CAP (BACID) PO SCH ×4 (09:17→21:02)
[2020-12-05] MEDS: NYSTATIN 100,000 UNITS/GM TOPICAL PWD 15 GM TOP SCH ×3 (09:18→21:05)
[2020-12-05] MEDS: SPIRONOLACTONE 25 MG TAB PO SCH ×2 (09:19→17:26)
[2020-12-05] MEDS: CEPHALEXIN 500 MG CAP PO SCH ×3 (09:19→21:03)
[2020-12-05] MEDS: CERAVE TOP SCH ×2 (09:19→21:05)
[2020-12-05] MEDS: ANALGESIC BALM CRM 3OZ TOP SCH ×2 (09:19→21:06)
[2020-12-05] MEDS ORDERED: POTASSIUM CHLORIDE 10MEQ SR TABLET PO ONE (09:30)
[2020-12-05] MEDS: FERROUS GLUCONATE 324 MG TAB PO SCH (11:16)
[2020-12-05 13:50] VITALS: BP 115/65
[2020-12-05] MEDS: ACETAMINOPHEN 500 MG TAB PO PRN (15:54)
[2020-12-05 20:00] VITALS: BP 103/59
[2020-12-05] MEDS: traZODone 50 MG TAB PO SCH (21:02)
[2020-12-05] MEDS: TERAZOSIN 5MG CAPSULE PO SCH (21:03)
[2020-12-05] MEDS: SENNA 8.6 MG TAB (SENOKOT) PO SCH (21:04)
--- NOTE | 2020-12-05 21:51 | IPN ---
NEPHROLOGY PROGRESS NOTE DATE: 12/05/2020 SUBJECTIVE: Gerald is seen and examined this morning in the Acute Rehabilitation Unit. He reports physical therapy is progressing well. He denies shortness of breath or dyspnea with exertion. He continues to have considerable peripheral edema and his legs are wrapped up. OBJECTIVE: PHYSICAL EXAMINATION: VITAL SIGNS: Temperature 98.3, pulse 68, respiratory rate 18, blood pressure 115/65, saturating 97% on room air. INTAKE AND OUTPUT: Intake yesterday was 720. Urine output yesterday was 2,000, net negative 1,300. Weight in the bed scale today is 105.8 kg. GENERAL APPEARANCE: The patient is seen sitting in the chair, awake, alert, oriented, in no distress. HEENT: The extraocular muscles are intact. Tongue is moist. NECK: Supple. Jugular veins were not elevated while he was sitting upright. HEART: Sounds are regular, S1, S2. There is a defibrillator present in the left chest wall. LUNGS: Clear to auscultation bilaterally. No crackles, rales or rhonchi. He is comfortable on room air. ABDOMEN: Soft and nontender to palpation. EXTREMITIES: There is ongoing diffuse 2+ pitting edema that comes up to the proximal hip. There are dressings on the calves. NEUROLOGICAL: He is oriented x3, interactive, conversational. PSYCHIATRIC: Appropriate mood and affect. LABORATORY STUDIES: Sodium 138, potassium 3.3, bicarbonate 30, BUN 57, creatinine 1.7, transferrin saturation 17%, iron 43, ferratin 220, hemoglobin 10.0, platelet count 231. INPATIENT MEDICATIONS: The patient's medications were reviewed by myself. I started the patient on ferrous gluconate 324 mg p.o. daily. He received a dose of potassium chloride 40 mEq p.o. times one. I increased the Spironolactone to 25 mg p.o. twice daily. He continues on Torsemide 30 mg p.o. twice daily. PROBLEMS: 1. Decompensated systolic congestive heart failure - The patient has ongoing 2+ pitting edema on exam. He has no IV access. I think we can diurese him with oral diuretics. We are holding Entresto while we are increasing the other diuretics. I increased his Spironolactone today because he is hypokalemic. Currently on Spironolactone 25 mg twice daily and Torsemide 30 mg twice daily and on a moderate fluid restriction. We will get him back on Entresto once his volume status improves and he is closer to discharge. 2. Chronic kidney disease stage 3 baseline creatinine is around 1.8 to 2.0. At present renal function is better than baseline secondary to moderate fluid overload. I would expect that his creatinine would increase as we continue to diurese him. Renal ultrasound was negative for obstruction. 3. Hypertension - blood pressures are acceptable. He is on Metoprolol with holding parameters and his diuretics have been increased in view of decompensated congestive heart failure. Entresto is presently on hold. 4. Iron deficiency anemia iron panel is noted with low iron stores, and as he has no IV access, I did not order IV iron. Rather I started him on an oral iron supplement. 5. Hypokalemia Spironolactone dose was doubled and the patient was given a dose of potassium chloride.
[2020-12-06] MEDS: oxyCODONE 5MG TAB PO PRN ×2 (00:01→12:33)
[2020-12-06 06:00] VITALS: BP 99/54
[2020-12-06] MEDS: SYMBICORT 80/4.5MCG INHALER 6GM INH SCH ×3 (08:00→19:59)
[2020-12-06] MEDS: ASPIRIN 81MG ENTERIC TABLET PO SCH ×2 (08:08→20:42)
[2020-12-06] MEDS: FERROUS GLUCONATE 324 MG TAB PO SCH (08:08)
[2020-12-06] MEDS: CEPHALEXIN 500 MG CAP PO SCH ×2 (08:08→17:23)
[2020-12-06] MEDS: PANTOPRAZOLE 40MG TAB (PROTONIX) PO SCH (08:08)
[2020-12-06] MEDS: ESCITALOPRAM OXALATE 10 MG TAB (LEXAPRO) PO SCH (08:08)
[2020-12-06] MEDS: DOCUSATE SODIUM 100MG CAPSULE PO SCH ×2 (08:08→20:42)
[2020-12-06] MEDS: LACTOBACILLUS ACIDOPHILUS CAP (BACID) PO SCH ×4 (08:08→20:42)
[2020-12-06] MEDS: guaiFENesin 200 MG TAB PO SCH ×3 (08:08→20:42)
[2020-12-06] MEDS: SPIRONOLACTONE 25 MG TAB PO SCH ×2 (08:08→17:24)
[2020-12-06] MEDS: MONTELUKAST 10 MG TAB PO SCH (08:09)
[2020-12-06] MEDS: TORSEMIDE 10 MG TABLET PO SCH (08:09)
[2020-12-06] MEDS: predniSONE 10 MG TAB PO SCH (08:09)
[2020-12-06] MEDS: oxyCODONE 5MG TAB PO SCH (08:10)
[2020-12-06] MEDS: SALIVA SUBSTITUTE(MOUTHKOTE) BTL MT SCH ×4 (08:10→20:47)
[2020-12-06] MEDS: FLUTICASONE PROP 0.05% NASAL SPRAY 16 GM (FLONASE) NARES SCH ×2 (08:11→20:45)
[2020-12-06] MEDS: ANALGESIC BALM CRM 3OZ TOP SCH ×2 (08:12→20:45)
[2020-12-06] MEDS: NYSTATIN 100,000 UNITS/GM TOPICAL PWD 15 GM TOP SCH ×3 (08:12→20:45)
[2020-12-06] MEDS: CERAVE TOP SCH ×2 (08:12→20:47)
[2020-12-06] MEDS: METOPROLOL TART 12.5 MG PER 1/2 TAB PO SCH ×2 (08:13→20:43)
[2020-12-06] MEDS: REMEDY PHYTOPLEX Z-GUARD PASTE 113GM TUBE (FROM STOREROOM PRODUCT) TOP SCH ×3 (08:13→20:46)
[2020-12-06] MEDS ORDERED: POTASSIUM CHLORIDE 10MEQ SR TABLET PO SCH (09:00)
[2020-12-06 09:44] LABS: BASO # 0.1 10^3/uL (0.0-0.2); BASO % 0.7 % (0.0-1.0); EOS # 0.1 10^3/uL (0.0-0.5); EOS % 1.1 % (0.0-3.0); HEMATOCRIT 31.4 % (42.0-52.0); HEMOGLOBIN 10.5 g/dl (13.5-17.5); LYMPH # 0.9 10^3/uL (1.5-5.0); MEAN CORPUSCULAR HEMOGLOBIN 33.8 pg (27.0-33.0); MEAN CORPUSCULAR HGB CONC 33.4 g/dl (32.0-36.5); MONO # 0.9 10^3/uL (0.0-0.8); MONO % 9.4 % (2.0-8.0); NEUTROPHILS # 7.2 10^3/uL (1.5-8.5); PLATELET COUNT, AUTOMATED 232 10^3/uL (150-450); RED BLOOD COUNT 3.11 10^6/uL (4.30-6.10); WHITE BLOOD COUNT 9.4 10^3/uL (4.0-10.0)
[2020-12-06 10:12] LABS: CALCIUM LEVEL 10.2 MG/DL (8.8-10.2); CREATININE FOR GFR 1.99 MG/DL (0.70-1.30); GLOMERULAR FILTRATION RATE 35.1 (>42); POTASSIUM SERUM 3.6 MEQ/L (3.5-5.1)
--- NOTE | 2020-12-06 10:23 | IPNPDOC ---
PM&R Progress Note DATE OF SERVICE: Dec 06, 2020 Masking Machine Feeder Progress Note Subjective: Patient stating his right knee was painful last night and he would like to try a lidoderm patch. REVIEW OF SYSTEMS: The following is a completed review of systems and has been reviewed. Review of systems otherwise unremarkable. PAIN: Patient self reports right hip pain EYES: No recent vision changes EARS, NOSE, & THROAT: No throat pain, or dysphagia, or rhinorrhea. CARDIOVASCULAR: Denies chest pain or palpitations PULMONARY: Denies shortness of breath, occasional cough GASTROINTESTINAL: Denies constipation/diarrhea GENITOURINARY:denies dysuria MUSCULOSKELETAL: s/p right hip ORIF NEUROLOGICAL: denies paresthesias HEMATOLOGICAL: denies easy bruising SKIN: + surgical incision PSYCHIATRIC: Unremarkable All other review of systems found to be negative. PHYSICAL EXAMINATION: VITAL SIGNS: Please see below. GENERAL: Pleasant and cooperative. No acute distress. HEENT: PERRL. Extraocular movements intact. Clear conjunctiva CARDIOVASCULAR: Regular rate and rhythm. No murmurs, rubs, or gallops LUNGS: Clear to auscultation bilaterally. No wheezes. No rhonchi ABDOMEN: Soft, nontender, nondistended. Positive bowel sounds. Normal active bowel sounds NEUROLOGICAL: Alert and oriented times three. Cranial nerves II through XII grossly intact. Sensation grossly intact EXTREMITIES: 5\5 strength bilateral upper extremities. 4+\5 strength right ankle DF/EHL and PF ( limited due to surgery). 4+/5 strength in left lower extremity. +bilat LE edema right Knee with +effusion, mildly TTP at medial/lateral joint line SKIN: right hip wound with silver optifoam in place sherry incision with no induration, some ecchymosis ASSESSMENT:75-year-old M with past medical history of systolic CHF who presents status post right hip fracture and ORIF PLAN: 1. 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 Ortho -s/p right hip ORIF for femur fracture, cont WBAT -cont Keflex started at [facility] to prevent surgical site infection in setting of increase drainage -Prevena wound vac removed as multiple malfunctions- cont silver optifoam dressing with frequent changes- serous drainage starting to diminish -f/u ortho on d/c 3. CArdiac- hx of systolic CHF with EF 30-35% cont fluid restriction, daily weights, torsemide (monitor for low BPs) -CAD with ICD/PM cont ASA and beta-marie -hx of tricuspid valve repair -hx of HTN with recent episodes of hypotension cont to monitor and judicious with BP meds -medicine consulted to assist in overall management 4. Resp- monitor for infection, cont inhalers Covid exposure 11-26-20, repeat Covid test 12-01 also negative (was negative 11-29-20 prior to discharge) -CXR on 12-02-20 negative for infiltrate, reporting mild chronic cough that has improved, no fever/chills, leukocytosis improving, cont inhalers and guaifenesin -will order sputum cx as patient with intermittent cough- 5. GI ppx- protonix 6. DVT ppx- ASA 81mg BID, TEDs 7. - hx of BPH patient on alfuzosin at home, [facility] does not carry this will switch to Terazosin (BP holding parameters in place) -patient on oxybutynin as well which I will stop as can contribute to cognitive impairments 8. Pain- cont tylenol and oxycodone -lidoderm patch to right knee 9. Renal- recent BJORN in setting of CKD, monitor, hold ARB- will consult renal for fluid management in setting of CKD-recs appreciated 10. Psych- cont trazodone and rozerem for insomnia -cont Escitalopram 11. Leukocytosis-improving, patient on course of prednisone for gout flair which is likely causing leukocytosis- cont to taper prednisone, monitor for fever or worsening surgical site 12. Dispo- goal to home 12-11-20 Allergies Coded Allergies: No Known Drug Allergies (Verified Allergy, Unknown, 11/29/20) Vital Signs Vital Signs Date Time Temp Pulse Resp B/P (MAP) Pulse Ox O2 Delivery O2 Flow Rate FiO2 12/06/20 08:40 18 12/06/20 08:13 64 133/68 12/06/20 06:00 98.5 95 Room Air Laboratory Data CBC/BMP Laboratory Tests 12/06/20 09:26 Labs 24H Laboratory Tests 2 12/06/20 09:26: Immature Granulocyte % (Auto) 1.8, Neutrophils (%) (Auto) 77.0H, Lymphocytes (%) (Auto) 10.0L, Monocytes (%) (Auto) 9.4H, Eosinophils (%) (Auto) 1.1, Basophils (%) (Auto) 0.7, Neutrophils # (Auto) 7.2, Lymphocytes # (Auto) 0.9L, Monocytes # (Auto) 0.9H, Eosinophils # (Auto) 0.1, Basophils # (Auto) 0.1, Nucleated Red Blood Cells % (auto) 0.0, Anion Gap 10, Glomerular Filtration Rate 35.1L, Calcium Level 10.2 Current Medications Current Medications Current Medications Medications (Trade) Dose Ordered Sig/Krista Route PRN Reason Start Time Stop Time Status Last Admin Dose Admin Acetaminophen (Tylenol Tab) 1,000 mg TID PRN PO MODERATE PAIN (PS 5-7) 11/29/20 16:40 12/05/20 15:54 Albuterol Sulfate (Proventil, Ventolin Hfa) 2 puff Q6HP PRN INH SHORTNESS OF BREATH 11/29/20 16:40 Aspirin (Ecotrin) 81 mg BID PO 11/29/20 21:00 12/06/20 08:08 Budesonide/ Formoterol Fumarate (Symbicort 80/ 4.5mcg) 2 puff RBID INH 11/29/20 20:00 12/05/20 19:46 Cephalexin Monohydrate (Keflex) 500 mg TID PO 11/29/20 21:00 12/06/20 16:01 12/06/20 08:08 Docusate Sodium (Colace) 100 mg BID PO 11/29/20 21:00 12/06/20 08:08 Escitalopram Oxalate (Lexapro) 20 mg DAILY PO 11/30/20 09:00 12/06/20 08:08 Ferrous Gluconate (Fergon) 324 mg DAILY PO 12/05/20 09:00 12/06/20 08:08 Fluticasone Propionate (Flonase 0.05% Nasal [place]) 1 spray BID NARES 11/29/20 21:00 12/06/20 08:11 Furosemide (Lasix) 40 mg BID@09,17 PO 12/02/20 09:00 12/03/20 13:00 DC 12/03/20 09:23 Guaifenesin (Robitussin Tab) 400 mg TID PO 12/02/20 21:00 12/06/20 08:08 Lactobacillus Acidophilus (Bacid) 1 ea WMHS PO 11/29/20 21:00 12/06/20 08:08 Menthol/Methyl Salicylate (Bengay Cream) apply to back BID TOP 12/02/20 21:00 12/06/20 08:12 Metoprolol Tartrate (Lopressor) 12.5 mg BID PO 12/04/20 09:00 12/06/20 08:13 Metoprolol Tartrate (Lopressor) 12.5 mg Q8H PO 11/29/20 22:00 12/03/20 09:58 DC 12/02/20 14:49 Montelukast Sodium (Singulair) 10 mg DAILY PO 11/30/20 09:00 12/06/20 08:09 Nystatin (Mycostatin Powder, Nystop) 1 dose BIDP PRN TOP RASH 11/30/20 20:10 12/01/20 20:15 Nystatin (Mycostatin Powder, Nystop) groin TID TOP 12/02/20 16:25 12/06/20 08:12 Ondansetron HCl (Zofran) 4 mg Q6HP PRN PO NAUSEA 11/29/20 16:40 Oxybutynin Chloride (Ditropan Xl) 5 mg QHS PO 11/29/20 21:00 12/03/20 15:12 DC 12/02/20 20:25 Oxycodone HCl (Roxicodone, Oxyir) 5 mg DAILY@0800 PO 12/04/20 08:00 12/06/20 08:10 Oxycodone HCl (Roxicodone, Oxyir) 5 mg Q4HP PRN PO MODERATE PAIN (PS 5-7) 11/29/20 16:40 12/06/20 00:01 Pantoprazole Sodium (Protonix) 40 mg DAILY PO 11/30/20 09:00 12/06/20 08:08 Patient Own Medication (Patient'S Own Med) apply CeraVe cream... BID TOP 12/02/20 21:00 12/06/20 08:12 Potassium Chloride (Micro-K Extencaps) 20 meq DAILY PO 12/06/20 09:00 12/05/20 10:50 DC Prednisone (Deltasone) 5 mg DAILY PO 12/07/20 09:00 12/13/20 09:01 Prednisone (Deltasone) 10 mg DAILY PO 11/30/20 09:00 12/06/20 09:01 DC 12/06/20 08:09 Ramelteon (Rozerem) 8 mg QHS PRN PO INSOMNIA 11/29/20 16:40 Saliva Substitute (Mouthkote) 2 sprays QID MT 12/02/20 17:00 12/06/20 08:10 Senna (Senokot) 1 tab QHS PO 11/29/20 21:00 12/05/20 21:04 Spironolactone (Aldactone) 25 mg BID@0900,1700 PO 12/05/20 17:00 12/06/20 08:08 Spironolactone (Aldactone) 25 mg QAM PO 12/04/20 09:00 12/05/20 10:51 DC 12/05/20 09:19 Terazosin HCl (Hytrin) 5 mg QHS PO 11/30/20 21:00 11/30/20 10:59 DC Terazosin HCl (Hytrin) 10 mg QHS PO 11/29/20 21:00 11/30/20 09:56 DC 11/29/20 20:56 Terazosin HCl (Hytrin) 10 mg QHS PO 11/30/20 21:00 12/05/20 21:03 Torsemide (Demadex) 10 mg DAILY PO 11/30/20 09:00 11/29/20 20:23 DC Torsemide (Demadex) 10 mg DAILY@1200 PO 11/30/20 12:00 11/30/20 10:59 DC Torsemide (Demadex) 20 mg DAILY@1200 PO 11/30/20 12:00 12/03/20 09:55 DC Torsemide (Demadex) 30 mg BID@09,17 PO 12/03/20 17:00 12/06/20 08:09 Trazodone HCl (Desyrel) 50 mg QHS PO 11/29/20 21:00 12/05/20 21:02 MARVIN CARLSON MD Dec 06, 2020 10:23
--- NOTE | 2020-12-06 10:23 | IPNPDOC ---
PM&R Progress Note DATE OF SERVICE: Dec 05, 2020 [facility] Progress Note Subjective: Patient stating he feels good today and states his legs feel much less swollen. REVIEW OF SYSTEMS: The following is a completed review of systems and has been reviewed. Review of systems otherwise unremarkable. PAIN: Patient self reports right hip pain EYES: No recent vision changes EARS, NOSE, & THROAT: No throat pain, or dysphagia, or rhinorrhea. CARDIOVASCULAR: Denies chest pain or palpitations PULMONARY: Denies shortness of breath, occasional cough GASTROINTESTINAL: Denies constipation/diarrhea GENITOURINARY:denies dysuria MUSCULOSKELETAL: s/p right hip ORIF NEUROLOGICAL: denies paresthesias HEMATOLOGICAL: denies easy bruising SKIN: + surgical incision PSYCHIATRIC: Unremarkable All other review of systems found to be negative. PHYSICAL EXAMINATION: VITAL SIGNS: Please see below. GENERAL: Pleasant and cooperative. No acute distress. HEENT: PERRL. Extraocular movements intact. Clear conjunctiva CARDIOVASCULAR: Regular rate and rhythm. No murmurs, rubs, or gallops LUNGS: Clear to auscultation bilaterally. No wheezes. No rhonchi ABDOMEN: Soft, nontender, nondistended. Positive bowel sounds. Normal active bowel sounds NEUROLOGICAL: Alert and oriented times three. Cranial nerves II through XII grossly intact. Sensation grossly intact EXTREMITIES: 5\5 strength bilateral upper extremities. 4+\5 strength right ankle DF/EHL and PF ( limited due to surgery). 4+/5 strength in left lower extremity. +bilat LE edema SKIN: right hip wound with silver optifoam in place sherry incision with no induration, some ecchymosis ASSESSMENT:75-year-old M with past medical history of systolic CHF who presents status post right hip fracture and ORIF PLAN: 1. Rehab- PT OT advance mobility and ADls, strengthen/stretch/maintain ROM all 4limbs- ambulating with RW -[employer] ordered for possible underlying cognitive impairments, patient forgetful at times 2. Ortho -s/p right hip ORIF for femur fracture, cont WBAT -cont Keflex started at [facility] to prevent surgical site infection in setting of increase drainage -Prevena wound vac removed as multiple malfunctions- cont silver optifoam dressing with frequent changes- serous drainage starting to diminish -f/u ortho on d/c 3. CArdiac- hx of systolic CHF with EF 30-35% cont fluid restriction, daily weights, torsemide (monitor for low BPs) -CAD with ICD/PM cont ASA and beta-marie -hx of tricuspid valve repair -hx of HTN with recent episodes of hypotension cont to monitor and judicious with BP meds -medicine consulted to assist in overall management 4. Resp- monitor for infection, cont inhalers Covid exposure 11-26-20, repeat Covid test 12-01 also negative (was negative 11-29-20 prior to discharge) -CXR on 12-02-20 negative for infiltrate, reporting mild chronic cough that has improved, no fever/chills, leukocytosis improving, cont inhalers and guaifenesin 5. GI ppx- protonix 6. DVT ppx- ASA 81mg BID, TEDs 7. - hx of BPH patient on alfuzosin at home, [facility] does not carry this will s witch to Terazosin (BP holding parameters in place) -patient on oxybutynin as well which I will stop as can contribute to cognitive impairments 8. Pain- cont tylenol and oxycodone 9. Renal- recent BJORN in setting of CKD, monitor, hold ARB- will consult renal for fluid management in setting of CKD-recs appreciated 10. Psych- cont trazodone and rozerem for insomnia -cont Escitalopram 11. Leukocytosis-improving, patient on course of prednisone for gout flair which is likely causing leukocytosis- cont to taper prednisone, monitor for fever or worsening surgical site 12. Dispo- goal to home 12-11-20 Allergies Coded Allergies: No Known Drug Allergies (Verified Allergy, Unknown, 11/29/20) Vital Signs Vital Signs Date Time Temp Pulse Resp B/P (MAP) Pulse Ox O2 Delivery O2 Flow Rate FiO2 12/06/20 08:40 18 12/06/20 08:13 64 133/68 12/06/20 06:00 98.5 95 Room Air Laboratory Data CBC/BMP Laboratory Tests 12/06/20 09:26 Labs 24H Laboratory Tests 2 12/06/20 09:26: Immature Granulocyte % (Auto) 1.8, Neutrophils (%) (Auto) 77.0H, Lymphocytes (%) (Auto) 10.0L, Monocytes (%) (Auto) 9.4H, Eosinophils (%) (Auto) 1.1, Basophils (%) (Auto) 0.7, Neutrophils # (Auto) 7.2, Lymphocytes # (Auto) 0.9L, Monocytes # (Auto) 0.9H, Eosinophils # (Auto) 0.1, Basophils # (Auto) 0.1, Nucleated Red Blood Cells % (auto) 0.0, Anion Gap 10, Glomerular Filtration Rate 35.1L, Calcium Level 10.2 Current Medications Current Medications Current Medications Medications (Trade) Dose Ordered Sig/Krista Route PRN Reason Start Time Stop Time Status Last Admin Dose Admin Acetaminophen (Tylenol Tab) 1,000 mg TID PRN PO MODERATE PAIN (PS 5-7) 11/29/20 16:40 12/05/20 15:54 Albuterol Sulfate (Proventil, Ventolin Hfa) 2 puff Q6HP PRN INH SHORTNESS OF BREATH 11/29/20 16:40 Aspirin (Ecotrin) 81 mg BID PO 11/29/20 21:00 12/06/20 08:08 Budesonide/ Formoterol Fumarate (Symbicort 80/ 4.5mcg) 2 puff RBID INH 11/29/20 20:00 12/05/20 19:46 Cephalexin Monohydrate (Keflex) 500 mg TID PO 11/29/20 21:00 12/06/20 16:01 12/06/20 08:08 Docusate Sodium (Colace) 100 mg BID PO 11/29/20 21:00 12/06/20 08:08 Escitalopram Oxalate (Lexapro) 20 mg DAILY PO 11/30/20 09:00 12/06/20 08:08 Ferrous Gluconate (Fergon) 324 mg DAILY PO 12/05/20 09:00 12/06/20 08:08 Fluticasone Propionate (Flonase 0.05% [facility]) 1 spray BID NARES 11/29/20 21:00 12/06/20 08:11 Furosemide (Lasix) 40 mg BID@09,17 PO 12/02/20 09:00 12/03/20 13:00 DC 12/03/20 09:23 Guaifenesin (Robitussin Tab) 400 mg TID PO 12/02/20 21:00 12/06/20 08:08 Lactobacillus Acidophilus (Bacid) 1 ea WMHS PO 11/29/20 21:00 12/06/20 08:08 Menthol/Methyl Salicylate (Bengay Cream) apply to back BID TOP 12/02/20 21:00 12/06/20 08:12 Metoprolol Tartrate (Lopressor) 12.5 mg BID PO 12/04/20 09:00 12/06/20 08:13 Metoprolol Tartrate (Lopressor) 12.5 mg Q8H PO 11/29/20 22:00 12/03/20 09:58 DC 12/02/20 14:49 Montelukast Sodium (Singulair) 10 mg DAILY PO 11/30/20 09:00 12/06/20 08:09 Nystatin (Mycostatin Powder, Nystop) 1 dose BIDP PRN TOP RASH 11/30/20 20:10 12/01/20 20:15 Nystatin (Mycostatin Powder, Nystop) groin TID TOP 12/02/20 16:25 12/06/20 08:12 Ondansetron HCl (Zofran) 4 mg Q6HP PRN PO NAUSEA 11/29/20 16:40 Oxybutynin Chloride (Ditropan Xl) 5 mg QHS PO 11/29/20 21:00 12/03/20 15:12 DC 12/02/20 20:25 Oxycodone HCl (Roxicodone, Oxyir) 5 mg DAILY@0800 PO 12/04/20 08:00 12/06/20 08:10 Oxycodone HCl (Roxicodone, Oxyir) 5 mg Q4HP PRN PO MODERATE PAIN (PS 5-7) 11/29/20 16:40 12/06/20 00:01 Pantoprazole Sodium (Protonix) 40 mg DAILY PO 11/30/20 09:00 12/06/20 08:08 Patient Own Medication (Patient'S Own Med) apply CeraVe cream... BID TOP 12/02/20 21:00 12/06/20 08:12 Potassium Chloride (Micro-K Extencaps) 20 meq DAILY PO 12/06/20 09:00 12/05/20 10:50 DC Prednisone (Deltasone) 5 mg DAILY PO 12/07/20 09:00 12/13/20 09:01 Prednisone (Deltasone) 10 mg DAILY PO 11/30/20 09:00 12/06/20 09:01 DC 12/06/20 08:09 Ramelteon (Rozerem) 8 mg QHS PRN PO INSOMNIA 11/29/20 16:40 Saliva Substitute (Mouthkote) 2 sprays QID MT 12/02/20 17:00 12/06/20 08:10 Senna (Senokot) 1 tab QHS PO 11/29/20 21:00 12/05/20 21:04 Spironolactone (Aldactone) 25 mg BID@0900,1700 PO 12/05/20 17:00 12/06/20 08:08 Spironolactone (Aldactone) 25 mg QAM PO 12/04/20 09:00 12/05/20 10:51 DC 12/05/20 09:19 Terazosin HCl (Hytrin) 5 mg QHS PO 11/30/20 21:00 11/30/20 10:59 DC Terazosin HCl (Hytrin) 10 mg QHS PO 11/29/20 21:00 11/30/20 09:56 DC 11/29/20 20:56 Terazosin HCl (Hytrin) 10 mg QHS PO 11/30/20 21:00 12/05/20 21:03 Torsemide (Demadex) 10 mg DAILY PO 11/30/20 09:00 11/29/20 20:23 DC Torsemide (Demadex) 10 mg DAILY@1200 PO 11/30/20 12:00 11/30/20 10:59 DC Torsemide (Demadex) 20 mg DAILY@1200 PO 11/30/20 12:00 12/03/20 09:55 DC Torsemide (Demadex) 30 mg BID@09,17 PO 12/03/20 17:00 12/06/20 08:09 Trazodone HCl (Desyrel) 50 mg QHS PO 11/29/20 21:00 12/05/20 21:02 MARVIN CARLSON MD Dec 06, 2020 10:23
[2020-12-06 14:00] VITALS: BP 128/65
[2020-12-06] MEDS: LIDOCAINE 5% (LIDODERM) PATCH TD SCH (17:25)
--- NOTE | 2020-12-06 18:20 | IPN ---
NEPHROLOGY PROGRESS NOTE DATE: 12/06/2020 SUBJECTIVE: Mr. Mejia is seen and examined this morning in the acute rehabilitation unit. He reports knee pain. Otherwise, denies shortness of breath or dyspnea on exertion. Laboratory studies show creatinine has come up to 1.9, which is his baseline renal function and patient continues to diurese satisfactorily. PHYSICAL EXAMINATION: VITAL SIGNS: Temperature 98.5, pulse 88, respiratory rate 20, blood pressure 99/54, saturating 95% on room air. INTAKE AND OUTPUT: Intake yesterday was 1.6 liters. Urine output was 3.3 liters, net negative 1.7 liters. Weight in the bed scale today is 98.3 kg. GENERAL: Patient is seen sitting in the chair, awake, alert, oriented, comfortable and in mild distress from his right knee pain. HEENT: Extraocular muscles are intact. Tongue is moist NECK: Supple. Jugular veins were not elevated. HEART SOUNDS: Regular. S1, S2. There is a pacemaker device in the left chest wall. LUNGS: Clear to auscultation. No crackle or rale. ABDOMEN: Soft and nontender. EXTREMITIES: There is a dressing around his legs and there is still ongoing edema, still around 2+. NEUROLOGIC: Oriented times three. No focal deficits. PSYCHIATRIC: Appropriate mood and affect. LABORATORY STUDIES: Hemoglobin 10.5, platelets 232. Sodium 137, potassium 3.6, bicarbonate 29, BUN 59, creatinine 1.99, calcium 10.2. INPATIENT MEDICATIONS: Patient was started on a Lidoderm patch. He was started on ferrous sulfate yesterday. His spironolactone was increased to 25 mg twice a day. He is also on torsemide 30 mg twice daily. PROBLEMS: 1. Chronic kidney disease (CKD) stage IIIB. Creatinine today is 1.99, which is the patient's usual baseline on this admission. He previously had better renal function, but it was secondary to fluid overload. We have been diuresing the patient and I am hopeful his creatinine will stay around 2, which was his prior baseline. We will continue to keep an eye on his renal function while he is being diuresed in the rehabilitation unit. 2. Decompensated systolic congestive heart failure. Volume status is improving. Daily weights are downtrending. Peripheral edema is getting better as well. He takes Entresto at home, which we are holding at present because of soft blood pressure and his other diuretics have been increased. He is on spironolactone 25 mg twice daily and torsemide 30 mg twice daily. He is on a moderate fluid restriction. We will continue this diuretic regimen for one more day and then we will likely decrease diuretics. His volume status is nicely improving. 3. Hypertension. Blood pressures are low normal. He is on metoprolol with holding parameters. Given that is diuretics have been increased in view of decompensated congestive heart failure (CHF), he is not presently suitable for reinitiation of Entresto. 4. Iron deficiency anemia. He does not have intravenous (IV) access. I did not order IV iron. He is on oral iron supplementation. 5. Hypokalemia. Okay to continue with twice daily spironolactone for now. We will continue to keep an eye on his electrolytes and renal function, as he is being diuresed in the acute rehabilitation unit.
[2020-12-06 20:00] VITALS: BP 114/71
[2020-12-06] MEDS: SENNA 8.6 MG TAB (SENOKOT) PO SCH (20:42)
[2020-12-06] MEDS: TERAZOSIN 5MG CAPSULE PO SCH (20:43)
[2020-12-06] MEDS: traZODone 50 MG TAB PO SCH (20:44)
[2020-12-06] MEDS: **NOTE PATIENT COMMENT** MISC XX SCH (20:46)
[2020-12-07 06:00] VITALS: BP 108/55
[2020-12-07] MEDS: SYMBICORT 80/4.5MCG INHALER 6GM INH SCH ×2 (07:42→18:13)
[2020-12-07] MEDS: METOPROLOL TART 12.5 MG PER 1/2 TAB PO SCH ×2 (09:00→20:39)
[2020-12-07] MEDS: DOCUSATE SODIUM 100MG CAPSULE PO SCH ×2 (09:22→20:38)
[2020-12-07] MEDS: predniSONE 5 MG TAB PO SCH (09:22)
[2020-12-07] MEDS: FERROUS GLUCONATE 324 MG TAB PO SCH (09:22)
[2020-12-07] MEDS: LACTOBACILLUS ACIDOPHILUS CAP (BACID) PO SCH ×4 (09:22→20:38)
[2020-12-07] MEDS: PANTOPRAZOLE 40MG TAB (PROTONIX) PO SCH (09:22)
[2020-12-07] MEDS: ASPIRIN 81MG ENTERIC TABLET PO SCH ×2 (09:22→20:38)
[2020-12-07] MEDS: MONTELUKAST 10 MG TAB PO SCH (09:22)
[2020-12-07] MEDS: guaiFENesin 200 MG TAB PO SCH ×3 (09:22→20:39)
[2020-12-07] MEDS: ESCITALOPRAM OXALATE 10 MG TAB (LEXAPRO) PO SCH (09:22)
[2020-12-07] MEDS: SPIRONOLACTONE 25 MG TAB PO SCH ×2 (09:23→17:31)
[2020-12-07] MEDS: TORSEMIDE 10 MG TABLET PO SCH (09:23)
[2020-12-07] MEDS: SALIVA SUBSTITUTE(MOUTHKOTE) BTL MT SCH ×4 (09:23→20:40)
[2020-12-07] MEDS: oxyCODONE 5MG TAB PO SCH (09:24)
[2020-12-07] MEDS: LIDOCAINE 5% (LIDODERM) PATCH TD SCH (09:25)
[2020-12-07] MEDS: FLUTICASONE PROP 0.05% NASAL SPRAY 16 GM (FLONASE) NARES SCH ×2 (09:26→20:40)
[2020-12-07] MEDS: NYSTATIN 100,000 UNITS/GM TOPICAL PWD 15 GM TOP SCH ×3 (09:26→20:41)
[2020-12-07] MEDS: ANALGESIC BALM CRM 3OZ TOP SCH ×2 (09:27→20:41)
[2020-12-07] MEDS: REMEDY PHYTOPLEX Z-GUARD PASTE 113GM TUBE (FROM STOREROOM PRODUCT) TOP SCH ×3 (09:27→20:42)
[2020-12-07] MEDS: CERAVE TOP SCH ×2 (09:27→20:41)
[2020-12-07 11:17] LABS: ALBUMIN 2.5 GM/DL (3.2-5.2); CALCIUM LEVEL 9.5 MG/DL (8.8-10.2); GLOMERULAR FILTRATION RATE 34.9 (>42); PHOSPHORUS LEVEL 2.9 MG/DL (2.5-4.9); POTASSIUM SERUM 3.4 MEQ/L (3.5-5.1)
[2020-12-07] MEDS ORDERED: POTASSIUM CHLORIDE 10MEQ SR TABLET PO ONE (12:15)
[2020-12-07 14:00] VITALS: BP 153/58
--- NOTE | 2020-12-07 16:05 | IPN ---
PROGRESS NOTE DATE: 12/07/2020 Mr. Mejia is seen this morning on his bedside. He is lying in his bed with head end elevated only about 25 degrees. He continues to have lower extremity edema. Yesterday he had good urine output with diuretic. He denies any nausea or vomiting. PHYSICAL EXAMINATION: Temperature 98 degrees Fahrenheit, heart rate 68 per minute, respiratory rate 18 per minute. Blood pressure as low as 103/55 mmHg and as high as 153/58 mmHg with oxygen saturation 96%. Intake and output records from yesterday show total intake 1760 and output 4325. His weight is down to 97.4 kg, while he weighed 107.4 kg on December 02 and 105.8 kg on December 03. His head is atraumatic. Neck supple and jugular venous distention (JVD) still seems elevated. Heart sounds are regular and lungs sound slightly diminished at bases. Abdomen is soft and nontender, and bowel sounds are present. Extremities without any cyanosis or clubbing. He does have edema 3+ on the right leg and 2+ on the left. Neurologically he is awake, alert, and oriented times three. Today's labs show sodium 138, potassium 3.4, CO2 of 33, BUN 67, and creatinine 2.0. Glucose 131 and calcium 9.5. PROBLEMS: 1. Congestive heart failure. Volume status improved but still not fully compensated. I will leave him on current diuretic of torsemide 30 mg daily for another 24 hours and recheck him tomorrow. 2. Acute kidney injury superimposed on chronic kidney disease. This is related to loss of fluid and diuretic use. This was anticipated, so I am not concerned about it. Yesterday his creatinine was 1.99 and today is 2.0, which is unchanged. No decrease in diuretic is being made today. His diuretic was already cut down yesterday. 3. Hypokalemia. This is related to diuretic use and likely to improve as he is now on spironolactone 25 mg twice a day, and torsemide dose has been cut down. We will also give him one dose of oral potassium chloride 40 mEq.
[2020-12-07] MEDS: oxyCODONE 5MG TAB PO PRN (19:55)
[2020-12-07 20:00] VITALS: BP 111/58
[2020-12-07] MEDS: SENNA 8.6 MG TAB (SENOKOT) PO SCH (20:38)
[2020-12-07] MEDS: traZODone 50 MG TAB PO SCH (20:38)
[2020-12-07] MEDS: TERAZOSIN 5MG CAPSULE PO SCH (20:39)
[2020-12-07] MEDS: **NOTE PATIENT COMMENT** MISC XX SCH (20:41)
[2020-12-08 06:00] VITALS: BP 106/59
[2020-12-08] MEDS: SYMBICORT 80/4.5MCG INHALER 6GM INH SCH ×2 (07:32→20:47)
[2020-12-08] MEDS: LIDOCAINE 5% (LIDODERM) PATCH TD SCH (09:33)
[2020-12-08] MEDS: FERROUS GLUCONATE 324 MG TAB PO SCH (09:34)
[2020-12-08] MEDS: guaiFENesin 200 MG TAB PO SCH ×3 (09:34→20:38)
[2020-12-08] MEDS: MONTELUKAST 10 MG TAB PO SCH (09:34)
[2020-12-08] MEDS: TORSEMIDE 10 MG TABLET PO SCH (09:34)
[2020-12-08] MEDS: LACTOBACILLUS ACIDOPHILUS CAP (BACID) PO SCH ×4 (09:34→20:38)
[2020-12-08] MEDS: ESCITALOPRAM OXALATE 10 MG TAB (LEXAPRO) PO SCH (09:34)
[2020-12-08] MEDS: PANTOPRAZOLE 40MG TAB (PROTONIX) PO SCH (09:34)
[2020-12-08] MEDS: predniSONE 5 MG TAB PO SCH (09:34)
[2020-12-08] MEDS: SPIRONOLACTONE 25 MG TAB PO SCH ×2 (09:34→17:04)
[2020-12-08] MEDS: DOCUSATE SODIUM 100MG CAPSULE PO SCH ×2 (09:34→20:38)
[2020-12-08] MEDS: ASPIRIN 81MG ENTERIC TABLET PO SCH ×2 (09:34→20:38)
[2020-12-08] MEDS: SALIVA SUBSTITUTE(MOUTHKOTE) BTL MT SCH ×4 (09:35→20:42)
[2020-12-08] MEDS: FLUTICASONE PROP 0.05% NASAL SPRAY 16 GM (FLONASE) NARES SCH ×2 (09:35→20:41)
[2020-12-08] MEDS: oxyCODONE 5MG TAB PO SCH ×2 (09:35→17:05)
[2020-12-08] MEDS: ANALGESIC BALM CRM 3OZ TOP SCH ×2 (09:36→20:42)
[2020-12-08] MEDS: CERAVE TOP SCH ×2 (09:36→20:42)
[2020-12-08] MEDS: NYSTATIN 100,000 UNITS/GM TOPICAL PWD 15 GM TOP SCH ×3 (09:37→20:41)
[2020-12-08] MEDS: REMEDY PHYTOPLEX Z-GUARD PASTE 113GM TUBE (FROM STOREROOM PRODUCT) TOP SCH ×3 (09:37→20:43)
[2020-12-08] MEDS: METOPROLOL TART 12.5 MG PER 1/2 TAB PO SCH ×2 (09:38→20:40)
[2020-12-08] MEDS: oxyCODONE 5MG TAB PO PRN ×3 (13:26→20:39)
[2020-12-08 14:00] VITALS: BP 113/57
--- NOTE | 2020-12-08 19:45 | IPN ---
PROGRESS NOTE DATE: 12/08/2020 Mr. Mejia is seen this morning on his bedside. He is ready for physical therapy sessions. I examined him in the wheelchair. He is able to walk with the help of a walker a short distance. His leg edema persists but is slightly improved. He denies any dyspnea or chest pain at rest. He has no nausea or vomiting. He has been responding to diuretic very well so far. On physical exam, temperature 98 degrees Fahrenheit, heart rate 62 per minute, and respiratory rate 18 per minute. Blood pressure 111/57 mmHg and oxygen saturation 96% on room air. Intake and output records from yesterday show a negative fluid balance of 680 mL. His weight is essentially unchanged over the last 24 hours. Head is atraumatic. Neck is supple and jugular venous distention (JVD) is still significantly elevated. Heart sounds are regular and lungs with slightly diminished breath sounds at right base but otherwise clear. Abdomen is soft and nontender and bowel sounds are normal. Extremities without any cyanosis or clubbing. Lower extremity edema is below the knee on left leg and all the way up to his upper thigh on the right lower extremity. Neurologically he is awake, alert, and oriented times three. Patient did not have any labs done today. Yesterday, his BUN was 67 and creatinine 2.0. PROBLEMS: 1. Congestive heart failure. Volume status is still decompensated. Patient remains on torsemide 30 mg daily. I am not increasing the diuretic dose at this point due to borderline blood pressure. He is also receiving spironolactone 25 mg twice a day which will be continued. 2. Hypertension. Blood pressure seems to be well controlled or slightly soft. He is receiving only 12.5 mg of metoprolol twice a day along with the diuretics. Will continue with the same for now. 3. Hypokalemia. His potassium level was 3.4 yesterday and he has received potassium supplement. In addition, he is on spironolactone 25 mg twice a day. His electrolytes will be checked again tomorrow. 4. Anemia. He does have mild anemia with a hemoglobin about 10 and complete blood count (CBC) should be repeated again tomorrow morning.
[2020-12-08 20:00] VITALS: BP 107/61
[2020-12-08] MEDS: SENNA 8.6 MG TAB (SENOKOT) PO SCH (20:38)
[2020-12-08] MEDS: TERAZOSIN 5MG CAPSULE PO SCH (20:39)
[2020-12-08] MEDS: traZODone 50 MG TAB PO SCH (20:40)
[2020-12-08] MEDS: **NOTE PATIENT COMMENT** MISC XX SCH (20:43)
[2020-12-09 06:00] VITALS: BP 101/61
[2020-12-09 08:41] LABS: BASO # 0.1 10^3/uL (0.0-0.2); BASO % 0.9 % (0.0-1.0); EOS # 0.2 10^3/uL (0.0-0.5); EOS % 1.8 % (0.0-3.0); HEMATOCRIT 32.1 % (42.0-52.0); HEMOGLOBIN 10.5 g/dl (13.5-17.5); LYMPH # 1.2 10^3/uL (1.5-5.0); LYMPH % 12.7 % (24.0-44.0); MEAN CORPUSCULAR HEMOGLOBIN 33.5 pg (27.0-33.0); MEAN CORPUSCULAR HGB CONC 32.7 g/dl (32.0-36.5); MEAN CORPUSCULAR VOLUME 102.6 fl (80.0-96.0); MONO # 0.9 10^3/uL (0.0-0.8); MONO % 9.3 % (2.0-8.0); NEUTROPHILS # 6.9 10^3/uL (1.5-8.5); NEUTROPHILS % 73.7 % (36.0-66.0); PLATELET COUNT, AUTOMATED 216 10^3/uL (150-450); RED BLOOD COUNT 3.13 10^6/uL (4.30-6.10); WHITE BLOOD COUNT 9.3 10^3/uL (4.0-10.0)
[2020-12-09] MEDS: REMEDY PHYTOPLEX Z-GUARD PASTE 113GM TUBE (FROM STOREROOM PRODUCT) TOP SCH ×3 (09:00→21:00)
[2020-12-09] MEDS: FERROUS GLUCONATE 324 MG TAB PO SCH (09:03)
[2020-12-09] MEDS: PANTOPRAZOLE 40MG TAB (PROTONIX) PO SCH (09:03)
[2020-12-09] MEDS: LIDOCAINE 5% (LIDODERM) PATCH TD SCH (09:03)
[2020-12-09] MEDS: LACTOBACILLUS ACIDOPHILUS CAP (BACID) PO SCH ×4 (09:03→21:15)
[2020-12-09] MEDS: predniSONE 5 MG TAB PO SCH (09:04)
[2020-12-09] MEDS: ASPIRIN 81MG ENTERIC TABLET PO SCH ×2 (09:04→21:16)
[2020-12-09] MEDS: SPIRONOLACTONE 25 MG TAB PO SCH (09:04)
[2020-12-09] MEDS: DOCUSATE SODIUM 100MG CAPSULE PO SCH ×2 (09:04→21:15)
[2020-12-09] MEDS: TORSEMIDE 10 MG TABLET PO SCH (09:04)
[2020-12-09] MEDS: guaiFENesin 200 MG TAB PO SCH ×3 (09:04→21:15)
[2020-12-09] MEDS: oxyCODONE 5MG TAB PO SCH (09:04)
[2020-12-09] MEDS: MONTELUKAST 10 MG TAB PO SCH (09:04)
[2020-12-09] MEDS: FLUTICASONE PROP 0.05% NASAL SPRAY 16 GM (FLONASE) NARES SCH ×2 (09:05→21:18)
[2020-12-09] MEDS: METOPROLOL TART 12.5 MG PER 1/2 TAB PO SCH ×2 (09:05→21:00)
[2020-12-09] MEDS: SALIVA SUBSTITUTE(MOUTHKOTE) BTL MT SCH ×4 (09:05→21:24)
[2020-12-09] MEDS: ESCITALOPRAM OXALATE 10 MG TAB (LEXAPRO) PO SCH (09:05)
[2020-12-09] MEDS: ANALGESIC BALM CRM 3OZ TOP SCH ×2 (09:06→21:19)
[2020-12-09] MEDS: NYSTATIN 100,000 UNITS/GM TOPICAL PWD 15 GM TOP SCH ×3 (09:06→21:21)
[2020-12-09] MEDS: CERAVE TOP SCH ×2 (09:07→21:20)
[2020-12-09 09:09] LABS: CALCIUM LEVEL 10.5 MG/DL (8.8-10.2); CREATININE FOR GFR 1.99 MG/DL (0.70-1.30); GLOMERULAR FILTRATION RATE 35.1 (>42)
[2020-12-09] MEDS: SYMBICORT 80/4.5MCG INHALER 6GM INH SCH ×2 (11:43→20:00)
[2020-12-09] MEDS: oxyCODONE 5MG TAB PO PRN ×2 (13:08→17:07)
[2020-12-09 14:00] VITALS: BP 118/60
--- NOTE | 2020-12-09 16:37 | IPN ---
PROGRESS NOTE DATE: 12/09/2020 SUBJECTIVE: Mr. Mejia is seen this morning on his bedside. He is currently sitting in the chair. Both of his legs have been wrapped in Ryan bandage due to edema. The patient denies any dyspnea or chest pain. He has difficulty ambulating due to significant edema. He denies any nausea or vomiting. OBJECTIVE: On physical exam: VITAL SIGNS: Temperature 98 degrees Fahrenheit, heart 70 per minute, and respiratory rate 20 per minute. Blood pressure 101/60 earlier and now it is 119/62 mmHg. His oxygen saturation is 100% on room air. Intake and output records from yesterday are incomplete. He has not been weighed today. HEENT: Head is atraumatic. NECK: Supple and JVD is still significantly elevated. HEART: Sounds are regular. LUNGS: Sound clear to auscultation. ABDOMEN: Soft and nontender and bowel sounds are normal. EXTREMITIES: Without any cyanosis or clubbing. He has 2+ edema on left leg and right lower extremity edema is significantly worse and extends all the way up to upper thigh. NEURO: He is awake, alert, and oriented x3. Today's labs show sodium 137, potassium 4.0, CO2 32, BUN 60 and creatinine 1.99. Glucose 144 and calcium now is up to 10.5. I had ordered an intact PTH level earlier which has come back at 103. Hemoglobin 10.5, hematocrit 32 which are essentially unchanged. PROBLEMS: 1. Acute kidney injury superimposed on chronic kidney disease. No change in kidney function over the last couple of days. We will continue to diurese him but at slightly gentle rate. I am cutting down his Furosemide dose to 20 mg once a day and Spironolactone to 25 mg once a day in view of hypercalcemia. 2. Hypercalcemia this is new and probably related to diuretic use. He also had mild hyperparathyroidism which could be primary. At this point we will continue to watch and diurese him more gently. If his hypercalcemia gets any worse then we will consider changing therapy. 3. Anemia his anemia is stable at this point and no intervention is needed.
--- NOTE | 2020-12-09 19:29 | IPNPDOC ---
PM&R Progress Note DATE OF SERVICE: Dec 09, 2020 Back Office Medical Assistant Progress Note DATE OF ADMISSION: Nov 29, 2020 at 18:08 INPATIENT REHABILITATION ADMISSION DAY: # 10 SUBJECTIVE: This is a 75M with pmh chronic systolic CHF with EF 30-35%, pulmonary HTN s/p tricuspid valve repair,9 Dr. Mina , cardiology) ICD/PM, CKD, BPH presented to [facility] on 11-17-20 after falling and complained of right leg pain and difficulty walking. He was diagnosed with a right femur intertrochanteric fracture and underwent an ORIF on 11-17-20 with post-op anemia. He was noted to have hyponatremia with a sodium level of 127, hyperkalemia, and progressively worsening kidney function. His Enestro was discontinued, he was given IVF after which his electrolytes improved. He was exposed to Covid on 11-26-20 after which he tested negative. He also had a gout flair and was started on prednisone in addition to episodes of hypotension aggravating blood sugars which have since stabilized. He has had considerable ADl and mobility impairments and was deemed medically appropriate for admission to ARU November 29, 2020. He has made good progress, despite continued challenges with significant bilateral, right worse than left lower extremity swelling. I had the opportunity consult with him individually, as well as during Dr. Rivera visit. Dr. Barrios mentioned concern over the elevated calcium and agreed with my concern regarding the low albumin and suggested we had Nepro supplementation. He had been having the legs wrapped. However, we will return to the ORA hose this time. 5. High level. The patient does note that his scrotal and lower extremity edema has improved with the aggressive diuresis thus far. He notes a bowel movement yesterday and last night and episode of urgent urinary incontinence more related to delayed response, than lack of control. We discussed having the urinal available. REVIEW OF SYSTEMS: The following is a completed review of systems and has been reviewed. Review of systems otherwise unremarkable. PAIN: Patient self reports right hip pain EYES: No recent vision changes EARS, NOSE, & THROAT: No throat pain, or dysphagia, or rhinorrhea. CARDIOVASCULAR: Denies chest pain or palpitations PULMONARY: Denies shortness of breath GASTROINTESTINAL: Denies constipation/diarrhea GENITOURINARY:denies dysuria, admits some urgent incontinence MUSCULOSKELETAL: s/p right hip ORIF NEUROLOGICAL: denies paresthesias HEMATOLOGICAL: denies easy bruising SKIN: + surgical incision, serosanguinous weeping bilateral lower extremities PSYCHIATRIC: Unremarkable All other review of systems found to be negative. ALLERGIES: See Below MEDICATIONS: Reviewed, see below. OBJECTIVE: VITAL SIGNS: Please see below. GENERAL: Pleasant, calm and communicative oriented x 3, good insight HEENT: Extraocular movements intact. no adenopathy or thyromegaly. Full cervical range of motion No tenderness cervicothoracic region. CARDIOVASCULAR: II/ SM Palpable ICD/PM left pectoral region, healed incision LUNGS: Clear to auscultation bilaterally. No wheezes. No rales or rhonchi. ABDOMEN: Soft, nontender, obese. Positive normal active bowel sounds. NEUROLOGICAL: Cranial nerves II through XII grossly intact. Sensation intact all 4 extremities. EXTREMITIES: 5/5 bilateral gathering worker, elbow flexion, elbow extension,3/5 bilateral knee extension, foot dorsiflexion, plantar flexion limited by pain and marked lymphedema. Pulses cannot be assessed.. SKIN: . Serosanguinous weeping dribbling down bilateral forelegs with hyperpigmentation knees to feet. Healing right lateral hip incision. FUNCTIONAL STATUS: Standby assistance for sit to stand, and ambulation with rolling walker 100 feet, weight-bearing as tolerated. Trial of 2 steps contact-guard assistance for stairs LABORATORY DATA: Reviewed. Please see below. MICROBIOLOGY: See below ASSESSMENT AND PLAN: DIAGNOSES: Status post right hip fracture ORIF, weightbearing as tolerated. CAD and status post tricuspid valve repair surgery and placement of ICD/PM CHF. Bilateral lower extremity edema Anemia-probable combination blood loss and dilutional, on oral replacement Status post recent URI with cough proven. BPH. BJORN, at baseline per nephrology. Insomnia. Gout. Leukocytosis most likely related to wound healing, course of prednisone. Hypertension . Recent episodes of hypotension ASSESSMENT: PLAN: 1. Rehab- PT OT advance mobility and ADls, strengthen/stretch/maintain ROM all 4limbs- ambulating with RW -DIRECTOR EMERGENC[employer] DEPARTMENT ordered for possible underlying cognitive impairments, patient forgetful at times 2. Ortho -s/p right hip ORIF for femur fracture, cont WBAT -cont Keflex started at [facility] to prevent surgical site infection in setting of increase drainage - silver optifoam dressing with frequent changes- serous drainage starting to diminish as 6. Jevity edema also improves with aggressive diuresis -f/u ortho on d/c 3. C[place]diac- hx of systolic CHF with EF 30-35% cont fluid restriction 1500 mL daily, daily weights, thigh high teds, torsemide (monitor for low BPs and orthostatic changes) -CAD with ICD/PM cont ASA and beta-marie -hx of tricuspid valve repair -hx of HTN with recent episodes of hypotension cont to monitor and judicious with BP meds -medicine consulted to assist in overall management Appreciate nephrology input 4. Resp- monitor for infection, cont inhalers Covid exposure 11-26-20, repeat Covid test 12-01 also negative (was negative 11-29-20 prior to discharge) -CXR on 12-02-20 negative for infiltrate, reporting mild chronic cough that has improved, no fever/chills, leukocytosis improving, cont inhalers and guaifenesin 5. GI ppx- protonix 6. DVT ppx- ASA 81mg BID, TEDs 7. - hx of BPH patient on alfuzosin at home, [facility] does not carry this will switch to Terazosin (BP holding parameters in place) -patient on oxybutynin as well which I will stop as can contribute to cognitive impairments 8. Pain- cont tylenol and oxycodone -lidoderm patch to right knee 9. Renal- recent BJORN in setting of CKD, monitor, hold ARB- will consult renal for fluid management in setting of CKD-recs appreciated 10. Psych- cont trazodone and rozerem for insomnia -cont Escitalopram 11. Leukocytosis-improving, patient on course of prednisone for gout flair which is likely causing leukocytosis- cont to taper prednisone, monitor for fever or worsening surgical site 12. Hypoalbuminemia-nepro, dietary education 13. Dispo- goal to home 12-11-20 DISPOSITION Home with family TIME SPENT: Chart Review, examination and documentation 35 minutes. Allergies Coded Allergies: No Known Drug Allergies (Verified Allergy, Unknown, 11/29/20) Vital Signs Vital Signs Date Time Temp Pulse Resp B/P (MAP) Pulse Ox O2 Delivery O2 Flow Rate FiO2 12/09/20 17:54 18 12/09/20 14:00 97.9 61 118/60 (79) 100 12/09/20 06:00 Room Air Laboratory Data CBC/BMP Laboratory Tests 12/09/20 08:09 Labs 24H Laboratory Tests 2 12/09/20 08:09: Immature Granulocyte % (Auto) 1.6, Neutrophils (%) (Auto) 73.7H, Lymphocytes (%) (Auto) 12.7L, Monocytes (%) (Auto) 9.3H, Eosinophils (%) (Auto) 1.8, Basophils (%) (Auto) 0.9, Neutrophils # (Auto) 6.9, Lymphocytes # (Auto) 1.2L, Monocytes # (Auto) 0.9H, Eosinophils # (Auto) 0.2, Basophils # (Auto) 0.1, Nucleated Red Blood Cells % (auto) 0.0, Anion Gap 8, Glomerular Filtration Rate 35.1L, Calcium Level 10.5H, Parathyroid Hormone (Intact) 103.0H Current Medications Current Medications Current Medications Medications (Trade) Dose Ordered Sig/Krista Route PRN Reason Start Time Stop Time Status Last Admin Dose Admin Acetaminophen (Tylenol Tab) 1,000 mg TID PRN PO MODERATE PAIN (PS 5-7) 11/29/20 16:40 12/05/20 15:54 Albuterol Sulfate (Proventil, Ventolin Hfa) 2 puff Q6HP PRN INH SHORTNESS OF BREATH 11/29/20 16:40 Aspirin (Ecotrin) 81 mg BID PO 11/29/20 21:00 12/09/20 09:04 Budesonide/ Formoterol Fumarate (Symbicort 80/ 4.5mcg) 2 puff RBID INH 11/29/20 20:00 12/09/20 11:43 Cephalexin Monohydrate (Keflex) 500 mg TID PO 11/29/20 21:00 12/06/20 16:01 DC 12/06/20 17:23 Docusate Sodium (Colace) 100 mg BID PO 11/29/20 21:00 12/09/20 09:04 Escitalopram Oxalate (Lexapro) 20 mg DAILY PO 11/30/20 09:00 12/09/20 09:05 Ferrous Gluconate (Fergon) 324 mg DAILY PO 12/05/20 09:00 12/09/20 09:03 Fluticasone Propionate (Flonase 0.05% Nasal [place]) 1 spray BID NARES 11/29/20 21:00 12/09/20 09:05 Furosemide (Lasix) 40 mg BID@,17 PO 12/02/20 09:00 12/03/20 13:00 DC 12/03/20 09:23 Guaifenesin (Robitussin Tab) 400 mg TID PO 12/02/20 21:00 12/09/20 17:07 Lactobacillus Acidophilus (Bacid) 1 ea WMHS PO 11/29/20 21:00 12/09/20 17:07 Lidocaine (Lidoderm Patch) 1 patch DAILY TD 12/06/20 09:00 12/09/20 09:03 Menthol/Methyl Salicylate (Bengay Cream) apply to back BID TOP 12/02/20 21:00 12/09/20 09:06 Metoprolol Tartrate (Lopressor) 12.5 mg BID PO 12/04/20 09:00 12/09/20 09:05 Metoprolol Tartrate (Lopressor) 12.5 mg Q8H PO 11/29/20 22:00 12/03/20 09:58 DC 12/02/20 14:49 Montelukast Sodium (Singulair) 10 mg DAILY PO 11/30/20 09:00 12/09/20 09:04 Non-Formulary Medication ( See Comment Field Below ) REMOVE LIDODERM PATCH DAILY@21 XX 12/06/20 21:00 12/08/20 20:43 Nystatin (Mycostatin Powder, Nystop) 1 dose BIDP PRN TOP RASH 11/30/20 20:10 12/01/20 20:15 Nystatin (Mycostatin Powder, Nystop) groin TID TOP 12/02/20 16:25 12/09/20 17:08 Ondansetron HCl (Zofran) 4 mg Q6HP PRN PO NAUSEA 11/29/20 16:40 Oxybutynin Chloride (Ditropan Xl) 5 mg QHS PO 11/29/20 21:00 12/03/20 15:12 DC 12/02/20 20:25 Oxycodone HCl (Roxicodone, Oxyir) 5 mg DAILY@0800 PO 12/04/20 08:00 12/09/20 09:04 Oxycodone HCl (Roxicodone, Oxyir) 5 mg Q4HP PRN PO MODERATE PAIN (PS 5-7) 11/29/20 16:40 12/09/20 17:07 Pantoprazole Sodium (Protonix) 40 mg DAILY PO 11/30/20 09:00 12/09/20 09:03 Patient Own Medication (Patient'S Own Med) apply CeraVe cream... BID TOP 12/02/20 21:00 12/09/20 09:07 Potassium Chloride (Micro-K Extencaps) 20 meq DAILY PO 12/06/20 09:00 12/05/20 10:50 DC Prednisone (Deltasone) 5 mg DAILY PO 12/07/20 09:00 12/13/20 09:01 12/09/20 09:04 Prednisone (Deltasone) 10 mg DAILY PO 11/30/20 09:00 12/06/20 09:01 DC 12/06/20 08:09 Ramelteon (Rozerem) 8 mg QHS PRN PO INSOMNIA 11/29/20 16:40 Saliva Substitute (Mouthkote) 2 sprays QID MT 12/02/20 17:00 12/09/20 17:08 Senna (Senokot) 1 tab QHS PO 11/29/20 21:00 12/08/20 20:38 Spironolactone (Aldactone) 25 mg BID@0900,1700 PO 12/05/20 17:00 12/09/20 10:39 DC 12/09/20 09:04 Spironolactone (Aldactone) 25 mg DAILY PO 12/10/20 09:00 Spironolactone (Aldactone) 25 mg QAM PO 12/04/20 09:00 12/05/20 10:51 DC 12/05/20 09:19 Terazosin HCl (Hytrin) 5 mg QHS PO 11/30/20 21:00 11/30/20 10:59 DC Terazosin HCl (Hytrin) 10 mg QHS PO 11/29/20 21:00 11/30/20 09:56 DC 11/29/20 20:56 Terazosin HCl (Hytrin) 10 mg QHS PO 11/30/20 21:00 12/08/20 20:39 Torsemide (Demadex) 10 mg DAILY PO 11/30/20 09:00 11/29/20 20:23 DC Torsemide (Demadex) 10 mg DAILY@1200 PO 11/30/20 12:00 11/30/20 10:59 DC Torsemide (Demadex) 20 mg DAILY PO 12/10/20 09:00 Torsemide (Demadex) 20 mg DAILY@1200 PO 11/30/20 12:00 12/03/20 09:55 DC Torsemide (Demadex) 30 mg BID@09,17 PO 12/03/20 17:00 12/06/20 14:50 DC 12/06/20 08:09 Torsemide (Demadex) 30 mg DAILY PO 12/07/20 09:00 12/09/20 10:39 DC 12/09/20 09:04 Trazodone HCl (Desyrel) 50 mg QHS PO 11/29/20 21:00 12/06/20 20:44 MEJIA VILLAGRAN MD Dec 09, 2020 19:29
[2020-12-09 21:00] VITALS: BP 103/57
[2020-12-09] MEDS: traZODone 50 MG TAB PO SCH (21:15)
[2020-12-09] MEDS: TERAZOSIN 5MG CAPSULE PO SCH (21:15)
[2020-12-09] MEDS: SENNA 8.6 MG TAB (SENOKOT) PO SCH (21:16)
[2020-12-09] MEDS: **NOTE PATIENT COMMENT** MISC XX SCH (21:22)
[2020-12-10 06:20] VITALS: BP_SYST 100; BP_SYST 104; BP_DIAS 60; BP_DIAS 62; BP_DIAS 72
[2020-12-10 07:02] LABS: APPEARANCE, URINE CLEAR (CLEAR); BACTERIA, URINE AUTO NEGATIVE (NEGATIVE); BILIRUBIN, URINE AUTO NEGATIVE (NEGATIVE); BLOOD, URINE BLOOD NEGATIVE (NEGATIVE); COLOR, URINE YELLOW (YELLOW); GLUCOSE, URINE (UA) AUTO NEGATIVE (NEGATIVE); KETONE, URINE AUTO NEGATIVE (NEGATIVE); LEUKOCYTE ESTERASE, URINE AUTO NEGATIVE (NEGATIVE); MUCUS, URINE SMALL (NEGATIVE); NITRITE, URINE AUTO NEGATIVE (NEGATIVE); PROTEIN, URINE AUTO NEGATIVE (NEGATIVE); RBC, URINE AUTO 1 /HPF (0-3); SPECIFIC GRAVITY URINE AUTO 1.011 (1.002-1.035); SQUAMOUS EPITHELIAL CELL UR AU 0 /HPF (0-6); WBC, URINE AUTO 0 /HPF (0-3)
[2020-12-10] MEDS: predniSONE 5 MG TAB PO SCH (08:34)
[2020-12-10] MEDS: LACTOBACILLUS ACIDOPHILUS CAP (BACID) PO SCH ×4 (08:34→21:06)
[2020-12-10] MEDS: guaiFENesin 200 MG TAB PO SCH ×3 (08:34→21:06)
[2020-12-10] MEDS: DOCUSATE SODIUM 100MG CAPSULE PO SCH ×2 (08:34→21:06)
[2020-12-10] MEDS: PANTOPRAZOLE 40MG TAB (PROTONIX) PO SCH (08:34)
[2020-12-10] MEDS: MONTELUKAST 10 MG TAB PO SCH (08:35)
[2020-12-10] MEDS: ESCITALOPRAM OXALATE 10 MG TAB (LEXAPRO) PO SCH (08:35)
[2020-12-10] MEDS: TORSEMIDE 20 MG TAB PO SCH (08:35)
[2020-12-10] MEDS: FERROUS GLUCONATE 324 MG TAB PO SCH (08:35)
[2020-12-10] MEDS: SPIRONOLACTONE 25 MG TAB PO SCH (08:35)
[2020-12-10] MEDS: ASPIRIN 81MG ENTERIC TABLET PO SCH ×2 (08:35→21:05)
[2020-12-10] MEDS: oxyCODONE 5MG TAB PO SCH (08:35)
[2020-12-10] MEDS: METOPROLOL TART 12.5 MG PER 1/2 TAB PO SCH ×2 (08:36→21:00)
[2020-12-10] MEDS: FLUTICASONE PROP 0.05% NASAL SPRAY 16 GM (FLONASE) NARES SCH ×2 (08:37→21:07)
[2020-12-10] MEDS: LIDOCAINE 5% (LIDODERM) PATCH TD SCH (08:37)
[2020-12-10] MEDS: SALIVA SUBSTITUTE(MOUTHKOTE) BTL MT SCH ×4 (08:37→21:06)
[2020-12-10] MEDS: NYSTATIN 100,000 UNITS/GM TOPICAL PWD 15 GM TOP SCH ×3 (08:37→21:08)
[2020-12-10] MEDS: CERAVE TOP SCH ×2 (08:38→21:09)
[2020-12-10] MEDS: ANALGESIC BALM CRM 3OZ TOP SCH ×2 (08:38→21:08)
[2020-12-10] MEDS: REMEDY PHYTOPLEX Z-GUARD PASTE 113GM TUBE (FROM STOREROOM PRODUCT) TOP SCH ×3 (08:38→21:10)
--- NOTE | 2020-12-10 11:16 | IPNPDOC ---
PM&R Progress Note DATE OF SERVICE: Dec 10, 2020 Decorative Engraver Apprentice Progress Note DATE OF ADMISSION: Nov 29, 2020 at 18:08 INPATIENT REHABILITATION ADMISSION DAY: # 11 SUBJECTIVE: This is a 75YO M with pmh chronic systolic CHF with EF 30-35%, pulmonary HTN (s/p tricuspid valve repair,9 Dr. Mina , cardiology) ICD/PM, CKD, BPH presented to [facility] on 11-17-20 after falling and complained of right leg pain and difficulty walking. He was diagnosed with a right femur intertrochanteric fracture and underwent an ORIF on 11-17-20 with post-op anemia and significant wound drainage. He was noted to have hyponatremia with a sodium level of 127, hyperkalemia, and progressively worsening kidney function. His Entestro was discontinued, he was given IVF after which his electrolytes improved. He was exposed to Covid on 11-26-20 after which he tested negative. He also had a gout flair and was started on prednisone in addition to episodes of hypotension aggravating blood sugars which have since stabilized. He has had considerable ADL and mobility impairments and was deemed medically appropriate for admission to ARU November 29, 2020. 12.09.2020 He has made good progress, despite continued challenges with signifi cant bilateral, right worse than left lower extremity swelling. I had the opportunity consult with him individually, as well as during Dr. Rivera visit. Dr. Barrios mentioned concern over the elevated calcium and agreed with my concern regarding the low albumin and suggested we had Nepro supplementation. He had been having the legs wrapped. However, we will return to the ORA hose this time. thigh. High level. The patient does note that his scrotal and lower extremity edema has improved with the aggressive diuresis thus far. He notes a bowel movement yesterday and last night and episode of urgent urinary incontinence more related to delayed response, than lack of control. We discussed having the urinal available. 12.10.2020 , patient feels he is making good progress and working to comply with the fluid restriction. Nursing notes possible inconsistency in the weights and we discussed optimal procedure to ensure most accurate readings. Blood pressure is low, however, without significant orthostatic shift with change in position. Well continue to encourage use of ORA hose as this seems to be helping and something he is used to at home. Pain is improving and his exercise tolerance is also improving. We appreciate nephrology input, note ECHO pending and Ca levels being followed. REVIEW OF SYSTEMS: The following is a completed review of systems and has been reviewed. Review of systems otherwise unremarkable. PAIN: Patient self reports right hip pain EYES: No recent vision changes EARS, NOSE, & THROAT: No throat pain, or dysphagia, or rhinorrhea. CARDIOVASCULAR: Denies chest pain or palpitations PULMONARY: Denies shortness of breath GASTROINTESTINAL: Denies constipation/diarrhea GENITOURINARY:denies dysuria, admits some urgent incontinence MUSCULOSKELETAL: s/p right hip ORIF NEUROLOGICAL: denies paresthesias HEMATOLOGICAL: denies easy bruising SKIN: + surgical incision, serosanguinous weeping bilateral lower extremities PSYCHIATRIC: Unremarkable All other review of systems found to be negative. ALLERGIES: See Below MEDICATIONS: Reviewed, see below. OBJECTIVE: VITAL SIGNS: Please see below. GENERAL: Pleasant, calm and communicative oriented x 3, good insight HEENT: Extraocular movements intact. no adenopathy or thyromegaly. Full cervical range of motion No tenderness cervicothoracic region. CARDIOVASCULAR: II/ SM Palpable ICD/PM left pectoral region, healed old sternotomy incision LUNGS: Clear to auscultation bilaterally. No wheezes. No rales or rhonchi. ABDOMEN: Soft, nontender, obese. Positive normal active bowel sounds. NEUROLOGICAL: Cranial nerves II through XII grossly intact. Sensation intact all 4 extremities. EXTREMITIES: 5/5 bilateral backup sawyer, elbow flexion, elbow extension,3-/5 right supporting right thigh with hands, 4/5 left knee extension, foot dorsiflexion, plantar flexion limited by pain and marked lymphedema. Pulses cannot be assessed..Swelling is slightly better with ORA hose today. SKIN: .Healing right lateral hip incision. Ashley intact, no drainage, slight reactive redness along incision line. FUNCTIONAL STATUS: Patient discussed in team conference today. Contact guard to Standby assistance for sit to stand, and ambulation with rolling walker 150 feet, weight-bearing as tolerated. Trial of 2 steps contact-guard assistance for stairs, 's presence helped push motivational level. LABORATORY DATA: Reviewed. Please see below. MICROBIOLOGY: See below ASSESSMENT AND PLAN: DIAGNOSES: Status post right hip fracture ORIF, weightbearing as tolerated. CAD and status post tricuspid valve repair surgery and placement of ICD/PM CHF. Bilateral lower extremity edema Anemia-probable combination blood loss and dilutional, on oral replacement Status post recent URI with cough proven. BPH. BJORN, at baseline per nephrology. Insomnia. Gout. Leukocytosis most likely related to wound healing, course of prednisone. Hypertension . Recent episodes of hypotension ASSESSMENT: PLAN: 1. Rehab- PT OT advance mobility and ADls, strengthen/stretch/maintain ROM all 4limbs- ambulating with RW -ROUTE SALES DRIVER ordered for possible underlying cognitive impairments, patient forgetful at times 2. Ortho -s/p right hip ORIF for femur fracture, cont WBAT -Keflex started at [facility] to prevent surgical site infection in setting of increase drainage - silver optifoam dressing with frequent changes- serous drainage resolved as edema also improved with aggressive diuresis. will DC ashley -f/u ortho on d/c 3. Cardiac- hx of systolic CHF with EF 30-35% cont fluid restriction 1500 mL daily, daily weights, thigh high teds, torsemide (monitor for low BPs and orthostatic changes) JVD noted and ECHO pending per nephrology -CAD with ICD/PM cont ASA and beta-marie -hx of tricuspid valve repair -hx of HTN with recent episodes of hypotension cont to monitor and judicious with BP meds -medicine consulted to assist in overall management Appreciate nephrology input 4. Resp- monitor for infection, cont inhalers Covid exposure 11-26-20, repeat Covid test 12-01 also negative (was negative 11-29-20 prior to discharge) -CXR on 12-02-20 negative for infiltrate, reporting mild chronic cough that has improved, no fever/chills, leukocytosis improving, cont inhalers and guaifenesin 5. GI ppx- protonix 6. DVT ppx- ASA 81mg BID, TEDs 7. - hx of BPH patient on alfuzosin at home, [facility] does not carry this will switch to Terazosin (BP holding parameters in place) 8. Pain- cont tylenol and oxycodone -lidoderm patch to right knee 9. Renal- recent BJORN in setting of CKD, monitor, hold ARB- renal continues with fluid management in setting of CKD-recs appreciated 10. Psych- cont trazodone and rozerem for insomnia -cont Escitalopram 11. Leukocytosis-improving, patient on course of prednisone for gout flair which is likely causing leukocytosis- cont to taper prednisone, monitor for fever or worsening surgical site 12. Hypoalbuminemia-nepro, dietary education 13. Dispo- goal to home 12-11-20 DISPOSITION Home with family TIME SPENT: Chart Review, examination and documentation 35 minutes. Allergies Coded Allergies: No Known Drug Allergies (Verified Allergy, Unknown, 11/29/20) Vital Signs Vital Signs Date Time Temp Pulse Resp B/P (MAP) Pulse Ox O2 Delivery O2 Flow Rate FiO2 12/10/20 08:36 62 104/72 12/10/20 08:35 18 12/10/20 06:20 97.2 95 12/09/20 21:00 Room Air Laboratory Data Labs 24H Laboratory Tests 2 12/10/20 06:50: Urine Color YELLOW, Urine Appearance CLEAR, Urine pH 5.0, Urine Specific [place] 1.011, Urine Protein NEGATIVE, Urine Glucose (Auto)(UA) NEGATIVE, Urine Ketones (Auto) NEGATIVE, Urine Blood NEGATIVE, Urine Nitrite NEGATIVE, Urine Bilirubin NEGATIVE, Urine Urobilinogen 2.0H, Urine Leukocyte Esterase (Auto) NEGATIVE, Urine WBC (Auto) 0, Urine RBC (Auto) 1, Urine Hyaline Casts (Auto) 0, Urine Bacteria (Auto) NEGATIVE, Urine Squamous Epithelial Cells 0, Urine Mucus (Auto) SMALL, Urine Sperm (Auto) Current Medications Current Medications Current Medications Medications (Trade) Dose Ordered Sig/Krista Route PRN Reason Start Time Stop Time Status Last Admin Dose Admin Acetaminophen (Tylenol Tab) 1,000 mg TID PRN PO MODERATE PAIN (PS 5-7) 11/29/20 16:40 12/05/20 15:54 Albuterol Sulfate (Proventil, Ventolin Hfa) 2 puff Q6HP PRN INH SHORTNESS OF BREATH 11/29/20 16:40 Aspirin (Ecotrin) 81 mg BID PO 11/29/20 21:00 12/10/20 08:35 Budesonide/ Formoterol Fumarate (Symbicort 80/ 4.5mcg) 2 puff RBID INH 11/29/20 20:00 12/09/20 11:43 Cephalexin Monohydrate (Keflex) 500 mg TID PO 11/29/20 21:00 12/06/20 16:01 DC 12/06/20 17:23 Docusate Sodium (Colace) 100 mg BID PO 11/29/20 21:00 12/10/20 08:34 Escitalopram Oxalate (Lexapro) 20 mg DAILY PO 11/30/20 09:00 12/10/20 08:35 Ferrous Gluconate (Fergon) 324 mg DAILY PO 12/05/20 09:00 12/10/20 08:35 Fluticasone Propionate (Flonase 0.05% Nasal [place]) 1 spray BID NARES 11/29/20 21:00 12/10/20 08:37 Furosemide (Lasix) 40 mg BID@ PO 12/02/20 09:00 12/03/20 13:00 DC 12/03/20 09:23 Guaifenesin (Robitussin Tab) 400 mg TID PO 12/02/20 21:00 12/10/20 08:34 Lactobacillus Acidophilus (Bacid) 1 ea WMHS PO 11/29/20 21:00 12/10/20 08:34 Lidocaine (Lidoderm Patch) 1 patch DAILY TD 12/06/20 09:00 12/10/20 08:37 Menthol/Methyl Salicylate (Bengay Cream) apply to back BID TOP 12/02/20 21:00 12/10/20 08:38 Metoprolol Tartrate (Lopressor) 12.5 mg BID PO 12/04/20 09:00 12/09/20 09:05 Metoprolol Tartrate (Lopressor) 12.5 mg Q8H PO 11/29/20 22:00 12/03/20 09:58 DC 12/02/20 14:49 Montelukast Sodium (Singulair) 10 mg DAILY PO 11/30/20 09:00 12/10/20 08:35 Non-Formulary Medication ( See Comment Field Below ) REMOVE LIDODERM PATCH DAILY@ XX 12/06/20 21:00 12/09/20 21:22 Nystatin (Mycostatin Powder, Nystop) 1 dose BIDP PRN TOP RASH 11/30/20 20:10 12/01/20 20:15 Nystatin (Mycostatin Powder, Nystop) groin TID TOP 12/02/20 16:25 12/10/20 08:37 Ondansetron HCl (Zofran) 4 mg Q6HP PRN PO NAUSEA 11/29/20 16:40 Oxybutynin Chloride (Ditropan Xl) 5 mg QHS PO 11/29/20 21:00 12/03/20 15:12 DC 12/02/20 20:25 Oxycodone HCl (Roxicodone, Oxyir) 5 mg DAILY@0800 PO 12/04/20 08:00 12/10/20 08:35 Oxycodone HCl (Roxicodone, Oxyir) 5 mg Q4HP PRN PO MODERATE PAIN (PS 5-7) 11/29/20 16:40 12/09/20 17:07 Pantoprazole Sodium (Protonix) 40 mg DAILY PO 11/30/20 09:00 12/10/20 08:34 Patient Own Medication (Patient'S Own Med) apply CeraVe cream... BID TOP 12/02/20 21:00 12/10/20 08:38 Potassium Chloride (Micro-K Extencaps) 20 meq DAILY PO 12/06/20 09:00 12/05/20 10:50 DC Prednisone (Deltasone) 5 mg DAILY PO 12/07/20 09:00 12/13/20 09:01 12/10/20 08:34 Prednisone (Deltasone) 10 mg DAILY PO 11/30/20 09:00 12/06/20 09:01 DC 12/06/20 08:09 Ramelteon (Rozerem) 8 mg QHS PRN PO INSOMNIA 11/29/20 16:40 Saliva Substitute (Mouthkote) 2 sprays QID MT 12/02/20 17:00 12/10/20 08:37 Senna (Senokot) 1 tab QHS PO 11/29/20 21:00 12/09/20 21:16 Spironolactone (Aldactone) 25 mg BID@0900,1700 PO 12/05/20 17:00 12/09/20 10:39 DC 12/09/20 09:04 Spironolactone (Aldactone) 25 mg DAILY PO 12/10/20 09:00 12/10/20 08:35 Spironolactone (Aldactone) 25 mg QAM PO 12/04/20 09:00 12/05/20 10:51 DC 12/05/20 09:19 Terazosin HCl (Hytrin) 5 mg QHS PO 11/30/20 21:00 11/30/20 10:59 DC Terazosin HCl (Hytrin) 10 mg QHS PO 11/29/20 21:00 11/30/20 09:56 DC 11/29/20 20:56 Terazosin HCl (Hytrin) 10 mg QHS PO 11/30/20 21:00 12/09/20 21:15 Torsemide (Demadex) 10 mg DAILY PO 11/30/20 09:00 11/29/20 20:23 DC Torsemide (Demadex) 10 mg DAILY@1200 PO 11/30/20 12:00 11/30/20 10:59 DC Torsemide (Demadex) 20 mg DAILY PO 12/10/20 09:00 12/10/20 08:35 Torsemide (Demadex) 20 mg DAILY@1200 PO 11/30/20 12:00 12/03/20 09:55 DC Torsemide (Demadex) 30 mg BID@09,17 PO 12/03/20 17:00 12/06/20 14:50 DC 12/06/20 08:09 Torsemide (Demadex) 30 mg DAILY PO 12/07/20 09:00 12/09/20 10:39 DC 12/09/20 09:04 Trazodone HCl (Desyrel) 50 mg QHS PO 11/29/20 21:00 12/09/20 21:15 MEJIA VILLAGRAN MD Dec 10, 2020 11:16
--- NOTE | 2020-12-10 12:38 | IPN ---
PROGRESS NOTE DATE: 12/10/2020 SUBJECTIVE: Mr. Mejia is seen this morning on his bedside. He is sitting in the chair. He has compression stockings on today. He denies any dyspnea or chest pain. PHYSICAL EXAMINATION: Temperature 97.2 degrees Fahrenheit, heart rate 62 per minute and respiratory rate 18 per minute. Blood pressure 104/72 mmHg and oxygen saturation 95% on room air. Head: Atraumatic. Neck: Supple and JVD is mildly elevated. Heart: Sounds are regular with systolic murmur. Lungs: Clear to auscultation. Abdomen: Soft and nontender and bowel sounds are normal. Extremities: Without any cyanosis or clubbing. He has 2+ edema on the left leg which is limited to just below the knee while edema on the right leg is 3+ and extends all the way to upper thigh. Neurologically: He is awake, alert and oriented times 3. LABORATORY DATA: Patient did not have any new labs done today. PROBLEMS/PLAN: 1. Acute kidney injury superimposed on chronic kidney disease: Kidney function has been stable with serum creatinine about 2. He did not have any new labs done today. His labs will be repeated tomorrow. 2. Congestive heart failure: Patient has known history of severe systolic dysfunction and in addition he has valvular heart disease. He is known to have severe tricuspid regurgitation and most likely that is the cause of his peripheral edema and elevated neck veins. He remains on torsemide 20 mg daily and spironolactone 25 mg daily. A repeat echocardiogram was done yesterday and the report is still pending. Patient follows with cardiology in [place]. 3. Hypercalcemia: He developed mild hypercalcemia with 10.5 calcium level yesterday and intact PTH level of 103. His diuretic dose has been cut down and calcium level will be repeated again tomorrow. 4. Lower extremity edema: This is most likely related to right sided heart failure and valvular heart disease. We will continue with gentle diuresis and then he will follow up with his undertaker helper and primary care physician. 5. Disposition: Patient tells me that he is likely to go home tomorrow.
[2020-12-10 14:00] VITALS: BP 125/69
[2020-12-10] MEDS: ACETAMINOPHEN 500 MG TAB PO PRN (17:14)
[2020-12-10 20:00] VITALS: BP 92/52
[2020-12-10] MEDS: SYMBICORT 80/4.5MCG INHALER 6GM INH SCH (20:00)
[2020-12-10] MEDS: TERAZOSIN 5MG CAPSULE PO SCH (21:00)
[2020-12-10] MEDS: SENNA 8.6 MG TAB (SENOKOT) PO SCH (21:05)
[2020-12-10] MEDS: traZODone 50 MG TAB PO SCH (21:05)
[2020-12-10] MEDS: **NOTE PATIENT COMMENT** MISC XX SCH (21:09)
[2020-12-11 06:00] VITALS: BP 111/59
--- NOTE | 2020-12-11 06:32 | ECHO ---
ECHOCARDIOGRAM DATE OF PROCEDURE: 12/09/2020 Age: Gender: Height: Weight: Body Surface Area: Inpatient - 4 [facility] Room 4147 REFERRING PHYSICIAN: Dr. Jeaneth Barrios INDICATION: Edema MEASUREMENTS: 2D Measurements: RV 4.5 cm LV 5.7 cm Septum 1.0 cm Posterior wall 1.0 cm Aortic Root 3.3 cm LA 4.3 cm LVEF 35-40% Doppler Measurements: AV 1.2 m/s LVOT 1.0 m/s LVOT diameter 2.0 cm MV-E 83 Early mitral deceleration time 190 msec E prime medial 4.2, E prime lateral 7.7 Average E/E prime ratio 13.9/PCWP 19.2 mmHg PV 0.8 m/s Pulmonary artery acceleration time 100 msec RVSP 47-52 mmHg IVC 2.8 cm COMMENTS: Underlying atrial fibrillation with consistent ventricular paced rhythm. Technically challenging study in light of the patient's body habitus but diagnostically useful information was still obtained. M-mode and 2-dimensional echocardiography was performed with pulse, continuous wave, color flow and tissue Doppler studies. At least mildly to moderately dilated left ventricle with normal wall thickness. There was paradoxical septal motion and apical hypokinesis. Other dunne appeared to move normally or slightly hypokinetic with moderately severe impairment of global resting systolic function. Mildly dilated left atrium with current estimated mean left atrial pressure, at least mildly increased. Mildly dilated left ventricle with right ventricular free wall hypokinesis and Doppler evidence of at least moderate pulmonary hypertension. Mildly dilated right atrium and moderately prominently dilated inferior vena cava (IVC) with absent respiratory collapse in keeping with an elevated central venous pressure/right heart failure. Normal aortic dimensions. Mild aortic valvular sclerosis with adequate cuff separation but premature cuff closure. Degenerative changes of the mitral valvular apparatus without inflow tract obstruction but "low flow." At least moderate mitral insufficiency. Normal-appearing tricuspid valve but at least moderately severe tricuspid insufficiency related to multiple pacing leads traversing right heart structures and the tricuspid valve. Pacing leads as mentioned above but no apparent separate endocardiac mass. Marginal posterior pericardial effusion.
[2020-12-11 08:32] LABS: HEMATOCRIT 29.8 % (42.0-52.0); HEMOGLOBIN 9.8 g/dl (13.5-17.5); MEAN CORPUSCULAR HEMOGLOBIN 33.4 pg (27.0-33.0); MEAN CORPUSCULAR HGB CONC 32.9 g/dl (32.0-36.5); MEAN CORPUSCULAR VOLUME 101.7 fl (80.0-96.0); PLATELET COUNT, AUTOMATED 230 10^3/uL (150-450); RED BLOOD COUNT 2.93 10^6/uL (4.30-6.10); WHITE BLOOD COUNT 7.6 10^3/uL (4.0-10.0)
[2020-12-11 08:36] LABS: ALBUMIN 2.7 GM/DL (3.2-5.2); CALCIUM LEVEL 10.2 MG/DL (8.8-10.2); CREATININE FOR GFR 1.78 MG/DL (0.70-1.30); PHOSPHORUS LEVEL 2.5 MG/DL (2.5-4.9); POTASSIUM SERUM 3.6 MEQ/L (3.5-5.1)
[2020-12-11] MEDS: PANTOPRAZOLE 40MG TAB (PROTONIX) PO SCH (08:59)
[2020-12-11] MEDS: SPIRONOLACTONE 25 MG TAB PO SCH (08:59)
[2020-12-11] MEDS: TORSEMIDE 20 MG TAB PO SCH (08:59)
[2020-12-11] MEDS: LACTOBACILLUS ACIDOPHILUS CAP (BACID) PO SCH (08:59)
[2020-12-11] MEDS: guaiFENesin 200 MG TAB PO SCH (08:59)
[2020-12-11] MEDS: FERROUS GLUCONATE 324 MG TAB PO SCH (08:59)
[2020-12-11 09:00] VITALS: BP 111/59
[2020-12-11] MEDS: METOPROLOL TART 12.5 MG PER 1/2 TAB PO SCH (09:00)
[2020-12-11] MEDS: MONTELUKAST 10 MG TAB PO SCH (09:00)
[2020-12-11] MEDS: DOCUSATE SODIUM 100MG CAPSULE PO SCH (09:00)
[2020-12-11] MEDS: CERAVE TOP SCH (09:00)
[2020-12-11] MEDS: predniSONE 5 MG TAB PO SCH (09:00)
[2020-12-11] MEDS: REMEDY PHYTOPLEX Z-GUARD PASTE 113GM TUBE (FROM STOREROOM PRODUCT) TOP SCH (09:00)
[2020-12-11] MEDS: LIDOCAINE 5% (LIDODERM) PATCH TD SCH (09:00)
[2020-12-11] MEDS: ESCITALOPRAM OXALATE 10 MG TAB (LEXAPRO) PO SCH (09:00)
[2020-12-11] MEDS: ASPIRIN 81MG ENTERIC TABLET PO SCH (09:01)
[2020-12-11] MEDS: oxyCODONE 5MG TAB PO SCH (09:01)
[2020-12-11] MEDS: FLUTICASONE PROP 0.05% NASAL SPRAY 16 GM (FLONASE) NARES SCH (09:01)
[2020-12-11] MEDS: SALIVA SUBSTITUTE(MOUTHKOTE) BTL MT SCH (09:02)
[2020-12-11] MEDS: NYSTATIN 100,000 UNITS/GM TOPICAL PWD 15 GM TOP SCH (09:02)
[2020-12-11] MEDS: ANALGESIC BALM CRM 3OZ TOP SCH (09:03)
[2020-12-11] MEDS ORDERED: PANT40TA29 PO (09:24)
[2020-12-11] MEDS ORDERED: PRED5TA PO (09:24)
[2020-12-11] MEDS ORDERED: LIDO5TD TD (09:24)
[2020-12-11] MEDS ORDERED: FERR32TA PO (09:24)
[2020-12-11] MEDS ORDERED: TERA5CAP3 PO (09:24)
[2020-12-11] MEDS ORDERED: ACET-683 PO (09:24)
[2020-12-11] MEDS ORDERED: METO1TAB87 PO (09:24)
[2020-12-11] MEDS ORDERED: MONT10TA10 PO (09:24)
[2020-12-11] MEDS ORDERED: COLA100C5 PO (09:24)
[2020-12-11] MEDS ORDERED: ALDA25TA2 PO (09:24)
[2020-12-11] MEDS ORDERED: MUSCCRE9 TOP (09:24)
[2020-12-11] MEDS ORDERED: RISATAB3 PO (09:24)
--- NOTE | 2020-12-11 13:43 | IPN ---
PROGRESS NOTE DATE: 12/11/2020 SUBJECTIVE: Mr. Mejia is seen this morning on his bedside. He is laying in his bed and denies any difficulty breathing. He does have significant peripheral edema particularly on his right lower extremity. Left lower extremity edema has improved significantly. The patient denies any nausea or vomiting. He is scheduled for possible discharge later today. OBJECTIVE: VITAL SIGNS: Temperature is 97.6 degrees Fahrenheit, heart rate is 58 per minute, and respiratory rate is 16 per minute. Blood pressure is 111/59 mmHg and oxygen saturation is 94% on room air. HEENT: His head is atraumatic. NECK: Supple. JVD is markedly elevated. HEART: Heart sounds are regular. LUNGS: Slightly diminished breath sounds at the bases. ABDOMEN: Soft and nontender. Bowel sounds were normal. EXTREMITIES: Without any cyanosis or clubbing. Left lower extremity edema is now about 1+, limited below the knees. Right lower extremity edema is still 3+ and extending up to upper thigh. NEUROLOGIC: He is awake, alert and oriented x3. LABORATORY DATA: Today's labs showed a WBC count of 7.6, hemoglobin 9.8, hematocrit 29.8. Sodium 140, potassium 3.6, CO2 31, BUN 56 and creatinine 1.78. Calcium level is 10.2 and albumin is 2.7. PROBLEMS: 1. Acute kidney injury superimposed on chronic kidney disease. Kidney function is slightly improved today compared to the 09 of December. 2. Congestive heart failure, his volume status is still decompensated. An echocardiogram was done a couple of days ago and reviewed. He does have significant volume overload. He also has tricuspid insufficiency. I have advised him to follow a low sodium diet and continue with the diuretic. He is currently losing his fluid slowly. His blood pressure is low so we cannot diurese him too aggressively. He will follow-up with his hull molder in [place]. 3. Anemia. His anemia is stable at present and does not need any urgent intervention. He will need follow-up as an outpatient. 4. Disposition. Patient is likely to be discharged today and I will be pleased to follow-up him up in the office. Patient understands that he needs to follow-up with his primary care physician and hull molder.
--- NOTE | 2020-12-11 15:35 | DS.PDOC ---
PM&R Discharge Summary [employer] Discharge Note DATE OF ADMISSION: Nov 29, 2020 at 18:08 DATE OF DISCHARGE: Dec 11, 2020 at 12:03 DISCHARGE DIAGNOSES: Status post right hip fracture ORIF, weightbearing as tolerated. CAD and status post tricuspid valve repair surgery and placement of ICD/PM CHF. Bilateral lower extremity edema Anemia-probable combination blood loss and dilutional, on oral replacement Status post recent URI with cough proven. BPH. BJORN, at baseline per nephrology. Insomnia. Gout. Leukocytosis most likely related to wound healing, course of prednisone. Hypertension . Recent episodes of hypotension PAST MEDICAL HISTORY: 1. Cardiomyopathy. 2. Hypertension. 3. Pacemaker. 4. Asthma 5. Allergic rhinitis 6. Osteoarthritis 7. Hypercholesterolemia 8. Obstructive sleep apnea 9. Anxiety 10. 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 Tonsillectomy. 2. Appendectomy. 3. Achilles tendon repair. 4. LASIK eye surgery 5. Cardiac pacemaker placement 6. Laparoscopic right hernia repair 7. AICD and pacemaker placement for biventricular pacemaker 8. Tricuspid valve repair 9. AICD pacemaker generator replacement. HOSPITAL COURSE: This is a 75-year-old male with past. No history of chronic systolic congestive heart failure, status post tricuspid valve repair and ICD/PM placement, ulnar, hypertension, BPH, sustained a fall 11/17/2020 with right femur intertrochanteric fracture requiring ORIF 11/17/2020, K with postoperative anemia and significant wound drainage, gouty flare requiring steroids. He had a electrolyte imbalances, was closely followed by nephrology, had a Covid exposure, however, remained negative on Subsequent testing. He was [facility]/2020 where he has participated in PT OT received wound treatments including protracted wound VAC for significant serosanguineous drainage and close medical care to hospitalist, nephrology and physiatric services for his complex medical conditions. Aggressive diuresis, placement of ORA hose and lower extremity lymphedema massage help to improve the severe peripheral edema, and facilitate wound healing and reduction of pain and improvement of mobility skills. Patient was noted to have hypoalbuminemia and anemia and Nepro was added to his dietary regimen while 1500 mL fluid restriction was also recommended by Dr. Barrios. Patient had episodes of hypotension. However, additional ORA hose, increased exercise activities noted while blood pressure was in the low 100s, there was no significant drop with change in position. On most recent regimen. Patient achieved all goals and is felt stable for discharge to home with follow-up as an outpatient for his complex medical conditions. PHYSICAL EXAMINATION: VITAL SIGNS: Please see below. GENERAL: Pleasant, calm and communicative oriented x 3, good insight HEENT: Extraocular movements intact. no adenopathy or thyromegaly. Full cervical range of motion No tenderness cervicothoracic region. CARDIOVASCULAR: II/ SM Palpable ICD/PM left pectoral region, healed old sternotomy incision LUNGS: Clear to auscultation bilaterally. No wheezes. No rales or rhonchi. ABDOMEN: Soft, nontender, obese. Positive normal active bowel sounds. NEUROLOGICAL: Cranial nerves II through XII grossly intact. Sensation intact all 4 extremities. 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 Pulses cannot be assessed..Swelling is slightly better with ORA hose today. Right lateral hip incision ashley removed, no drainage, steri strips applied, slight gapping distal aspect, no redness. FUNCTIONAL STATUS AT DISCHARGE: Ambulating 150 feet using rolling walker, weightbearing as tolerated on the [facility] with standby assistance. OTHER TESTS: See attached LABORATORY DATA: Please see below. ALLERGIES: See below. MEDICATIONS: See Below. DISCHARGE DISPOSITION: Home with family, follow up with Dr. Hathaway, Nephrology for various med adjustments and monitoring, Ortho /PMD steroid taper, wound heal ing, Cardiology, Home health with [facility]. TIME SPENT: Chart Review, examination and documentation 35 minutes. This document is generated using speech recognition software which may result in grammatical, typographical and individual word errors. Vital Signs/I&O Vital Sign - Last 24 Hours 12/10/20 12/10/20 12/10/20 12/11/20 20:00 21:00 21:00 06:00 Temp 97.9 97.6 Pulse 68 58 Resp 17 18 B/P (MAP) 92/52 (65) 92/52 92/52 111/59 (76) Pulse Ox 95 94 O2 Delivery Room Air Room Air 12/11/20 12/11/20 12/11/20 09:00 09:01 09:31 Pulse 58 Resp 16 16 B/P (MAP) 111/59 I&O- Last 24 Hours up to 6 AM 12/11/20 06:00 Intake Total 1620 ml Output Total 325 ml Balance 1295 ml Laboratory Data CBC/BMP Laboratory Tests 12/11/20 07:52 Labs 48H Laboratory Tests 12/10/20 06:50: Urine Color YELLOW, Urine Appearance CLEAR, Urine pH 5.0, Urine Specific [place] 1.011, Urine Protein NEGATIVE, Urine Glucose (Auto)(UA) NEGATIVE, Urine Ketones (Auto) NEGATIVE, Urine Blood NEGATIVE, Urine Nitrite NEGATIVE, Urine Bilirubin NEGATIVE, Urine Urobilinogen 2.0H, Urine Leukocyte Esterase (Auto) NEGATIVE, Urine WBC (Auto) 0, Urine RBC (Auto) 1, Urine Hyaline Casts (Auto) 0, Urine Bacteria (Auto) NEGATIVE, Urine Squamous Epithelial Cells 0, Urine Mucus (Auto) SMALL, Urine Sperm (Auto) 12/11/20 07:52: White Blood Count 7.6, Red Blood Count 2.93L, Hemoglobin 9.8L, Hematocrit 29.8L, Mean Corpuscular Volume 101.7H, Mean Corpuscular Hemoglobin 33.4H, Mean Co rpuscular Hemoglobin Concent 32.9, Red Cell Distribution Width 16.7H, Platelet Count 230, Nucleated Red Blood Cells % (auto) 0.0, Sodium Level 140, Potassium Level 3.6, Chloride Level 103, Carbon Dioxide Level 31, Anion Gap 6L, Blood Urea Nitrogen 56H, Creatinine 1.78H, Glomerular Filtration Rate 40.0L, Fasting Glucose 103H, Calcium Level 10.2, Phosphorus Level 2.5, Albumin 2.7L Medications Medications Current Medications Medications (Trade) Dose Ordered Sig/Krista Route PRN Reason Start Time Stop Time Status Last Admin Dose Admin Acetaminophen (Tylenol Tab) 1,000 mg TID PRN PO MODERATE PAIN (PS 5-7) 11/29/20 16:40 12/11/20 12:04 DC 12/10/20 17:14 Albuterol Sulfate (Proventil, Ventolin Hfa) 2 puff Q6HP PRN INH SHORTNESS OF BREATH 11/29/20 16:40 12/11/20 12:04 DC Aspirin (Ecotrin) 81 mg BID PO 11/29/20 21:00 12/11/20 12:04 DC 12/11/20 09:01 Budesonide/ Formoterol Fumarate (Symbicort 80/ 4.5mcg) 2 puff RBID INH 11/29/20 20:00 12/11/20 12:04 DC 12/09/20 11:43 Cephalexin Monohydrate (Keflex) 500 mg TID PO 11/29/20 21:00 12/06/20 16:01 DC 12/06/20 17:23 Docusate Sodium (Colace) 100 mg BID PO 11/29/20 21:00 12/11/20 12:04 DC 12/11/20 09:00 Escitalopram Oxalate (Lexapro) 20 mg DAILY PO 11/30/20 09:00 12/11/20 12:04 DC 12/11/20 09:00 Ferrous Gluconate (Fergon) 324 mg DAILY PO 12/05/20 09:00 12/11/20 12:04 DC 12/11/20 08:59 Fluticasone Propionate (Flonase 0.05% Nasal [place]) 1 spray BID NARES 11/29/20 21:00 12/11/20 12:04 DC 12/11/20 09:01 Furosemide (Lasix) 40 mg BID@09,17 PO 12/02/20 09:00 12/03/20 13:00 DC 12/03/20 09:23 Guaifenesin (Robitussin Tab) 400 mg TID PO 12/02/20 21:00 12/11/20 12:04 DC 12/11/20 08:59 Lactobacillus Acidophilus (Bacid) 1 ea WMHS PO 11/29/20 21:00 12/11/20 12:04 DC 12/11/20 08:59 Lidocaine (Lidoderm Patch) 1 patch DAILY TD 12/06/20 09:00 12/11/20 12:04 DC 12/11/20 09:00 Menthol/Methyl Salicylate (Bengay Cream) apply to back BID TOP 12/02/20 21:00 12/11/20 12:04 DC 12/11/20 09:03 Metoprolol Tartrate (Lopressor) 12.5 mg BID PO 12/04/20 09:00 12/11/20 12:04 DC 12/09/20 09:05 Metoprolol Tartrate (Lopressor) 12.5 mg Q8H PO 11/29/20 22:00 12/03/20 09:58 DC 12/02/20 14:49 Montelukast Sodium (Singulair) 10 mg DAILY PO 11/30/20 09:00 12/11/20 12:04 DC 12/11/20 09:00 Non-Formulary Medication ( See Comment Field Below ) REMOVE LIDODERM PATCH DAILY@21 XX 12/06/20 21:00 12/11/20 12:04 DC 12/10/20 21:09 Nystatin (Mycostatin Powder, Nystop) 1 dose BIDP PRN TOP RASH 11/30/20 20:10 12/11/20 12:04 DC 12/01/20 20:15 Nystatin (Mycostatin Powder, Nystop) groin TID TOP 12/02/20 16:25 12/11/20 12:04 DC 12/11/20 09:02 Ondansetron HCl (Zofran) 4 mg Q6HP PRN PO NAUSEA 11/29/20 16:40 12/11/20 12:04 DC Oxybutynin Chloride (Ditropan Xl) 5 mg QHS PO 11/29/20 21:00 12/03/20 15:12 DC 12/02/20 20:25 Oxycodone HCl (Roxicodone, Oxyir) 5 mg DAILY@0800 PO 12/04/20 08:00 12/11/20 12:04 DC 12/11/20 09:01 Oxycodone HCl (Roxicodone, Oxyir) 5 mg Q4HP PRN PO MODERATE PAIN (PS 5-7) 11/29/20 16:40 12/11/20 12:04 DC 12/09/20 17:07 Pantoprazole Sodium (Protonix) 40 mg DAILY PO 11/30/20 09:00 12/11/20 12:04 DC 12/11/20 08:59 Patient Own Medication (Patient'S Own Med) apply CeraVe cream... BID TOP 12/02/20 21:00 12/11/20 12:04 DC 12/10/20 21:09 Potassium Chloride (Micro-K Extencaps) 20 meq DAILY PO 12/06/20 09:00 12/05/20 10:50 DC Prednisone (Deltasone) 5 mg DAILY PO 12/07/20 09:00 12/11/20 12:04 DC 12/11/20 09:00 Prednisone (Deltasone) 10 mg DAILY PO 11/30/20 09:00 12/06/20 09:01 DC 12/06/20 08:09 Ramelteon (Rozerem) 8 mg QHS PRN PO INSOMNIA 11/29/20 16:40 12/11/20 12:04 DC Saliva Substitute (Mouthkote) 2 sprays QID MT 12/02/20 17:00 12/11/20 12:04 DC 12/11/20 09:02 Senna (Senokot) 1 tab QHS PO 11/29/20 21:00 12/11/20 12:04 DC 12/10/20 21:05 Spironolactone (Aldactone) 25 mg BID@0900,1700 PO 12/05/20 17:00 12/09/20 10:39 DC 12/09/20 09:04 Spironolactone (Aldactone) 25 mg DAILY PO 12/10/20 09:00 12/11/20 12:04 DC 12/11/20 08:59 Spironolactone (Aldactone) 25 mg QAM PO 12/04/20 09:00 12/05/20 10:51 DC 12/05/20 09:19 Terazosin HCl (Hytrin) 5 mg QHS PO 11/30/20 21:00 11/30/20 10:59 DC Terazosin HCl (Hytrin) 10 mg QHS PO 11/29/20 21:00 11/30/20 09:56 DC 11/29/20 20:56 Terazosin HCl (Hytrin) 10 mg QHS PO 11/30/20 21:00 12/11/20 12:04 DC 12/09/20 21:15 Torsemide (Demadex) 10 mg DAILY PO 11/30/20 09:00 11/29/20 20:23 DC Torsemide (Demadex) 10 mg DAILY@1200 PO 11/30/20 12:00 11/30/20 10:59 DC Torsemide (Demadex) 20 mg DAILY PO 12/10/20 09:00 12/11/20 12:04 DC 12/11/20 08:59 Torsemide (Demadex) 20 mg DAILY@1200 PO 11/30/20 12:00 12/03/20 09:55 DC Torsemide (Demadex) 30 mg BID@09,17 PO 12/03/20 17:00 12/06/20 14:50 DC 12/06/20 08:09 Torsemide (Demadex) 30 mg DAILY PO 12/07/20 09:00 12/09/20 10:39 DC 12/09/20 09:04 Trazodone HCl (Desyrel) 50 mg QHS PO 11/29/20 21:00 12/11/20 12:04 DC 12/10/20 21:05 Scheduled Aspirin (Aspirin EC) 81 Mg Tab, 81 MG PO DAILY, (Reported) Budesonide/Formoterol (Symbicort 80-4.5 Mcg Inhaler) 60 Puff/Inhaler Aers, 2 PUFF INH BID, (Reported) Docusate Sodium (Colace) 100 Mg Capsule, 100 MG PO BID Escitalopram Oxalate (Lexapro) 20 Mg Tab, 20 MG PO DAILY, (Reported) Ferrous Gluconate (Ferrous Gluconate) 324 Mg Tablet, 324 MG PO DAILY L.acidoph/L.bulg/B.bif/S.therm (Pily-Bid Caplet) 1 Each Tablet, 1 EA PO WMHS Lidocaine (Lidocaine) 5% Adh..patch, 1 PATCH TD DAILY Methyl Salicylate/Menthol (Muscle Rub Cream) 85 Gm Cream..g., 0 DOSE TOP BID Metoprolol Tartrate (Metoprolol Tartrate) 25 Mg Tablet, 12.5 MG PO BID Montelukast Sodium (Montelukast Sodium) 10 Mg Tablet, 10 MG PO DAILY Oxybutynin Chloride (Oxybutynin Chloride ER) 5 Mg Tab.er.24, 5 MG PO QPM, (Reported) Pantoprazole Sodium (Pantoprazole Sodium) 40 Mg Tablet.dr, 40 MG PO DAILY Prednisone (Prednisone) 5 Mg Tablet, 5 MG PO DAILY Taper 1 1/2 tabs x 3 days, 1 tab x 3 days then 1/2 tab until pills finished Spironolactone (Aldactone) 25 Mg Tablet, 25 MG PO DAILY Terazosin HCl (Terazosin HCl) 5 Mg Capsule, 10 MG PO QHS Torsemide (Torsemide) 20 Mg Tablet, 20 MG PO DAILY, (Reported) Scheduled PRN Acetaminophen (Acetaminophen) 500 Mg Tablet, 1,000 MG PO TID PRN for MODERATE PAIN (PS 5-7) Allergies Coded Allergies: No Known Drug Allergies (Verified Allergy, Unknown, 11/29/20) MEJIA VILLAGRAN MD Dec 11, 2020 15:35
== END 2020-12-11 12:03 | disposition home health service (06) | DRG 559 ==
LOC: M PM&R 18:08
PROVIDERS: ADMIT Physical Medicine & Rehabilitation; ATTEND Physical Medicine & Rehabilitation
DX: S72.141D Displaced intertrochanteric fracture of right femur, subsequent encounter for closed fracture with routine healing (principal); I50.23 Acute on chronic systolic (congestive) heart failure; E87.1 Hypo-osmolality and hyponatremia; I13.0 Hypertensive heart and chronic kidney disease with heart failure and stage 1 through stage 4 chronic kidney disease, or unspecified chronic kidney disease; I42.9 Cardiomyopathy, unspecified; N17.9 Acute kidney failure, unspecified; I27.20 Pulmonary hypertension, unspecified; N18.32 Chronic kidney disease, stage 3b; N40.0 Benign prostatic hyperplasia without lower urinary tract symptoms; N32.81 Overactive bladder; E87.5 Hyperkalemia; D50.0 Iron deficiency anemia secondary to blood loss (chronic); I95.9 Hypotension, unspecified; F41.9 Anxiety disorder, unspecified; J45.909 Unspecified asthma, uncomplicated; M19.90 Unspecified osteoarthritis, unspecified site; G47.33 Obstructive sleep apnea (adult) (pediatric); E88.09 Other disorders of plasma-protein metabolism, not elsewhere classified; E87.6 Hypokalemia; M10.9 Gout, unspecified; E83.52 Hypercalcemia; Z74.1 Need for assistance with personal care; Z74.09 Other reduced mobility; Z79.82 Long term (current) use of aspirin; Z79.899 Other long term (current) drug therapy; W10.9XXD Fall (on) (from) unspecified stairs and steps, subsequent encounter; Y92.9 Unspecified place or not applicable; Y99.9 Unspecified external cause status; Y93.89 Activity, other specified; Z95.810 Presence of automatic (implantable) cardiac defibrillator; Z20.822 Contact with and (suspected) exposure to COVID-19

== ENCOUNTER → 2020-12-30 | Outpatient (CLI) | payer MEDICARE, BC ==
[~2020-12-30] MED LIST changes: +ACET-683 PO; +ALDA25TA2 PO; +ALFU10TA3 PO; +COLA100C5 PO; +FERR32TA PO; +LIDO5TD TD; +METO1TAB87 PO; +MONT10TA10 PO; +MUSCCRE9 TOP; +OXYB-54 PO; +PANT40TA29 PO; +PRED5TA PO; +RISATAB3 PO; +TERA5CAP3 PO; +TORS20TA2 PO
--- NOTE | 2020-12-30 12:20 | REP ---
INDICATION: DISPLACED INTERTROCHANTERIC FRACTURE OF RIGHT FEMUR COMPARISON: None. TECHNIQUE: AP and frog-lateral views of the right hip FINDINGS: Patient is noted to be status post open reduction and fixation for intertrochanteric femur fracture. Satisfactory alignment and orthopedic hardware placement noted. IMPRESSION: Status post satisfactory open reduction and fixation for intertrochanteric femur fracture. <Electronically signed by Govind Mathew > 12/30/20 [id number]
== END ==
LOC: M RAD 11:40
PROVIDERS: ATTEND Surgery
DX: S72.141A Displaced intertrochanteric fracture of right femur, initial encounter for closed fracture (principal); Y92.9 Unspecified place or not applicable; Y93.9 Activity, unspecified; Y99.9 Unspecified external cause status

== ENCOUNTER → 2021-02-10 | Outpatient (CLI) | payer MEDICARE, BC ==
[~2021-02-10] MED LIST changes: -MONT10TA10 PO; +MONT10TA97 PO
== END ==
LOC: M PLAIMG 09:26
PROVIDERS: ATTEND Internal Medicine
DX: J90 Pleural effusion, not elsewhere classified (principal); I12.9 Hypertensive chronic kidney disease with stage 1 through stage 4 chronic kidney disease, or unspecified chronic kidney disease; N18.30 Chronic kidney disease, stage 3 unspecified; M1A.3620 Chronic gout due to renal impairment, left knee, without tophus (tophi); I42.0 Dilated cardiomyopathy; I50.42 Chronic combined systolic (congestive) and diastolic (congestive) heart failure; R60.0 Localized edema; Z95.0 Presence of cardiac pacemaker
CPT/HCPCS: 36415; 71046; 80053; 83735; 83880; 83970; 84550; G0463

== ENCOUNTER → 2021-02-10 | Outpatient (REF) | payer MEDICARE, BC ==
[~2021-02-10] MED LIST changes: +ACET500T15 PO; +ALBU8.5H INH; +ALLO100T PO; +ALRE0.5S OU; +ASPI-161 PO; +BACL10TA2 PO; +COMBAER6 INH; +DULC10SU2 PR; +FLEEENE12 PR; +LIDO5TD TOP; +METO25TA PO; +MIDO10TA PO; +MIDO5TA PO; +MILKSUS3 PO; +NEPR1LIQ2 PO; +PROAAER10 INH
== END ==
LOC: M SFHCPLAZ 09:06
PROVIDERS: ATTEND Internal Medicine
DX: I12.9 Hypertensive chronic kidney disease with stage 1 through stage 4 chronic kidney disease, or unspecified chronic kidney disease (principal); N18.30 Chronic kidney disease, stage 3 unspecified; M1A.3620 Chronic gout due to renal impairment, left knee, without tophus (tophi)

== ENCOUNTER → 2021-02-10 | Outpatient (CLI) | payer MEDICARE, BC ==
[2021-02-10 14:01] LABS: CALCIUM LEVEL 10.7 MG/DL (8.8-10.2); GLOMERULAR FILTRATION RATE 34.9 (>42); POTASSIUM SERUM 4.4 MEQ/L (3.5-5.1)
== END ==
LOC: M PLALAB 09:24
PROVIDERS: ATTEND Internal Medicine Cardiovascular Disease
DX: I42.0 Dilated cardiomyopathy (principal); I50.42 Chronic combined systolic (congestive) and diastolic (congestive) heart failure; R60.0 Localized edema

== ENCOUNTER 2021-03-22 13:09 | Inpatient (IN) | payer MEDICARE, BC ==
[~2021-03-22] VITALS: Ht 177.8 cm; Wt 103.1 kg
[~2021-03-22 13:09] MED LIST changes: -ACET500T15 PO; -ALBU8.5H INH; -ALLO100T PO; -ALRE0.5S OU; -ASPI-161 PO; -BACL10TA2 PO; -COMBAER6 INH; -DULC10SU2 PR; -FLEEENE12 PR; -LIDO5TD TOP; -METO25TA PO; -MIDO10TA PO; -MIDO5TA PO; -MILKSUS3 PO; -NEPR1LIQ2 PO; -PROAAER10 INH
[2021-03-22] MEDS ORDERED: ONDANSETRON 4MG/2ML VIAL IV ONE (13:30)
[2021-03-22] MEDS ORDERED: fentaNYL 100 MCG/2 ML INJECTION IV ONE ×2 (13:30→22:10)
[2021-03-22 14:19] LABS: HEMATOCRIT 33.9 % (42.0-52.0); HEMOGLOBIN 11.4 g/dl (13.5-17.5); MEAN CORPUSCULAR HEMOGLOBIN 32.4 pg (27.0-33.0); MEAN CORPUSCULAR HGB CONC 33.6 g/dl (32.0-36.5); MEAN CORPUSCULAR VOLUME 96.3 fl (80.0-96.0); PLATELET COUNT, AUTOMATED 153 10^3/uL (150-450); RED BLOOD COUNT 3.52 10^6/uL (4.30-6.10); WHITE BLOOD COUNT 6.1 10^3/uL (4.0-10.0)
[2021-03-22 14:30] LABS: INR 1.35; PROTHROMBIN TIME 17.1 SECONDS (12.7-14.5)
[2021-03-22 14:31] LABS: PARTIAL THROMBOPLASTIN TIME 35.2 SECONDS (25.9-37.0)
[2021-03-22 14:49] LABS: CALCIUM LEVEL 10.5 MG/DL (8.8-10.2); CREATININE FOR GFR 3.33 MG/DL (0.70-1.30); GLOMERULAR FILTRATION RATE 19.4 (>42); POTASSIUM SERUM 5.2 MEQ/L (3.5-5.1)
[2021-03-22] MEDS ORDERED: NS 500 ML IV ONE (15:25)
[2021-03-22] MEDS ORDERED: METO1TAB32 PO (17:04)
[2021-03-22] MEDS ORDERED: ALRE0.5S OU (17:04)
[2021-03-22] MEDS ORDERED: ENTR1TAB PO (17:04)
[2021-03-22] MEDS ORDERED: ALLO100T PO (17:04)
[2021-03-22] MEDS ORDERED: ALBU8.5H INH (17:04)
[2021-03-22] MEDS ORDERED: ALFU10TA3 PO (17:04)
[2021-03-22] MEDS ORDERED: HOME MED LIST COMPLETE! XX SCH (17:10)
[2021-03-22] MEDS ORDERED: ALBUTEROL 90 MCG/ACT 8GM HFA INHALER INH PRN (17:15)
[2021-03-22] MEDS: ACETAMINOPHEN TAB 650MG DOSE (2X325MG) PO PRN (17:46)
[2021-03-22 18:45] VITALS: BP 96/53
[2021-03-22 19:53] VITALS: BP 99/51
[2021-03-22] MEDS ORDERED: ACETAMINOPHEN 325 MG TAB PO ONE (20:00)
[2021-03-22] MEDS: HEPARIN SOD (PORCINE) 5000UNITS/ML 1ML VIAL/SYRINGE SC SCH (20:03)
[2021-03-22] MEDS: oxyBUTYnin *DITROPAN XL* 5 MG TABCR PO SCH (20:03)
[2021-03-22] MEDS: SYMBICORT 80/4.5MCG INHALER 6GM INH SCH (20:18)
[2021-03-22] MEDS ORDERED: ACETAMINOPHEN *IV* 1,000 MG in IV 1 EA IV ONE (20:25)
[2021-03-22 22:46] VITALS: BP 95/55
[2021-03-22 23:54] VITALS: BP 82/52
[2021-03-23] VITALS (11 sets, daily range): BP systolic 80–97; BP diastolic 40–60
[2021-03-23] MEDS: ACETAMINOPHEN TAB 650MG DOSE (2X325MG) PO PRN ×5 (02:53→20:36)
[2021-03-23 06:57] LABS: HEMATOCRIT 32.1 % (42.0-52.0); HEMOGLOBIN 11.1 g/dl (13.5-17.5); MEAN CORPUSCULAR HEMOGLOBIN 32.8 pg (27.0-33.0); MEAN CORPUSCULAR HGB CONC 34.6 g/dl (32.0-36.5); PLATELET COUNT, AUTOMATED 147 10^3/uL (150-450); RED BLOOD COUNT 3.38 10^6/uL (4.30-6.10)
[2021-03-23] MEDS: SYMBICORT 80/4.5MCG INHALER 6GM INH SCH ×2 (07:22→19:43)
[2021-03-23 07:28] LABS: ALBUMIN 2.9 GM/DL (3.2-5.2); BILIRUBIN,TOTAL 2.2 MG/DL (0.2-1.0); CALCIUM LEVEL 10.2 MG/DL (8.8-10.2); CREATININE FOR GFR 3.11 MG/DL (0.70-1.30); POTASSIUM SERUM 5.1 MEQ/L (3.5-5.1); TOTAL PROTEIN 6.6 GM/DL (6.4-8.2)
[2021-03-23] MEDS ORDERED: MORPHINE 2 MG/ML 1ML VIAL (J2270) IV PRN (08:55)
[2021-03-23] MEDS: ESCITALOPRAM OXALATE 10 MG TAB (LEXAPRO) PO SCH (08:57)
[2021-03-23] MEDS: allopurinoL 100 MG TAB PO SCH (08:57)
[2021-03-23] MEDS: HEPARIN SOD (PORCINE) 5000UNITS/ML 1ML VIAL/SYRINGE SC SCH ×2 (08:58→20:35)
[2021-03-23] MEDS: ASPIRIN 81MG ENTERIC TABLET PO SCH (08:58)
[2021-03-23] MEDS ORDERED: SODIUM CHLORIDE 0.9% 1000ML IV ONE (11:35)
[2021-03-23] MEDS ORDERED: MIDODRINE 2.5 MG TAB PO SCH (12:00)
[2021-03-23] MEDS: oxyBUTYnin *DITROPAN XL* 5 MG TABCR PO SCH (20:35)
[2021-03-24] VITALS (7 sets, daily range): BP systolic 85–102; BP diastolic 50–56
[2021-03-24] MEDS: ACETAMINOPHEN TAB 650MG DOSE (2X325MG) PO PRN ×2 (06:15→13:19)
[2021-03-24 06:45] LABS: FERRITIN 135 NG/ML (26-388); IRON (FE) 30 UG/DL (65-175); PERCENT SATURATION 11.5 % (19.7-50.0); TOTAL IRON BINDING CAPACITY 260 UG/DL (250-450); TOTAL PROTEIN 5.9 GM/DL (6.4-8.2)
[2021-03-24] MEDS: ESCITALOPRAM OXALATE 10 MG TAB (LEXAPRO) PO SCH (08:02)
[2021-03-24] MEDS: HEPARIN SOD (PORCINE) 5000UNITS/ML 1ML VIAL/SYRINGE SC SCH ×2 (08:02→20:25)
[2021-03-24] MEDS: allopurinoL 100 MG TAB PO SCH (08:03)
[2021-03-24] MEDS: ASPIRIN 81MG ENTERIC TABLET PO SCH (08:03)
[2021-03-24] MEDS: SYMBICORT 80/4.5MCG INHALER 6GM INH SCH ×2 (08:33→19:53)
[2021-03-24 09:40] LABS: CALCIUM LEVEL 9.8 MG/DL (8.8-10.2); CREATININE FOR GFR 3.38 MG/DL (0.70-1.30); GLOMERULAR FILTRATION RATE 19.1 (>42); POTASSIUM SERUM 4.9 MEQ/L (3.5-5.1)
[2021-03-24 09:45] LABS: PTH INTACT 117.6 PG/ML (18.5-88.0); TOTAL 25(OH) VITAMIN D 42.2 NG/ML (30.0-100.0)
[2021-03-24] MEDS ORDERED: IRON SUCROSE 100MG 5ML VIAL (J1756 PER 1MG) IV SCH (09:55)
[2021-03-24] MEDS: IRON SUCROSE 250 MG in NS 250 ML IV SCH (13:11)
[2021-03-24] MEDS: oxyBUTYnin *DITROPAN XL* 5 MG TABCR PO SCH (20:25)
[2021-03-25] VITALS: BP 109/58
[2021-03-25] MEDS: ACETAMINOPHEN TAB 650MG DOSE (2X325MG) PO PRN ×3 (01:37→13:06)
[2021-03-25 04:00] VITALS: BP 94/62
[2021-03-25] MEDS: HEPARIN SOD (PORCINE) 5000UNITS/ML 1ML VIAL/SYRINGE SC SCH (07:36)
[2021-03-25] MEDS: ASPIRIN 81MG ENTERIC TABLET PO SCH (07:36)
[2021-03-25] MEDS: allopurinoL 100 MG TAB PO SCH (07:36)
[2021-03-25] MEDS: ESCITALOPRAM OXALATE 10 MG TAB (LEXAPRO) PO SCH (07:37)
[2021-03-25 08:00] VITALS: BP 108/76
[2021-03-25] MEDS: SYMBICORT 80/4.5MCG INHALER 6GM INH SCH ×2 (08:00→08:02)
[2021-03-25 11:05] LABS: ALBUMIN 3.12 GM/DL (3.29-5.55); ALBUMIN % 52.8 % (55.8-66.1); ALPHA-1-GLOBULIN % 6.2 % (2.9-4.9); ALPHA-1-GLOBULINS 0.37 GM/DL (0.17-0.41); ALPHA-2-GLOBULINS 0.67 GM/DL (0.42-0.99); ALPHA-2-GLOBULINS % 11.3 % (7.1-11.8); BETA-1-GLOBULINS 0.34 GM/DL (0.28-0.60); BETA-1-GLOBULINS % 5.7 % (4.7-7.2); BETA-2-GLOBULINS 0.33 GM/DL (0.19-0.55); BETA-2-GLOBULINS % 5.6 % (3.2-6.5); GAMMA GLOBULIN % 18.4 % (11.1-18.8); GAMMA GLOBULINS 1.09 GM/DL (0.65-1.58)
[2021-03-25 12:00] VITALS: BP 97/59
[2021-03-25] MEDS: IRON SUCROSE 250 MG in NS 250 ML IV SCH (12:05)
[2021-03-25 16:00] VITALS: BP 102/64
== END 2021-03-25 16:31 | DRG 563 ==
LOC: M ED 13:09 → EDBD 13:09 → M ED INP 16:19 → M PCU 18:43
PROVIDERS: ADMIT Internal Medicine; ATTEND Internal Medicine
PROC: 2W3QX3Z Immobilization of Right Lower Leg using Brace (ICD-10-PCS; principal; 2021-03-23)
DX: S82.454A Nondisplaced comminuted fracture of shaft of right fibula, initial encounter for closed fracture (principal); I13.0 Hypertensive heart and chronic kidney disease with heart failure and stage 1 through stage 4 chronic kidney disease, or unspecified chronic kidney disease; I50.22 Chronic systolic (congestive) heart failure; N17.9 Acute kidney failure, unspecified; S82.254A Nondisplaced comminuted fracture of shaft of right tibia, initial encounter for closed fracture; N18.30 Chronic kidney disease, stage 3 unspecified; I25.5 Ischemic cardiomyopathy; E78.5 Hyperlipidemia, unspecified; J45.909 Unspecified asthma, uncomplicated; G47.33 Obstructive sleep apnea (adult) (pediatric); F41.9 Anxiety disorder, unspecified; M10.9 Gout, unspecified; F32.A Depression, unspecified; Z95.2 Presence of prosthetic heart valve; Z79.82 Long term (current) use of aspirin; Z79.899 Other long term (current) drug therapy; Z20.822 Contact with and (suspected) exposure to COVID-19; I95.9 Hypotension, unspecified; W01.0XXA Fall on same level from slipping, tripping and stumbling without subsequent striking against object, initial encounter; W07.XXXA Fall from chair, initial encounter; Y92.009 Unspecified place in unspecified non-institutional (private) residence as the place of occurrence of the external cause; E83.52 Hypercalcemia; D50.9 Iron deficiency anemia, unspecified

== ENCOUNTER → 2021-04-09 | Outpatient (REF) | payer MEDICARE, BC ==
[~2021-04-09] MED LIST changes: +ACET500T15 PO; +ALBU8.5H INH; +ALLO100T PO; +ALRE0.5S OU; +ASPI-161 PO; +BACL10TA2 PO; +COMBAER6 INH; +DULC10SU2 PR; +FLEEENE12 PR; +LIDO5TD TOP; +METO25TA PO; +MIDO10TA PO; +MIDO5TA PO; +MILKSUS3 PO; +NEPR1LIQ2 PO; +PROAAER10 INH
== END ==
PROVIDERS: ATTEND Physician Assistant
DX: I50.9 Heart failure, unspecified (principal)

== ENCOUNTER → 2021-04-09 | Outpatient (CLI) | payer MEDICARE, BC | PROVIDERS: ATTEND Internal Medicine | DX: I50.21 Acute systolic (congestive) heart failure (principal) ==

== ENCOUNTER 2021-04-10 16:59 | Inpatient (IN) | payer MEDICARE, BC ==
[~2021-04-10] VITALS: Ht 177.8 cm; Wt 101.0 kg
[~2021-04-10 16:59] MED LIST changes: -ACET500T15 PO; -ASPI-161 PO; -BACL10TA2 PO; -DULC10SU2 PR; -FLEEENE12 PR; -LIDO5TD TOP; -METO25TA PO; -MIDO10TA PO; -MILKSUS3 PO; -NEPR1LIQ2 PO; -PROAAER10 INH
[2021-04-10] MEDS ORDERED: FUROSEMIDE 100MG/10ML VIAL (J1940) IV ONE (18:00)
[2021-04-10] MEDS ORDERED: ACETAMINOPHEN TAB 650MG DOSE (2X325MG) PO PRN (18:20)
[2021-04-10 18:57] LABS: VENOUS BASE EXCESS 2.4 (-2.0-2.0); VENOUS HCO3 26.4 MEQ/L (23.0-27.0); VENOUS O2 SATURATION 99.1 % (60.0-80.0); VENOUS PARTIAL PRESSURE CO2 38.6 mmHg (38.0-50.0); VENOUS PARTIAL PRESSURE O2 149.2 mmHg (30.0-50.0); VENOUS PH 7.453 UNITS (7.330-7.430); VENOUS STANDARD HCO3 26.7 MEQ/L; VENOUS TOTAL CO2 27.6 MEQ/L (24.0-28.0)
[2021-04-10 19:00] LABS: BASO # 0.1 10^3/uL (0.0-0.2); BASO % 0.7 % (0.0-1.0); EOS # 0.2 10^3/uL (0.0-0.5); EOS % 2.7 % (0.0-3.0); HEMATOCRIT 29.7 % (42.0-52.0); HEMOGLOBIN 10.3 g/dl (13.5-17.5); LYMPH # 0.8 10^3/uL (1.5-5.0); LYMPH % 11.3 % (24.0-44.0); MEAN CORPUSCULAR HEMOGLOBIN 33.8 pg (27.0-33.0); MEAN CORPUSCULAR HGB CONC 34.7 g/dl (32.0-36.5); MEAN CORPUSCULAR VOLUME 97.4 fl (80.0-96.0); MONO # 0.9 10^3/uL (0.0-0.8); MONO % 13.8 % (2.0-8.0); NEUTROPHILS # 4.8 10^3/uL (1.5-8.5); NEUTROPHILS % 70.6 % (36.0-66.0); PLATELET COUNT, AUTOMATED 306 10^3/uL (150-450); RED BLOOD COUNT 3.05 10^6/uL (4.30-6.10); WHITE BLOOD COUNT 6.7 10^3/uL (4.0-10.0)
[2021-04-10 19:34] LABS: ALBUMIN 2.7 GM/DL (3.2-5.2); BILIRUBIN,DIRECT 1.1 MG/DL (0.0-0.2); BILIRUBIN,TOTAL 1.7 MG/DL (0.2-1.0); CALCIUM LEVEL 10.5 MG/DL (8.8-10.2); CREATININE FOR GFR 2.33 MG/DL (0.70-1.30); GLOMERULAR FILTRATION RATE 29.3 (>42); MAGNESIUM LEVEL 2.6 MG/DL (1.8-2.4); POTASSIUM SERUM 3.5 MEQ/L (3.5-5.1); THYROID STIMULATING HORMONE 6.01 uIU/ML (0.358-3.740); TOTAL PROTEIN 6.4 GM/DL (6.4-8.2)
[2021-04-10] MEDS: COMBIVENT RESPIMAT 100-20MCG INHALER 4GM INH SCH (20:00)
[2021-04-10] MEDS ORDERED: ALRE0.5S OU (20:38)
[2021-04-10] MEDS ORDERED: LEXA1TAB2 PO (20:38)
[2021-04-10] MEDS ORDERED: METO25TA PO (20:38)
[2021-04-10] MEDS ORDERED: SPIR-10 PO (20:38)
[2021-04-10] MEDS ORDERED: NEPR1LIQ2 PO (20:38)
[2021-04-10] MEDS ORDERED: ASPI-161 PO (20:38)
[2021-04-10] MEDS ORDERED: MILKSUS3 PO (20:38)
[2021-04-10] MEDS ORDERED: ALLO100T PO (20:38)
[2021-04-10] MEDS ORDERED: FLEEENE12 PR (20:38)
[2021-04-10] MEDS ORDERED: DULC10SU2 PR (20:38)
[2021-04-10] MEDS ORDERED: PROAAER10 INH (20:38)
[2021-04-10] MEDS ORDERED: TORS20TA2 PO (20:38)
[2021-04-10] MEDS ORDERED: BACL10TA2 PO (20:38)
[2021-04-10] MEDS ORDERED: MIDO10TA PO (20:38)
[2021-04-10] MEDS ORDERED: SYMB80INH INH (20:38)
[2021-04-10] MEDS ORDERED: PANT40TA29 PO (20:38)
[2021-04-10] MEDS ORDERED: COMBAER6 INH (20:38)
[2021-04-10] MEDS ORDERED: ACET500T15 PO (20:38)
[2021-04-10] MEDS ORDERED: LIDO5TD TOP (20:38)
[2021-04-10] MEDS ORDERED: HOME MED LIST COMPLETE! XX SCH (20:40)
[2021-04-10 20:42] LABS: RSV AMPLIFICATION NEGATIVE (NEGATIVE)
[2021-04-10] MEDS ORDERED: ALBUTEROL 90 MCG/ACT 8GM HFA INHALER INH PRN (21:45)
[2021-04-10] MEDS ORDERED: BISACODYL 10 MG SUPP PR PRN (21:45)
[2021-04-11] VITALS (7 sets, daily range): BP systolic 100–114; BP diastolic 54–69
[2021-04-11] MEDS: SYMBICORT 80/4.5MCG INHALER 6GM INH SCH ×3 (00:07→19:26)
[2021-04-11] MEDS: BACLOFEN 5MG PER 1/2 TABLET PO SCH ×3 (00:09→23:27)
[2021-04-11] MEDS: PERCOCET 5MG/325MG TAB PO PRN ×2 (01:01→05:25)
[2021-04-11] MEDS: HEPARIN SOD (PORCINE) 5000UNITS/ML 1ML VIAL/SYRINGE SQ SCH ×3 (07:41→23:17)
[2021-04-11] MEDS: COMBIVENT RESPIMAT 100-20MCG INHALER 4GM INH SCH ×3 (08:04→19:26)
[2021-04-11] MEDS: **NOTE PATIENT COMMENT** MISC XX SCH ×2 (09:08→22:54)
[2021-04-11] MEDS: LIDOCAINE 5% (LIDODERM) PATCH TOP SCH (09:25)
[2021-04-11] MEDS: allopurinoL 100 MG TAB PO SCH (09:26)
[2021-04-11] MEDS: TORSEMIDE 20 MG TAB PO SCH ×2 (09:26→18:58)
[2021-04-11] MEDS: ASPIRIN 81MG ENTERIC TABLET PO SCH ×2 (09:26→23:17)
[2021-04-11] MEDS: PANTOPRAZOLE 40MG TAB (PROTONIX) PO SCH (09:26)
[2021-04-11] MEDS: ESCITALOPRAM OXALATE 10 MG TAB (LEXAPRO) PO SCH (09:26)
[2021-04-11] MEDS: SPIRONOLACTONE 25 MG TAB PO SCH (09:27)
[2021-04-11] MEDS: MIDODRINE 5 MG TAB PO SCH ×3 (09:27→17:42)
[2021-04-11 10:05] LABS: BASO # 0.1 10^3/uL (0.0-0.2); BASO % 0.8 % (0.0-1.0); EOS # 0.2 10^3/uL (0.0-0.5); EOS % 3.4 % (0.0-3.0); HEMATOCRIT 31.1 % (42.0-52.0); HEMOGLOBIN 10.6 g/dl (13.5-17.5); LYMPH # 0.9 10^3/uL (1.5-5.0); LYMPH % 13.9 % (24.0-44.0); MEAN CORPUSCULAR HEMOGLOBIN 32.9 pg (27.0-33.0); MEAN CORPUSCULAR HGB CONC 34.1 g/dl (32.0-36.5); MEAN CORPUSCULAR VOLUME 96.6 fl (80.0-96.0); MONO # 0.9 10^3/uL (0.0-0.8); MONO % 14.4 % (2.0-8.0); NEUTROPHILS % 66.4 % (36.0-66.0); PLATELET COUNT, AUTOMATED 289 10^3/uL (150-450); RED BLOOD COUNT 3.22 10^6/uL (4.30-6.10); WHITE BLOOD COUNT 6.1 10^3/uL (4.0-10.0)
[2021-04-11 10:14] LABS: INR 1.49; PARTIAL THROMBOPLASTIN TIME 36.7 SECONDS (25.9-37.0); PROTHROMBIN TIME 18.4 SECONDS (12.7-14.5)
[2021-04-11 11:00] LABS: CALCIUM LEVEL 10.6 MG/DL (8.8-10.2); CREATININE FOR GFR 2.36 MG/DL (0.70-1.30); GLOMERULAR FILTRATION RATE 28.9 (>42); POTASSIUM SERUM 4.8 MEQ/L (3.5-5.1)
[2021-04-11] MEDS ORDERED: DESFLURANE 240 ML INHALANT As Ordered ONE (17:22)
[2021-04-11] MEDS ORDERED: MIDAZOLAM INJ 2MG/2ML VIAL (J2250 PER 1MG) As Ordered ONE (17:22)
[2021-04-11] MEDS ORDERED: KETAMINE HCL 200 MG/20 ML VIAL As Ordered ONE (17:22)
[2021-04-11] MEDS ORDERED: SEVOFLURANE INHAL SOLN 250 ML BTL As Ordered ONE (17:22)
[2021-04-11] MEDS ORDERED: fentaNYL 100 MCG/2 ML INJECTION As Ordered ONE (17:22)
[2021-04-11] MEDS ORDERED: fentaNYL 100 MCG/2 ML INJECTION IV PRN (18:00)
[2021-04-11] MEDS ORDERED: oxyCODONE 5MG TAB PO PRN (18:00)
[2021-04-11] MEDS ORDERED: ONDANSETRON 4MG/2ML VIAL IV PRN (18:00)
[2021-04-11] MEDS ORDERED: LR 1,000 ML IV SCH (18:00)
[2021-04-12] VITALS (7 sets, daily range): BP systolic 107–120; BP diastolic 61–80
[2021-04-12] MEDS: PERCOCET 5MG/325MG TAB PO PRN ×2 (00:08→06:20)
[2021-04-12] MEDS: HEPARIN SOD (PORCINE) 5000UNITS/ML 1ML VIAL/SYRINGE SQ SCH ×3 (05:33→21:49)
[2021-04-12 06:04] LABS: BASO # 0.1 10^3/uL (0.0-0.2); BASO % 0.8 % (0.0-1.0); EOS # 0.2 10^3/uL (0.0-0.5); EOS % 2.8 % (0.0-3.0); HEMATOCRIT 31.9 % (42.0-52.0); HEMOGLOBIN 11.2 g/dl (13.5-17.5); LYMPH # 0.9 10^3/uL (1.5-5.0); LYMPH % 14.1 % (24.0-44.0); MEAN CORPUSCULAR HEMOGLOBIN 33.9 pg (27.0-33.0); MEAN CORPUSCULAR HGB CONC 35.1 g/dl (32.0-36.5); MEAN CORPUSCULAR VOLUME 96.7 fl (80.0-96.0); MONO # 0.8 10^3/uL (0.0-0.8); MONO % 13.8 % (2.0-8.0); NEUTROPHILS # 4.1 10^3/uL (1.5-8.5); NEUTROPHILS % 67.7 % (36.0-66.0); PLATELET COUNT, AUTOMATED 305 10^3/uL (150-450); WHITE BLOOD COUNT 6.1 10^3/uL (4.0-10.0)
[2021-04-12 06:31] LABS: CALCIUM LEVEL 10.7 MG/DL (8.8-10.2); CREATININE FOR GFR 2.32 MG/DL (0.70-1.30); GLOMERULAR FILTRATION RATE 29.4 (>42); POTASSIUM SERUM 3.6 MEQ/L (3.5-5.1)
[2021-04-12] MEDS: SYMBICORT 80/4.5MCG INHALER 6GM INH SCH ×2 (09:25→19:34)
[2021-04-12] MEDS: COMBIVENT RESPIMAT 100-20MCG INHALER 4GM INH SCH ×3 (09:25→19:34)
[2021-04-12] MEDS: SPIRONOLACTONE 25 MG TAB PO SCH (09:53)
[2021-04-12] MEDS: LIDOCAINE 5% (LIDODERM) PATCH TOP SCH (09:53)
[2021-04-12] MEDS: BACLOFEN 5MG PER 1/2 TABLET PO SCH ×2 (09:55→21:00)
[2021-04-12] MEDS: ASPIRIN 81MG ENTERIC TABLET PO SCH ×2 (09:56→21:49)
[2021-04-12] MEDS: MIDODRINE 5 MG TAB PO SCH ×3 (09:56→16:43)
[2021-04-12] MEDS: TORSEMIDE 20 MG TAB PO SCH ×2 (09:56→16:43)
[2021-04-12] MEDS: ESCITALOPRAM OXALATE 10 MG TAB (LEXAPRO) PO SCH (09:56)
[2021-04-12] MEDS: ACETAMINOPHEN 500 MG TAB PO PRN (09:57)
[2021-04-12] MEDS: allopurinoL 100 MG TAB PO SCH (09:57)
[2021-04-12] MEDS: PANTOPRAZOLE 40MG TAB (PROTONIX) PO SCH (09:57)
[2021-04-12] MEDS: **NOTE PATIENT COMMENT** MISC XX SCH (21:50)
[2021-04-12 22:33] LABS: VENOUS BASE EXCESS 4.5 (-2.0-2.0); VENOUS HCO3 26.4 MEQ/L (23.0-27.0); VENOUS O2 SATURATION 98.2 % (60.0-80.0); VENOUS PARTIAL PRESSURE CO2 30.9 mmHg (38.0-50.0); VENOUS PARTIAL PRESSURE O2 106.7 mmHg (30.0-50.0); VENOUS STANDARD HCO3 28.6 MEQ/L; VENOUS TOTAL CO2 27.4 MEQ/L (24.0-28.0)
[2021-04-13 00:10] LABS: BILIRUBIN, URINE MANUAL NEGATIVE (NEGATIVE); GLUCOSE, URINE (UA) MANUAL NEGATIVE (NEGATIVE); KETONE, URINE MANUAL NEGATIVE (NEGATIVE); UROBILINOGEN, URINE MANUAL NORMAL (NORMAL)
[2021-04-13 06:00] VITALS: BP 121/70
[2021-04-13] MEDS: HEPARIN SOD (PORCINE) 5000UNITS/ML 1ML VIAL/SYRINGE SQ SCH ×3 (06:13→20:55)
[2021-04-13 06:34] LABS: BASO # 0.1 10^3/uL (0.0-0.2); BASO % 0.7 % (0.0-1.0); EOS # 0.1 10^3/uL (0.0-0.5); EOS % 1.9 % (0.0-3.0); HEMATOCRIT 33.3 % (42.0-52.0); HEMOGLOBIN 11.5 g/dl (13.5-17.5); LYMPH # 0.8 10^3/uL (1.5-5.0); LYMPH % 11.5 % (24.0-44.0); MEAN CORPUSCULAR HEMOGLOBIN 33.5 pg (27.0-33.0); MEAN CORPUSCULAR HGB CONC 34.5 g/dl (32.0-36.5); MEAN CORPUSCULAR VOLUME 97.1 fl (80.0-96.0); MONO # 1.1 10^3/uL (0.0-0.8); MONO % 15.7 % (2.0-8.0); NEUTROPHILS # 4.6 10^3/uL (1.5-8.5); NEUTROPHILS % 69.3 % (36.0-66.0); PLATELET COUNT, AUTOMATED 294 10^3/uL (150-450); RED BLOOD COUNT 3.43 10^6/uL (4.30-6.10); WHITE BLOOD COUNT 6.7 10^3/uL (4.0-10.0)
[2021-04-13 06:55] LABS: CALCIUM LEVEL 10.5 MG/DL (8.8-10.2); CREATININE FOR GFR 2.84 MG/DL (0.70-1.30); FREE T4 1.28 NG/DL (0.76-1.46); GLOMERULAR FILTRATION RATE 23.3 (>42); MAGNESIUM LEVEL 2.6 MG/DL (1.8-2.4); POTASSIUM SERUM 3.8 MEQ/L (3.5-5.1)
[2021-04-13] MEDS: COMBIVENT RESPIMAT 100-20MCG INHALER 4GM INH SCH ×3 (08:00→21:25)
[2021-04-13] MEDS: BACLOFEN 5MG PER 1/2 TABLET PO SCH ×2 (08:52→19:40)
[2021-04-13] MEDS: LIDOCAINE 5% (LIDODERM) PATCH TOP SCH (09:00)
[2021-04-13] MEDS: ASPIRIN 81MG ENTERIC TABLET PO SCH ×2 (09:34→20:54)
[2021-04-13] MEDS: ESCITALOPRAM OXALATE 10 MG TAB (LEXAPRO) PO SCH (09:34)
[2021-04-13] MEDS: PANTOPRAZOLE 40MG TAB (PROTONIX) PO SCH (09:34)
[2021-04-13] MEDS: TORSEMIDE 20 MG TAB PO SCH (09:34)
[2021-04-13] MEDS: LACTULOSE 20 GM/30 ML SYRUP UD PO SCH ×3 (09:34→20:54)
[2021-04-13] MEDS: MIDODRINE 5 MG TAB PO SCH ×3 (09:34→15:00)
[2021-04-13] MEDS: SPIRONOLACTONE 25 MG TAB PO SCH (09:34)
[2021-04-13] MEDS: allopurinoL 100 MG TAB PO SCH (09:35)
[2021-04-13] MEDS: SYMBICORT 80/4.5MCG INHALER 6GM INH SCH ×2 (11:33→21:25)
[2021-04-13] MEDS: ACETAMINOPHEN 500 MG TAB PO PRN (12:13)
[2021-04-13 14:00] VITALS: BP 116/68
[2021-04-13] MEDS ORDERED: FUROSEMIDE 100MG/10ML VIAL (J1940) IV ONE (15:00)
[2021-04-13] MEDS: **NOTE PATIENT COMMENT** MISC XX SCH (20:55)
[2021-04-13 22:00] VITALS: BP 114/70
[2021-04-13 22:42] VITALS: O2SAT 95
[2021-04-14] MEDS: HEPARIN SOD (PORCINE) 5000UNITS/ML 1ML VIAL/SYRINGE SQ SCH ×3 (05:49→20:46)
[2021-04-14 06:00] VITALS: BP 131/78
[2021-04-14] MEDS: COMBIVENT RESPIMAT 100-20MCG INHALER 4GM INH SCH ×3 (07:45→20:11)
[2021-04-14] MEDS: SYMBICORT 80/4.5MCG INHALER 6GM INH SCH ×2 (07:45→20:12)
[2021-04-14] MEDS: MIDODRINE 5 MG TAB PO SCH ×3 (08:00→15:55)
[2021-04-14 08:24] LABS: HEMATOCRIT 34.7 % (42.0-52.0); HEMOGLOBIN 11.9 g/dl (13.5-17.5); MEAN CORPUSCULAR HEMOGLOBIN 33.3 pg (27.0-33.0); MEAN CORPUSCULAR HGB CONC 34.3 g/dl (32.0-36.5); MEAN CORPUSCULAR VOLUME 97.2 fl (80.0-96.0); PLATELET COUNT, AUTOMATED 295 10^3/uL (150-450); RED BLOOD COUNT 3.57 10^6/uL (4.30-6.10); WHITE BLOOD COUNT 7.8 10^3/uL (4.0-10.0)
[2021-04-14 08:28] LABS: CREATININE FOR GFR 3.1 MG/DL (0.70-1.30); GLOMERULAR FILTRATION RATE 21.1 (>42); POTASSIUM SERUM 3.6 MEQ/L (3.5-5.1)
[2021-04-14] MEDS: SPIRONOLACTONE 25 MG TAB PO SCH (09:00)
[2021-04-14] MEDS: ASPIRIN 81MG ENTERIC TABLET PO SCH (10:00)
[2021-04-14] MEDS: ESCITALOPRAM OXALATE 10 MG TAB (LEXAPRO) PO SCH (10:00)
[2021-04-14] MEDS: LIDOCAINE 5% (LIDODERM) PATCH TOP SCH (10:00)
[2021-04-14] MEDS: allopurinoL 100 MG TAB PO SCH (10:00)
[2021-04-14] MEDS: TORSEMIDE 20 MG TAB PO SCH ×2 (10:00→16:37)
[2021-04-14] MEDS: PANTOPRAZOLE 40MG TAB (PROTONIX) PO SCH (10:00)
[2021-04-14 11:04] LABS: PTH INTACT 117.2 PG/ML (18.5-88.0)
[2021-04-14] MEDS: LACTULOSE 20 GM/30 ML SYRUP UD PO SCH ×4 (11:21→20:46)
[2021-04-14 14:00] VITALS: BP 122/70
[2021-04-14] MEDS: ACETAMINOPHEN 500 MG TAB PO PRN (16:40)
[2021-04-14 17:32] VITALS: O2SAT 95
[2021-04-14] MEDS: **NOTE PATIENT COMMENT** MISC XX SCH (20:46)
[2021-04-14 21:29] VITALS: O2SAT 95
[2021-04-14 22:00] VITALS: BP 138/86
[2021-04-15] MEDS: PERCOCET 5MG/325MG TAB PO PRN ×2 (00:01→20:26)
[2021-04-15] MEDS: HEPARIN SOD (PORCINE) 5000UNITS/ML 1ML VIAL/SYRINGE SQ SCH ×3 (05:36→20:26)
[2021-04-15 06:00] VITALS: BP 134/87
[2021-04-15 06:34] LABS: HEMATOCRIT 33.3 % (42.0-52.0); HEMOGLOBIN 11.5 g/dl (13.5-17.5); MEAN CORPUSCULAR HEMOGLOBIN 33.8 pg (27.0-33.0); MEAN CORPUSCULAR HGB CONC 34.5 g/dl (32.0-36.5); MEAN CORPUSCULAR VOLUME 97.9 fl (80.0-96.0); PLATELET COUNT, AUTOMATED 270 10^3/uL (150-450); WHITE BLOOD COUNT 9.2 10^3/uL (4.0-10.0)
[2021-04-15 07:00] LABS: CALCIUM LEVEL 11.1 MG/DL (8.8-10.2); CREATININE FOR GFR 3.22 MG/DL (0.70-1.30); GLOMERULAR FILTRATION RATE 20.2 (>42); MAGNESIUM LEVEL 2.7 MG/DL (1.8-2.4); POTASSIUM SERUM 3.4 MEQ/L (3.5-5.1)
[2021-04-15] MEDS ORDERED: POTASSIUM CHLORIDE 10% LIQ 20 MEQ/15 ML UDC PO ONE (07:20)
[2021-04-15] MEDS: COMBIVENT RESPIMAT 100-20MCG INHALER 4GM INH SCH ×4 (07:57→23:42)
[2021-04-15] MEDS: SYMBICORT 80/4.5MCG INHALER 6GM INH SCH ×2 (07:57→22:36)
[2021-04-15] MEDS: MIDODRINE 5 MG TAB PO SCH ×3 (08:00→17:09)
[2021-04-15] MEDS: SPIRONOLACTONE 25 MG TAB PO SCH (09:30)
[2021-04-15] MEDS: ASPIRIN 81 MG CHEW TABLET PO SCH (09:30)
[2021-04-15] MEDS: allopurinoL 100 MG TAB PO SCH (09:30)
[2021-04-15] MEDS: LACTULOSE 20 GM/30 ML SYRUP UD PO SCH ×4 (09:31→20:26)
[2021-04-15] MEDS: LIDOCAINE 5% (LIDODERM) PATCH TOP SCH (09:31)
[2021-04-15] MEDS: ESCITALOPRAM OXALATE 10 MG TAB (LEXAPRO) PO SCH (09:31)
[2021-04-15] MEDS: TORSEMIDE 20 MG TAB PO SCH ×2 (09:31→17:09)
[2021-04-15] MEDS: OMEPRAZOLE 20MG CAP PO SCH (09:31)
[2021-04-15 13:00] VITALS: BP 124/62
[2021-04-15] MEDS: NYSTATIN 100,000 UNITS/GM TOPICAL PWD 15 GM TOP SCH ×2 (13:39→20:26)
[2021-04-15 14:00] VITALS: BP 133/78
[2021-04-15 15:39] LABS: BILIRUBIN, URINE MANUAL 1+ (NEGATIVE); GLUCOSE, URINE (UA) MANUAL NEGATIVE (NEGATIVE); KETONE, URINE MANUAL NEGATIVE (NEGATIVE); UROBILINOGEN, URINE MANUAL 4 MG mg/dl (NORMAL)
[2021-04-15 15:41] LABS: BACTERIA, URINE LARGE AMOUNT; HYALINE CAST, URINE NONE SEEN /lpf (0-1); RBC, URINE 30-40 /hpf (0-3); SQUAMOUS EPITHELIAL CELL URINE NONE SEEN /hpf (SMALL AMT)
[2021-04-15] MEDS: cefTRIAXone SOD 1 GM in D5W MINI-BAG PLUS 50 ML IV SCH (15:53)
[2021-04-15] MEDS: **NOTE PATIENT COMMENT** MISC XX SCH (20:26)
[2021-04-15 22:00] VITALS: BP 129/80
[2021-04-15] MEDS ORDERED: PERCOCET 5MG/325MG TAB PO ONE (22:50)
[2021-04-15 23:54] VITALS: O2SAT 96
[2021-04-16] MEDS: HEPARIN SOD (PORCINE) 5000UNITS/ML 1ML VIAL/SYRINGE SQ SCH ×3 (05:50→21:39)
[2021-04-16 05:59] LABS: HEMATOCRIT 33.1 % (42.0-52.0); HEMOGLOBIN 11.6 g/dl (13.5-17.5); MEAN CORPUSCULAR HEMOGLOBIN 34.6 pg (27.0-33.0); MEAN CORPUSCULAR VOLUME 98.8 fl (80.0-96.0); PLATELET COUNT, AUTOMATED 267 10^3/uL (150-450); RED BLOOD COUNT 3.35 10^6/uL (4.30-6.10); WHITE BLOOD COUNT 10.4 10^3/uL (4.0-10.0)
[2021-04-16 06:00] VITALS: BP 122/77
[2021-04-16 06:27] LABS: CALCIUM LEVEL 10.9 MG/DL (8.8-10.2); CREATININE FOR GFR 3.25 MG/DL (0.70-1.30); MAGNESIUM LEVEL 2.6 MG/DL (1.8-2.4); POTASSIUM SERUM 3.7 MEQ/L (3.5-5.1)
[2021-04-16 08:00] VITALS: BP 121/76
[2021-04-16] MEDS: SYMBICORT 80/4.5MCG INHALER 6GM INH SCH ×2 (08:06→19:34)
[2021-04-16] MEDS: ASPIRIN 81 MG CHEW TABLET PO SCH (08:21)
[2021-04-16] MEDS: SPIRONOLACTONE 25 MG TAB PO SCH ×2 (08:21→21:39)
[2021-04-16] MEDS: PERCOCET 5MG/325MG TAB PO PRN ×2 (08:41→18:01)
[2021-04-16] MEDS: ESCITALOPRAM OXALATE 10 MG TAB (LEXAPRO) PO SCH (08:42)
[2021-04-16] MEDS: MIDODRINE 5 MG TAB PO SCH ×3 (08:42→16:00)
[2021-04-16] MEDS: allopurinoL 100 MG TAB PO SCH (08:42)
[2021-04-16] MEDS: OMEPRAZOLE 20MG CAP PO SCH (08:43)
[2021-04-16] MEDS: LACTULOSE 20 GM/30 ML SYRUP UD PO SCH ×4 (08:43→21:39)
[2021-04-16] MEDS: TORSEMIDE 20 MG TAB PO SCH ×2 (08:46→18:00)
[2021-04-16] MEDS: LIDOCAINE 5% (LIDODERM) PATCH TOP SCH (08:46)
[2021-04-16] MEDS: NYSTATIN 100,000 UNITS/GM TOPICAL PWD 15 GM TOP SCH ×2 (08:48→21:39)
[2021-04-16 14:00] VITALS: BP 123/77
[2021-04-16] MEDS: COMBIVENT RESPIMAT 100-20MCG INHALER 4GM INH SCH ×2 (14:00→19:34)
[2021-04-16] MEDS: cefTRIAXone SOD 1 GM in D5W MINI-BAG PLUS 50 ML IV SCH (14:53)
[2021-04-16] MEDS ORDERED: LIDOCAINE 1% MDV 20ML VIAL As Ordered ONE (15:44)
[2021-04-16 16:36] LABS: APPEARANCE, BODY FLUID CLOUDY (CLEAR); ASCITES FL COLOR YELLOW (COLORLESS); SOURCE, BODY FLUID ASCITES; SPEC. GRAVITY BODY FLUIDS 1.025 (NOT ESTABLISHED)
[2021-04-16 16:40] VITALS: BP 124/76
[2021-04-16 17:13] LABS: SOURCE, BODY FLUID ALBUMIN ASCITES; SOURCE, BODY FLUID GLUCOSE ASCITES; SOURCE, BODY FLUID TOT PROTEIN ASCITES; TOTAL PROTEIN, BODY FLUID 3.6 G/DL (NOT ESTABLISHED)
[2021-04-16] MEDS: **NOTE PATIENT COMMENT** MISC XX SCH (21:40)
[2021-04-16 22:17] VITALS: BP 123/77
[2021-04-17] MEDS: HEPARIN SOD (PORCINE) 5000UNITS/ML 1ML VIAL/SYRINGE SQ SCH (05:17)
[2021-04-17 05:34] VITALS: BP 122/77
[2021-04-17 06:34] LABS: HEMATOCRIT 36.2 % (42.0-52.0); HEMOGLOBIN 12.5 g/dl (13.5-17.5); MEAN CORPUSCULAR HEMOGLOBIN 34.6 pg (27.0-33.0); MEAN CORPUSCULAR HGB CONC 34.5 g/dl (32.0-36.5); MEAN CORPUSCULAR VOLUME 100.3 fl (80.0-96.0); PLATELET COUNT, AUTOMATED 286 10^3/uL (150-450); RED BLOOD COUNT 3.61 10^6/uL (4.30-6.10); WHITE BLOOD COUNT 10.4 10^3/uL (4.0-10.0)
[2021-04-17 06:59] LABS: ALBUMIN 3.1 GM/DL (3.2-5.2); BILIRUBIN,DIRECT 1.7 MG/DL (0.0-0.2); CALCIUM LEVEL 11.4 MG/DL (8.8-10.2); CREATININE FOR GFR 3.41 MG/DL (0.70-1.30); GLOMERULAR FILTRATION RATE 18.9 (>42); MAGNESIUM LEVEL 2.7 MG/DL (1.8-2.4); POTASSIUM SERUM 3.4 MEQ/L (3.5-5.1); TOTAL PROTEIN 7.4 GM/DL (6.4-8.2)
[2021-04-17] MEDS: COMBIVENT RESPIMAT 100-20MCG INHALER 4GM INH SCH ×2 (07:50→14:00)
[2021-04-17] MEDS: SYMBICORT 80/4.5MCG INHALER 6GM INH SCH (07:50)
[2021-04-17] MEDS: MIDODRINE 5 MG TAB PO SCH (08:00)
[2021-04-17 08:16] VITALS: BP 122/77
[2021-04-17 08:23] VITALS: BP 123/72
[2021-04-17] MEDS: ASPIRIN 81 MG CHEW TABLET PO SCH (08:26)
[2021-04-17] MEDS: TORSEMIDE 20 MG TAB PO SCH (08:26)
[2021-04-17] MEDS: ESCITALOPRAM OXALATE 10 MG TAB (LEXAPRO) PO SCH (08:26)
[2021-04-17] MEDS: allopurinoL 100 MG TAB PO SCH (08:27)
[2021-04-17] MEDS: LACTULOSE 20 GM/30 ML SYRUP UD PO SCH (08:27)
[2021-04-17] MEDS: SPIRONOLACTONE 25 MG TAB PO SCH (08:27)
[2021-04-17] MEDS: OMEPRAZOLE 20MG CAP PO SCH (08:27)
[2021-04-17] MEDS: LIDOCAINE 5% (LIDODERM) PATCH TOP SCH (08:28)
[2021-04-17] MEDS: NYSTATIN 100,000 UNITS/GM TOPICAL PWD 15 GM TOP SCH ×2 (08:35→20:35)
[2021-04-17] MEDS: PERCOCET 5MG/325MG TAB PO PRN (08:36)
[2021-04-17] MEDS ORDERED: POTASSIUM CHLORIDE 10% LIQ 20 MEQ/15 ML UDC PO ONE (11:55)
[2021-04-17] MEDS ORDERED: MORPHINE 4 MG/ML 1ML VIAL/SYRINGE (J2270) IV PRN (13:00)
[2021-04-17] MEDS ORDERED: SCOPOLAMINE 1MG TRANSDERMAL PATCH TOP PRN (13:00)
[2021-04-17] MEDS ORDERED: ATROPINE SULFATE 1% OP SOLN 2 ML BTL SL PRN (13:00)
[2021-04-17] MEDS ORDERED: ONDANSETRON 4 MG ORAL DISINTEGRATING TAB PO PRN (13:00)
[2021-04-17] MEDS ORDERED: FLEET ENEMA PR PRN (13:00)
[2021-04-17] MEDS ORDERED: ONDANSETRON 4MG/2ML VIAL IV PRN (13:00)
[2021-04-17] MEDS ORDERED: HYOSCYAMINE SULFATE 0.125 MG SUBL TABLET PO PRN (13:00)
[2021-04-17] MEDS ORDERED: ACETAMINOPHEN 650 MG SUPP PR PRN (13:00)
[2021-04-17] MEDS ORDERED: LORazepam 2 MG/ML VIAL IV PRN (13:00)
[2021-04-17] MEDS ORDERED: BISACODYL 10 MG SUPP PR PRN (13:00)
[2021-04-17] MEDS: MORPHINE 10MG/0.5ML ORAL CONCENTRATE SOLUTION U/D SL PRN (14:12)
[2021-04-17 14:42] VITALS: BP 123/72
[2021-04-17] MEDS ORDERED: COMBIVENT RESPIMAT 100-20MCG INHALER 4GM INH PRN (15:25)
[2021-04-17] MEDS: LORazepam 1 MG TAB PO PRN ×2 (15:45→20:35)
[2021-04-17] MEDS: **NOTE PATIENT COMMENT** MISC XX SCH (20:35)
[2021-04-18] MEDS: MORPHINE 10MG/0.5ML ORAL CONCENTRATE SOLUTION U/D SL PRN ×4 (05:15→18:51)
[2021-04-18] MEDS: LORazepam 1 MG TAB PO PRN ×2 (05:40→13:35)
[2021-04-18] MEDS: NYSTATIN 100,000 UNITS/GM TOPICAL PWD 15 GM TOP SCH (09:51)
[2021-04-18] MEDS ORDERED: ATIV1TAB10 PO (13:07)
[2021-04-18] MEDS ORDERED: HYOS125TA PO (13:07)
[2021-04-18] MEDS ORDERED: MORP1SOL5 PO (13:07)
== END 2021-04-18 19:03 | disposition hospice, inpatient (51) | DRG 562 ==
LOC: M ED 16:59 → M ED INP 18:18 → ENRESERV 04-11 13:46 → M MSPAV 04-11 14:19
PROVIDERS: ADMIT Internal Medicine; ATTEND Family Medicine
PROC: 0QSGXZZ Reposition Right Tibia, External Approach (ICD-10-PCS; 2021-04-11)
PROC: 0QSJXZZ Reposition Right Fibula, External Approach (ICD-10-PCS; principal; 2021-04-11 16:00)
PROC: 0W9G3ZX Drainage of Peritoneal Cavity, Percutaneous Approach, Diagnostic (ICD-10-PCS; 2021-04-16)
DX: S82.101A Unspecified fracture of upper end of right tibia, initial encounter for closed fracture (principal); I50.33 Acute on chronic diastolic (congestive) heart failure; K72.00 Acute and subacute hepatic failure without coma; I13.0 Hypertensive heart and chronic kidney disease with heart failure and stage 1 through stage 4 chronic kidney disease, or unspecified chronic kidney disease; N18.4 Chronic kidney disease, stage 4 (severe); E72.20 Disorder of urea cycle metabolism, unspecified; N17.9 Acute kidney failure, unspecified; R18.8 Other ascites; E87.0 Hyperosmolality and hypernatremia; S82.831A Other fracture of upper and lower end of right fibula, initial encounter for closed fracture; E78.5 Hyperlipidemia, unspecified; F41.9 Anxiety disorder, unspecified; Z51.5 Encounter for palliative care; Z66 Do not resuscitate; F32.A Depression, unspecified; I25.5 Ischemic cardiomyopathy; J45.909 Unspecified asthma, uncomplicated; R41.82 Altered mental status, unspecified; D63.1 Anemia in chronic kidney disease; G47.33 Obstructive sleep apnea (adult) (pediatric); E83.52 Hypercalcemia; D50.9 Iron deficiency anemia, unspecified; L89.899 Pressure ulcer of other site, unspecified stage; W01.0XXA Fall on same level from slipping, tripping and stumbling without subsequent striking against object, initial encounter; Y92.009 Unspecified place in unspecified non-institutional (private) residence as the place of occurrence of the external cause; Y99.8 Other external cause status; Y93.9 Activity, unspecified; Z95.810 Presence of automatic (implantable) cardiac defibrillator; Z20.822 Contact with and (suspected) exposure to COVID-19; Z79.82 Long term (current) use of aspirin; Z79.899 Other long term (current) drug therapy

== ENCOUNTER → 2021-04-10 | Outpatient (REF) | payer MEDICARE, BC ==
[2021-04-10 13:46] LABS: HEMATOCRIT 30.5 % (42.0-52.0); HEMOGLOBIN 10.6 g/dl (13.5-17.5); MEAN CORPUSCULAR HEMOGLOBIN 33.5 pg (27.0-33.0); MEAN CORPUSCULAR HGB CONC 34.8 g/dl (32.0-36.5); MEAN CORPUSCULAR VOLUME 96.5 fl (80.0-96.0); RED BLOOD COUNT 3.16 10^6/uL (4.30-6.10); WHITE BLOOD COUNT 6.7 10^3/uL (4.0-10.0)
[2021-04-10 13:47] LABS: PLATELET COUNT, AUTOMATED 324 10^3/uL (150-450)
[2021-04-10 14:01] LABS: ERYTHROCYTE SEDIMENTATION RATE 17 mm/hr (0-20)
[2021-04-10 14:28] LABS: C REACTIVE PROTEIN QUANTITATIV 1.83 MG/DL (0.00-0.30); CALCIUM LEVEL 10.4 MG/DL (8.8-10.2); CREATININE FOR GFR 2.43 MG/DL (0.70-1.30); GLOMERULAR FILTRATION RATE 27.9 (>42); POTASSIUM SERUM 4.1 MEQ/L (3.5-5.1); URIC ACID 10.6 MG/DL (3.5-7.2)
== END ==
PROVIDERS: ATTEND Physician Assistant
DX: M10.9 Gout, unspecified (principal); Z79.899 Other long term (current) drug therapy